=== PATIENT | female | born 1960 | race Caucasian/White ===

== ENCOUNTER 2019-03-12 10:11 | Emergency (ER) | payer OTHER ==
--- OUTSIDE RECORDS SUMMARY | 2019-03-12 10:13 | XMS REPORT ---
:1960 [facility] Address [address] [place] [address] [address]. [address] [place] [address] Care Team Providers Name Role Phone Unavailable Unavailable Unavailable Problems This patient has no known problems. Allergies, Adverse Reactions, Alerts This patient has no known allergies or adverse reactions. Medications This patient has no known medications.
[2019-03-12] MEDS ORDERED: IPRATROPIUM BROM 0.5MG/2.5ML ONE (10:40)
[2019-03-12] MEDS ORDERED: ALBUTEROL 2.5 MG/3 ML NEB SOL ONE (10:40)
--- NOTE | 2019-03-12 10:49 | RAD REPORT ---
EXAM DESCRIPTION: RAD - Chest Pa And Lat (2 Views) - 03/12/2019 10:42 am CLINICAL HISTORY: Cough;Congestion Chest pain. COMPARISON: CHEST SINGLE VIEW dated 09/19/2013; CHEST PA AND LAT 2 VIEW dated 06/07/2011; CHEST SINGLE VIEW dated 04/04/2011; CHEST SINGLE VIEW dated 04/03/2011 FINDINGS: Emphysematous changes are present throughout the lungs. Small amount of right pleural flui d noted with postoperative changes seen in the right chest. The heart is normal in size.
--- NOTE | 2019-03-12 11:24 | EDPHYS ---
Physician Documentation [facility] Name: Silva Boogie Age: 58 yrs Sex: Female : 1960 Arrival Date: 03/12/2019 Time: 10:14 Bed 15 Private MD: Immanuel Fuentes E ED Physician Audi Holden HPI: 03/12 10:41 This 58 yrs old Female presents to ER via Ambulatory with complaints of Sinus kb Congestion. 10:41 The patient or guardian reports cough, that is intermittent, described as moderate, kb with no sputum. Onset: The symptoms/episode began/occurred 2 week(s) ago. Severity of symptoms: At their worst the symptoms were moderate, in the emergency department the symptoms are unchanged. Modifying factors: The symptoms are alleviated by nothing, the symptoms are aggravated by nothing. Associated signs and symptoms: The patient has no apparent associated signs or symptoms. The patient has experienced similar episodes in the past. The patient has not recently seen a physician. Pt reports cough and congestion for 2 weeks. Denies fever. Historical: - Allergies: 10:20 No Known Allergies; tw2 - PMHx: 10:20 Anxiety; COPD; Depression; GERD; Hypertension; tw2 - PSHx: 10:20 2/3 right lung removed; Hysterectomy; tw2 - Immunization history:: Adult Immunizations. - Social history:: Smoking status: Patient uses tobacco products, smokes one pack cigarettes per day. - Ebola Screening: : Patient denies travel to an Ebola-affected area in the 21 days before illness onset. ROS: 10:39 Constitutional: Negative for fever, chills, and weight loss, Cardiovascular: Negative kb for chest pain, palpitations, and edema, Abdomen/GI: Negative for abdominal pain, nausea, vomiting, diarrhea, and constipation, Back: Negative for injury and pain, MS/Extremity: Negative for injury and deformity, Skin: Negative for injury, rash, and discoloration, Neuro: Negative for headache, weakness, numbness, tingling, and seizure. 10:39 ENT: Positive for sinus congestion. 10:39 Respiratory: Positive for cough. Exam: 10:39 Constitutional: This is a well developed, well nourished patient who is awake, alert, kb and in no acute distress. Head/Face: Normocephalic, atraumatic. ENT: Nares patent. No nasal discharge, no septal abnormalities noted. Tympanic membranes are normal and external auditory canals are clear. Oropharynx with no redness, swelling, or masses, exudates, or evidence of obstruction, uvula midline. Mucous membranes moist. Neck: Trachea midline, no thyromegaly or masses palpated, and no cervical lymphadenopathy. Supple, full range of motion without nuchal rigidity, or vertebral point tenderness. No Meningismus. Chest/axilla: Normal chest wall appearance and motion. Nontender with no deformity. No lesions are appreciated. Cardiovascular: Regular rate and rhythm with a normal S1 and S2. No gallops, murmurs, or rubs. Normal PMI, no JVD. No pulse deficits. Abdomen/GI: Soft, non-tender, with normal bowel sounds. No distension or tympany. No guarding or rebound. No evidence of tenderness throughout. Skin: Warm, dry with normal turgor. Normal color with no rashes, no lesions, and no evidence of cellulitis. MS/ Extremity: Pulses equal, no cyanosis. Neurovascular intact. Full, normal range of motion. Neuro: Awake and alert, GCS 15, oriented to person, place, time, and situation. Cranial nerves II-XII grossly intact. Motor strength 5/5 in all extremities. Sensory grossly intact. Cerebellar exam normal. Normal gait. 10:39 Respiratory: Respirations: normal, Breath sounds: decreased breath sounds, that are moderate, are heard in the right upper lobe, right middle lobe, right lower lobe, right posterior upper lobe, right posterior middle lobe and right posterior lower lobe, wheezing: expiratory that is mild, is heard in the left upper lobe, left lower lobe, left posterior upper lobe and left posterior lower lobe. Vital Signs: 10:19 BP 139 / 98; Pulse 104; Resp 18; Temp 97.9(TE); Pulse Ox 99% on R/A; Weight 58.97 kg tw2 (R); Pain 5/10; 11:20 BP 147 / 93; Pulse 102; Resp 17; Pulse Ox 96% on R/A; tw2 MDM: 10:19 Patient medically screened. kb 10:39 Data reviewed: vital signs, nurses notes. Data interpreted: Pulse oximetry: on room air kb is 99 %. Interpretation: normal. 11:21 Counseling: I had a detailed discussion with the patient and/or guardian regarding: the kb historical points, exam findings, and any diagnostic results supporting the discharge/admit diagnosis, lab results, radiology results, the need for outpatient follow up, a family practitioner, to return to the emergency department if symptoms worsen or persist or if there are any questions or concerns that arise at home. ED course: Antibiotics given based on history of lung ca, COPD and pt still smokes cigarettes. 03/12 10:20 Order name: Flu; Complete Time: 10:54 kb 03/12 10:20 Order name: Chest Pa And Lat (2 Views) XRAY; Complete Time: 10:54 kb Administered Medications: 10:41 Drug: DuoNeb (3:1) (2.5 mg - 0.5 mg) 3 ml Route: Nebulizer; tw2 11:48 Follow up: Response: No adverse reaction tw2 11:30 Drug: predniSONE 40 mg Route: PO; tw2 11:48 Follow up: Response: No adverse reaction tw2 11:30 Drug: Zithromax 500 mg Route: PO; tw2 11:47 Follow up: Response: No adverse reaction tw2 Disposition: 16:46 Co-signature as Attending Physician, Audi Holden MD I agree with the assessment and kdr plan of care. Disposition: 03/12/19 11:23 Discharged to Home. Impression: Chronic obstructive pulmonary disease with (acute) exacerbation, Bronchitis, not specified as acute or chronic. - Condition is Stable. - Discharge Instructions: Chronic Obstructive Pulmonary Disease Exacerbation, Acute Bronchitis, [id number]. - Prescriptions for Prednisone 20 mg Oral Tablet - take 1 tablet by ORAL route once daily for 5 days; 5 tablet. Zithromax Z- Anthony 250 mg Oral Tablet - take 1 tablet by ORAL route as directed for 5 days Day 1 - take two (2) tablets one time. Day 2, 3, 4 , 5 take one (1) tablet once daily.; 6 tablet. - Medication Reconciliation Form, Thank You Letter, Antibiotic Education, Prescription Opioid Use form. - Follow up: Emergency Department; When: As needed; Reason: Worsening of condition. Follow up: Private Physician; When: 2 - 3 days; Reason: Recheck today's complaints, Continuance of care, Re-evaluation by your physician. Signatures: Dispatcher [employer] Nara Argueta FNP-C FNP-Ckb Audi Holden MD MD kdr Tori Granda RN RN tw2 Corrections: (The following items were deleted from the chart) 11:48 11:23 03/12/2019 11:23 Discharged to Home. Impression: Chronic obstructive pulmonary tw2 disease with (acute) exacerbation; Bronchitis, not specified as acute or chronic. Condition is Stable. Forms are Medication Reconciliation Form, Thank You Letter, Antibiotic Education, Prescription Opioid Use. Follow up: Emergency Department; When: As needed; Reason: Worsening of condition. Follow up: Private Physician; When: 2 - 3 days; Reason: Recheck today's complaints, Continuance of care, Re-evaluation by your physician. kb
--- NOTE | 2019-03-12 11:24 | ER ---
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 i am coughing up green yellow stuff too. Transition of care: patient was not received from another setting of care. Onset of symptoms was March 12, 2019. Risk Assessment: Do you want to hurt yourself or someone else? Patient reports no desire to harm self or others. Initial Sepsis Screen: Does the patient meet any 2 criteria? HR > 90 bpm. No. Patient's initial sepsis screen is negative. Does the patient have a suspected source of infection? Yes: Productive cough/pneumonia. Care prior to arrival: None. 10:18 Method Of Arrival: Ambulatory tw2 10:18 Acuity: MAVIS 3 tw2 Triage Assessment: 11:47 General: Appears. Pain: Denies pain. tw2 Historical: - Allergies: 10:20 No Known Allergies; tw2 - PMHx: 10:20 Anxiety; COPD; Depression; GERD; Hypertension; tw2 - PSHx: 10:20 2/3 right lung removed; Hysterectomy; tw2 - Immunization history:: Adult Immunizations. - Social history:: Smoking status: Patient uses tobacco products, smokes one pack cigarettes per day. - Ebola Screening: : Patient denies travel to an Ebola-affected area in the 21 days before illness onset. Screenin:38 Abuse screen: Denies threats or abuse. Nutritional screening: No deficits noted. tw2 Tuberculosis screening: No symptoms or risk factors identified. Fall Risk None identified. Assessment: 10:15 General: Appears in no apparent distress. Behavior is calm, cooperative, appropriate tw2 for age. Neuro: Level of Consciousness is awake, alert, obeys commands, Oriented to person, place, time, situation. Cardiovascular: Heart tones S1 S2 Patient's skin is warm and dry. Respiratory: Reports cough that is productive, Airway is patent Respiratory effort is even, unlabored, Respiratory pattern is regular, symmetrical, Breath sounds are clear bilaterally. GI: No signs and/or symptoms were reported involving the gastrointestinal system. Abdomen is flat, Bowel sounds present X 4 quads. : No signs and/or symptoms were reported regarding the genitourinary system. EENT: Reports nasal congestion nasal discharge. Derm: No signs and/or symptoms reported regarding the dermatologic system. Musculoskeletal: Range of motion: intact in all extremities. 11:20 Reassessment: Patient appears in no apparent distress at this time. No changes from tw2 previously documented assessment. Patient and/or family updated on plan of care and expected duration. Pain level reassessed. Patient is alert, oriented x 3, equal unlabored respirations, skin warm/dry/pink. 11:45 Reassessment: Patient appears in no apparent distress at this time. No changes from tw2 previously documented assessment. Patient and/or family updated on plan of care and expected duration. Pain level reassessed. Patient is alert, oriented x 3, equal unlabored respirations, skin warm/dry/pink. Vital Signs: 10:19 BP 139 / 98; Pulse 104; Resp 18; Temp 97.9(TE); Pulse Ox 99% on R/A; Weight 58.97 kg tw2 (R); Pain 5/10; 11:20 BP 147 / 93; Pulse 102; Resp 17; Pulse Ox 96% on R/A; tw2 ED Course: 10:14 Patient arrived in ED. mr 10:14 Immanuel Fuentes MD is Private Physician. mr 10:15 Bed in low position. Call light in reach. tw2 10:18 Tori Granda, LULY is Primary Nurse. tw2 10:18 Nara Jackson FNP-C is PHCP. kb 10:18 Audi Holden MD is Attending Physician. kb 10:19 Triage completed. tw2 10:22 Arm band placed on. tw2 10:42 Chest Pa And Lat (2 Views) XRAY In Process Unspecified. EDMS 11:46 No provider procedures requiring assistance completed. Patient did not have IV access tw2 during this emergency room visit. Administered Medications: 10:41 Drug: DuoNeb (3:1) (2.5 mg - 0.5 mg) 3 ml Route: Nebulizer; tw2 11:48 Follow up: Response: No adverse reaction tw2 11:30 Drug: predniSONE 40 mg Route: PO; tw2 11:48 Follow up: Response: No adverse reaction tw2 11:30 Drug: Zithromax 500 mg Route: PO; tw2 11:47 Follow up: Response: No adverse reaction tw2 Outcome: 11:23 Discharge ordered by MD. brock 11:46 Discharged to home ambulatory. tw2 11:46 Condition: stable 11:46 Discharge instructions given to patient, Instructed on discharge instructions, follow up and referral plans. medication usage, Demonstrated understanding of instructions, follow-up care, medications, Prescriptions given X 2. 11:48 Patient left the ED. tw2 Signatures: Dispatcher [employer] EDNara Gibbons, AMELIA-Jorge WEBBERP-Shahana Mike Tara, RN RN tw2
[2019-03-12] MEDS ORDERED: predniSONE 20 MG TAB ONE (11:29)
[2019-03-12] MEDS ORDERED: AZITHROMYCIN 250 MG TAB ONE (11:29)
[2019-03-12 13:20] VITALS: TEMP 97.9
[2019-03-12 13:21] VITALS: BP 147/93; O2SAT 96
== END 2019-03-12 11:48 | disposition home or self-care (01) ==
LOC: ER 10:11
DX: J44.1 Chronic obstructive pulmonary disease with (acute) exacerbation (principal); J40 Bronchitis, not specified as acute or chronic; I10 Essential (primary) hypertension; F17.210 Nicotine dependence, cigarettes, uncomplicated
CPT/HCPCS: 71046; 87804; 94640; 99284; J7512

== ENCOUNTER 2022-05-26 21:39 | Emergency (ER) | payer OTHER ==
--- OUTSIDE RECORDS SUMMARY | 2022-05-26 22:01 | XMS REPORT | Continuity of Care Document ---
:1960 Author Organization [facility] t Address [address] [place] [address] Care Team Providers Name Role Phone Karis Perera Primary Care Physician HENRY FORD Attending Clinician Unavailable NELLY CHAPPELL Attending Clinician Unavailable KWAKU CROCKER Attending Clinician Unavailable KWAKU CROCKER Attending Clinician Unavailable INOCENTE ERIC Attending Clinician Unavailable DEREK MURGUIA Attending Clinician Unavailable DEREK MURGUIA Attending Clinician Unavailable Herminio ANGLIN, Nikita Attending Clinician Radha Gallardo MD Attending Clinician [phone] Inocente Eric MD Attending Clinician Jatin ANGLIN, Henry Attending Clinician Karis Perera Attending Clinician Chente SANCHEZ, Jen Attending Clinician JEN ANDERSON Attending Clinician Unavailable Doctor Unassigned, Merigold Attending Clinician Unavailable KARIS ALONZO Attending Clinician Unavailable Lab, Ang - Db Attending Clinician Unavailable CHARANJIT BOWDEN Attending Clinician Unavailable Ann ANGLIN, Charanjit Waller Attending Clinician MONA NANCE Attending Clinician Unavailable MONA NANCE Attending Clinician Unavailable Kwaku Crocker DO Attending Clinician Jama ANGLIN, Camille Attending Clinician Len ANGLIN, Alberto Attending Clinician Krissy MAURICIO, Emili Suero Attending Clinician Unavailable Alisa Bettencourt LVN Attending Clinician Unavailable Mary Ellen MAURICIO, Emmanuel Cox Attending Clinician Unavailable Zulay Cevallos Attending Clinician ZULAY FROST Attending Clinician Unavailable Cristo ANGILN, Immanuel Suero Attending Clinician Reginaldo Franco Attending Clinician Becca Dias MD Attending Clinician BECCA DIAS Attending Clinician Unavailable Marcelino Rios Attending Clinician MARCELINO BUSCH Attending Clinician Unavailable Pob, [facility] Main Attending Clinician Unavailable Jose Alejandro Sarmiento Attending Clinician Unavailable Qasim Castillo DO Attending Clinician Andrés Saldaña MD Attending Clinician ANDRÉS SALDAÑA Attending Clinician Unavailable ANDRÉS SALDAÑA Attending Clinician Unavailable PAMELA JACKSON Attending Clinician Unavailable KWAKU CROCKER Admitting Clinician Unavailable Kwaku Crocker DO Admitting Clinician HENRY FORD Admitting Clinician Unavailable Payers Payer Name Policy Type Policy Number Effective Date Expiration Date Steph kelley WELL[employer]/C DUAL [id number] 2021 COMP HMO D SNP 00:00:00 MED[place]ID [place] [id number] 2022 00:00:00 Problems Condition Condition Condition Status Onset Resolution Last Treating Co mments Source Name Details Category Date Date Treatment Clinician Date Primary Primary Disease Active 2021-04 [facility] lung lung 1-29 ity of adenocarci adenocarci [place] [facility] Lung Lung Disease Active 2021-04 Overview: Univer s nodule nodule 0-18 [place] ity of 00:00: g of this [place] note Medical might be Branch different from the original. Added automatic ally from request for surgery [id number] Acute pain Acute pain Disease Active U nivers of left of left 4-19 ity of shoulder shoulder 00:00: [place] [facility] Acute Acute Disease Active Univers left-sided left-sided 4-19 it y of low back low back 00:00: [place] pain pain 00 Medical without without Branch sciatica sciatica Status Status Disease Active Univers post fall post fall 4-19 ity of 00:00: [place] [facility] Overweight Overweight Disease Active U nivers (BMI (BMI 8-29 ity of 25.0-29.9) 25.0-29.9) [place] [facility] [place] Tachycardi Tachycardi Disease Active U nivers a a 8-29 ity of 00:00: [place] [facility] Essential Essential Disease Active Uni vers hypertensi hypertensi 8-29 it y of on on 00:00: [place] [address] Medical Branch History of History of Disease Active 2017-04 U nivers cancer cancer 0-15 ity of 00:00: [place] [address] Medical Branch Allergies, Adverse Reactions, Alerts Allergy Allergy Status Severity Reaction(s) Onset Inactive Treating Comm ents Source Name Type Date Date Clinician NO KNOWN Drug Active Univers ALLERGIE Class ity of S [place] [facility] Social History Social Habit Start Date Stop Date Quantity Comments Source History SDOH University o f Alcohol Frequency [place] [facility] History SDMO University o f Alcohol Std Drinks [place] [facility] History SDMO University o f Alcohol Binge [place] [facility] Exposure to 2022-04-14 2022-04-24 Not sure [facility] SARS-CoV-2 (event) 00:00:00 07:18:00 [facility] Alcohol intake 2022-03-27 2022-03-27 Current drinker Unive rsity of 00:00:00 00:00:00 of alcohol [facility] (finding) Branch Cigarettes smoked 2021-10-24 2021-10-24 Univers ity of current (pack per 00:00:00 00:00:00 ) - Reported Branch Tobacco use and 2021-10-24 2021-10-24 User of Universit y of exposure 00:00:00 00:00:00 smokeless [facility] tobacco [place] Tobacco Comment 2021-10-24 2021-10-24 Using Universit y of 00:00:00 00:00:00 e-cigarettes [facility] History of tobacco 2019-09-20 Cigarette Smoker University of use 00:00:00 [facility] Alcohol Comment 2018-01-19 2018-01-19 Rare Universit y of 00:00:00 00:00:00 [facility] Sex [birth year] At [birth year] Yarsani 00:00:00 00:00:00 Hospital Smoking Status Start Date Stop Date Source Tobacco smoking consumption [facility] unknown Smokes tobacco daily 2021-10-24 00:00:00 Univers ity of [facility] Medications Ordered Filled Start Stop Current Ordering Indication Dosage Frequency Signature Comments Components Source Medication Medication Date Date Medication? Clinician (SIG) Name Name atorvastajose e Yes [id number] 20mg Take 1 Univers n 20 mg 1-03 tablet by ity of tablet 00:00: mouth in [place] 00 the Medical morning. Branch atorvastati Yes [id number] 20mg Take 1 Univers n 20 mg 1-03 tablet by ity of tablet 00:00: mouth in [place] 00 the Medical morning. Branch metoprolol Yes [id number] 25mg Take 1 Un bert succinate 1-03 tablet by ity o f XL 25 mg 24 00:00: [place] 00 the Medical morning. Branch atorvastati Yes [id number] 20mg Take 1 Univers n 20 mg 1-03 tablet by ity of tablet 00:00: mouth in [place] 00 the Medical morning. Branch metoprolol 3-0 Yes [id number] 25mg Take 1 Un bert succinate 1-03 tablet by ity o f XL 25 mg 24 00:00: [place] 00 the Medical morning. Branch atorvastati 2022-0 Yes [id number] 20mg Take 1 Univers n 20 mg 1-03 tablet by ity of tablet 00:00: mouth in [place] 00 the Medical morning. Branch metoprolol 3-0 Yes [id number] 25mg Take 1 Un bert succinate 1-03 tablet by ity o f XL 25 mg 24 00:00: [place] 00 the Medical morning. Branch atorvastati 2022-0 Yes [id number] 20mg Take 1 Univers n 20 mg 1-03 tablet by ity of tablet 00:00: mouth in [place] 00 the Medical morning. Branch metoprolol 2022-0 Yes [id number] 25mg Take 1 Un bert succinate 1-03 tablet by ity o f XL 25 mg 24 00:00: [place] hr [place] 00 the Medical morning. Branch atorvastati 2022-0 Yes [id number] 20mg Take 1 Univers n 20 mg 1-03 tablet by ity of tablet 00:00: mouth in [place] 00 the Medical morning. Branch metoprolol 2022-0 Yes [id number] 25mg Take 1 Un bert succinate 1-03 tablet by ity o f XL 25 mg 24 00:00: [place] hr [place] 00 the Medical morning. Branch atorvastati 2022-0 Yes [id number] 20mg Take 1 Univers n 20 mg 1-03 tablet by ity of tablet 00:00: mouth in [place] 00 the Medical morning. Branch metoprolol 2022-0 Yes [id number] 25mg Take 1 Un bert succinate 1-03 tablet by ity o f XL 25 mg 24 00:00: [place] hr [place] 00 the Medical morning. Branch atorvastati 3-0 Yes [id number] 20mg Take 1 Univers n 20 mg 1-03 tablet by ity of tablet 00:00: mouth in [place] 00 the Medical morning. Branch metoprolol 3-0 Yes [id number] 25mg Take 1 Un bert succinate 1-03 tablet by ity o f XL 25 mg 24 00:00: [place] hr [place] 00 the Medical morning. Branch atorvastati Yes [id number] 20mg Take 1 Univers n 20 mg 1-03 tablet by ity of tablet 00:00: mouth in [place] 00 the Medical morning. Branch metoprolol Yes [id number] 25mg Take 1 Un bert succinate 1-03 tablet by ity o f XL 25 mg 24 00:00: [place] hr [place] 00 the Medical morning. Branch fludeoxyglu 2021-04- No [id number] 10.07 10.07 Univers cose F-18 -29 04-04 i millicurie ity of (FDG) 16:15: 16:12 , [place] injection 00 :00 Intravenou Medi nate 10.07 s, ONCE, 1 Branch millicurie dose, On Renate 04/04/22 at 1015, Routine losartan 50 2021-04 Yes [id number] TAKE 1 Univers mg tablet 2-21 TABLET BY ity o f 00:00: MOUTH [place] 00 EVERY Medical MORNING Branch AND 1/2 TABLET EVERY NIGHT. azelastine- 2021-04 Yes [id number] 1{spray Use 1 Univers fluticasone 2-21 } [place] in ity of 137-50 00:00: each [place] mcg/spray 00 nostril in Medi nate nasal spray the Branch morning and 1 [place] in the evening. esomeprazol 2021-04 Yes [id number] 40mg Take 1 Univers e 40 mg 2-21 capsule by ity of capsule 00:00: mouth [place] 00 daily with Medical breakfast. Branch Additional refills per GI losartan 50 2021-04 Yes [id number] TAKE 1 Univers mg tablet 2-21 TABLET BY ity o f 00:00: MOUTH [place] 00 EVERY Medical MORNING Branch AND 1/2 TABLET EVERY NIGHT. azelastine- 2021-04 Yes [id number] 1{spray Use 1 Univers fluticasone 2-21 } [place] in ity of 137-50 00:00: each [place] mcg/spray 00 nostril in Medi nate nasal spray the Branch morning and 1 [place] in the evening. esomeprazol 2021-04 Yes [id number] 40mg Take 1 Univers e 40 mg 2-21 capsule by ity of capsule 00:00: mouth [place] 00 daily with Medical breakfast. Branch Additional refills per GI losartan 50 2021-04 Yes [id number] TAKE 1 Univers mg tablet 2-21 TABLET BY ity o f 00:00: MOUTH [place] 00 EVERY Medical MORNING Branch AND 1/2 TABLET EVERY NIGHT. azelastine- 2021-04 Yes [id number] 1{spray Use 1 Univers fluticasone 2-21 } [place] in ity of 137-50 00:00: each [place] mcg/spray 00 nostril in Medi nate nasal spray the Branch morning and 1 [place] in the evening. esomeprazol 2021-04 Yes [id number] 40mg Take 1 Univers e 40 mg 2-21 capsule by ity of capsule 00:00: mouth [place] 00 daily with Medical breakfast. Branch Additional refills per GI losartan 50 2021-04 Yes [id number] TAKE 1 Univers mg tablet 2-21 TABLET BY ity o f 00:00: MOUTH [place] 00 EVERY Medical MORNING Branch AND 1/2 TABLET EVERY NIGHT. azelastine- 2021-04 Yes [id number] 1{spray Use 1 Univers fluticasone 2-21 } [place] in ity of 137-50 00:00: each [place] mcg/spray 00 nostril in Medi nate nasal spray the Branch morning and 1 [place] in the evening. esomeprazol 2021-04 Yes [id number] 40mg Take 1 Univers e 40 mg 2-21 capsule by ity of capsule 00:00: mouth [place] 00 daily with Medical breakfast. Branch Additional refills per GI losartan 50 2021-04 Yes [id number] TAKE 1 Univers mg tablet 2-21 TABLET BY ity o f 00:00: MOUTH [place] 00 EVERY Medical MORNING Branch AND 1/2 TABLET EVERY NIGHT. azelastine- 2021-04 Yes [id number] 1{spray Use 1 Univers fluticasone 2-21 } [place] in ity of 137-50 00:00: each [place] mcg/spray 00 nostril in Medi nate nasal spray the Branch morning and 1 [place] in the evening. esomeprazol 2021-04 Yes [id number] 40mg Take 1 Univers e 40 mg 2-21 capsule by ity of capsule 00:00: mouth [place] 00 daily with Medical breakfast. Branch Additional refills per GI losartan 50 2021-04 Yes [id number] TAKE 1 Univers mg tablet 2-21 TABLET BY ity o f 00:00: MOUTH [place] 00 EVERY Medical MORNING Branch AND 1/2 TABLET EVERY NIGHT. azelastine- 2021-04 Yes [id number] 1{spray Use 1 Univers fluticasone 2-21 } [place] in ity of 137-50 00:00: each [place] mcg/spray 00 nostril in Medi nate nasal spray the Branch morning and 1 [place] in the evening. esomeprazol 2021-04 Yes [id number] 40mg Take 1 Univers e 40 mg 2-21 capsule by ity of capsule 00:00: mouth [place] 00 daily with Medical breakfast. Branch Additional refills per GI losartan 50 2021-04 Yes [id number] TAKE 1 Univers mg tablet 2-21 TABLET BY ity o f 00:00: MOUTH [place] 00 EVERY Medical MORNING Branch AND 1/2 TABLET EVERY NIGHT. azelastine- 2021-04 Yes [id number] 1{spray Use 1 Univers fluticasone 2-21 } [place] in ity of 137-50 00:00: each [place] mcg/spray 00 nostril in Medi nate nasal spray the Branch morning and 1 [place] in the evening. esomeprazol 2021-04 Yes [id number] 40mg Take 1 Univers e 40 mg 2-21 capsule by ity of capsule 00:00: mouth [place] 00 daily with Medical breakfast. Branch Additional refills per GI losartan 50 2021-04 Yes [id number] TAKE 1 Univers mg tablet 2-21 TABLET BY ity o f 00:00: MOUTH [place] 00 EVERY Medical MORNING Branch AND 1/2 TABLET EVERY NIGHT. azelastine- 2021-04 Yes [id number] 1{spray Use 1 Univers fluticasone 2-21 } [place] in ity of 137-50 00:00: each [place] mcg/spray 00 nostril in Medi nate nasal spray the Branch morning and 1 [place] in the evening. esomeprazol 2021-04 Yes [id number] 40mg Take 1 Univers e 40 mg 2-21 capsule by ity of capsule 00:00: mouth [place] 00 daily with Medical breakfast. Branch Additional refills per GI losartan 50 2021-04 Yes [id number] TAKE 1 Univers mg tablet 2-21 TABLET BY ity o f 00:00: MOUTH [place] 00 EVERY Medical MORNING Branch AND 1/2 TABLET EVERY NIGHT. azelastine- 2021-04 Yes [id number] 1{spray Use 1 Univers fluticasone 2-21 } [place] in ity of 137-50 00:00: each [place] mcg/spray 00 nostril in Medi nate nasal spray the Branch morning and 1 [place] in the evening. esomeprazol 2021-04 Yes [id number] 40mg Take 1 Univers e 40 mg 2-21 capsule by ity of capsule 00:00: mouth [place] 00 daily with Medical breakfast. Branch Additional refills per GI losartan 50 2021-04 Yes [id number] TAKE 1 Univers mg tablet 2-21 TABLET BY ity o f 00:00: MOUTH [place] 00 EVERY Medical MORNING Branch AND 1/2 TABLET EVERY NIGHT. azelastine- 2021-04 Yes [id number] 1{spray Use 1 Univers fluticasone 2-21 } [place] in ity of 137-50 00:00: each [place] mcg/spray 00 nostril in Medi nate nasal spray the Branch morning and 1 [place] in the evening. esomeprazol 2021-04 Yes [id number] 40mg Take 1 Univers e 40 mg 2-21 capsule by ity of capsule 00:00: mouth [place] 00 daily with Medical breakfast. Branch Additional refills per GI losartan 50 2021-04 Yes [id number] TAKE 1 Univers mg tablet 2-21 TABLET BY ity o f 00:00: MOUTH [place] 00 EVERY Medical MORNING Branch AND 1/2 TABLET EVERY NIGHT. azelastine- 2021-04 Yes [id number] 1{spray Use 1 Univers fluticasone 2-21 } [place] in ity of 137-50 00:00: each [place] mcg/spray 00 nostril in Medi nate nasal spray the Branch morning and 1 [place] in the evening. esomeprazol 2021-04 Yes [id number] 40mg Take 1 Univers e 40 mg 2-21 capsule by ity of capsule 00:00: mouth [place] 00 daily with Medical breakfast. Branch Additional refills per GI losartan 50 2021-04 Yes [id number] TAKE 1 Univers mg tablet 2-21 TABLET BY ity o f 00:00: MOUTH [place] 00 EVERY Medical MORNING Branch AND 1/2 TABLET EVERY NIGHT. azelastine- 2021-04 Yes [id number] 1{spray Use 1 Univers fluticasone 2-21 } [place] in ity of 137-50 00:00: each [place] mcg/spray 00 nostril in Medi nate nasal spray the Branch morning and 1 [place] in the evening. esomeprazol 2021-04 Yes [id number] 40mg Take 1 Univers e 40 mg 2-21 capsule by ity of capsule 00:00: mouth [place] 00 daily with Medical breakfast. Branch Additional refills per GI losartan 50 2021-04 Yes [id number] TAKE 1 Univers mg tablet 2-21 TABLET BY ity o f 00:00: MOUTH [place] 00 EVERY Medical MORNING Branch AND 1/2 TABLET EVERY NIGHT. azelastine- 2021-04 Yes [id number] 1{spray Use 1 Univers fluticasone 2-21 } [place] in ity of 137-50 00:00: each [place] mcg/spray 00 nostril in Medi nate nasal spray the Branch morning and 1 [place] in the evening. esomeprazol 2021-04 Yes [id number] 40mg Take 1 Univers e 40 mg 2-21 capsule by ity of capsule 00:00: mouth [place] 00 daily with Medical breakfast. Branch Additional refills per GI losartan 50 2021-04 Yes [id number] TAKE 1 Univers mg tablet 2-21 TABLET BY ity o f 00:00: MOUTH [place] 00 EVERY Medical MORNING Branch AND 1/2 TABLET EVERY NIGHT. azelastine- 2021-04 Yes [id number] 1{spray Use 1 Univers fluticasone 2-21 } [place] in ity of 137-50 00:00: each [place] mcg/spray 00 nostril in Medi nate nasal spray the Branch morning and 1 [place] in the evening. esomeprazol 2021-04 Yes [id number] 40mg Take 1 Univers e 40 mg 2-21 capsule by ity of capsule 00:00: mouth [place] 00 daily with Medical breakfast. Branch Additional refills per GI losartan 50 2021-04 Yes [id number] TAKE 1 Univers mg tablet 2-21 TABLET BY ity o f 00:00: MOUTH [place] 00 EVERY Medical MORNING Branch AND 1/2 TABLET EVERY NIGHT. azelastine- 2021-04 Yes [id number] 1{spray Use 1 Univers fluticasone 2-21 } [place] in ity of 137-50 00:00: each [place] mcg/spray 00 nostril in Medi nate nasal spray the Branch morning and 1 [place] in the evening. esomeprazol 2021-04 Yes [id number] 40mg Take 1 Univers e 40 mg 2-21 capsule by ity of capsule 00:00: mouth [place] 00 daily with Medical breakfast. Branch Additional refills per GI losartan 50 2021-04 Yes [id number] TAKE 1 Univers mg tablet 2-21 TABLET BY ity o f 00:00: MOUTH [place] 00 EVERY Medical MORNING Branch AND 1/2 TABLET EVERY NIGHT. azelastine- 2021-04 Yes [id number] 1{spray Use 1 Univers fluticasone 2-21 } [place] in ity of 137-50 00:00: each [place] mcg/spray 00 nostril in Medi nate nasal spray the Branch morning and 1 [place] in the evening. esomeprazol 2021-04 Yes [id number] 40mg Take 1 Univers e 40 mg 2-21 capsule by ity of capsule 00:00: mouth [place] 00 daily with Medical breakfast. Branch Additional refills per GI losartan 50 2021-04 Yes [id number] TAKE 1 Univers mg tablet 2-21 TABLET BY ity o f 00:00: MOUTH [place] 00 EVERY Medical MORNING Branch AND 1/2 TABLET EVERY NIGHT. azelastine- 2021-04 Yes [id number] 1{spray Use 1 Univers fluticasone 2-21 } [place] in ity of 137-50 00:00: each [place] mcg/spray 00 nostril in Medi nate nasal spray the Branch morning and 1 [place] in the evening. esomeprazol 2021-04 Yes [id number] 40mg Take 1 Univers e 40 mg 2-21 capsule by ity of capsule 00:00: mouth [place] 00 daily with Medical breakfast. Branch Additional refills per GI losartan 50 2021-04 Yes [id number] TAKE 1 Univers mg tablet 2-21 TABLET BY ity o f 00:00: MOUTH [place] 00 EVERY Medical MORNING Branch AND 1/2 TABLET EVERY NIGHT. azelastine- 2021-04 Yes [id number] 1{spray Use 1 Univers fluticasone 2-21 } [place] in ity of 137-50 00:00: each [place] mcg/spray 00 nostril in Medi nate nasal spray the Branch morning and 1 [place] in the evening. esomeprazol 2021-04 Yes [id number] 40mg Take 1 Univers e 40 mg 2-21 capsule by ity of capsule 00:00: mouth [place] 00 daily with Medical breakfast. Branch Additional refills per GI ARIPiprazol 2021-04 Yes Univer s e 2 mg 2-14 ity of tablet 00:00: [place] [facility] Branch ARIPiprazol 2021-04 Yes Univer s e 2 mg 2-14 ity of tablet 00:00: [address] Branch ARIPiprazol 2021-04 Yes Univer s e 2 mg 2-14 ity of tablet 00:00: [place] [facility] Branch ARIPiprazol 2021-04 Yes Univer s e 2 mg 2-14 ity of tablet 00:00: [address] Branch ARIPiprazol 2021-04 Yes Univer s e 2 mg 2-14 ity of tablet 00:00: [address] Branch ARIPiprazol 2021-04 Yes Univer s e 2 mg 2-14 ity of tablet 00:00: [address] Branch ARIPiprazol 2021-04 Yes Univer s e 2 mg 2-14 ity of tablet 00:00: [address] Branch ARIPiprazol 2021-04 Yes Univer s e 2 mg 2-14 ity of tablet 00:00: [address] Branch ARIPiprazol 2021-04 Yes Univer s e 2 mg 2-14 ity of tablet 00:00: [address] Branch ARIPiprazol 2021-04 Yes Univer s e 2 mg 2-14 ity of tablet 00:00: [place] [address] Medical Branch ARIPiprazol 2021-04 Yes Univer s e 2 mg 2-14 ity of tablet 00:00: [address] Branch ARIPiprazol 2021-04 Yes Univer s e 2 mg 2-14 ity of tablet 00:00: [address] Branch ARIPiprazol 2021-04 Yes Univer s e 2 mg 2-14 ity of tablet 00:00: [address] Branch ARIPiprazol 2021-04 Yes Univer s e 2 mg 2-14 ity of tablet 00:00: [address] Branch ARIPiprazol 2021-04 Yes Univer s e 2 mg 2-14 ity of tablet 00:00: [address] Branch ARIPiprazol 2021-04 Yes Univer s e 2 mg 2-14 ity of tablet 00:00: Medical Branch ARIPiprazol 2021-04 Yes Univer s e 2 mg 2-14 ity of tablet 00:00: [place] [facility] ARIPiprazol 2021-04 Yes Univer s e 2 mg 2-14 ity of tablet 00:00: [place] [facility] traZODone 2021-04 Yes TAKE 1 Univer s 50 mg 2-12 TABLET BY ity of tablet 00:00: [facility] EVERY DAY Medical AT BEDTIME Branch NEEDED traZODone 2021-04 Yes TAKE 1 Univer s 50 mg 2-12 TABLET BY ity of tablet 00:00: [facility] EVERY DAY Medical AT BEDTIME Branch NEEDED traZODone 2021-04 Yes TAKE 1 Univer s 50 mg 2-12 TABLET BY ity of tablet 00:00: [facility] EVERY DAY Medical AT BEDTIME Branch NEEDED traZODone 2021-04 Yes TAKE 1 Univer s 50 mg 2-12 TABLET BY ity of tablet 00:00: [facility] EVERY DAY Medical AT BEDTIME Branch NEEDED traZODone 2021-04 Yes TAKE 1 Univer s 50 mg 2-12 TABLET BY ity of tablet 00:00: [facility] EVERY DAY Medical AT BEDTIME Branch NEEDED traZODone 2021-04 Yes TAKE 1 Univer s 50 mg 2-12 TABLET BY ity of tablet 00:00: EVERY DAY Medical AT BEDTIME Branch NEEDED traZODone 2021-04 Yes TAKE 1 Univer s 50 mg 2-12 TABLET BY ity of tablet 00:00: [facility] EVERY DAY Medical AT BEDTIME Branch NEEDED traZODone 2021-04 Yes TAKE 1 Univer s 50 mg 2-12 TABLET BY ity of tablet 00:00: [facility] EVERY DAY Medical AT BEDTIME Branch NEEDED traZODone 2021-04 Yes TAKE 1 Univer s 50 mg 2-12 TABLET BY ity of tablet 00:00: [facility] EVERY DAY Medical AT BEDTIME Branch NEEDED traZODone 2021-04 Yes TAKE 1 Univer s 50 mg 2-12 TABLET BY ity of tablet 00:00: [facility] EVERY DAY Medical AT BEDTIME Branch NEEDED traZODone 2021-04 Yes TAKE 1 Univer s 50 mg 2-12 TABLET BY ity of tablet 00:00: MOUTH [place] 00 EVERY DAY Medical AT BEDTIME Branch NEEDED traZODone 2021-04 Yes TAKE 1 Univer s 50 mg 2-12 TABLET BY ity of tablet 00:00: MOUTH [place] 00 EVERY DAY Medical AT BEDTIME Branch NEEDED traZODone 2021-04 Yes TAKE 1 Univer s 50 mg 2-12 TABLET BY ity of tablet 00:00: MOUTH [place] EVERY DAY Medical AT BEDTIME Branch NEEDED traZODone 2021-04 Yes TAKE 1 Univer s 50 mg 2-12 TABLET BY ity of tablet 00:00: MOUTH [place] 00 EVERY DAY Medical AT BEDTIME Branch NEEDED traZODone 2021-04 Yes TAKE 1 Univer s 50 mg 2-12 TABLET BY ity of tablet 00:00: [facility] EVERY DAY Medical AT BEDTIME Branch NEEDED traZODone 2021-04 Yes TAKE 1 Univer s 50 mg 2-12 TABLET BY ity of tablet 00:00: [facility] EVERY DAY Medical AT BEDTIME Branch NEEDED traZODone 2021-04 Yes TAKE 1 Univer s 50 mg 2-12 TABLET BY ity of tablet 00:00: MOUTH [place] 00 EVERY DAY Medical AT BEDTIME Branch NEEDED traZODone 2021-04 Yes TAKE 1 Univer s 50 mg 2-12 TABLET BY ity of tablet 00:00: [facility] 00 EVERY DAY Medical AT BEDTIME Branch NEEDED [email or web address] 2021-04 Yes [id number] 1{puff} Inhale 1 Univers m (INCRUSE 2-05 Puff ity of ELLIPTA) 00:00: daily. [place] 62.5 00 Medical mcg/actuati Branch on DsDv albuterol 2021-04 Yes [id number] 2.5mg Inhale 3 Univers 2.5 mg /3 2-05 mL every 6 ity of mL (0.083 00:00: (six) [place] %) 00 hours as Medical nebulizer needed for Bran ch solution Wheezing or Shortness of Breath. [email or web address] 2021-04 Yes [id number] 1{puff} Inhale 1 Univers m (INCRUSE 2-05 Puff ity of ELLIPTA) 00:00: daily. [place] 62.5 00 Medical mcg/actuati Branch on DsDv albuterol 2021-04 Yes [id number] 2.5mg Inhale 3 Univers 2.5 mg /3 2-05 mL every 6 ity of mL (0.083 00:00: (six) [place] %) 00 hours as Medical nebulizer needed for Bran ch solution Wheezing or Shortness of Breath. dariusz 2021-04 Yes [id number] 1{puff} Inhale 1 Univers m (INCRUSE 2-05 Puff ity of ELLIPTA) 00:00: daily. [place] 62.5 00 Medical mcg/actuati Branch on DsDv albuterol 2021-04 Yes [id number] 2.5mg Inhale 3 Univers 2.5 mg /3 2-05 mL every 6 ity of mL (0.083 00:00: (six) [place] %) 00 hours as Medical nebulizer needed for Bran ch solution Wheezing or Shortness of Breath. dariusz 2021-04 Yes [id number] 1{puff} Inhale 1 Univers m (INCRUSE 2-05 Puff ity of ELLIPTA) 00:00: daily. [place] 62.5 00 Medical mcg/actuati Branch on DsDv albuterol 2021-04 Yes [id number] 2.5mg Inhale 3 Univers 2.5 mg /3 2-05 mL every 6 ity of mL (0.083 00:00: (six) [place] %) 00 hours as Medical nebulizer needed for Bran ch solution Wheezing or Shortness of Breath. dariusz 2021-04 Yes [id number] 1{puff} Inhale 1 Univers m (INCRUSE 2-05 Puff ity of ELLIPTA) 00:00: daily. [place] 62.5 00 Medical mcg/actuati Branch on DsDv albuterol 2021-04 Yes [id number] 2.5mg Inhale 3 Univers 2.5 mg /3 2-05 mL every 6 ity of mL (0.083 00:00: (six) [place] %) 00 hours as Medical nebulizer needed for Bran ch solution Wheezing or Shortness of Breath. dariusz 2021-04 Yes [id number] 1{puff} Inhale 1 Univers m (INCRUSE 2-05 Puff ity of ELLIPTA) 00:00: daily. [place] 62.5 00 Medical mcg/actuati Branch on DsDv albuterol 2021-04 Yes [id number] 2.5mg Inhale 3 Univers 2.5 mg /3 2-05 mL every 6 ity of mL (0.083 00:00: (six) [place] %) 00 hours as Medical nebulizer needed for Bran ch solution Wheezing or Shortness of Breath. dariusz 2021-04 Yes [id number] 1{puff} Inhale 1 Univers m (INCRUSE 2-05 Puff ity of ELLIPTA) 00:00: daily. [place] [address]. 00 Medical mcg/actuati Branch on DsDv albuterol 2021-04 Yes [id number] 2.5mg Inhale 3 Univers 2.5 mg /3 2-05 mL every 6 ity of mL (0.083 00:00: (six) [place] %) 00 hours as Medical nebulizer needed for Bran ch solution Wheezing or Shortness of Breath. dariusz 2021-04 Yes [id number] 1{puff} Inhale 1 Univers m (INCRUSE 2-05 Puff ity of ELLIPTA) 00:00: daily. [place] [address]. Medical mcg/actuati Branch on DsDv albuterol 2021-04 Yes [id number] 2.5mg Inhale 3 Univers 2.5 mg /3 2-05 mL every 6 ity of mL (0.083 00:00: (six) [place] %) 00 hours as Medical nebulizer needed for Bran ch solution Wheezing or Shortness of Breath. dariusz 2021-04 Yes [id number] 1{puff} Inhale 1 Univers m (INCRUSE 2-05 Puff ity of ELLIPTA) 00:00: daily. [place] [address]. Medical mcg/actuati Branch on DsDv albuterol 2021-04 Yes [id number] 2.5mg Inhale 3 Univers 2.5 mg /3 2-05 mL every 6 ity of mL (0.083 00:00: (six) [place] %) 00 hours as Medical nebulizer needed for Bran ch solution Wheezing or Shortness of Breath. dariusz 2021-04 Yes [id number] 1{puff} Inhale 1 Univers m (INCRUSE 2-05 Puff ity of ELLIPTA) 00:00: daily. [place] 62.5 00 Medical mcg/actuati Branch on DsDv albuterol 2021-04 Yes [id number] 2.5mg Inhale 3 Univers 2.5 mg /3 2-05 mL every 6 ity of mL (0.083 00:00: (six) [place] %) 00 hours as Medical nebulizer needed for Bran ch solution Wheezing or Shortness of Breath. dariusz 2021-04 Yes [id number] 1{puff} Inhale 1 Univers m (INCRUSE 2-05 Puff ity of ELLIPTA) 00:00: daily. [place] [address].5 00 Medical mcg/actuati Branch on DsDv albuterol 2021-04 Yes [id number] 2.5mg Inhale 3 Univers 2.5 mg /3 2-05 mL every 6 ity of mL (0.083 00:00: (six) [place] %) 00 hours as Medical nebulizer needed for Bran ch solution Wheezing or Shortness of Breath. dariusz 2021-04 Yes [id number] 1{puff} Inhale 1 [facility] m (INCRUSE 2-05 Puff ity of ELLIPTA) 00:00: daily. [place] [address].5 00 Medical mcg/actuati Branch on DsDv albuterol 2021-04 Yes [id number] 2.5mg Inhale 3 [facility] 2.5 mg /3 2-05 mL every 6 ity of mL (0.083 00:00: (six) [place] %) 00 hours as Medical nebulizer needed for Bran ch solution Wheezing or Shortness of Breath. dariusz 2021-04 Yes [id number] 1{puff} Inhale 1 [facility] m (INCRUSE 2-05 Puff ity of ELLIPTA) 00:00: daily. [place] [address].5 00 Medical mcg/actuati Branch on DsDv albuterol 2021-04 Yes [id number] 2.5mg Inhale 3 Univers 2.5 mg /3 2-05 mL every 6 ity of mL (0.083 00:00: (six) [place] %) 00 hours as Medical nebulizer needed for Bran ch solution Wheezing or Shortness of Breath. dariusz 2021-04 Yes [id number] 1{puff} Inhale 1 [facility] m (INCRUSE 2-05 Puff ity of ELLIPTA) 00:00: daily. [place] [address].5 00 Medical mcg/actuati Branch on DsDv albuterol 2021-04 Yes [id number] 2.5mg Inhale 3 Univers 2.5 mg /3 2-05 mL every 6 ity of mL (0.083 00:00: (six) [place] %) 00 hours as Medical nebulizer needed for Bran ch solution Wheezing or Shortness of Breath. twanu 2021-04 Yes [id number] 1{puff} Inhale 1 [facility] m (INCRUSE 2-05 Puff ity of ELLIPTA) 00:00: daily. [place] [address]. 00 Medical mcg/actuati Branch on DsDv albuterol 2021-04 Yes [id number] 2.5mg Inhale 3 Univers 2.5 mg /3 2-05 mL every 6 ity of mL (0.083 00:00: (six) [place] %) 00 hours as Medical nebulizer needed for Bran ch solution Wheezing or Shortness of Breath. dariusz 2021-04 Yes [id number] 1{puff} Inhale 1 [facility] m (INCRUSE 2-05 Puff ity of ELLIPTA) 00:00: daily. [place] [address]. 00 Medical mcg/actuati Branch on DsDv albuterol 2021-04 Yes [id number] 2.5mg Inhale 3 Univers 2.5 mg /3 2-05 mL every 6 ity of mL (0.083 00:00: (six) [place] %) 00 hours as Medical nebulizer needed for Bran ch solution Wheezing or Shortness of Breath. dariusz 2021-04 Yes [id number] 1{puff} Inhale 1 [facility] m (INCRUSE 2-05 Puff ity of ELLIPTA) 00:00: daily. [place] [address].5 00 Medical mcg/actuati Branch on DsDv albuterol 2021-04 Yes [id number] 2.5mg Inhale 3 [facility] 2.5 mg /3 2-05 mL every 6 ity of mL (0.083 00:00: (six) [place] %) 00 hours as Medical nebulizer needed for Bran ch solution Wheezing or Shortness of Breath. masterarikiu 2021-04 Yes [id number] 1{puff} Inhale 1 [facility] m (INCRUSE 2-05 Puff ity of ELLIPTA) 00:00: daily. [place] [address].5 00 Medical mcg/actuati Branch on DsDv albuterol 2021-04 Yes [id number] 2.5mg Inhale 3 Univers 2.5 mg /3 2-05 mL every 6 ity of mL (0.083 00:00: (six) [place] %) 00 hours as Medical nebulizer needed for Bran ch solution Wheezing or Shortness of Breath. ecarikiu 2021-04 Yes [id number] 1{puff} Inhale 1 [facility] m (INCRUSE 2-05 Puff ity of ELLIPTA) 00:00: daily. [place] [address].5 00 Medical mcg/actuati Branch on DsDv albuterol 2021-04 Yes [id number] 2.5mg Inhale 3 Univers 2.5 mg /3 2-05 mL every 6 ity of mL (0.083 00:00: (six) [place] %) 00 hours as Medical nebulizer needed for Bran ch solution Wheezing or Shortness of Breath. deaniu 2021-04 Yes [id number] 1{puff} Inhale 1 [facility] m (INCRUSE 2-05 Puff ity of ELLIPTA) 00:00: daily. [place] [address].5 00 Medical mcg/actuati Branch on DsDv albuterol 2021-04 Yes [id number] 2.5mg Inhale 3 [facility] 2.5 mg /3 2-05 mL every 6 ity of mL (0.083 00:00: (six) [place] %) 00 hours as Medical nebulizer needed for Bran ch solution Wheezing or Shortness of Breath. lyndsaylianiliu 2021-04 Yes [id number] 1{puff} Inhale 1 [facility] m (INCRUSE 2-05 Puff ity of ELLIPTA) 00:00: daily. [place] [address].5 00 Medical mcg/actuati Branch on DsDv albuterol 2021-04 Yes [id number] 2.5mg Inhale 3 Univers 2.5 mg /3 2-05 mL every 6 ity of mL (0.083 00:00: (six) [place] %) 00 hours as Medical nebulizer needed for Bran ch solution Wheezing or Shortness of Breath. umecarikiu 2021-04 Yes [id number] 1{puff} Inhale 1 [facility] m (INCRUSE 2-05 Puff ity of ELLIPTA) 00:00: daily. [place] 62.5 00 Medical mcg/actuati Branch on DsDv albuterol 2021-04 Yes [id number] 2.5mg Inhale 3 [facility] 2.5 mg /3 2-05 mL every 6 ity of mL (0.083 00:00: (six) [place] %) 00 hours as Medical nebulizer needed for Bran ch solution Wheezing or Shortness of Breath. umecarikiu 2021-04 Yes [id number] 1{puff} Inhale 1 [facility] m (INCRUSE 2-05 Puff ity of ELLIPTA) 00:00: daily. [place] [address].5 00 Medical mcg/actuati Branch on DsDv albuterol 2021-04 Yes [id number] 2.5mg Inhale 3 Univers 2.5 mg /3 2-05 mL every 6 ity of mL (0.083 00:00: (six) [place] %) 00 hours as Medical nebulizer needed for Bran ch solution Wheezing or Shortness of Breath. davidiu 2021-04 Yes [id number] 1{puff} Inhale 1 [facility] m (INCRUSE 2-05 Puff ity of ELLIPTA) 00:00: daily. [place] [address].5 00 Medical mcg/actuati Branch on DsDv albuterol 2021-04 Yes [id number] 2.5mg Inhale 3 Univers 2.5 mg /3 2-05 mL every 6 ity of mL (0.083 00:00: (six) [place] %) 00 hours as Medical nebulizer needed for Bran ch solution Wheezing or Shortness of Breath. shawneclianiliu 2021-04 Yes [id number] 1{puff} Inhale 1 [facility] m (INCRUSE 2-05 Puff ity of ELLIPTA) 00:00: daily. [place] 62.5 00 Medical mcg/actuati Branch on DsDv albuterol 2021-04 Yes [id number] 2.5mg Inhale 3 Univers 2.5 mg /3 2-05 mL every 6 ity of mL (0.083 00:00: (six) [place] %) 00 hours as Medical nebulizer needed for Bran ch solution Wheezing or Shortness of Breath. dariusz 2021-04 Yes [id number] 1{puff} Inhale 1 [facility] m (INCRUSE 2-05 Puff ity of ELLIPTA) 00:00: daily. [place] 62.5 00 Medical mcg/actuati Branch on DsDv albuterol 2021-04 Yes [id number] 2.5mg Inhale 3 Univers 2.5 mg /3 2-05 mL every 6 ity of mL (0.083 00:00: (six) [place] %) 00 hours as Medical nebulizer needed for Bran ch solution Wheezing or Shortness of Breath. dariusz 2021-04 Yes [id number] 1{puff} Inhale 1 [facility] m (INCRUSE 2-05 Puff ity of ELLIPTA) 00:00: daily. [place] 62.5 00 Medical mcg/actuati Branch on DsDv albuterol 2021-04 Yes [id number] 2.5mg Inhale 3 Univers 2.5 mg /3 2-05 mL every 6 ity of mL (0.083 00:00: (six) [place] %) 00 hours as Medical nebulizer needed for Bran ch solution Wheezing or Shortness of Breath. shawnecliircci 2021-04 Yes [id number] 1{puff} Inhale 1 [facility] m (INCRUSE 2-05 Puff ity of ELLIPTA) 00:00: daily. [place] 62.5 00 Medical mcg/actuati Branch on DsDv albuterol 2021-04 Yes [id number] 2.5mg Inhale 3 Univers 2.5 mg /3 2-05 mL every 6 ity of mL (0.083 00:00: (six) [place] %) 00 hours as Medical nebulizer needed for Bran ch solution Wheezing or Shortness of Breath. losartan 50 2021-04 Yes [id number] TAKE 1 [facility] mg tablet 1-22 TABLET BY ity o f 00:00: MOUTH [place] 00 EVERY Medical MORNING Branch AND 1/2 TABLET EVERY NIGHT. Follow-up for refills and fasting labs. losartan 50 2021-04 Yes [id number] TAKE 1 [facility] mg tablet 1-22 TABLET BY ity o f 00:00: MOUTH [place] 00 EVERY Medical MORNING Branch AND 1/2 TABLET EVERY NIGHT. Follow-up for refills and fasting labs. losartan 50 2021-04 Yes [id number] TAKE 1 Univers mg tablet 1-22 TABLET BY ity o f 00:00: MOUTH [place] 00 EVERY Medical MORNING Branch AND 1/2 TABLET EVERY NIGHT. Follow-up for refills and fasting labs. losartan 50 2021-04 Yes [id number] TAKE 1 [facility] mg tablet 1-22 TABLET BY ity o f 00:00: MOUTH [place] 00 EVERY Medical MORNING Branch AND 1/2 TABLET EVERY NIGHT. Follow-up for refills and fasting labs. losartan 50 2021-04 Yes [id number] TAKE 1 [facility] mg tablet 1-22 TABLET BY ity o f 00:00: MOUTH [place] 00 EVERY Medical MORNING Branch AND 1/2 TABLET EVERY NIGHT. Follow-up for refills and fasting labs. losartan 50 2021-04 Yes [id number] TAKE 1 [facility] mg tablet 1-22 TABLET BY ity o f 00:00: MOUTH [place] 00 EVERY Medical MORNING Branch AND 1/2 TABLET EVERY NIGHT. Follow-up for refills and fasting labs. losartan 50 2021-04 Yes [id number] TAKE 1 [facility] mg tablet 1-22 TABLET BY ity o f 00:00: MOUTH [place] 00 EVERY Medical MORNING Branch AND 1/2 TABLET EVERY NIGHT. Follow-up for refills and fasting labs. losartan 50 2021-04 Yes [id number] TAKE 1 [facility] mg tablet 1-22 TABLET BY ity o f 00:00: MOUTH [place] 00 EVERY Medical MORNING Branch AND 1/2 TABLET EVERY NIGHT. Follow-up for refills and fasting labs. losartan 50 2021-04 Yes [id number] TAKE 1 [facility] mg tablet 1-22 TABLET BY ity o f 00:00: MOUTH [place] 00 EVERY Medical MORNING Branch AND 1/2 TABLET EVERY NIGHT. Follow-up for refills and fasting labs. losartan 50 2021-04- No [id number] TAKE 1 [facility] mg tablet 1-22 12-21 TABLET BY ity of 00:00: 00:00 MOUTH [place] 00 :00 EVERY Medical MORNING Branch AND 1/2 TABLET EVERY NIGHT. Follow-up for refills and fasting labs. losartan 50 2021-04- No [id number] TAKE 1 [facility] mg tablet 1-22 12-21 TABLET BY ity of 00:00: 00:00 MOUTH [place] 00 :00 EVERY Medical MORNING Branch AND 1/2 TABLET EVERY NIGHT. Follow-up for refills and fasting labs. losartan 50 2021-04- No [id number] TAKE 1 [facility] mg tablet 04-28- TABLET BY ity of 00:00: 00:00 MOUTH [place] 00 :00 EVERY Medical MORNING Branch AND 1/2 TABLET EVERY NIGHT. Follow-up for refills and fasting labs. losartan 50 2021-04- No [id number] TAKE 1 [facility] mg tablet 04-28- TABLET BY ity of 00:00: 00:00 MOUTH [place] 00 :00 EVERY Medical MORNING Branch AND 1/2 TABLET EVERY NIGHT. Follow-up for refills and fasting labs. losartan 50 2021-04- No [id number] TAKE 1 [facility] mg tablet 04-28- TABLET BY ity of 00:00: 00:00 MOUTH [place] 00 :00 EVERY Medical MORNING Branch AND 1/2 TABLET EVERY NIGHT. Follow-up for refills and fasting labs. losartan 50 2021-04- No [id number] TAKE 1 [facility] mg tablet 04-28 TABLET BY ity of 00:00: 00:00 MOUTH [place] 00 :00 EVERY Medical MORNING Branch AND 1/2 TABLET EVERY NIGHT. Follow-up for refills and fasting labs. gadoteridol 2021-04- No [id number] .2mL/kg 0.2 mL/kg, Univers (PROHANCE-1 04-26 Intravenou i ty of 5 mL) 18:00: 17:57 s, ONCE, 1 [place] injection 00 :00 dose, On Medica l 0.2 mL/kg Sun Branch 02/24/22 at 1200, Routine glucosamine 2021-04 Yes Univer s /msm/chondr 1-15 ity of oit sulf 00:00: [place] (GLUCOSAMIN 00 Medical E Branch 2KCL-MSM-CH ONDROIT ORAL) glucosamine 2021-04 Yes Univer s /msm/chondr 1-15 ity of oit sulf 00:00: [place] (GLUCOSAMIN 00 Medical E Branch 2KCL-MSM-CH ONDROIT ORAL) glucosamine 2021-04 Yes Univer s /msm/chondr 1-15 ity of oit sulf 00:00: [place] (GLUCOSAMIN 00 Medical E Branch 2KCL-MSM-CH ONDROIT ORAL) glucosamine 2021-04 Yes Univer s /msm/chondr 1-15 ity of oit sulf 00:00: [place] (GLUCOSAMIN 00 Medical E Branch 2K-MSM- ONDROIT ORAL) glucosamine 2021-04 Yes Univer s /msm/chondr 1-15 ity of oit sulf 00:00: [place] (GLUCOSAMIN 00 Medical E Branch 2K-MSM-CH ONDROIT ORAL) glucosamine 2021-04 Yes Univer s /msm/chondr 1-15 ity of oit sulf 00:00: [place] (GLUCOSAMIN 00 Medical E Branch 2K-MSM- ONDROIT ORAL) glucosamine 2021-04 Yes Univer s /msm/chondr 1-15 ity of oit sulf 00:00: [place] (GLUCOSAMIN 00 Medical E Branch 2K-MSM- ONDROIT ORAL) glucosamine 2021-04 Yes Univer s /msm/chondr 1-15 ity of oit sulf 00:00: [place] (GLUCOSAMIN 00 Medical E Branch 2K-MSM- ONDROIT ORAL) glucosamine 2021-04 Yes Univer s /msm/chondr 1-15 ity of oit sulf 00:00: [place] (GLUCOSAMIN 00 Medical E Branch 2K-MSM- ONDROIT ORAL) glucosamine 2021-04 Yes Univer s /msm/chondr 1-15 ity of oit sulf 00:00: [place] (GLUCOSAMIN 00 Medical E Branch 2K-MSM- ONDROIT ORAL) glucosamine 2021-04 Yes Univer s /msm/chondr 1-15 ity of oit sulf 00:00: [place] (GLUCOSAMIN 00 Medical E Branch 2K-MSM- ONDROIT ORAL) glucosamine 2021-04 Yes Univer s /msm/chondr 1-15 ity of oit sulf 00:00: [place] (GLUCOSAMIN 00 Medical E Branch 2K-MSM-CH ONDROIT ORAL) glucosamine 2021-04 Yes Univer s /msm/chondr 1-15 ity of oit sulf 00:00: [place] (GLUCOSAMIN 00 Medical E Branch 2K-MSM-CH ONDROIT ORAL) glucosamine 2021-04 Yes Univer s /msm/chondr 1-15 ity of oit sulf 00:00: [place] (GLUCOSAMIN 00 Medical E Branch 2KCL-MSM-CH ONDROIT ORAL) glucosamine 2021-04 Yes Univer s /msm/chondr 1-15 ity of oit sulf 00:00: [place] (GLUCOSAMIN 00 Medical E Branch 2KCL-MSM-CH ONDROIT ORAL) glucosamine 2021-04 Yes Univer s /msm/chondr 1-15 ity of oit sulf 00:00: [place] (GLUCOSAMIN 00 Medical E Branch 2KCL-MSM-CH ONDROIT ORAL) glucosamine 2021-04 Yes Univer s /msm/chondr 1-15 ity of oit sulf 00:00: [place] (GLUCOSAMIN 00 Medical E Branch 2KCL-MSM-CH ONDROIT ORAL) glucosamine 2021-04 Yes Univer s /msm/chondr 1-15 ity of oit sulf 00:00: [place] (GLUCOSAMIN 00 Medical E Branch 2KCL-MSM-CH ONDROIT ORAL) ipratropium 2021-04 Yes 3mL 3 mL, Unive rs -albuteroL 0-26 Inhalation ity of (DUONEB) 17:15: , PRN, 5 [place] 0.5 mg-3 48 doses, Medical mg(2.5 mg Starting Branch base)/3 mL on Fri nebulizer 01/30/22 solution 3 at 1215, mL Until Discontinu ed, Routine, Wheezing, Shortness of Breath, PACU ipratropium 2021-04 3mL 3 mL, Univ ers -albuteroL 0-26 10-26 Inhalation it y of (DUONEB) 17:15: 20:48 , PRN, 5 [place] 0.5 mg-3 48 :24 doses, Medical mg(2.5 mg Starting Branch base)/3 mL on Fri nebulizer 01/30/22 solution 3 at 1215, mL Until Fri01/30/22 at 1548, Routine, Wheezing, Shortness of Breath, PACU lactated 2021-04 Yes 500mL at 42 Univers ringers IV 0-26 mL/hr, 500 ity of infusion 16:15: mL, IV [place] 500 mL 00 Infusion, Medical CONTINUOUS Branch , Starting on 10/26/22 at 1115, Until Discontinu ed, Routine, PACU lactated 2021-04- No 500mL at 42 Univer s ringers IV 0-26 10-26 mL/hr, 500 it y of infusion 16:15: 20:48 mL, IV [place] 500 mL 00 :24 Infusion, Medical CONTINUOUS Branch , Starting on Fri01/30/22 at 1115, Until Fri01/30/22 at 1548, Routine, PACU HYDROmorphO 2021-04 Yes .2mg 0.2 mg, Uni vers ne 0-26 Slow IV ity of (DILAUDID) 16:05: Push, [place] injection 01 Q5MIN PRN, Medi nate 0.2 mg 10 doses, Branch Starting on Fri01/30/22 at 1105, Until Discontinu ed, Routine, Pain (scale 7-10), PACU
Us e approved by (Faculty): PACU USE -ANESTHESI A SERVICE-HY DROMORPHON E INJECTIONS FENTanyl PF 2021-04 Yes 25ug 25 mcg, Uni vers (SUBLIMAZE 0-26 Slow IV ity of (PF)) 16:05: Push, [place] injection 01 Q5MIN PRN, Medi nate 25 mcg 4 doses, Branch Starting on Fri01/30/22 at 1105, Until Discontinu ed, Routine, Pain (scale 4-6), PACU HYDROmorphO 2021-04- No .2mg 0.2 mg, Un bert ne 0-26 10-26 Slow IV ity of (DILAUDID) 16:05: 20:48 Push, [place] injection 01 :24 Q5MIN PRN, Medi nate 0.2 mg 10 doses, Branch Starting on Fri01/30/22 at 1105, Until Fri01/30/22 at 1548, Routine, Pain (scale 7-10), PACU
Us e approved by (Faculty): PACU USE -ANESTHESI A SERVICE-HY DROMORPHON E INJECTIONS FENTanyl PF 2021-04- No 25ug 25 mcg, Un bert (SUBLIMAZE 0-26 10-26 Slow IV ity o f (PF)) 16:05: 20:48 Push, [place] injection 01 :24 Q5MIN PRN, Medi naet 25 mcg 4 doses, Branch Starting on Fri01/30/22 at 1105, Until Fri01/30/22 at 1548, Routine, Pain (scale 4-6), PACU lidocaine 2021-04- No PRN, Univers in 0-01-30 Starting ity of NaCl,iso-os 15:52: 17:04 on Fri [place] as mo(PF) 100 00 :23 01/30/22 Medic al mg/10 mL (1 at 1052, Bran ch %) Until Fri injection 01/30/22 syringe at 1204, Routine, Intra-op ALPRAZolam 2021-04 Yes .5mg Take 0.5 Uni vers 1 mg tablet 0-26 mg by ity of 13:43: mouth as [place] 20 needed. Medical Branch [facility] 2021-04 Yes Take by Uni vers /dextrometh 0-26 mouth. ity of orphan 13:43: [place] (MUCINEX DM 20 Medical ORAL) [place] ALPRAZolam 2021-04 Yes .5mg Take 0.5 Uni vers 1 mg tablet 0-26 mg by ity of 13:43: mouth as [place] 20 needed. Medical Branch [facility] 2021-04 Yes Take by Uni vers /dextrometh 0-26 mouth. ity of orphan 13:43: [place] (MUCINEX DM 20 Medical ORAL) Branch ALPRAZolam 2021-04 Yes .5mg Take 0.5 Uni vers 1 mg tablet 0-26 mg by ity of 13:43: mouth as [place] 20 needed. [facility] Yes Take by Uni vers /dextrometh 0-26 mouth. ity of orphan 13:43: [place] (MUCINEX DM 20 Medical ORAL) Branch ALPRAZolam 2021-04 Yes .5mg Take 0.5 Uni vers 1 mg tablet 0-26 mg by ity of 13:43: mouth as [place] [facility] Take [facility] Uni vers /dextrometh 0-26 mouth. ity of orphan 13:43: [place] (MUCINEX DM 20 Medical ORAL) Branch ALPRAZolam 2021-04 Yes .5mg Take 0.5 Uni vers 1 mg tablet 0-26 mg by ity of 13:43: mouth as [place] 20 needed. Medical [facility] 2021-04 Yes Take by Uni vers /dextrometh 0-26 mouth. ity of orphan 13:43: [place] (MUCINEX DM 20 Medical ORAL) [place] ALPRAZolam 2021-04 Yes .5mg Take 0.5 Uni vers 1 mg tablet 0-26 mg by ity of 13:43: mouth as [place] 20 needed. Medical Branch [facility] 2021-04 Yes Take by Uni vers /dextrometh 0-26 mouth. ity of orphan 13:43: [place] (MUCINEX DM 20 Medical ORAL) [place] ALPRAZolam 2021-04 Yes .5mg Take 0.5 Uni vers 1 mg tablet 0-26 mg by ity of 13:43: mouth as [place] 20 needed. Medical Branch [facility] 2021-04 Yes Take by Uni vers /dextrometh 0-26 mouth. ity of orphan 13:43: [place] (MUCINEX DM 20 Medical ORAL) [place] ALPRAZolam 2021-04 Yes .5mg Take 0.5 Uni vers 1 mg tablet 0-26 mg by ity of 13:43: mouth as [place] 20 needed. Medical [facility] 2021-04 Yes Take by Uni vers /dextrometh 0-26 mouth. ity of orphan 13:43: [place] (MUCINEX DM 20 Medical ORAL) [place] ALPRAZolam 2021-04 Yes .5mg Take 0.5 Uni vers 1 mg tablet 0-26 mg by ity of 13:43: mouth as [place] 20 needed. Medical Branch [facility] 2021-04 Yes Take by Uni vers /dextrometh 0-26 mouth. ity of orphan 13:43: [place] (MUCINEX DM 20 Medical ORAL) [place] ALPRAZolam 2021-04 Yes .5mg Take 0.5 Uni vers 1 mg tablet 0-26 mg by ity of 13:43: mouth as [place] 20 needed. Medical Branch [facility] 2021-04 Yes Take by Uni vers /dextrometh 0-26 mouth. ity of orphan 13:43: [place] (MUCINEX DM 20 Medical ORAL) [place] ALPRAZolam 2021-04 Yes .5mg Take 0.5 Uni vers 1 mg tablet 0-26 mg by ity of 13:43: mouth as [place] 20 needed. Medical Branch [facility] 2021-04 Yes Take by Uni vers /dextrometh 0-26 mouth. ity of orphan 13:43: [place] (MUCINEX DM 20 Medical ORAL) [place] ALPRAZolam 2021-04 Yes .5mg Take 0.5 Uni vers 1 mg tablet 0-26 mg by ity of 13:43: mouth as [place] 20 needed. [facility] 2021-04 Yes Take by Uni vers /dextrometh 0-26 mouth. ity of orphan 13:43: [place] (MUCINEX DM 20 Medical ORAL) [place] ALPRAZolam 2021-04 Yes .5mg Take 0.5 Uni vers 1 mg tablet 0-26 mg by ity of 13:43: mouth as [place] 20 needed. [facility] 2021-04 Yes Take by Uni vers /dextrometh 0-26 mouth. ity of orphan 13:43: [place] (MUCINEX DM 20 Medical ORAL) [facility]/NHRMCRAZolam 2021-04 Yes .5mg Take 0.5 Uni vers 1 mg tablet 0-26 mg by ity of 13:43: mouth as [place] 20 needed. [facility] 2021-04 Yes Take by Uni vers /dextrometh 0-26 mouth. ity of orphan 13:43: [place] (MUCINEX DM 20 Medical ORAL) [facility]/NHRMCRAZolam 2021-04 Yes .5mg Take 0.5 Uni vers 1 mg tablet 0-26 mg by ity of 13:43: mouth as [place] 20 needed. [facility] 2021-04 Yes Take by Uni vers /dextrometh 0-26 mouth. ity of orphan 13:43: [place] (MUCINEX DM 20 Medical ORAL) [place] ALPRAZolos [facility] 2021-04 Yes .5mg Take 0.5 Uni vers 1 mg tablet 0-26 mg by ity of 13:43: mouth as [place] 20 needed. [facility] 2021-04 Yes Take by Uni vers /dextrometh 0-26 mouth. ity of orphan 13:43: [place] (MUCINEX DM 20 Medical ORAL) [place] ALPRAZolam 2021-04 Yes .5mg Take 0.5 Uni vers 1 mg tablet 0-26 mg by ity of 13:43: mouth as [place] 20 needed. [facility] 2021-04 Yes Take by Uni vers /dextrometh 0-26 mouth. ity of orphan 13:43: [place] (MUCINEX DM 20 Medical ORAL) [place] ALPRAZolam 2021-04 Yes .5mg Take 0.5 Uni vers 1 mg tablet 0-26 mg by ity of 13:43: mouth as [place] 20 needed. Medical Branch [facility] 2021-04 Yes Take by Uni vers /dextrometh 0-26 mouth. ity of orphan 13:43: [place] (MUCINEX DM 20 Medical ORAL) [place] ALPRAZolam 2021-04 Yes .5mg Take 0.5 Uni vers 1 mg tablet 0-26 mg by ity of 13:43: mouth as [place] 20 needed. Medical [facility] 2021-04 Yes Take by Uni vers /dextrometh 0-26 mouth. ity of orphan 13:43: [place] (MUCINEX DM 20 Medical ORAL) [place] ALPRAZolos [facility] 2021-04 Yes .5mg Take 0.5 Uni vers 1 mg tablet 0-26 mg by ity of 13:43: mouth as [place] 20 needed. Medical [facility] 2021-04 Yes Take by Uni vers /dextrometh 0-26 mouth. ity of orphan 13:43: [place] (MUCINEX DM 20 Medical ORAL) [place] [facility] 2021-04 Yes .5mg Take 0.5 Uni vers 1 mg tablet 0-26 mg by ity of 13:43: mouth as [place] 20 needed. Medical [facility] 2021-04 Yes Take by Uni vers /dextrometh 0-26 mouth. ity of orphan 13:43: [place] (MUCINEX DM 20 Medical ORAL) [place] ALPRAZolam 2021-04 Yes .5mg Take 0.5 Uni vers 1 mg tablet 0-26 mg by ity of 13:43: mouth as [place] 20 needed. [facility] 2021-04 Yes Take by Uni vers /dextrometh 0-26 mouth. ity of orphan 13:43: [place] (MUCINEX DM 20 Medical ORAL) [place] ALPRAZolam 2021-04 Yes .5mg Take 0.5 Uni vers 1 mg tablet 0-26 mg by ity of 13:43: mouth as [place] 20 needed. Medical [facility] 2021-04 Yes Take by Uni vers /dextrometh 0-26 mouth. [facility] of orphan 13:43: [place] (MUCINEX DM 20 Medical ORAL) [place] ALPRAZolam 2021-04 Yes .5mg Take 0.5 Uni vers 1 mg tablet 0-26 mg by ity of 13:43: mouth as [place] 20 needed. [facility] 2021-04 Yes Take by Uni vers /dextrometh 0-26 mouth. ity of orphan 13:43: [place] (MUCINEX DM 20 Medical ORAL) [place] ALPRAZolam 2021-04 Yes .5mg Take 0.5 Uni vers 1 mg tablet 0-26 mg by ity of 13:43: mouth as [place] 20 needed. [facility] Yes Take by Uni vers /dextrometh 0-26 mouth. ity of orphan 13:43: [place] (MUCINEX DM 20 Medical ORAL) [place] ALPRAZolam 2021-04 Yes .5mg Take 0.5 Uni vers 1 mg tablet 0-26 mg by ity of 13:43: mouth as [place] 20 needed. Medical [facility] 2021-04 Yes Take by Uni vers /dextrometh 0-26 mouth. ity of orphan 13:43: [place] (MUCINEX DM 20 Medical ORAL) [place] ALPRAZolam 2021-04 Yes .5mg Take 0.5 Uni vers 1 mg tablet 0-26 mg by ity of 13:43: mouth as [place] 20 needed. [facility] Yes Take by Uni vers /dextrometh 0-26 mouth. ity of orphan 13:43: [place] (MUCINEX DM 20 Medical ORAL) [place] ALPRAZolam 2021-04 Yes .5mg Take 0.5 Uni vers 1 mg tablet 0-26 mg by ity of 13:43: mouth as [place] 20 needed. Medical [facility] 2021-04 Yes Take by Uni vers /dextrometh 0-26 mouth. ity of orphan 13:43: [place] (MUCINEX DM 20 Medical ORAL) [place] ALPRAZolam 2021-04 Yes .5mg Take 0.5 Uni vers 1 mg tablet 0-26 mg by ity of 13:43: mouth as [place] 20 needed. Medical [facility] 2021-04 Yes Take by Uni vers /dextrometh 0-26 mouth. ity of orphan 13:43: [place] (MUCINEX DM 20 Medical ORAL) [place] ALPRAZolam 2021-04 Yes .5mg Take 0.5 Uni vers 1 mg tablet 0-26 mg by ity of 13:43: mouth as [place] 20 needed. Medical [facility] 2021-04 Yes Take by Uni vers /dextrometh 0-26 mouth. ity of orphan 13:43: [place] (MUCINEX DM 20 Medical ORAL) [facility]-04 Yes .5mg Take 0.5 Uni vers 1 mg tablet 0-26 mg by ity of 13:43: mouth as [place] 20 needed. [facility] 2021-04 Yes Take by Uni vers /dextrometh 0-26 mouth. ity of orphan 13:43: [place] (MUCINEX DM 20 Medical ORAL) [facility] 2021-04 Yes .5mg Take 0.5 Uni vers 1 mg tablet 0-26 mg by ity of 13:43: mouth as [place] 20 needed. [facility] 2021-04 Yes Take by Uni vers /dextrometh 0-26 mouth. ity of orphan 13:43: [place] (MUCINEX DM 20 Medical ORAL) [facility] 2021-04 Yes .5mg Take 0.5 Uni vers 1 mg tablet 0-26 mg by ity of 13:43: mouth as [place] 20 needed. [facility] 2021-04 Yes Take by Uni vers /dextrometh 0-26 mouth. ity of orphan 13:43: [place] (MUCINEX DM 20 Medical ORAL) [facility] 2021-04 Yes .5mg Take 0.5 Uni vers 1 mg tablet 0-26 mg by ity of 13:43: mouth as [place] 20 needed. [facility] 2021-04 Yes Take by Uni vers /dextrometh 0-26 mouth. ity of orphan 13:43: [place] (MUCINEX DM 20 Medical ORAL) [facility] 2021-04 Yes .5mg Take 0.5 Uni vers 1 mg tablet 0-26 mg by ity of 13:43: mouth as [place] 20 needed. [facility] 2021-04 Yes Take by Uni vers /dextrometh 0-26 mouth. ity of orphan 13:43: [place] (MUCINEX DM 20 Medical ORAL) [facility] 2021-04 Yes .5mg Take 0.5 Uni vers 1 mg tablet 0-26 mg by ity of 13:43: mouth as [place] 20 needed. [facility] 2021-04 Yes Take by Uni vers /dextrometh 0-26 mouth. ity of orphan 13:43: [place] (MUCINEX DM 20 Medical ORAL) [place] ALPRAZolam 2021-04 Yes .5mg Take 0.5 Uni vers 1 mg tablet 0-26 mg by ity of 13:43: mouth as [place] 20 needed. Medical [facility] 2021-04 Yes Take by Uni vers /dextrometh 0-26 mouth. ity of orphan 13:43: [place] (MUCINEX DM 20 Medical ORAL) [place] ALPRAZolam 2021-04 Yes .5mg Take 0.5 Uni vers 1 mg tablet 0-26 mg by ity of 13:43: mouth as [place] 20 needed. Medical [facility] 2021-04 Yes Take by Uni vers /dextrometh 0-26 mouth. ity of orphan 13:43: [place] (MUCINEX DM 20 Medical ORAL) [facility]04 Yes .5mg Take 0.5 Uni vers 1 mg tablet 0-26 mg by ity of 13:43: mouth as [place] 20 needed. Medical [facility] 2021-04 Yes Take by Uni vers /dextrometh 0-26 mouth. ity of orphan 13:43: [place] (MUCINEX DM 20 Medical ORAL) [place] [facility]PRAZol[facility] 2021-04 Yes .5mg Take 0.5 Uni vers 1 mg tablet 0-26 mg by ity of 13:43: mouth as [place] 20 needed. [facility] 2021-04 Yes Take by Uni vers /dextrometh 0-26 mouth. ity of orphan 13:43: [place] (MUCINEX DM 20 Medical ORAL) [place] ALPRAZolam 2021-04 Yes .5mg Take 0.5 Uni vers 1 mg tablet 0-26 mg by ity of 13:43: mouth as [place] 20 needed. Medical [facility] 2021-04 Yes Take by Uni vers /dextrometh 0-26 mouth. ity of orphan 13:43: [place] (MUCINEX DM 20 Medical ORAL) [place] ALPRAZolam 2021-04 Yes .5mg Take 0.5 Uni vers 1 mg tablet 0-26 mg by ity of 13:43: mouth as [place] 20 needed. Medical [facility] 2021-04 Yes Take by Uni vers /dextrometh 0-26 mouth. ity of orphan 13:43: [place] (MUCINEX DM 20 Medical ORAL) Branch ALPRAZolam 2021-04 Yes .5mg Take 0.5 Uni vers 1 mg tablet 0-26 mg by ity of 13:43: mouth as [place] 20 needed. Medical Branch [facility] 2021-04 Yes Take by Uni vers /dextrometh 0-26 mouth. ity of orphan 13:43: [place] (MUCINEX DM 20 Medical ORAL) [place] ALPRAZolam 2021-04 Yes .5mg Take 0.5 Uni vers 1 mg tablet 0-26 mg by ity of 13:43: mouth as [place] 20 needed. Medical Branch [facility] 2021-04 Yes Take by Uni vers /dextrometh 0-26 mouth. ity of orphan 13:43: [place] (MUCINEX DM 20 Medical ORAL) [place] ALPRAZolam 2021-04 Yes .5mg Take 0.5 Uni vers 1 mg tablet 0-26 mg by ity of 13:43: mouth as [place] 20 needed. Medical [facility] 2021-04 Yes Take by Uni vers /dextrometh 0-26 mouth. ity of orphan 13:43: [place] (MUCINEX DM 20 Medical ORAL) [place] ALPRAZolam 2021-04 Yes .5mg Take 0.5 Uni vers 1 mg tablet 0-26 mg by ity of 13:43: mouth as [place] 20 needed. Medical Branch [facility] 2021-04 Yes Take by Uni vers /dextrometh 0-26 mouth. ity of orphan 13:43: [place] (MUCINEX DM 20 Medical ORAL) [place] ALPRAZolam 2021-04 Yes .5mg Take 0.5 Uni vers 1 mg tablet 0-26 mg by ity of 13:43: mouth as [place] 20 needed. Medical [facility] 2021-04 Yes Take by Uni vers /dextrometh 0-26 mouth. ity of orphan 13:43: [place] (MUCINEX DM 20 Medical ORAL) [place] ALPRAZolam 2021-04 Yes .5mg Take 0.5 Uni vers 1 mg tablet 0-26 mg by ity of 13:43: mouth as [place] 20 needed. Medical [facility] 2021-04 Yes Take by Uni vers /dextrometh 0-26 mouth. ity of orphan 13:43: [place] (MUCINEX DM 20 Medical ORAL) [place] ALPRAZolam 2021-04 Yes .5mg Take 0.5 Uni vers 1 mg tablet 0-26 mg by ity of 13:43: mouth as [place] 20 needed. Medical Branch guaifenesin 2021-04 Yes Take by Uni vers /dextrometh 0-26 mouth. ity of orphan 13:43: [place] (MUCINEX DM 20 Medical ORAL) Branch regadenoson 2021-04- No [id number] .4mg 0.4 mg, IV Univers (LEXISCAN) 0-01-11 Push, ity of injection 15:30: 15:20 [place]CE, [place] 0.4 mg 00 :00 dose, On Medical Fri Branch 01/11/22 at 1030, Routine
administrative appeals tribunal member approving Restricted medication : JATINNICOLEAUGUSTUS tc 2021-04- No [id number] 40.2mCi 40.2 Unive rs 99m-tetrofo 0-10 14- millicurie i ty of smin 15:30: 15:20 , [place] ([facility]) 00 :00 Intravenou Medi nate injection s, ONCE, 1 Bran ch 40.2 dose, On Fri01/11/22 at 1030, Routine tc 2021-04- No [id number] 15.1mCi 15.1 Univer s 99m-tetrofo 0-01-11 millicurie i ty of smin 14:00: 13:47 , [place] ([facility]) 00 :00 Intravenou Medi nate injection s, ONCE, 1 Bran ch 15.1 dose, [facility]22 at 0900, Routine losartan 50 Yes [id number] Take 1 tab Univers mg tablet 9-30 PO every ity of 00:00: morning [place] 00 and 1/2 Medical tab PO Branch every night. losartan 50 0 Yes [id number] Take 1 tab Univers mg tablet 9-30 PO every ity of 00:00: morning [place] 00 and 1/2 Medical tab PO Branch every night. losartan 50 Yes [id number] Take 1 tab Univers mg tablet 9-30 PO every ity of 00:00: morning [place] 00 and 1/2 Medical tab PO Branch every night. losartan 50 Yes [id number] Take 1 tab [facility] mg tablet 9-30 PO every ity of 00:00: morning [place] 00 and 1/2 Medical tab PO Branch every night. losartan 50 0 Yes [id number] Take 1 tab Univers mg tablet 9-30 PO every ity of 00:00: morning [place] 00 and 1/2 Medical tab PO Branch every night. losartan 50 0 Yes [id number] Take 1 tab [facility] mg tablet 9-30 PO every ity of 00:00: morning [place] 00 and 1/2 Medical tab PO Branch every night. losartan 50 0 Yes [id number] Take 1 tab [facility] mg tablet 9-30 PO every ity of 00:00: morning [place] 00 and 1/2 Medical tab PO Branch every night. losartan 50 0 Yes [id number] Take 1 tab [facility] mg tablet 9-30 PO every ity of 00:00: morning [place] 00 and 1/2 Medical tab PO Branch every night. losartan 50 0 Yes [id number] Take 1 tab [facility] mg tablet 9-30 PO every ity of 00:00: morning [place] 00 and 1/2 Medical tab PO Branch every night. losartan 50 0 Yes [id number] Take 1 tab [facility] mg tablet 9-30 PO every ity of 00:00: morning [place] 00 and 1/2 Medical tab PO Branch every night. losartan 50 0 Yes [id number] Take 1 tab [facility] mg tablet 9-30 PO every ity of 00:00: morning [place] 00 and 1/2 Medical tab PO Branch every night. losartan 50 0 Yes [id number] Take 1 tab [facility] mg tablet 9-30 PO every ity of 00:00: morning [place] 00 and 1/2 Medical tab PO Branch every night. losartan 50 0 Yes [id number] Take 1 tab [facility] mg tablet 9-30 PO every ity of 00:00: morning [place] 00 and 1/2 Medical tab PO Branch every night. losartan 50 0 Yes [id number] Take 1 tab [facility] mg tablet 9-30 PO every ity of 00:00: morning [place] 00 and 1/2 Medical tab PO Branch every night. losartan 50 0 Yes [id number] Take 1 tab [facility] mg tablet 9-30 PO every ity of 00:00: morning [place] 00 and 1/2 Medical tab PO Branch every night. losartan 50 0 Yes [id number] Take 1 tab [facility] mg tablet 9-30 PO every ity of 00:00: morning [place] 00 and 1/2 Medical tab PO Branch every night. losartan 50 2021-0 Yes [id number] Take 1 tab Univers mg tablet 9-30 PO every ity of 00:00: morning [place] 00 and 1/2 Medical tab PO Branch every night. losartan 50 2021-0 Yes [id number] Take 1 tab Univers mg tablet 9-30 PO every ity of 00:00: morning [place] 00 and 1/2 Medical tab PO Branch every night. losartan 50 2021-0 Yes [id number] Take 1 tab Univers mg tablet 9-30 PO every ity of 00:00: morning [place] 00 and 1/2 Medical tab PO Branch every night. losartan 50 2021-0 Yes [id number] Take 1 tab Univers mg tablet 9-30 PO every ity of 00:00: morning [place] 00 and 1/2 Medical tab PO Branch every night. losartan 50 2021-0 Yes [id number] Take 1 tab [facility] mg tablet 9-30 PO every ity of 00:00: morning [place] 00 and 1/2 Medical tab PO Branch every night. losartan 50 0 Yes [id number] Take 1 tab [facility] mg tablet 9-30 PO every ity of 00:00: morning [place] 00 and 1/2 Medical tab PO Branch every night. losartan 50 2021-0 Yes [id number] Take 1 tab [facility] mg tablet 9-30 PO every ity of 00:00: morning [place] 00 and 1/2 Medical tab PO Branch every night. losartan 50 0 Yes [id number] Take 1 tab Univers mg tablet 9-30 PO every ity of 00:00: morning [place] 00 and 1/2 Medical tab PO Branch every night. losartan 50 0 Yes [id number] Take 1 tab [facility] mg tablet 9-30 PO every ity of 00:00: morning [place] 00 and 1/2 Medical tab PO Branch every night. losartan 50 2021-0 2021- No [id number] Take 1 tab Univers mg tablet 9-30 11-22 PO every ity o f 00:00: 00:00 morning [place] 00 :00 and 1/2 Medical tab PO Branch every night. venlafaxine 0 2021- No 300mg Take 300 Univers HCl 9-28 09-28 mg by ity of (VENLAFAXIN 14:21: 00:00 [place] E ORAL[place] 53 :00 daily. Medical Branch venlafaxine 2021- No 300mg Take 300 Univers HCl 9-28 09-28 mg by ity of (VENLAFAXIN 14:21: 00:[place] E ORAL[place] 53 :00 daily. Medical Branch venlafaxine 2021- No 300mg Take 300 Univers HCl 9-28 09-28 mg by ity of (VENLAFAXIN 14:21: 00:[place] E ORAL[place] 53 :00 daily. Medical Branch venlafaxine 2021- No 300mg Take 300 Univers HCl 9-28 09-28 mg by ity of (VENLAFAXIN 14:21: 00:[place] E ORAL) 53 :00 daily. Medical Branch losartan 25 0 Yes [id number] 25mg Take 1 Univers mg tablet 9-28 tablet by ity o f 00:00: mouth in [place] 00 the Medical morning Branch and 1 tablet in the evening. chlorthalid 2021-0 Yes [id number] 25mg Take 1 Univers one 25 mg 9-28 tablet by ity o f tablet 00:00: mouth in [place] 00 the Medical morning. Branch losartan 25 2021-0 Yes [id number] 25mg Take 1 Univers mg tablet 9-28 tablet by ity o f 00:00: mouth in [place] 00 the Medical morning Branch and 1 tablet in the evening. chlorthalid 2021-0 Yes [id number] 25mg Take 1 Univers one 25 mg 9-28 tablet by ity o f tablet 00:00: mouth in [place] 00 the Medical morning. Branch losartan 25 2021-0 Yes [id number] 25mg Take 1 Univers mg tablet 9-28 tablet by ity o f 00:00: mouth in [place] 00 the Medical morning Branch and 1 tablet in the evening. chlorthalid 2021-0 Yes [id number] 25mg Take 1 Univers one 25 mg 9-28 tablet by ity o f tablet 00:00: mouth in [place] 00 the Medical morning. Branch losartan 25 2021-0 Yes [id number] 25mg Take 1 Univers mg tablet 9-28 tablet by ity o f 00:00: mouth in [place] 00 the Medical morning Branch and 1 tablet in the evening. chlorthalid 2021-0 Yes [id number] 25mg Take 1 Univers one 25 mg 9-28 tablet by ity o f tablet 00:00: mouth in [place] 00 the Medical morning. Branch losartan 25 Yes [id number] 25mg Take 1 Univers mg tablet 9-28 tablet by ity o f 00:00: mouth in [place] 00 the Medical morning Branch and 1 tablet in the evening. chlorthalid Yes [id number] 25mg Take 1 Univers one 25 mg 9-28 tablet by ity o f tablet 00:00: mouth in [place] 00 the Medical morning. Branch losartan 25 202- No [id number] 25mg Take 1 Univers mg tablet 9-28 -30 tablet by ity of 00:00: 00:00 mouth in [place] 00 :00 the Medical morning Branch and 1 tablet in the evening. chlorthalid 2021- No [id number] 25mg Take 1 Univers one 25 mg 9-28 -30 tablet by ity of tablet 00:00: 00:00 mouth in [place] 00 :00 the Medical morning. Branch [facility] Yes Take by Uni vers /dextrometh 9-19 mouth. ity of orphan 14:33: [place] (MUCINEX DM 34 Medical ORAL) [facility] Yes Take by Uni vers /dextrometh 9-19 mouth. ity of orphan 14:33: [place] (MUCINEX DM 34 Medical ORAL) [facility] Yes Take by Uni vers /dextrometh 9-19 mouth. ity of orphan 14:33: [place] (MUCINEX DM 34 Medical ORAL) [facility] Yes Take by Uni vers /dextrometh 9-19 mouth. ity of orphan 14:33: [place] (MUCINEX DM 34 Medical ORAL) [facility] Yes Take by Uni vers /dextrometh 9-19 mouth. ity of orphan 14:33: [place] (MUCINEX DM 34 Medical ORAL) [facility] Yes Take by Uni vers /dextrometh 9-19 mouth. ity of orphan 14:33: [place] (MUCINEX DM 34 Medical ORAL) [facility] Yes Take by Uni vers /dextrometh 9-19 mouth. ity of orphan 14:33: [place] (MUCINEX DM 34 Medical ORAL) [facility] Yes Take by Uni vers /dextrometh 9-19 mouth. ity of orphan 14:33: [place] (MUCINEX DM 34 Medical ORAL) [facility] Yes Take by Uni vers /dextrometh 9-19 mouth. ity of orphan 14:33: [place] (MUCINEX DM 34 Medical ORAL) [facility] Yes Take by Uni vers /dextrometh 9-19 mouth. ity of orphan 14:33: [place] (MUCINEX DM 34 Medical ORAL) [facility] Yes Take by Uni vers /dextrometh 9-19 mouth. ity of orphan 14:33: [place] (MUCINEX DM 34 Medical ORAL) [facility] Yes Take by Uni vers /dextrometh 9-19 mouth. ity of orphan 14:33: [place] (MUCINEX DM 34 Medical ORAL) [facility] Yes Take by Uni vers /dextrometh 9-19 mouth. ity of orphan 14:33: [place] (MUCINEX DM 34 Medical ORAL) [facility] Yes Take by Uni vers /dextrometh 9-19 mouth. ity of orphan 14:33: [place] (MUCINEX DM 34 Medical ORAL) [facility] Yes Take by Uni vers /dextrometh 9-19 mouth. ity of orphan 14:33: [place] (MUCINEX DM 34 Medical ORAL) [facility] Yes Take by Uni vers /dextrometh 9-19 mouth. ity of orphan 14:33: [place] (MUCINEX DM 34 Medical ORAL) [facility] Yes Take by Uni vers /dextrometh 9-19 mouth. ity of orphan 14:33: [place] (MUCINEX DM 34 Medical ORAL) [facility] Yes Take by Uni vers /dextrometh 9-19 mouth. ity of orphan 14:33: [place] (MUCINEX DM 34 Medical ORAL) [facility] Yes Take by Uni vers /dextrometh 9-19 mouth. ity of orphan 14:33: [place] (MUCINEX DM 34 Medical ORAL) [facility] Yes Take by Uni vers /dextrometh 9-19 mouth. ity of orphan 14:33: [place] (MUCINEX DM 34 Medical ORAL) Branch aifenesin Yes Take by Uni vers /dextrometh 9-19 mouth. ity of orphan 14:33: [place] (MUCINEX DM 34 Medical ORAL) Branch aifenesin Yes Take by Uni vers /dextrometh 9-19 mouth. ity of orphan 14:33: [place] (MUCINEX DM 34 Medical ORAL) [facility] Take by Uni vers /dextrometh 9-19 mouth. ity of orphan 14:33: [place] (MUCINEX DM 34 Medical ORAL) [facility] Take by Uni vers /dextrometh 9-19 mouth. ity of orphan 14:33: [place] (MUCINEX DM 34 Medical ORAL) Branch metoprolol 0 Yes [id number] 25mg Take 1 Un bert succinate 9-19 tablet by ity o f XL 25 mg 24 00:00: mouth in [place] hr tablet 00 the Medical morning. Branch atorvastati 2021-0 Yes [id number] 20mg Take 1 Univers n 20 mg 9-19 tablet by ity of tablet 00:00: mouth in [place] 00 the Medical morning. Branch metoprolol 2021-0 Yes [id number] 25mg Take 1 Un bert succinate 9-19 tablet by ity o f XL 25 mg 24 00:00: mouth in [place] hr tablet 00 the Medical morning. Branch atorvastati 2021-0 Yes [id number] 20mg Take 1 Univers n 20 mg 9-19 tablet by ity of tablet 00:00: mouth in [place] 00 the Medical morning. Branch metoprolol 2021-0 Yes [id number] 25mg Take 1 Un bert succinate 9-19 tablet by ity o f XL 25 mg 24 00:00: mouth in [place] hr tablet 00 the Medical morning. Branch atorvastati 2021-0 Yes [id number] 20mg Take 1 Univers n 20 mg 9-19 tablet by ity of tablet 00:00: mouth in [place] 00 the Medical morning. Branch metoprolol 2021-0 Yes [id number] 25mg Take 1 Un bert succinate 9-19 tablet by ity o f XL 25 mg 24 00:00: mouth in [place] hr tablet 00 the Medical morning. Branch atorvastati 2021-0 Yes [id number] 20mg Take 1 Univers n 20 mg 9-19 tablet by ity of tablet 00:00: mouth in [place] 00 the Medical morning. Branch metoprolol 2021-0 Yes [id number] 25mg Take 1 Un bert succinate 9-19 tablet by ity o f XL 25 mg 24 00:00: mouth in [place] hr tablet 00 the Medical morning. Branch atorvastati 2021-0 Yes [id number] 20mg Take 1 Univers n 20 mg 9-19 tablet by ity of tablet 00:00: mouth in [place] 00 the Medical morning. Branch metoprolol 2021-0 Yes [id number] 25mg Take 1 Un bert succinate 9-19 tablet by ity o f XL 25 mg 24 00:00: mouth in [place] hr tablet 00 the Medical morning. Branch atorvastati 2021-0 Yes [id number] 20mg Take 1 Univers n 20 mg 9-19 tablet by ity of tablet 00:00: mouth in [place] 00 the Medical morning. Branch metoprolol 2021-0 Yes [id number] 25mg Take 1 Un bert succinate 9-19 tablet by ity o f XL 25 mg 24 00:00: mouth in [place] hr tablet 00 the Medical morning. Branch atorvastati 2021-0 Yes [id number] 20mg Take 1 Univers n 20 mg 9-19 tablet by ity of tablet 00:00: mouth in [place] 00 the Medical morning. Branch metoprolol 2021-0 Yes [id number] 25mg Take 1 Un bert succinate 9-19 tablet by ity o f XL 25 mg 24 00:00: mouth in [place] hr tablet 00 the Medical morning. Branch atorvastati 2021-0 Yes [id number] 20mg Take 1 Univers n 20 mg 9-19 tablet by ity of tablet 00:00: mouth in [place] 00 the Medical morning. Branch metoprolol 2021-0 Yes [id number] 25mg Take 1 Un bert succinate 9-19 tablet by ity o f XL 25 mg 24 00:00: mouth in [place] hr tablet 00 the Medical morning. Branch atorvastati 2021-0 Yes [id number] 20mg Take 1 Univers n 20 mg 9-19 tablet by ity of tablet 00:00: mouth in [place] 00 the Medical morning. Branch metoprolol 2021-0 Yes [id number] 25mg Take 1 Un bert succinate 9-19 tablet by ity o f XL 25 mg 24 00:00: mouth in [place] hr tablet 00 the Medical morning. Branch atorvastati 2021-0 Yes [id number] 20mg Take 1 Univers n 20 mg 9-19 tablet by ity of tablet 00:00: mouth in [place] 00 the Medical morning. Branch metoprolol 2021-0 Yes [id number] 25mg Take 1 Un bert succinate 9-19 tablet by ity o f XL 25 mg 24 00:00: mouth in [place] hr tablet 00 the Medical morning. Branch atorvastati 2021-0 Yes [id number] 20mg Take 1 Univers n 20 mg 9-19 tablet by ity of tablet 00:00: mouth in [place] 00 the Medical morning. Branch metoprolol 2021-0 Yes [id number] 25mg Take 1 Un bert succinate 9-19 tablet by ity o f XL 25 mg 24 00:00: mouth in [place] hr tablet 00 the Medical morning. Branch atorvastati 2021-0 Yes [id number] 20mg Take 1 Univers n 20 mg 9-19 tablet by ity of tablet 00:00: mouth in [place] the Medical morning. Branch metoprolol 2021-0 Yes [id number] 25mg Take 1 Un bert succinate 9-19 tablet by ity o f XL 25 mg 24 00:00: mouth in [place] hr tablet 00 the Medical morning. Branch atorvastati 2021-0 Yes [id number] 20mg Take 1 Univers n 20 mg 9-19 tablet by ity of tablet 00:00: mouth in [place] 00 the Medical morning. Branch metoprolol 2021-0 Yes [id number] 25mg Take 1 Un bert succinate 9-19 tablet by ity o f XL 25 mg 24 00:00: mouth in [place] hr tablet 00 the Medical morning. Branch atorvastati 2021-0 Yes [id number] 20mg Take 1 Univers n 20 mg 9-19 tablet by ity of tablet 00:00: mouth in [place] 00 the Medical morning. Branch metoprolol 2021-0 Yes [id number] 25mg Take 1 Un bert succinate 9-19 tablet by ity o f XL 25 mg 24 00:00: mouth in [place] hr tablet 00 the Medical morning. Branch atorvastati 2021-0 Yes [id number] 20mg Take 1 Univers n 20 mg 9-19 tablet by ity of tablet 00:00: mouth in [place] 00 the Medical morning. Branch metoprolol 2021-0 Yes [id number] 25mg Take 1 Un bert succinate 9-19 tablet by ity o f XL 25 mg 24 00:00: mouth in [place] hr tablet 00 the Medical morning. Branch atorvastati 2021-0 Yes [id number] 20mg Take 1 Univers n 20 mg 9-19 tablet by ity of tablet 00:00: mouth in [place] 00 the Medical morning. Branch metoprolol 2021-0 Yes [id number] 25mg Take 1 Un bert succinate 9-19 tablet by ity o f XL 25 mg 24 00:00: mouth in [place] hr tablet 00 the Medical morning. Branch atorvastati 2021-0 Yes [id number] 20mg Take 1 Univers n 20 mg 9-19 tablet by ity of tablet 00:00: mouth in [place] 00 the Medical morning. Branch metoprolol 2021-0 Yes [id number] 25mg Take 1 Un bert succinate 9-19 tablet by ity o f XL 25 mg 24 00:00: mouth in [place] hr tablet 00 the Medical morning. Branch atorvastati 2021-0 Yes [id number] 20mg Take 1 Univers n 20 mg 9-19 tablet by ity of tablet 00:00: mouth in [place] 00 the Medical morning. Branch metoprolol 2021-0 Yes [id number] 25mg Take 1 Un bert succinate 9-19 tablet by ity o f XL 25 mg 24 00:00: mouth in [place] hr tablet 00 the Medical morning. Branch atorvastati 2021-0 Yes [id number] 20mg Take 1 Univers n 20 mg 9-19 tablet by ity of tablet 00:00: mouth in [place] 00 the Medical morning. Branch metoprolol 2021-0 Yes [id number] 25mg Take 1 Un bert succinate 9-19 tablet by ity o f XL 25 mg 24 00:00: mouth in [place] hr tablet 00 the Medical morning. Branch atorvastati 2021-0 Yes [id number] 20mg Take 1 [facility] n 20 mg 9-19 tablet by ity of tablet 00:00: mouth in [place] 00 the Medical morning. Branch metoprolol 2021-0 Yes [id number] 25mg Take 1 Un bert succinate 9-19 tablet by ity o f XL 25 mg 24 00:00: mouth in [place] hr tablet 00 the Medical morning. Branch atorvastati 2021-0 Yes [id number] 20mg Take 1 Univers n 20 mg 9-19 tablet by ity of tablet 00:00: mouth in [place] 00 the Medical morning. Branch metoprolol 2021-0 Yes [id number] 25mg Take 1 Un bert succinate 9-19 tablet by ity o f XL 25 mg 24 00:00: mouth in [place] hr tablet 00 the Medical morning. [facility] atorvastati 2021-0 Yes [id number] 20mg Take 1 [facility] 20 mg 9-19 tablet by [facility] tablet 00:00: mouth in [place] 00 the Medical morning. Branch metoprolol 2021-0 Yes [id number] 25mg Take 1 Un bert succinate 9-19 tablet by it[facility] o f XL 25 mg 24 00:00: mouth in [place] hr tablet 00 the Medical morning. Branch atorvastati 2021-0 Yes [id number] 20mg Take 1 [facility] 20 mg 9-19 tablet by [facility] tablet 00:00: mouth in [place] 00 the Medical morning. Branch metoprolol 2021-0 Yes [id number] 25mg Take 1 [facility] bert succinate 9-19 tablet by [facility] o f XL 25 mg 24 00:00: mouth in [place] hr tablet 00 the Medical morning. [facility] atorvastati 2021-0 Yes [id number] 20mg Take 1 [facility] 20 mg 9-19 tablet by [facility] tablet 00:00: mouth in [place] 00 the Medical morning. Branch metoprolol 2021-0 Yes [id number] 25mg Take 1 [facility] bert succinate 9-19 tablet by [facility] o f XL 25 mg 24 00:00: mouth in [place] hr tablet 00 the Medical morning. Branch atorvastati 2021-0 Yes [id number] 20mg Take 1 [facility] 20 mg 9-19 tablet by [facility] tablet 00:00: mouth in [place] 00 the Medical morning. Branch metoprolol 2-0 Yes [id number] 25mg Take 1 [facility] bert succinate 9-19 tablet by [facility] o f XL 25 mg 24 00:00: mouth in [place] hr tablet 00 the Medical morning. [facility] atorvastati 2021-0 Yes [id number] 20mg Take 1 [facility] 20 mg 9-19 tablet by [facility] tablet 00:00: mouth in [place] 00 the Medical morning. Branch metoprolol 2021-0 Yes [id number] 25mg Take 1 [facility] b[facility] succinate 9-19 tablet by [facility] o f XL 25 mg 24 00:00: mouth in [place] hr tablet 00 the Medical morning. [facility] atorvastati 2021-0 Yes [id number] 20mg Take 1 [facility] 20 mg 9-19 tablet by [facility] tablet 00:00: mouth in [place] 00 the Medical morning. [facility] metoprolol 2021-0 Yes [id number] 25mg Take 1 [facility] succinate 9-19 tablet by [facility] o f XL 25 mg 24 00:00: mouth in [place] hr tablet 00 the Medical morning. [facility] atorvastati 2021-0 Yes [id number] 20mg Take 1 [facility] 20 mg 9-19 tablet by [facility] tablet 00:00: mouth in [place] 00 the Medical morning. Branch metoprolol 2021-0 Yes [id number] 25mg Take 1 [facility] b[facility] succinate 9-19 tablet by [facility] o f XL 25 mg 24 00:00: mouth in [place] hr tablet 00 the Medical morning. [facility] atorvastati 2021-0 Yes [id number] 20mg Take 1 [facility] 20 mg 9-19 tablet by [facility] tablet 00:00: mouth in [place] 00 the Medical morning. [facility] metoprolol 2021-0 Yes [id number] 25mg Take 1 [facility] b[facility] succinate 9-19 tablet by [facility] o f XL 25 mg 24 00:00: mouth in [place] hr tablet 00 the Medical morning. [facility] atorvastati 2021-0 Yes [id number] 20mg Take 1 [facility] 20 mg 9-19 tablet by [facility] tablet 00:00: mouth in [place] 00 the Medical morning. Branch metoprolol 2021-0 Yes [id number] 25mg Take 1 [facility] succinate 9-19 tablet by [facility] o f XL 25 mg 24 00:00: mouth in [place] hr tablet 00 the Medical morning. Branch atorvastati 2022-0 Yes [id number] 20mg Take 1 [facility] 20 mg 9-19 tablet by [facility] tablet 00:00: mouth in [place] 00 the Medical morning. Branch metoprolol 2021-0 Yes [id number] 25mg Take 1 [facility] bert succinate 9-19 tablet by [facility] o f XL 25 mg 24 00:00: mouth in [place] hr tablet 00 the Medical morning. [facility] atorvastati 2021-0 Yes [id number] 20mg Take 1 [facility] 20 mg 9-19 tablet by [facility] tablet 00:00: mouth in [place] 00 the Medical morning. Branch metoprolol 2021-0 Yes [id number] 25mg Take 1 [facility] b[facility] succinate 9-19 tablet by [facility] o f XL 25 mg 24 00:00: mouth in [place] hr tablet 00 the Medical morning. [facility] atorvastati 2021-0 Yes [id number] 20mg Take 1 [facility] 20 mg 9-19 tablet by [facility] tablet 00:00: mouth in [place] 00 the Medical morning. Branch metoprolol 2021-0 Yes [id number] 25mg Take 1 [facility] b[facility] succinate 9-19 tablet by [facility] o f XL 25 mg 24 00:00: mouth in [place] hr tablet 00 the Medical morning. [facility] atorvastati 2021-0 Yes [id number] 20mg Take 1 [facility] 20 mg 9-19 tablet by [facility] tablet 00:00: mouth in [place] 00 the Medical morning. Branch metoprolol 2021-0 Yes [id number] 25mg Take 1 [facility] succinate 9-19 tablet by [facility] o f XL 25 mg 24 00:00: mouth in [place] hr tablet 00 the Medical morning. [facility] atorvastati 2021-0 Yes [id number] 20mg Take 1 [facility] 20 mg 9-19 tablet by [facility] tablet 00:00: mouth in [place] 00 the Medical morning. Branch metoprolol 2021-0 Yes [id number] 25mg Take 1 [facility] bert succinate 9-19 tablet by [facility] o f XL 25 mg 24 00:00: mouth in [place] hr tablet 00 the Medical morning. [facility] atorvastati 2021-0 Yes [id number] 20mg Take 1 [facility] 20 mg 9-19 tablet by [facility] tablet 00:00: mouth in [place] 00 the Medical morning. Branch metoprolol 2021-0 Yes [id number] 25mg Take 1 [facility] bert succinate 9-19 tablet by [facility] o f XL 25 mg 24 00:00: mouth in [place] hr tablet 00 the Medical morning. [facility] atorvastati 2021-0 Yes [id number] 20mg Take 1 [facility] 20 mg 9-19 tablet by [facility] tablet 00:00: mouth in [place] 00 the Medical morning. Branch metoprolol 2021-0 Yes [id number] 25mg Take 1 [facility] bert succinate 9-19 tablet by [facility] o f XL 25 mg 24 00:00: mouth in [place] hr tablet 00 the Medical morning. [facility] atorvastati 2021-0 Yes [id number] 20mg Take 1 [facility] 20 mg 9-19 tablet by [facility] tablet 00:00: mouth in [place] 00 the Medical morning. Branch metoprolol 2021-0 Yes [id number] 25mg Take 1 [facility] bert succinate 9-19 tablet by [facility] o f XL 25 mg 24 00:00: mouth in [place] hr tablet 00 the Medical morning. [facility] atorvastati 2021-0 Yes [id number] 20mg Take 1 [facility] 20 mg 9-19 tablet by [facility] tablet 00:00: mouth in [place] 00 the Medical morning. Branch metoprolol 2021-0 Yes [id number] 25mg Take 1 [facility] succinate 9-19 tablet by [facility] o f XL 25 mg 24 00:00: mouth in [place] hr tablet 00 the Medical morning. Branch atorvastati 2021-0 Yes [id number] 20mg Take 1 [facility] 20 mg 9-19 tablet by [facility] tablet 00:00: mouth in [place] 00 the Medical morning. Branch metoprolol 2021-0 Yes [id number] 25mg Take 1 [facility] bert succinate 9-19 tablet by [facility] o f XL 25 mg 24 00:00: mouth in [place] hr tablet 00 the Medical morning. Branch atorvastati 2021-0 Yes [id number] 20mg Take 1 [facility] 20 mg 9-19 tablet by [facility] tablet 00:00: mouth in [place] 00 the Medical morning. Branch metoprolol 2021-0 Yes [id number] 25mg Take 1 [facility] bert succinate 9-19 tablet by [facility] o f XL 25 mg 24 00:00: mouth in [place] hr tablet 00 the Medical morning. Branch atorvastati 2021-0 Yes [id number] 20mg Take 1 [facility] 20 mg 9-19 tablet by [facility] tablet 00:00: mouth in [place] 00 the Medical morning. Branch metoprolol 2021-0 Yes [id number] 25mg Take 1 [facility] bert succinate 9-19 tablet by [facility] o f XL 25 mg 24 00:00: mouth in [place] hr tablet 00 the Medical morning. Branch atorvastati 2021-0 Yes [id number] 20mg Take 1 [facility] 20 mg 9-19 tablet by [facility] tablet 00:00: mouth in [place] 00 the Medical morning. Branch metoprolol 2021-0 Yes [id number] 25mg Take 1 [facility] bert succinate 9-19 tablet by [facility] o f XL 25 mg 24 00:00: mouth in [place] hr tablet 00 the Medical morning. [facility] atorvastati 2021-0 Yes [id number] 20mg Take 1 [facility] 20 mg 9-19 tablet by [facility] tablet 00:00: mouth in [place] 00 the Medical morning. Branch metoprolol 2021-0 Yes [id number] 25mg Take 1 [facility] b[facility] succinate 9-19 tablet by [facility] o f XL 25 mg 24 00:00: mouth in [place] hr tablet 00 the Medical morning. Branch atorvastati 2021-0 Yes [id number] 20mg Take 1 [facility] 20 mg 9-19 tablet by [facility] tablet 00:00: mouth in [place] 00 the Medical morning. Branch metoprolol 2021-0 Yes [id number] 25mg Take 1 [facility] succinate 9-19 tablet by [facility] o f XL 25 mg 24 00:00: mouth in [place] hr tablet 00 the Medical morning. [facility] atorvastati 2021-0 Yes [id number] 20mg Take 1 [facility] 20 mg 9-19 tablet by [facility] tablet 00:00: mouth in [place] 00 the Medical morning. Branch metoprolol 2021-0 Yes [id number] 25mg Take 1 [facility] bert succinate 9-19 tablet by [facility] o f XL 25 mg 24 00:00: mouth in [place] hr tablet 00 the Medical morning. [facility] atorvastati 2021-0 Yes [id number] 20mg Take 1 [facility] 20 mg 9-19 tablet by [facility] tablet 00:00: mouth in [place] 00 the Medical morning. Branch metoprolol 2021-0 Yes [id number] 25mg Take 1 [facility] succinate 9-19 tablet by [facility] o f XL 25 mg 24 00:00: mouth in [place] hr tablet 00 the Medical morning. Branch atorvastati 2021-0 Yes [id number] 20mg Take 1 [facility] 20 mg 9-19 tablet by [facility] tablet 00:00: mouth in [place] 00 the Medical morning. Branch metoprolol 2021-0 Yes [id number] 25mg Take 1 [facility] bert succinate 9-19 tablet by [facility] o f XL 25 mg 24 00:00: mouth in [place] hr tablet 00 the Medical morning. Branch atorvastati 2021-0 Yes [id number] 20mg Take 1 [facility] 20 mg 9-19 tablet by [facility] tablet 00:00: mouth in [place] 00 the Medical morning. Branch metoprolol 2021-0 Yes [id number] 25mg Take 1 [facility] bert succinate 9-19 tablet by [facility] o f XL 25 mg 24 00:00: mouth in [place] hr tablet 00 the Medical morning. [facility] atorvastati 2021-0 Yes [id number] 20mg Take 1 [facility] 20 mg 9-19 tablet by [facility] tablet 00:00: mouth in [place] 00 the Medical morning. Branch metoprolol 2021-0 Yes [id number] 25mg Take 1 [facility] bert succinate 9-19 tablet by [facility] o f XL 25 mg 24 00:00: mouth in [place] hr tablet 00 the Medical morning. Branch atorvastati 2021-0 Yes [id number] 20mg Take 1 [facility] 20 mg 9-19 tablet by [facility] tablet 00:00: mouth in [place] 00 the Medical morning. Branch metoprolol 2021-0 Yes [id number] 25mg Take 1 [facility] bert succinate 9-19 tablet by [facility] o f XL 25 mg 24 00:00: mouth in [place] hr tablet 00 the Medical morning. Branch atorvastati 2021-0 Yes [id number] 20mg Take 1 [facility] 20 mg 9-19 tablet by [facility] tablet 00:00: mouth in [place] 00 the Medical morning. Branch metoprolol 2021-0 Yes [id number] 25mg Take 1 [facility] bert succinate 9-19 tablet by [facility] o f XL 25 mg 24 00:00: mouth in [place] hr tablet 00 the Medical morning. Branch metoprolol 2021-0 Yes [id number] 25mg Take 1 [facility] bert succinate 9-19 tablet by [facility] o f XL 25 mg 24 00:00: mouth in [place] hr tablet 00 the Medical morning. Branch atorvastati 2021-0 Yes [id number] 20mg Take 1 [facility] 20 mg 9-19 tablet by [facility] of tablet 00:00: mouth in [place] 00 the Medical morning. Branch metoprolol 2021-0 Yes [id number] 25mg Take 1 [facility] bert succinate 9-19 tablet by [facility] o f XL 25 mg 24 00:00: mouth in [place] hr tablet 00 the Medical morning. Branch atorvastati 2021-0 Yes [id number] 20mg Take 1 [facility] 20 mg 9-19 tablet by [facility] of tablet 00:00: mouth in [place] 00 the Medical morning. Branch metoprolol 2021-0 Yes [id number] 25mg Take 1 [facility] bert succinate 9-19 tablet by [facility] o f XL 25 mg 24 00:00: mouth in [place] hr tablet 00 the Medical morning. Branch atorvastati 2021-0 Yes [id number] 20mg Take 1 [facility] 20 mg 9-19 tablet by [facility] of tablet 00:00: mouth in [place] 00 the Medical morning. Branch metoprolol 2021-0 Yes [id number] 25mg Take 1 [facility] bert succinate 9-19 tablet by [facility] o f XL 25 mg 24 00:00: mouth in [place] hr tablet 00 the Medical morning. Branch atorvastati 2021-0 Yes [id number] 20mg Take 1 [facility] 20 mg 9-19 tablet by [facility] of tablet 00:00: mouth in [place] 00 the Medical morning. Branch metoprolol 2021-0 Yes [id number] 25mg Take 1 [facility] bert succinate 9-19 tablet by [facility] o f XL 25 mg 24 00:00: mouth in [place] hr tablet 00 the Medical morning. Branch atorvastati 2021-0 Yes [id number] 20mg Take 1 [facility] 20 mg 9-19 tablet by [facility] tablet 00:00: mouth in [place] 00 the Medical morning. Branch atorvastati 2-0 3- No [id number] 20mg Take 1 [facility] 20 mg 9-19 - tablet by [facility] of tablet 00:00: 00:00 mouth in [place] 00 :00 the Medical morning. Branch metoprolol 2021-2022- No [id number] 25mg Take 1 [facility] n[facility] succinate 12-24 tablet by [facility] of XL 25 mg 24 00:00: 00:00 mouth in [place] hr tablet 00 :00 the Medical morning. Branch metoprolol 2021-2022- No [id number] 25mg Take 1 [facility] nivers succinate 12-24 tablet by [facility] of XL 25 mg 24 00:00: 00:00 mouth in [place] hr tablet 00 :00 the Medical morning. Branch atorvastati 2021-2022- No [id number] 20mg Take 1 [facility] 20 mg 12-24 tablet by [facility] of tablet 00:00: 00:00 mouth in [place] 00 :00 the Medical morning. Branch metoprolol 2022- No [id number] 25mg Take 1 [facility]ivers succinate 12-24 tablet by [facility] of XL 25 mg 24 00:00: 00:00 mouth in [place] hr tablet 00 :00 the Medical morning. Branch atorvastati 2022- No [id number] 20mg Take 1 [facility] 20 mg 12-24 tablet by [facility] of tablet 00:00: 00:00 mouth in [place] 00 :00 the Medical morning. Branch metoprolol 2022- No [id number] 25mg Take 1 [facility] nivers succinate 12-24 tablet by [facility] of XL 25 mg 24 00:00: 00:00 mouth in [place] hr tablet 00 :00 the Medical morning. Branch atorvastati 2022- No [id number] 20mg Take 1 [facility] 20 mg 12-24 tablet by [facility] of tablet 00:00: 00:00 mouth in [place] 00 :00 the Medical morning. Branch metoprolol 2021-2022- No [id number] 25mg Take 1 [facility] nivers succinate 12-24 tablet by [facility] of XL 25 mg 24 00:00: 00:00 mouth in [place] hr tablet 00 :00 the Medical morning. Branch atorvastati 2021-2022- No [id number] 20mg Take 1 [facility] 20 mg 9-04-09 tablet by [facility] of tablet 00:00: 00:00 mouth in [place] 00 :00 the Medical morning. Branch dextroamphe 2022-0 Yes 15mg Take 15 mg [facility] tamine-amph 9-15 by mouth ity of etamine 15 00:00: in the [place] mg tablet 00 morning Medical and 15 mg Branch in the evening. dextroamphe 2022-0 Yes 15mg Take 15 mg [facility] tamine-amph 9-15 by mouth ity of etamine 15 00:00: in the [place] mg tablet 00 morning Medical and 15 mg Branch in the evening. dextroamphe 2022-0 Yes 15mg Take 15 mg [facility] tamine-amph 9-15 by mouth ity of etamine 15 00:00: in the [place] mg tablet 00 morning Medical and 15 mg Branch in the evening. dextroamphe 2022-0 Yes 15mg Take 15 mg [facility] tamine-amph 9-15 by mouth ity of etamine 15 00:00: in the [place] mg tablet 00 morning Medical and 15 mg Branch in the evening. dextroamphe 2022-0 Yes 15mg Take 15 mg [facility] tamine-amph 9-15 by mouth ity of etamine 15 00:00: in the [place] mg tablet 00 morning Medical and 15 mg Branch in the evening. dextroamphe 2022-0 Yes 15mg Take 15 mg [facility] tamine-amph 9-15 by mouth ity of etamine 15 00:00: in the [place] mg tablet 00 morning Medical and 15 mg Branch in the evening. dextroamphe 2022-0 Yes 15mg Take 15 mg [facility] tamine-amph 9-15 by mouth ity of etamine 15 00:00: in the [place] mg tablet 00 morning Medical and 15 mg Branch in the evening. dextroamphe 2022-0 Yes 15mg Take 15 mg [facility] tamine-amph 9-15 by mouth ity of etamine 15 00:00: in the [place] mg tablet 00 morning Medical and 15 mg Branch in the evening. dextroamphe 2022-0 Yes 15mg Take 15 mg [facility] tamine-amph 9-15 by mouth ity of etamine 15 00:00: in the [place] mg tablet 00 morning Medical and 15 mg Branch in the evening. dextroamphe 2022-0 Yes 15mg Take 15 mg [facility] tamine-amph 9-15 by mouth ity of etamine 15 00:00: in the [place] mg tablet 00 morning Medical and 15 mg Branch in the evening. dextroamphe 2022-0 Yes 15mg Take 15 mg [facility] tamine-amph 9-15 by mouth ity of etamine 15 00:00: in the [place] mg tablet 00 morning Medical and 15 mg Branch in the evening. dextroamphe 2022-0 Yes 15mg Take 15 mg [facility] tamine-amph 9-15 by mouth ity of etamine 15 00:00: in the [place] mg tablet 00 morning Medical and 15 mg Branch in the evening. dextroamphe 2022-0 Yes 15mg Take 15 mg [facility] tamine-amph 9-15 by mouth ity of etamine 15 00:00: in the [place] mg tablet 00 morning Medical and 15 mg Branch in the evening. dextroamphe 2022-0 Yes 15mg Take 15 mg [facility] tamine-amph 9-15 by mouth ity of etamine 15 00:00: in the [place] mg tablet 00 morning Medical and 15 mg Branch in the evening. dextroamphe 2022-0 Yes 15mg Take 15 mg [facility] tamine-amph 9-15 by mouth ity of etamine 15 00:00: in the [place] mg tablet 00 morning Medical and 15 mg Branch in the evening. dextroamphe 2022-0 Yes 15mg Take 15 mg [facility] tamine-amph 9-15 by mouth ity of etamine 15 00:00: in the [place] mg tablet 00 morning Medical and 15 mg Branch in the evening. dextroamphe 2022-0 Yes 15mg Take 15 mg [facility] tamine-amph 9-15 by mouth ity of etamine 15 00:00: in the [place] mg tablet 00 morning Medical and 15 mg Branch in the evening. dextroamphe 2022-0 Yes 15mg Take 15 mg [facility] tamine-amph 9-15 by mouth ity of etamine 15 00:00: in the [place] mg tablet 00 morning Medical and 15 mg Branch in the evening. dextroamphe 2022-0 Yes 15mg Take 15 mg [facility] tamine-amph 9-15 by mouth ity of etamine 15 00:00: in the [place] mg tablet 00 morning Medical and 15 mg Branch in the evening. dextroamphe 2022-0 Yes 15mg Take 15 mg [facility] tamine-amph 9-15 by mouth ity of etamine 15 00:00: in the [place] mg tablet 00 morning Medical and 15 mg Branch in the evening. dextroamphe 2022-0 Yes 15mg Take 15 mg [facility] tamine-amph 9-15 by mouth ity of etamine 15 00:00: in the [place] mg tablet 00 morning Medical and 15 mg Branch in the evening. dextroamphe 2022-0 Yes 15mg Take 15 mg [facility] tamine-amph 9-15 by mouth ity of etamine 15 00:00: in the [place] mg tablet 00 morning Medical and 15 mg Branch in the evening. dextroamphe 2022-0 Yes 15mg Take 15 mg [facility] tamine-amph 9-15 by mouth ity of etamine 15 00:00: in the [place] mg tablet 00 morning Medical and 15 mg Branch in the evening. dextroamphe 2022-0 Yes 15mg Take 15 mg [facility] tamine-amph 9-15 by mouth ity of etamine 15 00:00: in the [place] mg tablet 00 morning Medical and 15 mg Branch in the evening. dextroamphe 2022-0 Yes 15mg Take 15 mg [facility] tamine-amph 9-15 by mouth ity of etamine 15 00:00: in the [place] mg tablet 00 morning Medical and 15 mg Branch in the evening. dextroamphe 2022-0 Yes 15mg Take 15 mg [facility] tamine-amph 9-15 by mouth ity of etamine 15 00:00: in the [place] mg tablet 00 morning Medical and 15 mg Branch in the evening. dextroamphe 2022-0 Yes 15mg Take 15 mg [facility] tamine-amph 9-15 by mouth ity of etamine 15 00:00: in the [place] mg tablet 00 morning Medical and 15 mg Branch in the evening. dextroamphe 2022-0 Yes 15mg Take 15 mg [facility] tamine-amph 9-15 by mouth ity of etamine 15 00:00: in the [place] mg tablet 00 morning Medical and 15 mg Branch in the evening. dextroamphe 2022-0 Yes 15mg Take 15 mg [facility] tamine-amph 9-15 by mouth ity of etamine 15 00:00: in the [place] mg tablet 00 morning Medical and 15 mg Branch in the evening. dextroamphe 2022-0 Yes 15mg Take 15 mg [facility] tamine-amph 9-15 by mouth ity of etamine 15 00:00: in the [place] mg tablet 00 morning Medical and 15 mg Branch in the evening. dextroamphe 2022-0 Yes 15mg Take 15 mg [facility] tamine-amph 9-15 by mouth ity of etamine 15 00:00: in the [place] mg tablet 00 morning Medical and 15 mg Branch in the evening. dextroamphe 2022-0 Yes 15mg Take 15 mg [facility] tamine-amph 9-15 by mouth ity of etamine 15 00:00: in the [place] mg tablet 00 morning Medical and 15 mg Branch in the evening. dextroamphe 2022-0 Yes 15mg Take 15 mg [facility] tamine-amph 9-15 by mouth ity of etamine 15 00:00: in the [place] mg tablet 00 morning Medical and 15 mg Branch in the evening. dextroamphe 2022-0 Yes 15mg Take 15 mg [facility] tamine-amph 9-15 by mouth ity of etamine 15 00:00: in the [place] mg tablet 00 morning Medical and 15 mg Branch in the evening. dextroamphe 2022-0 Yes 15mg Take 15 mg [facility] tamine-amph 9-15 by mouth ity of etamine 15 00:00: in the [place] mg tablet 00 morning Medical and 15 mg Branch in the evening. dextroamphe 2022-0 Yes 15mg Take 15 mg [facility] tamine-amph 9-15 by mouth ity of etamine 15 00:00: in the [place] mg tablet 00 morning Medical and 15 mg Branch in the evening. dextroamphe 2022-0 Yes 15mg Take 15 mg [facility] tamine-amph 9-15 by mouth ity of etamine 15 00:00: in the [place] mg tablet 00 morning Medical and 15 mg Branch in the evening. dextroamphe 2022-0 Yes 15mg Take 15 mg [facility] tamine-amph 9-15 by mouth ity of etamine 15 00:00: in the [place] mg tablet 00 morning Medical and 15 mg Branch in the evening. dextroamphe 2022-0 Yes 15mg Take 15 mg [facility] tamine-amph 9-15 by mouth ity of etamine 15 00:00: in the [place] mg tablet 00 morning Medical and 15 mg Branch in the evening. dextroamphe 2022-0 Yes 15mg Take 15 mg [facility] tamine-amph 9-15 by mouth ity of etamine 15 00:00: in the [place] mg tablet 00 morning Medical and 15 mg Branch in the evening. dextroamphe 2022-0 Yes 15mg Take 15 mg [facility] tamine-amph 9-15 by mouth ity of etamine 15 00:00: in the [place] mg tablet 00 morning Medical and 15 mg Branch in the evening. dextroamphe 2022-0 Yes 15mg Take 15 mg [facility] tamine-amph 9-15 by mouth ity of etamine 15 00:00: in the [place] mg tablet 00 morning Medical and 15 mg Branch in the evening. dextroamphe 2022-0 Yes 15mg Take 15 mg [facility] tamine-amph 9-15 by mouth ity of etamine 15 00:00: in the [place] mg tablet 00 morning Medical and 15 mg Branch in the evening. dextroamphe 2022-0 Yes 15mg Take 15 mg [facility] tamine-amph 9-15 by mouth ity of etamine 15 00:00: in the [place] mg tablet 00 morning Medical and 15 mg Branch in the evening. dextroamphe 2022-0 Yes 15mg Take 15 mg [facility] tamine-amph 9-15 by mouth ity of etamine 15 00:00: in the [place] mg tablet 00 morning Medical and 15 mg Branch in the evening. dextroamphe 2022-0 Yes 15mg Take 15 mg [facility] tamine-amph 9-15 by mouth ity of etamine 15 00:00: in the [place] mg tablet 00 morning Medical and 15 mg Branch in the evening. dextroamphe 2022-0 Yes 15mg Take 15 mg [facility] tamine-amph 9-15 by mouth ity of etamine 15 00:00: in the [place] mg tablet 00 morning Medical and 15 mg Branch in the evening. dextroamphe 2022-0 Yes 15mg Take 15 mg [facility] tamine-amph 9-15 by mouth ity of etamine 15 00:00: in the [place] mg tablet 00 morning Medical and 15 mg Branch in the evening. dextroamphe 2022-0 Yes 15mg Take 15 mg [facility] tamine-amph 9-15 by mouth ity of etamine 15 00:00: in the [place] mg tablet 00 morning Medical and 15 mg Branch in the evening. dextroamphe 2022-0 Yes 15mg Take 15 mg [facility] tamine-amph 9-15 by mouth ity of etamine 15 00:00: in the [place] mg tablet 00 morning Medical and 15 mg Branch in the evening. dextroamphe 2022-0 Yes 15mg Take 15 mg [facility] tamine-amph 9-15 by mouth ity of etamine 15 00:00: in the [place] mg tablet 00 morning Medical and 15 mg Branch in the evening. dextroamphe 2022-0 Yes 15mg Take 15 mg [facility] tamine-amph 9-15 by mouth ity of etamine 15 00:00: in the [place] mg tablet 00 morning Medical and 15 mg Branch in the evening. dextroamphe 2022-0 Yes 15mg Take 15 mg [facility] tamine-amph 9-15 by mouth ity of etamine 15 00:00: in the [place] mg tablet 00 morning Medical and 15 mg Branch in the evening. dextroamphe 2022-0 Yes 15mg Take 15 mg [facility] tamine-amph 9-15 by mouth ity of etamine 15 00:00: in the [place] mg tablet 00 morning Medical and 15 mg Branch in the evening. dextroamphe 2022-0 Yes 15mg Take 15 mg [facility] tamine-amph 9-15 by mouth ity of etamine 15 00:00: in the [place] mg tablet 00 morning Medical and 15 mg Branch in the evening. dextroamphe 2022-0 Yes 15mg Take 15 mg [facility] tamine-amph 9-15 by mouth ity of etamine 15 00:00: in the [place] mg tablet 00 morning Medical and 15 mg Branch in the evening. dextroamphe 2022-0 Yes 15mg Take 15 mg [facility] tamine-amph 9-15 by mouth ity of etamine 15 00:00: in the [place] mg tablet 00 morning Medical and 15 mg Branch in the evening. dextroamphe 2022-0 Yes 15mg Take 15 mg [facility] tamine-amph 9-15 by mouth ity of etamine 15 00:00: in the [place] mg tablet 00 morning Medical and 15 mg Branch in the evening. dextroamphe 2022-0 Yes 15mg Take 15 mg [facility] tamine-amph 9-15 by mouth ity of etamine 15 00:00: in the [place] mg tablet 00 morning Medical and 15 mg Branch in the evening. dextroamphe 2022-0 Yes 15mg Take 15 mg [facility] tamine-amph 9-15 by mouth ity of etamine 15 00:00: in the [place] mg tablet 00 morning Medical and 15 mg Branch in the evening. dextroamphe 2022-0 Yes 15mg Take 15 mg [facility] tamine-amph 9-15 by mouth ity of etamine 15 00:00: in the [place] mg tablet 00 morning Medical and 15 mg Branch in the evening. dextroamphe 2022-0 Yes 15mg Take 15 mg [facility] tamine-amph 9-15 by mouth ity of etamine 15 00:00: in the [place] mg tablet 00 morning Medical and 15 mg Branch in the evening. dextroamphe 2022-0 Yes 15mg Take 15 mg [facility] tamine-amph 9-15 by mouth ity of etamine 15 00:00: in the [place] mg tablet 00 morning Medical and 15 mg Branch in the evening. dextroamphe 2022-0 Yes 15mg Take 15 mg [facility] tamine-amph 9-15 by mouth ity of etamine 15 00:00: in the [place] mg tablet 00 morning Medical and 15 mg Branch in the evening. dextroamphe 2022-0 Yes 15mg Take 15 mg [facility] tamine-amph 9-15 by mouth ity of etamine 15 00:00: in the [place] mg tablet 00 morning Medical and 15 mg Branch in the evening. dextroamphe 2022-0 Yes 15mg Take 15 mg [facility] tamine-amph 9-15 by mouth ity of etamine 15 00:00: in the [place] mg tablet 00 morning Medical and 15 mg Branch in the evening. dextroamphe 2022-0 Yes 15mg Take 15 mg [facility] tamine-amph 9-15 by mouth ity of etamine 15 00:00: in the [place] mg tablet 00 morning Medical and 15 mg Branch in the evening. fludeoxyglu 2021-0 2022- No [id number] 15mCi 15 [facility] cose F-18 12-19 millicurie ity of (FDG) 17:30: 16:21 , [place] injection 00 :00 Intravenou Medi nate 15 s, ONCE, 1 Branch millicurie dose, On Fri12/19/21 at 1230, Routine losartan 25 2021-0 2022- No 25mg Take 25 mg [facility] mg tablet 12-18 by mouth 2 ity of 13:41: 00:00 (two) [place] 55 :00 times Medical daily. Branch losartan Yes [id number] 25mg Take 1 [facility] mg tablet 9-13 tablet by ity o f 00:00: mouth in [place] 00 the [facility] and 1 tablet in the evening. Follow-up for refills and fasting labs. losartan Yes [id number] 25mg Take 1 [facility] mg tablet 9-13 tablet by ity o f 00:00: mouth in [place] 00 the [facility] and 1 tablet in the evening. Follow-up for refills and fasting labs. losartan Yes [id number] 25mg Take 1 [facility] mg tablet 9-13 tablet by ity o f 00:00: mouth in [place] 00 the [facility] and 1 tablet in the evening. Follow-up for refills and fasting labs. losartan Yes [id number] 25mg Take 1 [facility] mg tablet 9-13 tablet by ity o f 00:00: mouth in [place] [address] the [facility] and 1 tablet in the evening. Follow-up for refills and fasting labs. losartan Yes [id number] 25mg Take 1 [facility] mg tablet 9-13 tablet by ity o f 00:00: mouth in [place] 00 the [facility] and 1 tablet in the evening. Follow-up for refills and fasting labs. losartan Yes [id number] 25mg Take 1 [facility] mg tablet 9-13 tablet by ity o f 00:00: mouth in [place] [address] the [facility] and 1 tablet in the evening. Follow-up for refills and fasting labs. losartan Yes [id number] 25mg Take 1 [facility] mg tablet 9-13 tablet by ity o f 00:00: mouth in [place] 00 the [facility] and 1 tablet in the evening. Follow-up for refills and fasting labs. losartan 2021- No [id number] 25mg Take 1 [facility] mg tablet 9-13 - tablet by ity of 00:00: 00:00 mouth in [place] 00 :00 the [facility] and 1 tablet in the evening. Follow-up for refills and fasting labs. losartan 2021- No [id number] 25mg Take 1 [facility] mg tablet 9-13 -28 tablet by ity of 00:00: 00:00 mouth in [place] 00 :00 the Medical morning Branch and 1 tablet in the evening. Follow-up for refills and fasting labs. losartan 25 2021- No [id number] 25mg Take 1 [facility] mg tablet 12-18 tablet by ity of 00:00: 00:00 mouth in [place] 00 :00 the Medical morning Branch and 1 tablet in the evening. Follow-up for refills and fasting labs. losartan 25 2021- No [id number] 25mg Take 1 [facility] mg tablet 12-18 tablet by ity of 00:00: 00:00 mouth in [place] 00 :00 the Medical morning Branch and 1 tablet in the evening. Follow-up for refills and fasting labs. guaifenesin Yes Take by Uni vers /dextrometh 9-02 mouth. ity of orphan 11:34: [place] (MUCINEX DM 05 Medical [facility]AL[facility] /[facility]eth [facility]-02 mouth. ity of orphan 11:34: [place] (MUCINEX DM 05 Medical ORAL) Branch guaifenesin Yes Take by Uni vers /dextrometh 9-02 mouth. ity of orphan 11:34: [place] (MUCINEX DM 05 Medical ORAL) Branch aifenesin Yes Take by Uni vers /dextrometh 9-02 mouth. ity of orphan 11:34: [place] (MUCINEX DM 05 Medical ORAL) Branch venlafaxine Yes 300mg Take 300 U nivers HCl 9-02 mg by ity of (VENLAFAXIN 11:33: mouth [place] E ORAL) 21 daily. Medical Branch ALPRAZolam Yes .5mg Take 0.5 Uni vers 1 mg tablet 9-02 mg by ity of 11:33: mouth as [place] 21 needed. Medical Branch venlafaxine Yes 300mg Take 300 U nivers HCl 9-02 mg by ity of (VENLAFAXIN 11:33: mouth [place] E ORAL) 21 daily. Medical Branch ALPRAZolam Yes .5mg Take 0.5 Uni vers 1 mg tablet 9-02 mg by ity of 11:33: mouth as [place] 21 needed. Medical Branch venlafaxine Yes 300mg Take 300 U nivers HCl 9-02 mg by ity of (VENLAFAXIN 11:33: mouth [place] E ORAL) 21 daily. Medical Branch ALPRAZolam Yes .5mg Take 0.5 Uni vers 1 mg tablet 9-02 mg by ity of 11:33: mouth as [place] 21 needed. Medical Branch venlafaxine Yes 300mg Take 300 U nivers HCl 9-02 mg by ity of (VENLAFAXIN 11:33: mouth [place] E ORAL) 21 daily. Medical Branch ALPRAZolam Yes .5mg Take 0.5 Uni vers 1 mg tablet 9-02 mg by ity of 11:33: mouth as [place] 21 needed. Medical Branch venlafaxine Yes 300mg Take 300 U nivers HCl 9-02 mg by ity of (VENLAFAXIN 11:33: mouth [place] E ORAL) 21 daily. Medical Branch ALPRAZolam Yes .5mg Take 0.5 Uni vers 1 mg tablet 9-02 mg by ity of 11:33: mouth as [place] 21 needed. Medical Branch venlafaxine Yes 300mg Take 300 U nivers HCl 9-02 mg by ity of (VENLAFAXIN 11:33: mouth [place] E ORAL) 21 daily. Medical Branch ALPRAZolam Yes .5mg Take 0.5 Uni vers 1 mg tablet 9-02 mg by ity of 11:33: mouth as [place] 21 needed. Medical Branch venlafaxine Yes 300mg Take 300 U nivers HCl 9-02 mg by ity of (VENLAFAXIN 11:33: mouth [place] E ORAL) 21 daily. Medical Branch ALPRAZolam 0 Yes .5mg Take 0.5 Uni vers 1 mg tablet 9-02 mg by ity of 11:33: mouth as [place] 21 needed. Medical Branch ALPRAZolam 0 Yes .5mg Take 0.5 Uni vers 1 mg tablet 9-02 mg by ity of 11:33: mouth as [place] 21 needed. Medical Branch ALPRAZolam 0 Yes .5mg Take 0.5 Uni vers 1 mg tablet 9-02 mg by ity of 11:33: mouth as [place] 21 needed. Medical Branch ALPRAZolam 2021-0 Yes .5mg Take 0.5 Uni vers 1 mg tablet 9-02 mg by ity of 11:33: mouth as [place] 21 needed. Medical Branch ALPRAZolam 2021-0 Yes .5mg Take 0.5 Uni vers 1 mg tablet 9-02 mg by ity of 11:33: mouth as [place] 21 needed. Medical Branch ALPRAZolam 2021-0 Yes .5mg Take 0.5 [facility] vers 1 mg tablet 9-02 mg by ity of 11:33: mouth as [place] 21 needed. Medical Branch ALPRAZolam 2021-0 Yes .5mg Take 0.5 Uni vers 1 mg tablet 9-02 mg by ity of 11:33: mouth as [place] 21 needed. Medical Branch ALPRAZolam 2021-0 Yes .5mg Take 0.5 Uni vers 1 mg tablet 9-02 mg by ity of 11:33: mouth as [place] 21 needed. Medical Branch ALPRAZolam 0 Yes .5mg Take 0.5 [facility] vers 1 mg tablet 9-02 mg by ity of 11:33: mouth as [place] 21 needed. Medical Branch ALPRAZolam 0 Yes .5mg Take 0.5 Uni vers 1 mg tablet 9-02 mg by ity of 11:33: mouth as [place] 21 needed. Medical Branch ALPRAZolam 0 Yes .5mg Take 0.5 [facility] vers 1 mg tablet 9-02 mg by ity of 11:33: mouth as [place] 21 needed. Medical Branch ALPRAZolam 0 Yes .5mg Take 0.5 Uni vers 1 mg tablet 9-02 mg by ity of 11:33: mouth as [place] 21 needed. Medical Branch ALPRAZolam 2021-0 Yes .5mg Take 0.5 Uni vers 1 mg tablet 9-02 mg by ity of 11:33: mouth as [place] 21 needed. Medical Branch ALPRAZolam 2021-0 Yes .5mg Take 0.5 Uni vers 1 mg tablet 9-02 mg by ity of 11:33: mouth as [place] 21 needed. Medical Branch ALPRAZolam 2021-0 Yes .5mg Take 0.5 Uni vers 1 mg tablet 9-02 mg by ity of 11:33: mouth as [place] 21 needed. Medical Branch ALPRAZolam Yes .5mg Take 0.5 Uni vers 1 mg tablet 9-02 mg by ity of 11:33: mouth as [place] 21 needed. Medical Branch ALPRAZolam Yes .5mg Take 0.5 Uni vers 1 mg tablet 9-02 mg by ity of 11:33: mouth as [place] 21 needed. Medical Branch ALPRAZolam Yes .5mg Take 0.5 Uni vers 1 mg tablet 9-02 mg by ity of 11:33: mouth as [place] 21 needed. Medical Branch ALPRAZolam Yes .5mg Take 0.5 Uni vers 1 mg tablet 9-02 mg by ity of 11:33: mouth as [place] 21 needed. Medical Branch ALPRAZolam Yes .5mg Take 0.5 Uni vers 1 mg tablet 9-02 mg by ity of 11:33: mouth as [place] 21 needed. Medical Branch ALPRAZolam Yes .5mg Take 0.5 [facility] vers 1 mg tablet 9-02 mg by ity of 11:33: mouth as [place] 21 needed. Medical Branch ALPRAZolam Yes .5mg Take 0.5 Uni vers 1 mg tablet 9-02 mg by ity of 11:33: mouth as [place] 21 needed. Medical Branch venlafaxine Yes TAKE 1 Univ ers XR 150 mg 8-24 CAPSULE BY ity of 24 hr 00:00: MOUTH [place] capsule 00 TWICE Medical DAILY WITH Branch FOOD venlafaxine Yes TAKE 1 Univ ers XR 150 mg 8-24 CAPSULE BY ity of 24 hr 00:00: MOUTH [place] capsule 00 TWICE Medical DAILY WITH Branch FOOD venlafaxine Yes TAKE 1 Univ ers XR 150 mg 8-24 CAPSULE BY ity of 24 hr 00:00: MOUTH [place] capsule 00 TWICE Medical DAILY WITH Branch FOOD venlafaxine Yes TAKE 1 Univ ers XR 150 mg 8-24 CAPSULE BY ity of 24 hr 00:00: MOUTH [place] capsule 00 TWICE Medical DAILY WITH Branch FOOD venlafaxine Yes TAKE 1 Univ ers XR 150 mg 8-24 CAPSULE BY ity of 24 hr 00:00: MOUTH [place] capsule 00 TWICE Medical DAILY WITH Branch FOOD venlafaxine Yes TAKE 1 Univ ers XR 150 mg 8-24 CAPSULE BY ity of 24 hr 00:00: MOUTH [place] capsule 00 TWICE Medical DAILY WITH Branch FOOD venlafaxine 2-0 Yes TAKE 1 Univ ers XR 150 mg 8-24 CAPSULE BY ity of 24 hr 00:00: MOUTH [place] capsule 00 TWICE Medical DAILY WITH Branch FOOD venlafaxine 2-0 Yes TAKE 1 Univ ers XR 150 mg 8-24 CAPSULE BY ity of 24 hr 00:00: MOUTH [place] capsule 00 TWICE Medical DAILY WITH Branch FOOD venlafaxine 2-0 Yes TAKE 1 Univ ers XR 150 mg 8-24 CAPSULE BY ity of 24 hr 00:00: MOUTH [place] capsule 00 TWICE Medical DAILY WITH Branch FOOD venlafaxine 2-0 Yes TAKE 1 Univ ers XR 150 mg 8-24 CAPSULE BY ity of 24 hr 00:00: MOUTH [place] capsule 00 TWICE Medical DAILY WITH Branch FOOD venlafaxine 2-0 Yes TAKE 1 Univ ers XR 150 mg 8-24 CAPSULE BY ity of 24 hr 00:00: MOUTH [place] capsule 00 TWICE Medical DAILY WITH Branch FOOD venlafaxine 2-0 Yes TAKE 1 Univ ers XR 150 mg 8-24 CAPSULE BY ity of 24 hr 00:00: MOUTH [place] capsule 00 TWICE Medical DAILY WITH Branch FOOD venlafaxine 2-0 Yes TAKE 1 Univ ers XR 150 mg 8-24 CAPSULE BY ity of 24 hr 00:00: MOUTH [place] capsule 00 TWICE Medical DAILY WITH Branch FOOD venlafaxine 2-0 Yes TAKE 1 Univ ers XR 150 mg 8-24 CAPSULE BY ity of 24 hr 00:00: MOUTH [place] capsule 00 TWICE Medical DAILY WITH Branch FOOD venlafaxine 2-0 Yes TAKE 1 Univ ers XR 150 mg 8-24 CAPSULE BY ity of 24 hr 00:00: MOUTH [place] capsule 00 TWICE Medical DAILY WITH Branch FOOD venlafaxine 2-0 Yes TAKE 1 Univ ers XR 150 mg 8-24 CAPSULE BY ity of 24 hr 00:00: MOUTH [place] capsule 00 TWICE Medical DAILY WITH Branch FOOD venlafaxine 2-0 Yes TAKE 1 Univ ers XR 150 mg 8-24 CAPSULE BY ity of 24 hr 00:00: MOUTH [place] capsule 00 TWICE Medical DAILY WITH Branch FOOD venlafaxine 2-0 Yes TAKE 1 Univ ers XR 150 mg 8-24 CAPSULE BY ity of 24 hr 00:00: MOUTH [place] capsule 00 TWICE Medical DAILY WITH Branch FOOD venlafaxine 2-0 Yes TAKE 1 Univ ers XR 150 mg 8-24 CAPSULE BY ity of 24 hr 00:00: MOUTH [place] capsule 00 TWICE Medical DAILY WITH Branch FOOD venlafaxine 2-0 Yes TAKE 1 Univ ers XR 150 mg 8-24 CAPSULE BY ity of 24 hr 00:00: MOUTH [place] capsule 00 TWICE Medical DAILY WITH Branch FOOD venlafaxine 2-0 Yes TAKE 1 Univ ers XR 150 mg 8-24 CAPSULE BY ity of 24 hr 00:00: MOUTH [place] capsule 00 TWICE Medical DAILY WITH Branch FOOD venlafaxine 2-0 Yes TAKE 1 Univ ers XR 150 mg 8-24 CAPSULE BY ity of 24 hr 00:00: MOUTH [place] capsule 00 TWICE Medical DAILY WITH Branch FOOD venlafaxine 2-0 Yes TAKE 1 Univ ers XR 150 mg 8-24 CAPSULE BY ity of 24 hr 00:00: MOUTH [place] capsule 00 TWICE Medical DAILY WITH Branch FOOD venlafaxine 2-0 Yes TAKE 1 Univ ers XR 150 mg 8-24 CAPSULE BY ity of 24 hr 00:00: MOUTH [place] capsule 00 TWICE Medical DAILY WITH Branch FOOD venlafaxine 2-0 Yes TAKE 1 Univ ers XR 150 mg 8-24 CAPSULE BY ity of 24 hr 00:00: MOUTH [place] capsule 00 TWICE Medical DAILY WITH Branch FOOD venlafaxine 2-0 Yes TAKE 1 Univ ers XR 150 mg 8-24 CAPSULE BY ity of 24 hr 00:00: MOUTH [place] capsule 00 TWICE Medical DAILY WITH Branch FOOD venlafaxine 2-0 Yes TAKE 1 Univ ers XR 150 mg 8-24 CAPSULE BY ity of 24 hr 00:00: MOUTH [place] capsule 00 TWICE Medical DAILY WITH Branch FOOD venlafaxine 2-0 Yes TAKE 1 Univ ers XR 150 mg 8-24 CAPSULE BY ity of 24 hr 00:00: MOUTH [place] capsule 00 TWICE Medical DAILY WITH Branch FOOD venlafaxine 2-0 Yes TAKE 1 Univ ers XR 150 mg 8-24 CAPSULE BY ity of 24 hr 00:00: MOUTH [place] capsule 00 TWICE Medical DAILY WITH Branch FOOD venlafaxine 2-0 Yes TAKE 1 Univ ers XR 150 mg 8-24 CAPSULE BY ity of 24 hr 00:00: MOUTH [place] capsule 00 TWICE Medical DAILY WITH Branch FOOD venlafaxine 2-0 Yes TAKE 1 Univ ers XR 150 mg 8-24 CAPSULE BY ity of 24 hr 00:00: MOUTH [place] capsule 00 TWICE Medical DAILY WITH Branch FOOD venlafaxine 2-0 Yes TAKE 1 Univ ers XR 150 mg 8-24 CAPSULE BY ity of 24 hr 00:00: MOUTH [place] capsule 00 TWICE Medical DAILY WITH Branch FOOD venlafaxine 2-0 Yes TAKE 1 Univ ers XR 150 mg 8-24 CAPSULE BY ity of 24 hr 00:00: MOUTH [place] capsule 00 TWICE Medical DAILY WITH Branch FOOD venlafaxine 2-0 Yes TAKE 1 Univ ers XR 150 mg 8-24 CAPSULE BY ity of 24 hr 00:00: MOUTH [place] capsule 00 TWICE Medical DAILY WITH Branch FOOD venlafaxine 2-0 Yes TAKE 1 Univ ers XR 150 mg 8-24 CAPSULE BY ity of 24 hr 00:00: MOUTH [place] capsule 00 TWICE Medical DAILY WITH Branch FOOD venlafaxine 2-0 Yes TAKE 1 Univ ers XR 150 mg 8-24 CAPSULE BY ity of 24 hr 00:00: MOUTH [place] capsule 00 TWICE Medical DAILY WITH Branch FOOD venlafaxine 2-0 Yes TAKE 1 Univ ers XR 150 mg 8-24 CAPSULE BY ity of 24 hr 00:00: MOUTH [place] capsule 00 TWICE Medical DAILY WITH Branch FOOD venlafaxine 2-0 Yes TAKE 1 Univ ers XR 150 mg 8-24 CAPSULE BY ity of 24 hr 00:00: MOUTH [place] capsule 00 TWICE Medical DAILY WITH Branch FOOD venlafaxine 2-0 Yes TAKE 1 Univ ers XR 150 mg 8-24 CAPSULE BY ity of 24 hr 00:00: MOUTH [place] capsule 00 TWICE Medical DAILY WITH Branch FOOD venlafaxine 2-0 Yes TAKE 1 Univ ers XR 150 mg 8-24 CAPSULE BY ity of 24 hr 00:00: MOUTH [place] capsule 00 TWICE Medical DAILY WITH Branch FOOD venlafaxine 2-0 Yes TAKE 1 Univ ers XR 150 mg 8-24 CAPSULE BY ity of 24 hr 00:00: MOUTH [place] capsule 00 TWICE Medical DAILY WITH Branch FOOD venlafaxine 2-0 Yes TAKE 1 Univ ers XR 150 mg 8-24 CAPSULE BY ity of 24 hr 00:00: MOUTH [place] capsule 00 TWICE Medical DAILY WITH Branch FOOD venlafaxine 2-0 Yes TAKE 1 Univ ers XR 150 mg 8-24 CAPSULE BY ity of 24 hr 00:00: MOUTH [place] capsule 00 TWICE Medical DAILY WITH Branch FOOD venlafaxine 2-0 Yes TAKE 1 Univ ers XR 150 mg 8-24 CAPSULE BY ity of 24 hr 00:00: MOUTH [place] capsule 00 TWICE Medical DAILY WITH Branch FOOD venlafaxine 2-0 Yes TAKE 1 Univ ers XR 150 mg 8-24 CAPSULE BY ity of 24 hr 00:00: MOUTH [place] capsule 00 TWICE Medical DAILY WITH Branch FOOD venlafaxine 2-0 Yes TAKE 1 Univ ers XR 150 mg 8-24 CAPSULE BY ity of 24 hr 00:00: MOUTH [place] capsule 00 TWICE Medical DAILY WITH Branch FOOD venlafaxine 2-0 Yes TAKE 1 Univ ers XR 150 mg 8-24 CAPSULE BY ity of 24 hr 00:00: MOUTH [place] capsule 00 TWICE Medical DAILY WITH Branch FOOD venlafaxine 2-0 Yes TAKE 1 Univ ers XR 150 mg 8-24 CAPSULE BY ity of 24 hr 00:00: MOUTH [place] capsule 00 TWICE Medical DAILY WITH Branch FOOD venlafaxine 2-0 Yes TAKE 1 Univ ers XR 150 mg 8-24 CAPSULE BY ity of 24 hr 00:00: MOUTH [place] capsule 00 TWICE Medical DAILY WITH Branch FOOD venlafaxine 2-0 Yes TAKE 1 Univ ers XR 150 mg 8-24 CAPSULE BY ity of 24 hr 00:00: MOUTH [place] capsule 00 TWICE Medical DAILY WITH Branch FOOD venlafaxine 2-0 Yes TAKE 1 Univ ers XR 150 mg 8-24 CAPSULE BY ity of 24 hr 00:00: MOUTH [place] capsule 00 TWICE Medical DAILY WITH Branch FOOD venlafaxine 2-0 Yes TAKE 1 Univ ers XR 150 mg 8-24 CAPSULE BY ity of 24 hr 00:00: MOUTH [place] capsule 00 TWICE Medical DAILY WITH Branch FOOD venlafaxine 2-0 Yes TAKE 1 Univ ers XR 150 mg 8-24 CAPSULE BY ity of 24 hr 00:00: MOUTH [place] capsule 00 TWICE Medical DAILY WITH Branch FOOD venlafaxine 2-0 Yes TAKE 1 Univ ers XR 150 mg 8-24 CAPSULE BY ity of 24 hr 00:00: MOUTH [place] capsule 00 TWICE Medical DAILY WITH Branch FOOD venlafaxine 2-0 Yes TAKE 1 Univ ers XR 150 mg 8-24 CAPSULE BY ity of 24 hr 00:00: MOUTH [place] capsule 00 TWICE Medical DAILY WITH Branch FOOD venlafaxine 2-0 Yes TAKE 1 Univ ers XR 150 mg 8-24 CAPSULE BY ity of 24 hr 00:00: MOUTH [place] capsule 00 TWICE Medical DAILY WITH Branch FOOD venlafaxine 2-0 Yes TAKE 1 Univ ers XR 150 mg 8-24 CAPSULE BY ity of 24 hr 00:00: MOUTH [place] capsule 00 TWICE Medical DAILY WITH Branch FOOD venlafaxine 2-0 Yes TAKE 1 Univ ers XR 150 mg 8-24 CAPSULE BY ity of 24 hr 00:00: MOUTH [place] capsule 00 TWICE Medical DAILY WITH Branch FOOD venlafaxine 2-0 Yes TAKE 1 Univ ers XR 150 mg 8-24 CAPSULE BY ity of 24 hr 00:00: MOUTH [place] capsule 00 TWICE Medical DAILY WITH Branch FOOD venlafaxine 2021-0 Yes TAKE 1 Univ ers XR 150 mg 8-24 CAPSULE BY ity of 24 hr 00:00: MOUTH [place] capsule 00 TWICE Medical DAILY WITH Branch FOOD venlafaxine 2021-0 Yes TAKE 1 Univ ers XR 150 mg 8-24 CAPSULE BY ity of 24 hr 00:00: MOUTH [place] capsule 00 TWICE Medical DAILY WITH Branch FOOD venlafaxine 2021-0 Yes TAKE 1 Univ ers XR 150 mg 8-24 CAPSULE BY ity of 24 hr 00:00: MOUTH [place] capsule 00 TWICE Medical DAILY WITH Branch FOOD venlafaxine 2021-0 Yes TAKE 1 Univ ers XR 150 mg 8-24 CAPSULE BY ity of 24 hr 00:00: MOUTH [place] capsule 00 TWICE Medical DAILY WITH Branch FOOD venlafaxine 2-0 Yes TAKE 1 Univ ers XR 150 mg 8-24 CAPSULE BY ity of 24 hr 00:00: MOUTH [place] capsule 00 TWICE Medical DAILY WITH Branch FOOD venlafaxine 2-0 Yes TAKE 1 Univ ers XR 150 mg 8-24 CAPSULE BY ity of 24 hr 00:00: MOUTH [place] capsule 00 TWICE Medical DAILY WITH Branch FOOD venlafaxine 2021-0 Yes TAKE 1 Univ ers XR 150 mg 8-24 CAPSULE BY ity of 24 hr 00:00: MOUTH [place] capsule 00 TWICE Medical DAILY WITH Branch FOOD venlafaxine 2-0 Yes TAKE 1 Univ ers XR 150 mg 8-24 CAPSULE BY ity of 24 hr 00:00: MOUTH [place] capsule 00 TWICE Medical DAILY WITH Branch FOOD albuterol 2021-0 Yes [id number] 2{puff} Inhale 2 Univers 90 8-02 Puffs ity of mcg/actuati 00:00: every 6 [place] as on inhaler 00 (six) Medical hours as Branch needed for Wheezing or Shortness of Breath. albuterol Yes [id number] 2{puff} Inhale 2 [facility] 90 8-02 Puffs ity of mcg/actuati 00:00: every 6 [place] as on inhaler 00 (six) Medical hours as Branch needed for Wheezing or Shortness of Breath. albuterol Yes [id number] 2{puff} Inhale 2 [facility] 90 8-02 Puffs ity of mcg/actuati 00:00: every 6 [place] as on inhaler 00 (six) Medical hours as Branch needed for Wheezing or Shortness of Breath. albuterol Yes [id number] 2{puff} Inhale 2 [facility] 90 8-02 Puffs ity of mcg/actuati 00:00: every 6 [place] as on inhaler 00 (six) Medical hours as Branch needed for Wheezing or Shortness of Breath. albuterol Yes [id number] 2{puff} Inhale 2 [facility] 90 8-02 Puffs ity of mcg/actuati 00:00: every 6 [place] as on inhaler 00 (six) Medical hours as Branch needed for Wheezing or Shortness of Breath. albuterol Yes [id number] 2{puff} Inhale 2 [facility] 90 8-02 Puffs ity of mcg/actuati 00:00: every 6 [place] as on inhaler 00 (six) Medical hours as Branch needed for Wheezing or Shortness of Breath. albuterol Yes [id number] 2{puff} Inhale 2 [facility] 90 8-02 Puffs ity of mcg/actuati 00:00: every 6 [place] as on inhaler 00 (six) Medical hours as Branch needed for Wheezing or Shortness of Breath. albuterol Yes [id number] 2{puff} Inhale 2 [facility] 90 8-02 Puffs ity of mcg/actuati 00:00: every 6 [place] as on inhaler 00 (six) Medical hours as Branch needed for Wheezing or Shortness of Breath. albuterol Yes [id number] 2{puff} Inhale 2 [facility] 90 8-02 Puffs ity of mcg/actuati 00:00: every 6 [place] as on inhaler 00 (six) Medical hours as Branch needed for Wheezing or Shortness of Breath. albuterol Yes [id number] 2{puff} Inhale 2 [facility] 90 8-02 Puffs ity of mcg/actuati 00:00: every 6 [place] as on inhaler 00 (six) Medical hours as Branch needed for Wheezing or Shortness of Breath. albuterol Yes [id number] 2{puff} Inhale 2 [facility] 90 8-02 Puffs ity of mcg/actuati 00:00: every 6 [place] as on inhaler 00 (six) Medical hours as Branch needed for Wheezing or Shortness of Breath. albuterol Yes [id number] 2{puff} Inhale 2 [facility] 90 8-02 Puffs ity of mcg/actuati 00:00: every 6 [place] as on inhaler 00 (six) Medical hours as Branch needed for Wheezing or Shortness of Breath. albuterol Yes [id number] 2{puff} Inhale 2 [facility] 90 8-02 Puffs ity of mcg/actuati 00:00: every 6 [place] as on inhaler 00 (six) Medical hours as Branch needed for Wheezing or Shortness of Breath. albuterol Yes [id number] 2{puff} Inhale 2 [facility] 90 8-02 Puffs ity of mcg/actuati 00:00: every 6 [place] as on inhaler 00 (six) Medical hours as Branch needed for Wheezing or Shortness of Breath. albuterol Yes [id number] 2{puff} Inhale 2 [facility] 90 8-02 Puffs ity of mcg/actuati 00:00: every 6 [place] as on inhaler 00 (six) Medical hours as Branch needed for Wheezing or Shortness of Breath. albuterol Yes [id number] 2{puff} Inhale 2 [facility] 90 8-02 Puffs ity of mcg/actuati 00:00: every 6 [place] as on inhaler 00 (six) Medical hours as Branch needed for Wheezing or Shortness of Breath. albuterol Yes [id number] 2{puff} Inhale 2 [facility] 90 8-02 Puffs ity of mcg/actuati 00:00: every 6 [place] as on inhaler 00 (six) Medical hours as Branch needed for Wheezing or Shortness of Breath. albuterol Yes [id number] 2{puff} Inhale 2 [facility] 90 8-02 Puffs ity of mcg/actuati 00:00: every 6 [place] as on inhaler 00 (six) Medical hours as Branch needed for Wheezing or Shortness of Breath. albuterol Yes [id number] 2{puff} Inhale 2 [facility] 90 8-02 Puffs ity of mcg/actuati 00:00: every 6 [place] as on inhaler 00 (six) Medical hours as Branch needed for Wheezing or Shortness of Breath. albuterol Yes [id number] 2{puff} Inhale 2 [facility] 90 8-02 Puffs ity of mcg/actuati 00:00: every 6 [place] as on inhaler 00 (six) Medical hours as Branch needed for Wheezing or Shortness of Breath. albuterol Yes [id number] 2{puff} Inhale 2 [facility] 90 8-02 Puffs ity of mcg/actuati 00:00: every 6 [place] as on inhaler 00 (six) Medical hours as Branch needed for Wheezing or Shortness of Breath. albuterol Yes [id number] 2{puff} Inhale 2 [facility] 90 8-02 Puffs ity of mcg/actuati 00:00: every 6 [place] as on inhaler 00 (six) Medical hours as Branch needed for Wheezing or Shortness of Breath. albuterol Yes [id number] 2{puff} Inhale 2 [facility] 90 8-02 Puffs ity of mcg/actuati 00:00: every 6 [place] as on inhaler 00 (six) Medical hours as Branch needed for Wheezing or Shortness of Breath. albuterol Yes [id number] 2{puff} Inhale 2 [facility] 90 8-02 Puffs ity of mcg/actuati 00:00: every 6 [place] as on inhaler 00 (six) Medical hours as Branch needed for Wheezing or Shortness of Breath. albuterol Yes [id number] 2{puff} Inhale 2 [facility] 90 8-02 Puffs ity of mcg/actuati 00:00: every 6 [place] as on inhaler 00 (six) Medical hours as Branch needed for Wheezing or Shortness of Breath. albuterol Yes [id number] 2{puff} Inhale 2 [facility] 90 8-02 Puffs ity of mcg/actuati 00:00: every 6 [place] as on inhaler 00 (six) Medical hours as Branch needed for Wheezing or Shortness of Breath. albuterol Yes [id number] 2{puff} Inhale 2 [facility] 90 8-02 Puffs ity of mcg/actuati 00:00: every 6 [place] as on inhaler 00 (six) Medical hours as Branch needed for Wheezing or Shortness of Breath. albuterol Yes [id number] 2{puff} Inhale 2 [facility] 90 8-02 Puffs ity of mcg/actuati 00:00: every 6 [place] as on inhaler 00 (six) Medical hours as Branch needed for Wheezing or Shortness of Breath. albuterol Yes [id number] 2{puff} Inhale 2 [facility] 90 8-02 Puffs ity of mcg/actuati 00:00: every 6 [place] as on inhaler 00 (six) Medical hours as Branch needed for Wheezing or Shortness of Breath. albuterol Yes [id number] 2{puff} Inhale 2 [facility] 90 8-02 Puffs ity of mcg/actuati 00:00: every 6 [place] as on inhaler 00 (six) Medical hours as Branch needed for Wheezing or Shortness of Breath. albuterol Yes [id number] 2{puff} Inhale 2 [facility] 90 8-02 Puffs ity of mcg/actuati 00:00: every 6 [place] as on inhaler 00 (six) Medical hours as Branch needed for Wheezing or Shortness of Breath. albuterol Yes [id number] 2{puff} Inhale 2 [facility] 90 8-02 Puffs ity of mcg/actuati 00:00: every 6 [place] as on inhaler 00 (six) Medical hours as Branch needed for Wheezing or Shortness of Breath. albuterol Yes [id number] 2{puff} Inhale 2 [facility] 90 8-02 Puffs ity of mcg/actuati 00:00: every 6 [place] as on inhaler 00 (six) Medical hours as Branch needed for Wheezing or Shortness of Breath. albuterol Yes [id number] 2{puff} Inhale 2 [facility] 90 8-02 Puffs ity of mcg/actuati 00:00: every 6 [place] as on inhaler 00 (six) Medical hours as Branch needed for Wheezing or Shortness of Breath. albuterol Yes [id number] 2{puff} Inhale 2 [facility] 90 8-02 Puffs ity of mcg/actuati 00:00: every 6 [place] as on inhaler 00 (six) Medical hours as Branch needed for Wheezing or Shortness of Breath. albuterol Yes [id number] 2{puff} Inhale 2 [facility] 90 8-02 Puffs ity of mcg/actuati 00:00: every 6 [place] as on inhaler 00 (six) Medical hours as Branch needed for Wheezing or Shortness of Breath. albuterol Yes [id number] 2{puff} Inhale 2 [facility] 90 8-02 Puffs ity of mcg/actuati 00:00: every 6 [place] as on inhaler 00 (six) Medical hours as Branch needed for Wheezing or Shortness of Breath. albuterol Yes [id number] 2{puff} Inhale 2 [facility] 90 8-02 Puffs ity of mcg/actuati 00:00: every 6 [place] as on inhaler 00 (six) Medical hours as Branch needed for Wheezing or Shortness of Breath. albuterol Yes [id number] 2{puff} Inhale 2 [facility] 90 8-02 Puffs ity of mcg/actuati 00:00: every 6 [place] as on inhaler 00 (six) Medical hours as Branch needed for Wheezing or Shortness of Breath. albuterol Yes [id number] 2{puff} Inhale 2 [facility] 90 8-02 Puffs ity of mcg/actuati 00:00: every 6 [place] as on inhaler 00 (six) Medical hours as Branch needed for Wheezing or Shortness of Breath. albuterol Yes [id number] 2{puff} Inhale 2 [facility] 90 8-02 Puffs ity of mcg/actuati 00:00: every 6 [place] as on inhaler 00 (six) Medical hours as Branch needed for Wheezing or Shortness of Breath. albuterol Yes [id number] 2{puff} Inhale 2 [facility] 90 8-02 Puffs ity of mcg/actuati 00:00: every 6 [place] as on inhaler 00 (six) Medical hours as Branch needed for Wheezing or Shortness of Breath. albuterol Yes [id number] 2{puff} Inhale 2 [facility] 90 8-02 Puffs ity of mcg/actuati 00:00: every 6 [place] as on inhaler 00 (six) Medical hours as Branch needed for Wheezing or Shortness of Breath. albuterol Yes [id number] 2{puff} Inhale 2 [facility] 90 8-02 Puffs ity of mcg/actuati 00:00: every 6 [place] as on inhaler 00 (six) Medical hours as Branch needed for Wheezing or Shortness of Breath. albuterol Yes [id number] 2{puff} Inhale 2 [facility] 90 8-02 Puffs ity of mcg/actuati 00:00: every 6 [place] as on inhaler 00 (six) Medical hours as Branch needed for Wheezing or Shortness of Breath. albuterol Yes [id number] 2{puff} Inhale 2 [facility] 90 8-02 Puffs ity of mcg/actuati 00:00: every 6 [place] as on inhaler 00 (six) Medical hours as Branch needed for Wheezing or Shortness of Breath. albuterol Yes [id number] 2{puff} Inhale 2 [facility] 90 8-02 Puffs ity of mcg/actuati 00:00: every 6 [place] as on inhaler 00 (six) Medical hours as Branch needed for Wheezing or Shortness of Breath. albuterol Yes [id number] 2{puff} Inhale 2 [facility] 90 8-02 Puffs ity of mcg/actuati 00:00: every 6 [place] as on inhaler 00 (six) Medical hours as Branch needed for Wheezing or Shortness of Breath. albuterol Yes [id number] 2{puff} Inhale 2 [facility] 90 8-02 Puffs ity of mcg/actuati 00:00: every 6 [place] as on inhaler 00 (six) Medical hours as Branch needed for Wheezing or Shortness of Breath. albuterol Yes [id number] 2{puff} Inhale 2 [facility] 90 8-02 Puffs ity of mcg/actuati 00:00: every 6 [place] as on inhaler 00 (six) Medical hours as Branch needed for Wheezing or Shortness of Breath. albuterol Yes [id number] 2{puff} Inhale 2 [facility] 90 8-02 Puffs ity of mcg/actuati 00:00: every 6 [place] as on inhaler 00 (six) Medical hours as Branch needed for Wheezing or Shortness of Breath. albuterol Yes [id number] 2{puff} Inhale 2 [facility] 90 8-02 Puffs ity of mcg/actuati 00:00: every 6 [place] as on inhaler 00 (six) Medical hours as Branch needed for Wheezing or Shortness of Breath. albuterol Yes [id number] 2{puff} Inhale 2 [facility] 90 8-02 Puffs ity of mcg/actuati 00:00: every 6 [place] as on inhaler 00 (six) Medical hours as Branch needed for Wheezing or Shortness of Breath. albuterol Yes [id number] 2{puff} Inhale 2 [facility] 90 8-02 Puffs ity of mcg/actuati 00:00: every 6 [place] as on inhaler 00 (six) Medical hours as Branch needed for Wheezing or Shortness of Breath. albuterol Yes [id number] 2{puff} Inhale 2 [facility] 90 8-02 Puffs ity of mcg/actuati 00:00: every 6 [place] as on inhaler 00 (six) Medical hours as Branch needed for Wheezing or Shortness of Breath. albuterol Yes [id number] 2{puff} Inhale 2 [facility] 90 8-02 Puffs ity of mcg/actuati 00:00: every 6 [place] as on inhaler 00 (six) Medical hours as Branch needed for Wheezing or Shortness of Breath. albuterol Yes [id number] 2{puff} Inhale 2 [facility] 90 8-02 Puffs ity of mcg/actuati 00:00: every 6 [place] as on inhaler 00 (six) Medical hours as Branch needed for Wheezing or Shortness of Breath. albuterol Yes [id number] 2{puff} Inhale 2 [facility] 90 8-02 Puffs ity of mcg/actuati 00:00: every 6 [place] as on inhaler 00 (six) Medical hours as Branch needed for Wheezing or Shortness of Breath. albuterol Yes [id number] 2{puff} Inhale 2 [facility] 90 8-02 Puffs ity of mcg/actuati 00:00: every 6 [place] as on inhaler 00 (six) Medical hours as Branch needed for Wheezing or Shortness of Breath. albuterol Yes [id number] 2{puff} Inhale 2 [facility] 90 8-02 Puffs ity of mcg/actuati 00:00: every 6 [place] as on inhaler 00 (six) Medical hours as Branch needed for Wheezing or Shortness of Breath. albuterol Yes [id number] 2{puff} Inhale 2 [facility] 90 8-02 Puffs ity of mcg/actuati 00:00: every 6 [place] as on inhaler 00 (six) Medical hours as Branch needed for Wheezing or Shortness of Breath. albuterol Yes [id number] 2{puff} Inhale 2 [facility] 90 8-02 Puffs ity of mcg/actuati 00:00: every 6 [place] as on inhaler 00 (six) Medical hours as Branch needed for Wheezing or Shortness of Breath. albuterol Yes [id number] 2{puff} Inhale 2 [facility] 90 8-02 Puffs ity of mcg/actuati 00:00: every 6 [place] as on inhaler 00 (six) Medical hours as Branch needed for Wheezing or Shortness of Breath. albuterol Yes [id number] 2{puff} Inhale 2 [facility] 90 8-02 Puffs ity of mcg/actuati 00:00: every 6 [place] as on inhaler 00 (six) Medical hours as Branch needed for Wheezing or Shortness of Breath. albuterol Yes [id number] 2{puff} Inhale 2 [facility] 90 8-02 Puffs ity of mcg/actuati 00:00: every 6 [place] as on inhaler 00 (six) Medical hours as Branch needed for Wheezing or Shortness of Breath. albuterol Yes [id number] 2{puff} Inhale 2 [facility] 90 8-02 Puffs ity of mcg/actuati 00:00: every 6 [place] as on inhaler 00 (six) Medical hours as Branch needed for Wheezing or Shortness of Breath. albuterol Yes [id number] 2{puff} Inhale 2 [facility] 90 8-02 Puffs ity of mcg/actuati 00:00: every 6 [place] as on inhaler 00 (six) Medical hours as Branch needed for Wheezing or Shortness of Breath. albuterol Yes [id number] 2{puff} Inhale 2 [facility] 90 8-02 Puffs ity of mcg/actuati 00:00: every 6 [place] as on inhaler 00 (six) Medical hours as Branch needed for Wheezing or Shortness of Breath. albuterol Yes [id number] 2{puff} Inhale 2 [facility] 90 8-02 Puffs ity of mcg/actuati 00:00: every 6 [place] as on inhaler 00 (six) Medical hours as Branch needed for Wheezing or Shortness of Breath. albuterol Yes [id number] 2{puff} Inhale 2 [facility] 90 8-02 Puffs ity of mcg/actuati 00:00: every 6 [place] as on inhaler 00 (six) Medical hours as Branch needed for Wheezing or Shortness of Breath. albuterol Yes [id number] 2{puff} Inhale 2 [facility] 90 8-02 Puffs ity of mcg/actuati 00:00: every 6 [place] as on inhaler 00 (six) Medical hours as Branch needed for Wheezing or Shortness of Breath. albuterol Yes [id number] 2{puff} Inhale 2 [facility] 90 8-02 Puffs ity of mcg/actuati 00:00: every 6 [place] as on inhaler 00 (six) Medical hours as Branch needed for Wheezing or Shortness of Breath. albuterol Yes [id number] 2{puff} Inhale 2 [facility] 90 8-02 Puffs ity of mcg/actuati 00:00: every 6 [place] as on inhaler 00 (six) Medical hours as Branch needed for Wheezing or Shortness of Breath. albuterol Yes [id number] 2{puff} Inhale 2 [facility] 90 8-02 Puffs ity of mcg/actuati 00:00: every 6 [place] as on inhaler 00 (six) Medical hours as Branch needed for Wheezing or Shortness of Breath. albuterol Yes [id number] 2{puff} Inhale 2 [facility] 90 8-02 Puffs ity of mcg/actuati 00:00: every 6 [place] as on inhaler 00 (six) Medical hours as Branch needed for Wheezing or Shortness of Breath. albuterol 0 Yes [id number] 2{puff} Inhale 2 [facility] 90 8-02 Puffs ity of mcg/actuati 00:00: every 6 [place] as on inhaler 00 (six) Medical hours as Branch needed for Wheezing or Shortness of Breath. albuterol Yes [id number] 2{puff} Inhale 2 [facility] 90 8-02 Puffs ity of mcg/actuati 00:00: every 6 [place] as on inhaler 00 (six) Medical hours as Branch needed for Wheezing or Shortness of Breath. cyclobenzap 0 Yes [id number] 5mg Take 1 [facility] rine 5 mg 4-29 tablet by ity o f tablet 00:00: mouth 3 [place] 00 (three) Medical times Branch daily. cyclobenzap 2021-0 Yes [id number] 5mg Take 1 [facility] rine 5 mg 4-29 tablet by ity o f tablet 00:00: mouth 3 [place] 00 (three) Medical times Branch daily. cyclobenzap 2021-0 Yes [id number] 5mg Take 1 [facility] rine 5 mg 4-29 tablet by ity o f tablet 00:00: mouth 3 [place] 00 (three) Medical times Branch daily. cyclobenzap 2021-0 Yes [id number] 5mg Take 1 [facility] rine 5 mg 4-29 tablet by ity o f tablet 00:00: mouth 3 [place] 00 (three) Medical times Branch daily. cyclobenzap 2021-0 Yes [id number] 5mg Take 1 [facility] rine 5 mg 4-29 tablet by ity o f tablet 00:00: mouth 3 [place] 00 (three) Medical times Branch daily. cyclobenzap 2021-0 Yes [id number] 5mg Take 1 [facility] rine 5 mg 4-29 tablet by ity o f tablet 00:00: mouth 3 (three) Medical times Branch daily. cyclobenzap 2022-0 Yes [id number] 5mg Take 1 [facility] rine 5 mg 4-29 tablet by ity o f tablet 00:00: mouth 3 (three) Medical times Branch daily. cyclobenzap 2022-0 Yes [id number] 5mg Take 1 [facility] rine 5 mg 4-29 tablet by ity o f tablet 00:00: mouth 3 (three) Medical times Branch daily. cyclobenzap 2022-0 Yes [id number] 5mg Take 1 [facility] rine 5 mg 4-29 tablet by ity o f tablet 00:00: mouth 3 (three) Medical times Branch daily. cyclobenzap 2-0 Yes [id number] 5mg Take 1 [facility] rine 5 mg 4-29 tablet by ity o f tablet 00:00: mouth 3 (three) Medical times Branch daily. cyclobenzap 2-0 Yes [id number] 5mg Take 1 [facility] rine 5 mg 4-29 tablet by ity o f tablet 00:00: mouth (three) Medical times Branch daily. cyclobenzap 2-0 Yes [id number] 5mg Take 1 [facility] rine 5 mg 4-29 tablet by ity o f tablet 00:00: mouth (three) Medical times Branch daily. cyclobenzap 2-0 Yes [id number] 5mg Take 1 [facility] rine 5 mg 4-29 tablet by ity o f tablet 00:00: mouth 3 (three) Medical times Branch daily. cyclobenzap 2-0 Yes [id number] 5mg Take 1 [facility] rine 5 mg 4-29 tablet by ity o f tablet 00:00: mouth 3 (three) Medical times Branch daily. cyclobenzap 2022-0 Yes [id number] 5mg Take 1 [facility] rine 5 mg 4-29 tablet by ity o f tablet 00:00: mouth 3 (three) Medical times Branch daily. cyclobenzap 2022-0 Yes [id number] 5mg Take 1 [facility] rine 5 mg 4-29 tablet by ity o f tablet 00:00: mouth 3 (three) Medical times Branch daily. cyclobenzap 2022-0 Yes [id number] 5mg Take 1 [facility] rine 5 mg 4-29 tablet by ity o f tablet 00:00: mouth 3 00 (three) Medical times Branch daily. cyclobenzap 2-0 Yes [id number] 5mg Take 1 [facility] rine 5 mg 4-29 tablet by ity o f tablet 00:00: mouth 3 00 (three) Medical times Branch daily. cyclobenzap 2-0 Yes [id number] 5mg Take 1 [facility] rine 5 mg 4-29 tablet by ity o f tablet 00:00: mouth 3 00 (three) Medical times Branch daily. cyclobenzap 2-0 Yes [id number] 5mg Take 1 [facility] rine 5 mg 4-29 tablet by ity o f tablet 00:00: mouth 3 (three) Medical times Branch daily. cyclobenzap 2-0 Yes [id number] 5mg Take 1 [facility] rine 5 mg 4-29 tablet by ity o f tablet 00:00: mouth 3 (three) Medical times Branch daily. cyclobenzap 2-0 Yes [id number] 5mg Take 1 [facility] rine 5 mg 4-29 tablet by ity o f tablet 00:00: mouth 3 (three) Medical times Branch daily. cyclobenzap 2-0 Yes [id number] 5mg Take 1 [facility] rine 5 mg 4-29 tablet by ity o f tablet 00:00: mouth 3 (three) Medical times Branch daily. cyclobenzap 2-0 Yes [id number] 5mg Take 1 [facility] rine 5 mg 4-29 tablet by ity o f tablet 00:00: mouth 3 (three) Medical times Branch daily. cyclobenzap 2-0 Yes [id number] 5mg Take 1 [facility] rine 5 mg 4-29 tablet by ity o f tablet 00:00: mouth 3 00 (three) Medical times Branch daily. cyclobenzap 2022-0 Yes [id number] 5mg Take 1 [facility] rine 5 mg 4-29 tablet by ity o f tablet 00:00: mouth 3 00 (three) Medical times Branch daily. cyclobenzap 2022-0 Yes [id number] 5mg Take 1 [facility] rine 5 mg 4-29 tablet by ity o f tablet 00:00: mouth 3 [place] 00 (three) Medical times Branch daily. cyclobenzap 2022-0 Yes [id number] 5mg Take 1 [facility] rine 5 mg 4-29 tablet by ity o f tablet 00:00: mouth 3 (three) Medical times Branch daily. cyclobenzap 2022-0 Yes [id number] 5mg Take 1 [facility] rine 5 mg 4-29 tablet by ity o f tablet 00:00: mouth 3 (three) Medical times Branch daily. cyclobenzap 2022-0 Yes [id number] 5mg Take 1 [facility] rine 5 mg 4-29 tablet by ity o f tablet 00:00: mouth 3 (three) Medical times Branch daily. cyclobenzap 2022-0 Yes [id number] 5mg Take 1 [facility] rine 5 mg 4-29 tablet by ity o f tablet 00:00: mouth 3 (three) Medical times Branch daily. cyclobenzap 2022-0 Yes [id number] 5mg Take 1 [facility] rine 5 mg 4-29 tablet by ity o f tablet 00:00: mouth (three) Medical times Branch daily. cyclobenzap 2-0 Yes [id number] 5mg Take 1 [facility] rine 5 mg 4-29 tablet by ity o f tablet 00:00: mouth (three) Medical times Branch daily. cyclobenzap 2-0 Yes [id number] 5mg Take 1 [facility] rine 5 mg 4-29 tablet by ity o f tablet 00:00: mouth 3 (three) Medical times Branch daily. cyclobenzap 2022-0 Yes [id number] 5mg Take 1 [facility] rine 5 mg 4-29 tablet by ity o f tablet 00:00: mouth 3 (three) Medical times Branch daily. cyclobenzap 2022-0 Yes [id number] 5mg Take 1 [facility] rine 5 mg 4-29 tablet by ity o f tablet 00:00: mouth 3 (three) Medical times Branch daily. cyclobenzap 2022-0 Yes [id number] 5mg Take 1 [facility] rine 5 mg 4-29 tablet by ity o f tablet 00:00: mouth 3 (three) Medical times Branch daily. cyclobenzap 2022-0 Yes [id number] 5mg Take 1 [facility] rine 5 mg 4-29 tablet by ity o f tablet 00:00: mouth 3 (three) Medical times Branch daily. cyclobenzap 2022-0 Yes [id number] 5mg Take 1 [facility] rine 5 mg 4-29 tablet by ity o f tablet 00:00: mouth 3 (three) Medical times Branch daily. cyclobenzap 2022-0 Yes [id number] 5mg Take 1 [facility] rine 5 mg 4-29 tablet by ity o f tablet 00:00: mouth 3 (three) Medical times Branch daily. cyclobenzap 2-0 Yes [id number] 5mg Take 1 [facility] rine 5 mg 4-29 tablet by ity o f tablet 00:00: mouth 3 (three) Medical times Branch daily. cyclobenzap 2-0 Yes [id number] 5mg Take 1 [facility] rine 5 mg 4-29 tablet by ity o f tablet 00:00: mouth 3 (three) Medical times Branch daily. cyclobenzap 2-0 Yes [id number] 5mg Take 1 [facility] rine 5 mg 4-29 tablet by ity o f tablet 00:00: mouth (three) Medical times Branch daily. cyclobenzap 2-0 Yes [id number] 5mg Take 1 [facility] rine 5 mg 4-29 tablet by ity o f tablet 00:00: mouth (three) Medical times Branch daily. cyclobenzap 2-0 Yes [id number] 5mg Take 1 [facility] rine 5 mg 4-29 tablet by ity o f tablet 00:00: mouth 3 (three) Medical times Branch daily. cyclobenzap 2022-0 Yes [id number] 5mg Take 1 [facility] rine 5 mg 4-29 tablet by ity o f tablet 00:00: mouth 3 (three) Medical times Branch daily. cyclobenzap 2022-0 Yes [id number] 5mg Take 1 [facility] rine 5 mg 4-29 tablet by ity o f tablet 00:00: mouth 3 (three) Medical times Branch daily. cyclobenzap 2022-0 Yes [id number] 5mg Take 1 [facility] rine 5 mg 4-29 tablet by ity o f tablet 00:00: mouth 3 (three) Medical times Branch daily. cyclobenzap 2022-0 Yes [id number] 5mg Take 1 [facility] rine 5 mg 4-29 tablet by ity o f tablet 00:00: mouth 3 (three) Medical times Branch daily. cyclobenzap 2-0 Yes [id number] 5mg Take 1 [facility] rine 5 mg 4-29 tablet by ity o f tablet 00:00: mouth 3 (three) Medical times Branch daily. cyclobenzap 2-0 Yes [id number] 5mg Take 1 [facility] rine 5 mg 4-29 tablet by ity o f tablet 00:00: mouth 3 00 (three) Medical times Branch daily. cyclobenzap 2-0 Yes [id number] 5mg Take 1 [facility] rine 5 mg 4-29 tablet by ity o f tablet 00:00: mouth 3 (three) Medical times Branch daily. cyclobenzap 2021-0 Yes [id number] 5mg Take 1 [facility] rine 5 mg 4-29 tablet by ity o f tablet 00:00: mouth 3 (three) Medical times Branch daily. cyclobenzap 2021-0 Yes [id number] 5mg Take 1 [facility] rine 5 mg 4-29 tablet by ity o f tablet 00:00: mouth 3 (three) Medical times Branch daily. cyclobenzap 2-0 Yes [id number] 5mg Take 1 [facility] rine 5 mg 4-29 tablet by ity o f tablet 00:00: mouth 3 (three) Medical times Branch daily. cyclobenzap 2-0 Yes [id number] 5mg Take 1 [facility] rine 5 mg 4-29 tablet by ity o f tablet 00:00: mouth 3 (three) Medical times Branch daily. cyclobenzap 2-0 Yes [id number] 5mg Take 1 [facility] rine 5 mg 4-29 tablet by ity o f tablet 00:00: mouth 3 (three) Medical times Branch daily. cyclobenzap 2022-0 Yes [id number] 5mg Take 1 [facility] rine 5 mg 4-29 tablet by ity o f tablet 00:00: mouth 3 00 (three) Medical times Branch daily. cyclobenzap 2022-0 Yes [id number] 5mg Take 1 [facility] rine 5 mg 4-29 tablet by ity o f tablet 00:00: mouth 3 (three) Medical times Branch daily. cyclobenzap 2022-0 Yes [id number] 5mg Take 1 [facility] rine 5 mg 4-29 tablet by ity o f tablet 00:00: mouth 3 (three) Medical times Branch daily. cyclobenzap 2-0 Yes [id number] 5mg Take 1 [facility] rine 5 mg 4-29 tablet by ity o f tablet 00:00: mouth 3 (three) Medical times Branch daily. cyclobenzap 2-0 Yes [id number] 5mg Take 1 [facility] rine 5 mg 4-29 tablet by ity o f tablet 00:00: mouth 3 (three) Medical times Branch daily. cyclobenzap 2-0 Yes [id number] 5mg Take 1 [facility] rine 5 mg 4-29 tablet by ity o f tablet 00:00: mouth (three) Medical times Branch daily. cyclobenzap 2-0 Yes [id number] 5mg Take 1 [facility] rine 5 mg 4-29 tablet by ity o f tablet 00:00: mouth (three) Medical times Branch daily. cyclobenzap 2021-0 Yes [id number] 5mg Take 1 [facility] rine 5 mg 4-29 tablet by ity o f tablet 00:00: mouth (three) Medical times Branch daily. cyclobenzap 2-0 Yes [id number] 5mg Take 1 [facility] rine 5 mg 4-29 tablet by ity o f tablet 00:00: mouth (three) Medical times Branch daily. cyclobenzap 2-0 Yes [id number] 5mg Take 1 [facility] rine 5 mg 4-29 tablet by ity o f tablet 00:00: mouth (three) Medical times Branch daily. cyclobenzap 2-0 Yes [id number] 5mg Take 1 [facility] rine 5 mg 4-29 tablet by ity o f tablet 00:00: mouth 3 (three) Medical times Branch daily. cyclobenzap 2022-0 Yes [id number] 5mg Take 1 [facility] rine 5 mg 4-29 tablet by ity o f tablet 00:00: mouth 3 (three) Medical times Branch daily. cyclobenzap 2022-0 Yes [id number] 5mg Take 1 [facility] rine 5 mg 4-29 tablet by ity o f tablet 00:00: mouth 3 00 (three) Medical times Branch daily. cyclobenzap 2021-0 Yes [id number] 5mg Take 1 [facility] rine 5 mg 4-29 tablet by ity o f tablet 00:00: mouth 3 00 (three) Medical times Branch daily. cyclobenzap 2021-0 Yes [id number] 5mg Take 1 [facility] rine 5 mg 4-29 tablet by ity o f tablet 00:00: mouth 3 (three) Medical times Branch daily. cyclobenzap 2021-0 Yes [id number] 5mg Take 1 [facility] rine 5 mg 4-29 tablet by ity o f tablet 00:00: mouth 3 (three) Medical times Branch daily. cyclobenzap 2021-0 Yes [id number] 5mg Take 1 [facility] rine 5 mg 4-29 tablet by ity o f tablet 00:00: mouth 3 (three) Medical times Branch daily. cyclobenzap 2021-0 Yes [id number] 5mg Take 1 [facility] rine 5 mg 4-29 tablet by ity o f tablet 00:00: mouth 3 (three) Medical times Branch daily. cyclobenzap 2021-0 Yes [id number] 5mg Take 1 [facility] rine 5 mg 4-29 tablet by ity o f tablet 00:00: mouth 3 (three) Medical times Branch daily. cyclobenzap 2021-0 Yes [id number] 5mg Take 1 [facility] rine 5 mg 4-29 tablet by ity o f tablet 00:00: mouth 3 (three) Medical times Branch daily. chlorthalid 2021-0 Yes [id number] 25mg Take 1 [facility] one 25 mg 4-01 tablet by ity o f tablet 00:00: mouth 00 daily. Medical Branch azelastine- 2021-0 Yes [id number] 1{spray Use 1 [facility] fluticasone 4-01 } [place] in ity of 137-50 00:00: each [place] mcg/spray 00 nostril 2 Medic al nasal spray (two) Branch times daily. chlorthalid 2-0 Yes [id number] 25mg Take 1 [facility] one 25 mg 4-01 tablet by ity o f tablet 00:00: mouth 00 daily. Medical Branch azelastine- 2022-0 Yes [id number] 1{spray Use 1 [facility] fluticasone 4-01 } [place] in ity of 137-50 00:00: each [place] mcg/spray 00 nostril 2 Medic al nasal spray (two) Branch times daily. chlorthalid 2021-0 Yes [id number] 25mg Take 1 [facility] one 25 mg 4-01 tablet by ity o f tablet 00:00: mouth [place] [address] [facility] Branch azelastine- 2021-0 Yes [id number] 1{spray Use 1 [facility] fluticasone 4-01 } [place] in ity of 137-50 00:00: each [place] mcg/spray 00 nostril 2 Medic al nasal spray (two) Branch times daily. chlorthalid 2021-0 Yes [id number] 25mg Take 1 [facility] one 25 mg 4-01 tablet by ity o f tablet 00:00: mouth [place] 00 daily. Medical [place] azelastine- 2021-0 Yes [id number] 1{spray Use 1 [facility] fluticasone 4-01 } [place] in ity of 137-50 00:00: each [place] mcg/spray 00 nostril 2 Medic al nasal spray (two) Branch times daily. chlorthalid 2021-0 Yes [id number] 25mg Take 1 [facility] one 25 mg 4-01 tablet by ity o f tablet 00:00: mouth [place] 00 daily. [facility] azelastine- 2021-0 Yes [id number] 1{spray Use 1 [facility] fluticasone 4-01 } [place] in ity of 137-50 00:00: each [place] mcg/spray 00 nostril 2 Medic al nasal spray (two) Branch times daily. chlorthalid 2021-0 Yes [id number] 25mg Take 1 [facility] one 25 mg 4-01 tablet by ity o f tablet 00:00: mouth [place] [address] [facility] Branch azelastine- 2021-0 Yes [id number] 1{spray Use 1 [facility] fluticasone 4-01 } [place] in ity of 137-50 00:00: each [place] mcg/spray 00 nostril 2 Medic al nasal spray (two) Branch times daily. chlorthalid 2021-0 Yes [id number] 25mg Take 1 [facility] one 25 mg 4-01 tablet by ity o f tablet 00:00: mouth [place] 00 daily. Medical [place] azelastine- 2021-0 Yes [id number] 1{spray Use 1 [facility] fluticasone 4-01 } [place] in ity of 137-50 00:00: each [place] mcg/spray 00 nostril 2 Medic al nasal spray (two) Branch times daily. azelastine- 2021-0 Yes [id number] 1{spray Use 1 [facility] fluticasone 4-01 } [place] in ity of 137-50 00:00: each [place] mcg/spray 00 nostril 2 Medic al nasal spray (two) Branch times daily. azelastine- 2021-0 Yes [id number] 1{spray Use 1 [facility] fluticasone 4-01 } [place] in ity of 137-50 00:00: each [place] mcg/spray 00 nostril 2 Medic al nasal spray (two) Branch times daily. azelastine- 2021-0 Yes [id number] 1{spray Use 1 [facility] fluticasone 4-01 } [place] in ity of 137-50 00:00: each [place] mcg/spray 00 nostril 2 Medic al nasal spray (two) Branch times daily. azelastine- 2021-0 Yes [id number] 1{spray Use 1 [facility] fluticasone 4-01 } [place] in ity of 137-50 00:00: each [place] mcg/spray 00 nostril 2 Medic al nasal spray (two) Branch times daily. azelastine- 2021-0 Yes [id number] 1{spray Use 1 [facility] fluticasone 4-01 } [place] in ity of 137-50 00:00: each [place] mcg/spray 00 nostril 2 Medic al nasal spray (two) Branch times daily. azelastine- 2021-0 Yes [id number] 1{spray Use 1 [facility] fluticasone 4-01 } [place] in ity of 137-50 00:00: each [place] mcg/spray 00 nostril 2 Medic al nasal spray (two) Branch times daily. azelastine- 2021-0 Yes [id number] 1{spray Use 1 [facility] fluticasone 4-01 } [place] in ity of 137-50 00:00: each [place] mcg/spray 00 nostril 2 Medic al nasal spray (two) Branch times daily. azelastine- 2021-0 Yes [id number] 1{spray Use 1 [facility] fluticasone 4-01 } [place] in ity of 137-50 00:00: each [place] mcg/spray 00 nostril 2 Medic al nasal spray (two) Branch times daily. azelastine- 2021-0 Yes [id number] 1{spray Use 1 [facility] fluticasone 4-01 } [place] in ity of 137-50 00:00: each [place] mcg/spray 00 nostril 2 Medic al nasal spray (two) Branch times daily. azelastine- 2021-0 Yes [id number] 1{spray Use 1 [facility] fluticasone 4-01 } [place] in ity of 137-50 00:00: each [place] mcg/spray 00 nostril 2 Medic al nasal spray (two) Branch times daily. azelastine- 2021-0 Yes [id number] 1{spray Use 1 [facility] fluticasone 4-01 } [place] in ity of 137-50 00:00: each [place] mcg/spray 00 nostril 2 Medic al nasal spray (two) Branch times daily. azelastine- 2021-0 Yes [id number] 1{spray Use 1 [facility] fluticasone 4-01 } [place] in ity of 137-50 00:00: each [place] mcg/spray 00 nostril 2 Medic al nasal spray (two) Branch times daily. azelastine- 2021-0 Yes [id number] 1{spray Use 1 [facility] fluticasone 4-01 } [place] in ity of 137-50 00:00: each [place] mcg/spray 00 nostril 2 Medic al nasal spray (two) Branch times daily. azelastine- 2021-0 Yes [id number] 1{spray Use 1 [facility] fluticasone 4-01 } [place] in ity of 137-50 00:00: each [place] mcg/spray 00 nostril 2 Medic al nasal spray (two) Branch times daily. azelastine- 2021-0 Yes [id number] 1{spray Use 1 [facility] fluticasone 4-01 } [place] [facility] 137-50 00:00: each [place] mcg/spray 00 nostril 2 Medic al nasal spray (two) Branch times daily. azelastine- 2021-0 Yes [id number] 1{spray Use 1 [facility] fluticasone 4-01 } [place] in [facility] 137-50 00:00: each [place] mcg/spray 00 nostril 2 Medic al nasal spray (two) Branch times daily. azelastine- 0 Yes [id number] 1{spray Use 1 [facility] fluticasone 4-01 } [place] in [facility] 137-50 00:00: each [place] mcg/spray 00 nostril 2 Medic al nasal spray (two) Branch times daily. azelastine- 0 Yes [id number] 1{spray Use 1 [facility] fluticasone 4-01 } [place] in [facility] 137-50 00:00: each [place] mcg/spray 00 nostril 2 Medic al nasal spray (two) Branch times daily. azelastine- 0 Yes [id number] 1{spray Use 1 [facility] fluticasone 4-01 } [place] in [facility] 137-50 00:00: each [place] mcg/spray 00 nostril 2 Medic al nasal spray (two) Branch times daily. azelastine- 0 Yes [id number] 1{spray Use 1 [facility] fluticasone 4-01 } [place] in [facility] of 137-50 00:00: each [place] mcg/spray 00 nostril 2 Medic al nasal spray (two) Branch times daily. azelastine- 0 Yes [id number] 1{spray Use 1 [facility] fluticasone 4-01 } [place] in [facility] 137-50 00:00: each [place] mcg/spray 00 nostril 2 Medic al nasal spray (two) Branch times daily. azelastine- 0 Yes [id number] 1{spray Use 1 [facility] fluticasone 4-01 } [place] in [facility] of 137-50 00:00: each [place] mcg/spray 00 nostril 2 Medic al nasal spray (two) Branch times daily. azelastine- 2021-0 Yes [id number] 1{spray Use 1 [facility] fluticasone 4-01 } [place] in [facility] of 137-50 00:00: each [place] mcg/spray 00 nostril 2 Medic al nasal spray (two) Branch times daily. azelastine- 2021-0 Yes [id number] 1{spray Use 1 [facility] fluticasone 4-01 } [place] in [facility] 137-50 00:00: each [place] mcg/spray 00 nostril 2 Medic al nasal spray (two) Branch times daily. azelastine- 2021-0 Yes [id number] 1{spray Use 1 [facility] fluticasone 4-01 } [place] in [facility] 137-50 00:00: each [place] mcg/spray 00 nostril 2 Medic al nasal spray (two) Branch times daily. azelastine- 2021-0 Yes [id number] 1{spray Use 1 [facility] fluticasone 4-01 } [place] in [facility] 137-50 00:00: each [place] mcg/spray 00 nostril 2 Medic al nasal spray (two) Branch times daily. azelastine- 2021-0 Yes [id number] 1{spray Use 1 [facility] fluticasone 4-01 } [place] in [facility] 137-50 00:00: each [place] mcg/spray 00 nostril 2 Medic al nasal spray (two) Branch times daily. azelastine- 2021-0 Yes [id number] 1{spray Use 1 [facility] fluticasone 4-01 } [place] in [facility] 137-50 00:00: each [place] mcg/spray 00 nostril 2 Medic al nasal spray (two) Branch times daily. azelastine- 2021-0 Yes [id number] 1{spray Use 1 [facility] fluticasone 4-01 } [place] in [facility] 137-50 00:00: each [place] mcg/spray 00 nostril 2 Medic al nasal spray (two) Branch times daily. azelastine- 2021-0 Yes [id number] 1{spray Use 1 [facility] fluticasone 4-01 } [place] in [facility] of 137-50 00:00: each [place] mcg/spray 00 nostril 2 Medic al nasal spray (two) Branch times daily. azelastine- 2021-0 Yes [id number] 1{spray Use 1 [facility] fluticasone 4-01 } [place] in [facility] 137-50 00:00: each [place] mcg/spray 00 nostril 2 Medic al nasal spray (two) Branch times daily. azelastine- 2021-0 Yes [id number] 1{spray Use 1 [facility] fluticasone 4-01 } [place] in [facility] 137-50 00:00: each [place] mcg/spray 00 nostril 2 Medic al nasal spray (two) Branch times daily. azelastine- 2021-0 Yes [id number] 1{spray Use 1 [facility] fluticasone 4-01 } [place] in [facility] 137-50 00:00: each [place] mcg/spray 00 nostril 2 Medic al nasal spray (two) Branch times daily. azelastine- 2021-0 Yes [id number] 1{spray Use 1 [facility] fluticasone 4-01 } [place] in [facility] 137-50 00:00: each [place] mcg/spray 00 nostril 2 Medic al nasal spray (two) Branch times daily. azelastine- 2021-0 Yes [id number] 1{spray Use 1 [facility] fluticasone 4-01 } [place] in [facility] 137-50 00:00: each [place] mcg/spray 00 nostril 2 Medic al nasal spray (two) Branch times daily. azelastine- 2021-0 Yes [id number] 1{spray Use 1 [facility] fluticasone 4-01 } [place] in [facility] 137-50 00:00: each [place] mcg/spray 00 nostril 2 Medic al nasal spray (two) Branch times daily. azelastine- 2021-0 Yes [id number] 1{spray Use 1 [facility] fluticasone 4-01 } [place] in [facility] of 137-50 00:00: each [place] mcg/spray 00 nostril 2 Medic al nasal spray (two) Branch times daily. azelastine- 2021-0 Yes [id number] 1{spray Use 1 [facility] fluticasone 4-01 } [place] in [facility] 137-50 00:00: each [place] mcg/spray 00 nostril 2 Medic al nasal spray (two) Branch times daily. azelastine- 2021-0 Yes [id number] 1{spray Use 1 [facility] fluticasone 4-01 } [place] in [facility] 137-50 00:00: each [place] mcg/spray 00 nostril 2 Medic al nasal spray (two) Branch times daily. azelastine- 2021-0 Yes [id number] 1{spray Use 1 [facility] fluticasone 4-01 } [place] in [facility] of 137-50 00:00: each [place] mcg/spray 00 nostril 2 Medic al nasal spray (two) Branch times daily. azelastine- 0 Yes [id number] 1{spray Use 1 [facility] fluticasone 4-01 } [place] in [facility] of 137-50 00:00: each [place] mcg/spray 00 nostril 2 Medic al nasal spray (two) Branch times daily. azelastine- 0 Yes [id number] 1{spray Use 1 [facility] fluticasone 4-01 } [place] in [facility] of 137-50 00:00: each [place] mcg/spray 00 nostril 2 Medic al nasal spray (two) Branch times daily. azelastine- Yes [id number] 1{spray Use 1 [facility] fluticasone 4-01 } [place] in [facility] of 137-50 00:00: each [place] mcg/spray 00 nostril 2 Medic al nasal spray (two) Branch times daily. azelastine- Yes [id number] 1{spray Use 1 [facility] fluticasone 4-01 } [place] in [facility] 137-50 00:00: each [place] mcg/spray 00 nostril 2 Medic al nasal spray (two) Branch times daily. azelastine- Yes [id number] 1{spray Use 1 [facility] fluticasone 4-01 } [place] in [facility] 137-50 00:00: each [place] mcg/spray 00 nostril 2 Medic al nasal spray (two) Branch times daily. azelastine- Yes [id number] 1{spray Use 1 [facility] fluticasone 4-01 } [place] in [facility] 137-50 00:00: each [place] mcg/spray 00 nostril 2 Medic al nasal spray (two) Branch times daily. azelastine- 2021- No [id number] 1{spray Use 1 [facility] fluticasone 4-01 12-21 } [place] in [facility] 137-50 00:00: 00:00 each [place] mcg/spray 00 :00 nostril 2 Medic al nasal spray (two) Branch times daily. azelastine- 0 2021- No [id number] 1{spray Use 1 [facility] fluticasone 4-01 12-21 } [place] in [facility] 137-50 00:00: 00:00 each [place] mcg/spray 00 :00 nostril 2 Medic al nasal spray (two) Branch times daily. azelastine- 2021-0 2021- No [id number] 1{spray Use 1 [facility] fluticasone 4-03-27 } [place] in [facility] 137-50 00:00: 00:00 each [place] mcg/spray 00 :00 nostril 2 Medic al nasal spray (two) Branch times daily. azelastine- 2021-0 2021- No [id number] 1{spray Use 1 [facility] fluticasone 4-03-27 } [place] in [facility] 137-50 00:00: 00:00 each [place] mcg/spray 00 :00 nostril 2 Medic al nasal spray (two) Branch times daily. azelastine- 2021-0 2021- No [id number] 1{spray Use 1 [facility] fluticasone 4-03-27 } [place] in [facility] 137-50 00:00: 00:00 each [place] mcg/spray 00 :00 nostril 2 Medic al nasal spray (two) Branch times daily. azelastine- 0 2021- No [id number] 1{spray Use 1 [facility] fluticasone 4-03-27 } [place] in [facility] 137-50 00:00: 00:00 each [place] mcg/spray 00 :00 nostril 2 Medic al nasal spray (two) Branch times daily. chlorthalid 2021- No [id number] 25mg Take 1 [facility] one 25 mg 4- 09-28 tablet by [facility] of tablet 00:00: 00:00 mouth [place] 00 :00 daily. Medical [facility] chlorthalid 2021- No [id number] 25mg Take 1 [facility] one 25 mg 4-04 15-28 tablet by [facility] of tablet 00:00: 00:00 mouth [place] 00 :00 daily. Medical [facility] chlorthalid 0 2021- No [id number] 25mg Take 1 [facility] one 25 mg 4-04 15-28 tablet by [facility] of tablet 00:00: 00:00 mouth [place] 00 :00 daily. Medical [facility] chlorthalid 0 2021- No [id number] 25mg Take 1 [facility] one 25 mg 4-04 15-28 tablet by [facility]y of tablet 00:00: 00:00 mouth [place] 00 :00 daily. Medical Branch dextroamphe 2022-0 Yes 10mg Take 10 mg [facility] tamine-amph 3-15 by mouth 2 it y of etamine 10 00:00: (two) [place] mg tablet 00 times Medical daily. Branch dextroamphe 2022-0 Yes 10mg Take 10 mg [facility] tamine-amph 3-15 by mouth 2 it y of etamine 10 00:00: (two) [place] mg tablet 00 times Medical daily. Branch dextroamphe 2022-0 Yes 10mg Take 10 mg [facility] tamine-amph 3-15 by mouth 2 it y of etamine 10 00:00: (two) [place] mg tablet 00 times Medical daily. Branch dextroamphe 2022-0 Yes 10mg Take 10 mg [facility] tamine-amph 3-15 by mouth 2 it y of etamine 10 00:00: (two) [place] mg tablet 00 times Medical daily. Branch dextroamphe 2022-0 Yes 10mg Take 10 mg [facility] tamine-amph 3-15 by mouth 2 it y of etamine 10 00:00: (two) [place] mg tablet 00 times Medical daily. Branch dextroamphe 2022-0 Yes 10mg Take 10 mg [facility] tamine-amph 3-15 by mouth 2 it y of etamine 10 00:00: (two) [place] mg tablet 00 times Medical daily. Branch dextroamphe 2022-0 Yes 10mg Take 10 mg [facility] tamine-amph 3-15 by mouth 2 it y of etamine 10 00:00: (two) [place] mg tablet 00 times Medical daily. Branch dextroamphe 2022-0 2022- No 10mg Take 10 mg [facility] tamine-amph 3-15 01-02 by mouth 2 i ty of etamine 10 00:00: 00:00 (two) [place] mg tablet 00 :00 times Medical daily. Branch dextroamphe 2022-0 2022- No 10mg Take 10 mg [facility] tamine-amph 3-15 01-02 by mouth 2 i ty of etamine 10 00:00: 00:00 (two) [place] mg tablet 00 :00 times Medical daily. Branch dextroamphe 2022-0 2022- No 10mg Take 10 mg [facility] tamine-amph 3-15 01-02 by mouth 2 i ty of etamine 10 00:00: 00:00 (two) [place] mg tablet 00 :00 times Medical daily. Branch dextroamphe 2021-0 2021- No 10mg Take 10 mg [facility] tamine-amph 3-15 01-02 by mouth 2 i ty of etamine 10 00:00: 00:00 (two) [place] mg tablet 00 :00 times Medical daily. Branch WIXELA 2021-0 Yes [id number] INHALE 1 Un bert INHUB 3-03 PUFF BY ity of 250-50 00:00: MOUTH [place] mcg/dose 00 EVERY 12 Medical inhalation HOURS Branch disk WIXELA 2021-0 Yes [id number] INHALE 1 Un bert INHUB 3-03 PUFF BY ity of 250-50 00:00: MOUTH [place] mcg/dose 00 EVERY 12 Medical inhalation HOURS Branch disk WIXELA 2021-0 Yes [id number] INHALE 1 Un bert INHUB 3-03 PUFF BY ity of 250-50 00:00: MOUTH [place] mcg/dose 00 EVERY 12 Medical inhalation HOURS Branch disk WIXELA 2021-0 Yes [id number] INHALE 1 Un bert INHUB 3-03 PUFF BY ity of 250-50 00:00: MOUTH [place] mcg/dose 00 EVERY 12 Medical inhalation HOURS Branch disk WIXELA 2021-0 Yes [id number] INHALE 1 Un bert INHUB 3-03 PUFF BY ity of 250-50 00:00: MOUTH [place] mcg/dose 00 EVERY 12 Medical inhalation HOURS Branch disk WIXELA 2021-0 Yes [id number] INHALE 1 Un bert INHUB 3-03 PUFF BY ity of 250-50 00:00: MOUTH [place] mcg/dose 00 EVERY 12 Medical inhalation HOURS Branch disk WIXELA 2021-0 Yes [id number] INHALE 1 Un bert INHUB 3-03 PUFF BY ity of 250-50 00:00: MOUTH [place] mcg/dose 00 EVERY 12 Medical inhalation HOURS Branch disk WIXELA 2021-0 Yes [id number] INHALE 1 Un bert INHUB 3-03 PUFF BY ity of 250-50 00:00: MOUTH [place] mcg/dose 00 EVERY 12 Medical inhalation HOURS Branch disk WIXELA 2021-0 Yes [id number] INHALE 1 Un bert INHUB 3-03 PUFF BY ity of 250-50 00:00: MOUTH [place] mcg/dose 00 EVERY 12 Medical inhalation HOURS Branch disk WIXELA 2-0 Yes [id number] INHALE 1 Un bert INHUB 3-03 PUFF BY ity of 250-50 00:00: MOUTH [place] mcg/dose 00 EVERY 12 Medical inhalation HOURS Branch disk WIXELA 2021-0 Yes [id number] INHALE 1 Un bert INHUB 3-03 PUFF BY ity of 250-50 00:00: MOUTH [place] mcg/dose 00 EVERY 12 Medical inhalation HOURS Branch disk WIXELA 2021-0 Yes [id number] INHALE 1 Un bert INHUB 3-03 PUFF BY ity of 250-50 00:00: MOUTH [place] mcg/dose 00 EVERY 12 Medical inhalation HOURS Branch disk WIXELA 2021-0 Yes [id number] INHALE 1 Un bert INHUB 3-03 PUFF BY ity of 250-50 00:00: MOUTH [place] mcg/dose 00 EVERY 12 Medical inhalation HOURS Branch disk WIXELA 2021-0 Yes [id number] INHALE 1 Un bert INHUB 3-03 PUFF BY ity of 250-50 00:00: MOUTH [place] mcg/dose 00 EVERY 12 Medical inhalation HOURS Branch disk WIXELA 2-0 Yes [id number] INHALE 1 Un [facility]ert INHUB 3-03 PUFF BY ity of 250-50 00:00: MOUTH [place] mcg/dose 00 EVERY 12 Medical inhalation HOURS Branch disk WIXELA 2021-0 Yes [id number] INHALE 1 [facility] INHUB 3-03 PUFF BY ity of 250-50 00:00: MOUTH [place] mcg/dose 00 EVERY 12 Medical inhalation HOURS Branch disk WIXELA 2021-0 Yes [id number] INHALE 1 [facility] INHUB 3-03 PUFF BY ity of 250-50 00:00: MOUTH [place] mcg/dose 00 EVERY 12 Medical inhalation HOURS Branch disk WIXELA 2021-0 Yes [id number] INHALE 1 Un ebrt INHUB 3-03 PUFF BY ity of 250-50 00:00: MOUTH [place] mcg/dose 00 EVERY 12 Medical inhalation HOURS Branch disk WIXELA 2-0 Yes [id number] INHALE 1 Un bert INHUB 3-03 PUFF BY ity of 250-50 00:00: MOUTH [place] mcg/dose 00 EVERY 12 Medical inhalation HOURS Branch disk WIXELA 2022-0 Yes [id number] INHALE 1 Un bert INHUB 3-03 PUFF BY ity of 250-50 00:00: MOUTH [place] mcg/dose 00 EVERY 12 Medical inhalation HOURS Branch disk WIXELA 2021-0 Yes [id number] INHALE 1 Un bert INHUB 3-03 PUFF BY ity of 250-50 00:00: MOUTH [place] mcg/dose 00 EVERY 12 Medical inhalation HOURS Branch disk WIXELA 2021-0 Yes [id number] INHALE 1 Un bert INHUB 3-03 PUFF BY ity of 250-50 00:00: MOUTH [place] mcg/dose 00 EVERY 12 Medical inhalation HOURS Branch disk WIXELA 2021-0 Yes [id number] INHALE 1 Un bert INHUB 3-03 PUFF BY ity of 250-50 00:00: MOUTH [place] mcg/dose 00 EVERY 12 Medical inhalation HOURS Branch disk WIXELA 2021-0 Yes [id number] INHALE 1 Un bert INHUB 3-03 PUFF BY ity of 250-50 00:00: MOUTH [place] mcg/dose 00 EVERY 12 Medical inhalation HOURS Branch disk WIXELA 2021-0 Yes [id number] INHALE 1 Un bert INHUB 3-03 PUFF BY ity of 250-50 00:00: MOUTH [place] mcg/dose 00 EVERY 12 Medical inhalation HOURS Branch disk WIXELA 2021-0 Yes [id number] INHALE 1 Un bert INHUB 3-03 PUFF BY ity of 250-50 00:00: MOUTH [place] mcg/dose 00 EVERY 12 Medical inhalation HOURS Branch disk WIXELA 2021-0 Yes [id number] INHALE 1 Un bert INHUB 3-03 PUFF BY ity of 250-50 00:00: MOUTH [place] mcg/dose 00 EVERY 12 Medical inhalation HOURS Branch disk WIXELA 2021-0 Yes [id number] INHALE 1 Un [facility]ert INHUB 3-03 PUFF BY ity of 250-50 00:00: MOUTH [place] mcg/dose 00 EVERY 12 Medical inhalation HOURS Branch disk WIXELA 2-0 Yes [id number] INHALE 1 Un [facility]ert INHUB 3-03 PUFF BY ity of 250-50 00:00: MOUTH [place] mcg/dose 00 EVERY 12 Medical inhalation HOURS Branch disk WIXELA 2021-0 Yes [id number] INHALE 1 [facility] INHUB 3-03 PUFF BY ity of 250-50 00:00: MOUTH [place] mcg/dose 00 EVERY 12 Medical inhalation HOURS Branch disk WIXELA 2-0 Yes [id number] INHALE 1 [facility] INHUB 3-03 PUFF BY ity of 250-50 00:00: MOUTH [place] mcg/dose 00 EVERY 12 Medical inhalation HOURS Branch disk WIXELA 2022-0 Yes [id number] INHALE 1 [facility]ert INHUB 3-03 PUFF BY ity of 250-50 00:00: MOUTH [place] mcg/dose 00 EVERY 12 Medical inhalation HOURS Branch disk WIXELA 2-0 Yes [id number] INHALE 1 [facility] INHUB 3-03 PUFF BY ity of 250-50 00:00: MOUTH [place] mcg/dose 00 EVERY 12 Medical inhalation HOURS Branch disk WIXELA 2022-0 Yes [id number] INHALE 1 [facility] INHUB 3-03 PUFF BY ity of 250-50 00:00: MOUTH [place] mcg/dose 00 EVERY 12 Medical inhalation HOURS Branch disk WIXELA 2021-0 Yes [id number] INHALE 1 Un [facility]ert INHUB 3-03 PUFF BY ity of 250-50 00:00: MOUTH [place] mcg/dose 00 EVERY 12 Medical inhalation HOURS Branch disk WIXELA 2-0 Yes [id number] INHALE 1 [facility] INHUB 3-03 PUFF BY ity of 250-50 00:00: MOUTH [place] mcg/dose 00 EVERY 12 Medical inhalation HOURS Branch disk WIXELA 2022-0 Yes [id number] INHALE 1 [facility] INHUB 3-03 PUFF BY ity of 250-50 00:00: MOUTH [place] mcg/dose 00 EVERY 12 Medical inhalation HOURS Branch disk WIXELA 2022-0 Yes [id number] INHALE 1 [facility] INHUB 3-03 PUFF BY ity of 250-50 00:00: MOUTH [place] mcg/dose 00 EVERY 12 Medical inhalation HOURS Branch disk WIXELA 2022-0 Yes [id number] INHALE 1 [facility] INHUB 3-03 PUFF BY ity of 250-50 00:00: MOUTH [place] mcg/dose 00 EVERY 12 Medical inhalation HOURS Branch disk WIXELA 2022-0 Yes [id number] INHALE 1 [facility] INHUB 3-03 PUFF BY ity of 250-50 00:00: MOUTH [place] mcg/dose 00 EVERY 12 Medical inhalation HOURS Branch disk WIXELA 2022-0 Yes [id number] INHALE 1 Un bert INHUB 3-03 PUFF BY ity of 250-50 00:00: MOUTH [place] mcg/dose 00 EVERY 12 Medical inhalation HOURS Branch disk WIXELA 2022-0 Yes [id number] INHALE 1 Un bert INHUB 3-03 PUFF BY ity of 250-50 00:00: MOUTH [place] mcg/dose 00 EVERY 12 Medical inhalation HOURS Branch disk WIXELA 2022-0 Yes [id number] INHALE 1 Un bert INHUB 3-03 PUFF BY ity of 250-50 00:00: MOUTH [place] mcg/dose 00 EVERY 12 Medical inhalation HOURS Branch disk WIXELA 2-0 Yes [id number] INHALE 1 Un bert INHUB 3-03 PUFF BY ity of 250-50 00:00: MOUTH [place] mcg/dose 00 EVERY 12 Medical inhalation HOURS Branch disk WIXELA 2-0 Yes [id number] INHALE 1 Un bert INHUB 3-03 PUFF BY ity of 250-50 00:00: MOUTH [place] mcg/dose 00 EVERY 12 Medical inhalation HOURS Branch disk WIXELA 2-0 Yes [id number] INHALE 1 Un bert INHUB 3-03 PUFF BY ity of 250-50 00:00: MOUTH [place] mcg/dose 00 EVERY 12 Medical inhalation HOURS Branch disk WIXELA 2022-0 Yes [id number] INHALE 1 Un bert INHUB 3-03 PUFF BY ity of 250-50 00:00: MOUTH [place] mcg/dose 00 EVERY 12 Medical inhalation HOURS Branch disk WIXELA 2022-0 Yes [id number] INHALE 1 Un bert INHUB 3-03 PUFF BY ity of 250-50 00:00: MOUTH [place] mcg/dose 00 EVERY 12 Medical inhalation HOURS Branch disk WIXELA 2022-0 Yes [id number] INHALE 1 Un bert INHUB 3-03 PUFF BY ity of 250-50 00:00: MOUTH [place] mcg/dose 00 EVERY 12 Medical inhalation HOURS Branch disk WIXELA 2022-0 Yes [id number] INHALE 1 Un bert INHUB 3-03 PUFF BY ity of 250-50 00:00: MOUTH [place] mcg/dose 00 EVERY 12 Medical inhalation HOURS Branch disk WIXELA 2-0 Yes [id number] INHALE 1 Un bert INHUB 3-03 PUFF BY ity of 250-50 00:00: MOUTH [place] mcg/dose 00 EVERY 12 Medical inhalation HOURS Branch disk WIXELA 2022-0 Yes [id number] INHALE 1 Un bert INHUB 3-03 PUFF BY ity of 250-50 00:00: MOUTH [place] mcg/dose 00 EVERY 12 Medical inhalation HOURS Branch disk WIXELA 2-0 Yes [id number] INHALE 1 Un bert INHUB 3-03 PUFF BY ity of 250-50 00:00: MOUTH [place] mcg/dose 00 EVERY 12 Medical inhalation HOURS Branch disk WIXELA 2-0 Yes [id number] INHALE 1 Un bert INHUB 3-03 PUFF BY ity of 250-50 00:00: MOUTH [place] mcg/dose 00 EVERY 12 Medical inhalation HOURS Branch disk WIXELA 2-0 Yes [id number] INHALE 1 Un bert INHUB 3-03 PUFF BY ity of 250-50 00:00: MOUTH [place] mcg/dose 00 EVERY 12 Medical inhalation HOURS Branch disk WIXELA 2-0 Yes [id number] INHALE 1 Un bert INHUB 3-03 PUFF BY ity of 250-50 00:00: MOUTH [place] mcg/dose 00 EVERY 12 Medical inhalation HOURS Branch disk WIXELA 2022-0 Yes [id number] INHALE 1 Un bert INHUB 3-03 PUFF BY ity of 250-50 00:00: MOUTH [place] mcg/dose 00 EVERY 12 Medical inhalation HOURS Branch disk WIXELA 2-0 Yes [id number] INHALE 1 Un bert INHUB 3-03 PUFF BY ity of 250-50 00:00: MOUTH [place] mcg/dose 00 EVERY 12 Medical inhalation HOURS Branch disk WIXELA 2022-0 Yes [id number] INHALE 1 Un bert INHUB 3-03 PUFF BY ity of 250-50 00:00: MOUTH [place] mcg/dose 00 EVERY 12 Medical inhalation HOURS Branch disk WIXELA 2022-0 Yes [id number] INHALE 1 Un bert INHUB 3-03 PUFF BY ity of 250-50 00:00: MOUTH [place] mcg/dose 00 EVERY 12 Medical inhalation HOURS Branch disk WIXELA 2021-0 Yes [id number] INHALE 1 Un bert INHUB 3-03 PUFF BY ity of 250-50 00:00: MOUTH [place] mcg/dose 00 EVERY 12 Medical inhalation HOURS Branch disk WIXELA 2021-0 Yes [id number] INHALE 1 Un bert INHUB 3-03 PUFF BY ity of 250-50 00:00: MOUTH [place] mcg/dose 00 EVERY 12 Medical inhalation HOURS Branch disk WIXELA 2021-0 Yes [id number] INHALE 1 Un bert INHUB 3-03 PUFF BY ity of 250-50 00:00: MOUTH [place] mcg/dose 00 EVERY 12 Medical inhalation HOURS Branch disk WIXELA 2021-0 Yes [id number] INHALE 1 Un bert INHUB 3-03 PUFF BY ity of 250-50 00:00: MOUTH [place] mcg/dose 00 EVERY 12 Medical inhalation HOURS Branch disk WIXELA 2021-0 Yes [id number] INHALE 1 Un bert INHUB 3-03 PUFF BY ity of 250-50 00:00: MOUTH [place] mcg/dose 00 EVERY 12 Medical inhalation HOURS Branch disk WIXELA 2021-0 Yes [id number] INHALE 1 Un bert INHUB 3-03 PUFF BY ity of 250-50 00:00: MOUTH [place] mcg/dose 00 EVERY 12 Medical inhalation HOURS Branch disk WIXELA 2021-0 Yes [id number] INHALE 1 Un bert INHUB 3-03 PUFF BY ity of 250-50 00:00: MOUTH [place] mcg/dose 00 EVERY 12 Medical inhalation HOURS Branch disk WIXELA 2021-0 Yes [id number] INHALE 1 Un bert INHUB 3-03 PUFF BY ity of 250-50 00:00: MOUTH [place] mcg/dose 00 EVERY 12 Medical inhalation HOURS Branch disk WIXELA 2021-0 Yes [id number] INHALE 1 Un bert INHUB 3-03 PUFF BY ity of 250-50 00:00: MOUTH [place] mcg/dose 00 EVERY 12 Medical inhalation HOURS Branch disk WIXELA 2021-0 Yes [id number] INHALE 1 Un bert INHUB 3-03 PUFF BY ity of 250-50 00:00: MOUTH [place] mcg/dose 00 EVERY 12 Medical inhalation HOURS Branch disk WIXELA 2021-0 Yes [id number] INHALE 1 Un bert INHUB 3-03 PUFF BY ity of 250-50 00:00: MOUTH [place] mcg/dose 00 EVERY 12 Medical inhalation HOURS Branch disk WIXELA 2021-0 Yes [id number] INHALE 1 Un bert INHUB 3-03 PUFF BY ity of 250-50 00:00: MOUTH [place] mcg/dose 00 EVERY 12 Medical inhalation HOURS Branch disk WIXELA 2021-0 Yes [id number] INHALE 1 Un bert INHUB 3-03 PUFF BY ity of 250-50 00:00: MOUTH [place] mcg/dose 00 EVERY 12 Medical inhalation HOURS Branch disk WIXELA 2021-0 Yes [id number] INHALE 1 Un bert INHUB 3-03 PUFF BY ity of 250-50 00:00: MOUTH [place] mcg/dose 00 EVERY 12 Medical inhalation HOURS Branch disk WIXELA 2021-0 Yes [id number] INHALE 1 Un bert INHUB 3-03 PUFF BY ity of 250-50 00:00: MOUTH [place] mcg/dose 00 EVERY 12 Medical inhalation HOURS Branch disk WIXELA 2021-0 Yes [id number] INHALE 1 Un bert INHUB 3-03 PUFF BY ity of 250-50 00:00: MOUTH [place] mcg/dose 00 EVERY 12 Medical inhalation HOURS Branch disk WIXELA 2021-0 Yes [id number] INHALE 1 Un bert INHUB 3-03 PUFF BY ity of 250-50 00:00: MOUTH [place] mcg/dose 00 EVERY 12 Medical inhalation HOURS Branch disk umeclidiniu 2021-0 Yes [id number] 1{puff} Inhale 1 [facility] m (INCRUSE 1-27 Puff ity of ELLIPTA) 00:00: daily. [place] 62.5 00 Medical mcg/actuati Branch on DsDv albuterol 2021-0 Yes [id number] 2.5mg Inhale 3 [facility] 2.5 mg /3 1-27 mL every 6 ity of mL (0.083 00:00: (six) [place] %) 00 hours as Medical nebulizer needed for Bran ch solution Wheezing or Shortness of Breath. umeclidiniu 2021-0 Yes [id number] 1{puff} Inhale 1 [facility] m (INCRUSE 1-27 Puff ity of ELLIPTA) 00:00: daily. [place] 62.5 00 Medical mcg/actuati Branch on DsDv albuterol Yes [id number] 2.5mg Inhale 3 [facility] 2.5 mg /3 1-27 mL every 6 ity of mL (0.083 00:00: (six) [place] %) 00 hours as Medical nebulizer needed for Bran ch solution Wheezing or Shortness of Breath. umeclidiniu 0 Yes [id number] 1{puff} Inhale 1 [facility] m (INCRUSE 1-27 Puff ity of ELLIPTA) 00:00: daily. [place] [address].5 00 Medical mcg/actuati Branch on DsDv albuterol Yes [id number] 2.5mg Inhale 3 [facility] 2.5 mg /3 1-27 mL every 6 ity of mL (0.083 00:00: (six) [place] %) 00 hours as Medical nebulizer needed for Bran ch solution Wheezing or Shortness of Breath. umeclidiniu Yes [id number] 1{puff} Inhale 1 [facility] m (INCRUSE 1-27 Puff ity of ELLIPTA) 00:00: daily. [place] [address].5 00 Medical mcg/actuati Branch on DsDv albuterol Yes [id number] 2.5mg Inhale 3 [facility] 2.5 mg /3 1-27 mL every 6 ity of mL (0.083 00:00: (six) [place] %) 00 hours as Medical nebulizer needed for Bran ch solution Wheezing or Shortness of Breath. umeclidiniu 0 Yes [id number] 1{puff} Inhale 1 [facility] m (INCRUSE 1-27 Puff ity of ELLIPTA) 00:00: daily. [place] [address].5 00 Medical mcg/actuati Branch on DsDv albuterol 0 Yes [id number] 2.5mg Inhale 3 Univers 2.5 mg /3 1-27 mL every 6 ity of mL (0.083 00:00: (six) [place] %) 00 hours as Medical nebulizer needed for Bran ch solution Wheezing or Shortness of Breath. umeclidiniu 2021-0 Yes [id number] 1{puff} Inhale 1 [facility] m (INCRUSE 1-27 Puff ity of ELLIPTA) 00:00: daily. [place] 62.5 00 Medical mcg/actuati Branch on DsDv albuterol Yes [id number] 2.5mg Inhale 3 [facility] 2.5 mg /3 1-27 mL every 6 ity of mL (0.083 00:00: (six) [place] %) 00 hours as Medical nebulizer needed for Bran ch solution Wheezing or Shortness of Breath. umeclidiniu Yes [id number] 1{puff} Inhale 1 [facility] m (INCRUSE 1-27 Puff ity of ELLIPTA) 00:00: daily. [place] [address].5 00 Medical mcg/actuati Branch on DsDv albuterol Yes [id number] 2.5mg Inhale 3 [facility] 2.5 mg /3 1-27 mL every 6 ity of mL (0.083 00:00: (six) [place] %) 00 hours as Medical nebulizer needed for Bran ch solution Wheezing or Shortness of Breath. umeclidiniu Yes [id number] 1{puff} Inhale 1 [facility] (INCRUSE 1-27 Puff ity of [facility]) 00:00: daily. [place] [address].5 00 Medical mcg/actuati Branch on DsDv albuterol Yes [id number] 2.5mg Inhale 3 [facility] 2.5 mg /3 1-27 mL every 6 ity of mL (0.083 00:00: (six) [place] %) 00 hours as Medical nebulizer needed for Bran ch solution Wheezing or Shortness of Breath. umeclidiniu Yes [id number] 1{puff} Inhale 1 [facility] (INCRUSE 1-27 Puff ity of [facility]) 00:00: daily. [place] [address].5 00 Medical mcg/actuati Branch on DsDv albuterol Yes [id number] 2.5mg Inhale 3 [facility] 2.5 mg /3 1-27 mL every 6 ity of mL (0.083 00:00: (six) [place] %) 00 hours as Medical nebulizer needed for Bran ch solution Wheezing or Shortness of Breath. umeclidiniu Yes [id number] 1{puff} Inhale 1 [facility] (INCRUSE 1-27 Puff ity of [facility]) 00:00: daily. [place] [address].5 00 Medical mcg/actuati Branch on DsDv albuterol Yes [id number] 2.5mg Inhale 3 [facility] 2.5 mg /3 1-27 mL every 6 ity of mL (0.083 00:00: (six) [place] %) 00 hours as Medical nebulizer needed for Bran ch solution Wheezing or Shortness of Breath. umeclidiniu Yes [id number] 1{puff} Inhale 1 [facility] (INCRUSE 1-27 Puff ity of [facility]) 00:00: daily. [place] [address]. Medical mcg/actuati Branch on DsDv albuterol Yes [id number] 2.5mg Inhale 3 [facility] 2.5 mg /3 1-27 mL every 6 ity of mL (0.083 00:00: (six) [place] %) 00 hours as Medical nebulizer needed for Bran ch solution Wheezing or Shortness of Breath. umeclidiniu Yes [id number] 1{puff} Inhale 1 [facility] (INCRUSE 1-27 Puff ity of [place]) 00:00: daily. [place] [address]. Medical mcg/actuati Branch on DsDv albuterol Yes [id number] 2.5mg Inhale 3 [facility] 2.5 mg /3 1-27 mL every 6 ity of mL (0.083 00:00: (six) [place] %) 00 hours as Medical nebulizer needed for Bran ch solution Wheezing or Shortness of Breath. umeclidiniu Yes [id number] 1{puff} Inhale 1 [facility] (INCRUSE 1-27 Puff ity of [facility]) 00:00: daily. [place] [address].5 00 Medical mcg/actuati Branch on DsDv albuterol Yes [id number] 2.5mg Inhale 3 [facility] 2.5 mg /3 1-27 mL every 6 ity of mL (0.083 00:00: (six) [place] %) 00 hours as Medical nebulizer needed for Bran ch solution Wheezing or Shortness of Breath. umeclidiniu Yes [id number] 1{puff} Inhale 1 [facility] (INCRUSE 1-27 Puff ity of [facility]) 00:00: daily. [place] [address].5 Medical mcg/actuati Branch on DsDv albuterol 0 Yes [id number] 2.5mg Inhale 3 [facility] 2.5 mg /3 1-27 mL every 6 ity of mL (0.083 00:00: (six) [place] %) 00 hours as Medical nebulizer needed for Bran ch solution Wheezing or Shortness of Breath. umeclidiniu 0 Yes [id number] 1{puff} Inhale 1 [facility] (INCRUSE 1-27 Puff ity of [facility]) 00:00: daily. [place] [address]. Medical mcg/actuati Branch on DsDv albuterol Yes [id number] 2.5mg Inhale 3 [facility] 2.5 mg /3 1-27 mL every 6 ity of mL (0.083 00:00: (six) [place] %) 00 hours as Medical nebulizer needed for Bran ch solution Wheezing or Shortness of Breath. umeclidiniu Yes [id number] 1{puff} Inhale 1 [facility] (INCRUSE 1-27 Puff ity of [facility]) 00:00: daily. [place] [address]. Medical mcg/actuati Branch on DsDv albuterol 0 Yes [id number] 2.5mg Inhale 3 [facility] 2.5 mg /3 1-27 mL every 6 ity of mL (0.083 00:00: (six) [place] %) 00 hours as Medical nebulizer needed for Bran ch solution Wheezing or Shortness of Breath. umeclidiniu 2021-0 Yes [id number] 1{puff} Inhale 1 [facility] (INCRUSE 1-27 Puff ity of [facility]) 00:00: daily. [place] [address].5 Medical mcg/actuati Branch on DsDv albuterol 0 Yes [id number] 2.5mg Inhale 3 [facility] 2.5 mg /3 1-27 mL every 6 ity of mL (0.083 00:00: (six) [place] %) 00 hours as Medical nebulizer needed for Bran ch solution Wheezing or Shortness of Breath. umeclidiniu 0 Yes [id number] 1{puff} Inhale 1 [facility] (INCRUSE 1-27 Puff ity of [facility]) 00:00: daily. [place] [address].5 00 Medical mcg/actuati Branch on DsDv albuterol Yes [id number] 2.5mg Inhale 3 [facility] 2.5 mg /3 1-27 mL every 6 ity of mL (0.083 00:00: (six) [place] %) 00 hours as Medical nebulizer needed for Bran ch solution Wheezing or Shortness of Breath. umeclidiniu 0 Yes [id number] 1{puff} Inhale 1 [facility] (INCRUSE 1-27 Puff ity of [place]) 00:00: daily. [place] [address].5 00 Medical mcg/actuati Branch on DsDv albuterol Yes [id number] 2.5mg Inhale 3 [facility] 2.5 mg /3 1-27 mL every 6 ity of mL (0.083 00:00: (six) [place] %) 00 hours as Medical nebulizer needed for Bran ch solution Wheezing or Shortness of Breath. umeclidiniu 0 Yes [id number] 1{puff} Inhale 1 [facility] (INCRUSE 1-27 Puff ity of [place]) 00:00: daily. [place] 62.5 00 Medical mcg/actuati Branch on DsDv albuterol Yes [id number] 2.5mg Inhale 3 [facility] 2.5 mg /3 1-27 mL every 6 ity of mL (0.083 00:00: (six) [place] %) 00 hours as Medical nebulizer needed for Bran ch solution Wheezing or Shortness of Breath. umeclidiniu 0 Yes [id number] 1{puff} Inhale 1 [facility] (INCRUSE 1-27 Puff ity of [facility]) 00:00: daily. [place] 62.5 00 Medical mcg/actuati Branch on DsDv albuterol 0 Yes [id number] 2.5mg Inhale 3 [facility] 2.5 mg /3 1-27 mL every 6 ity of mL (0.083 00:00: (six) [place] %) 00 hours as Medical nebulizer needed for Bran ch solution Wheezing or Shortness of Breath. umeclidiniu Yes [id number] 1{puff} Inhale 1 [facility] (INCRUSE 1-27 Puff ity of [place]) 00:00: daily. [place] [address].5 00 Medical mcg/actuati Branch on DsDv albuterol Yes [id number] 2.5mg Inhale 3 [facility] 2.5 mg /3 1-27 mL every 6 ity of mL (0.083 00:00: (six) [place] %) 00 hours as Medical nebulizer needed for Bran ch solution Wheezing or Shortness of Breath. umeclidiniu Yes [id number] 1{puff} Inhale 1 [facility] m (INCRUSE 1-27 Puff ity of [place]) 00:00: daily. [place] [address]. 00 Medical mcg/actuati Branch on DsDv albuterol Yes [id number] 2.5mg Inhale 3 [facility] 2.5 mg /3 1-27 mL every 6 ity of mL (0.083 00:00: (six) [place] %) 00 hours as Medical nebulizer needed for Bran ch solution Wheezing or Shortness of Breath. umeclidiniu Yes [id number] 1{puff} Inhale 1 [facility] (INCRUSE 1-27 Puff ity of [place]) 00:00: daily. [place] [address].5 Medical mcg/actuati Branch on DsDv albuterol Yes [id number] 2.5mg Inhale 3 [facility] 2.5 mg /3 1-27 mL every 6 ity of mL (0.083 00:00: (six) [place] %) 00 hours as Medical nebulizer needed for Bran ch solution Wheezing or Shortness of Breath. umeclidiniu Yes [id number] 1{puff} Inhale 1 [facility] (INCRUSE 1-27 Puff ity of [facility]) 00:00: daily. [place] [address].5 00 Medical mcg/actuati Branch on DsDv albuterol Yes [id number] 2.5mg Inhale 3 [facility] 2.5 mg /3 1-27 mL every 6 ity of mL (0.083 00:00: (six) [place] %) 00 hours as Medical nebulizer needed for Bran ch solution Wheezing or Shortness of Breath. umeclidiniu 2021-0 Yes [id number] 1{puff} Inhale 1 [facility] m (INCRUSE 1-27 Puff ity of [facility]) 00:00: daily. [place] 62.5 00 Medical mcg/actuati Branch on DsDv albuterol Yes [id number] 2.5mg Inhale 3 [facility] 2.5 mg /3 1-27 mL every 6 ity of mL (0.083 00:00: (six) [place] %) 00 hours as Medical nebulizer needed for Bran ch solution Wheezing or Shortness of Breath. umeclidiniu 0 Yes [id number] 1{puff} Inhale 1 [facility] (INCRUSE 1-27 Puff ity of [facility]) 00:00: daily. [place] 62.5 00 Medical mcg/actuati Branch on DsDv albuterol 2021- Yes [id number] 2.5mg Inhale 3 [facility] 2.5 mg /3 1-27 mL every 6 ity of mL (0.083 00:00: (six) [place] %) 00 hours as Medical nebulizer needed for Bran ch solution Wheezing or Shortness of Breath. umeclidiniu 0 Yes [id number] 1{puff} Inhale 1 [facility] m (INCRUSE 1-27 Puff ity of [facility]) 00:00: daily. [place] 62.5 00 Medical mcg/actuati Branch on DsDv albuterol 0 Yes [id number] 2.5mg Inhale 3 [facility] 2.5 mg /3 1-27 mL every 6 ity of mL (0.083 00:00: (six) [place] %) 00 hours as Medical nebulizer needed for Bran ch solution Wheezing or Shortness of Breath. umeclidiniu 0 Yes [id number] 1{puff} Inhale 1 [facility] m (INCRUSE 1-27 Puff ity of [facility]) 00:00: daily. [place] 62.5 00 Medical mcg/actuati Branch on DsDv albuterol Yes [id number] 2.5mg Inhale 3 [facility] 2.5 mg /3 1-27 mL every 6 ity of mL (0.083 00:00: (six) [place] %) 00 hours as Medical nebulizer needed for Bran ch solution Wheezing or Shortness of Breath. umeclidiniu 0 Yes [id number] 1{puff} Inhale 1 [facility] m (INCRUSE 1-27 Puff ity of [place]) 00:00: daily. [place] [address]. Medical mcg/actuati Branch on DsDv albuterol Yes [id number] 2.5mg Inhale 3 [facility] 2.5 mg /3 1-27 mL every 6 ity of mL (0.083 00:00: (six) [place] %) 00 hours as Medical nebulizer needed for Bran ch solution Wheezing or Shortness of Breath. umeclidiniu Yes [id number] 1{puff} Inhale 1 [facility] m (INCRUSE 1-27 Puff ity of [facility]) 00:00: daily. [place] [address]. Medical mcg/actuati Branch on DsDv albuterol Yes [id number] 2.5mg Inhale 3 [facility] 2.5 mg /3 1-27 mL every 6 ity of mL (0.083 00:00: (six) [place] %) 00 hours as Medical nebulizer needed for Bran ch solution Wheezing or Shortness of Breath. umeclidiniu Yes [id number] 1{puff} Inhale 1 [facility] m (INCRUSE 1-27 Puff ity of [facility]) 00:00: daily. [place] [address]. Medical mcg/actuati Branch on DsDv albuterol 0 Yes [id number] 2.5mg Inhale 3 [facility] 2.5 mg /3 1-27 mL every 6 ity of mL (0.083 00:00: (six) [place] %) 00 hours as Medical nebulizer needed for Bran ch solution Wheezing or Shortness of Breath. umeclidiniu 0 Yes [id number] 1{puff} Inhale 1 [facility] m (INCRUSE 1-27 Puff ity of [facility]) 00:00: daily. [place] 62.5 00 Medical mcg/actuati Branch on DsDv albuterol Yes [id number] 2.5mg Inhale 3 [facility] 2.5 mg /3 1-27 mL every 6 ity of mL (0.083 00:00: (six) [place] %) 00 hours as Medical nebulizer needed for Bran ch solution Wheezing or Shortness of Breath. umeclidiniu 0 Yes [id number] 1{puff} Inhale 1 [facility] m (INCRUSE 1-27 Puff ity of [facility]) 00:00: daily. [place] [address].5 00 Medical mcg/actuati Branch on DsDv albuterol Yes [id number] 2.5mg Inhale 3 [facility] 2.5 mg /3 1-27 mL every 6 ity of mL (0.083 00:00: (six) [place] %) 00 hours as Medical nebulizer needed for Bran ch solution Wheezing or Shortness of Breath. umeclidiniu 0 Yes [id number] 1{puff} Inhale 1 [facility] m (INCRUSE 1-27 Puff ity of [facility]) 00:00: daily. [place] [address].5 00 Medical mcg/actuati Branch on DsDv albuterol Yes [id number] 2.5mg Inhale 3 [facility] 2.5 mg /3 1-27 mL every 6 ity of mL (0.083 00:00: (six) [place] %) 00 hours as Medical nebulizer needed for Bran ch solution Wheezing or Shortness of Breath. umeclidiniu 0 Yes [id number] 1{puff} Inhale 1 [facility] m (INCRUSE 1-27 Puff ity of [facility]) 00:00: daily. [place] [address].5 00 Medical mcg/actuati Branch on DsDv albuterol 0 Yes [id number] 2.5mg Inhale 3 [facility] 2.5 mg /3 1-27 mL every 6 ity of mL (0.083 00:00: (six) [place] %) 00 hours as Medical nebulizer needed for Bran ch solution Wheezing or Shortness of Breath. umeclidiniu 2021-0 Yes [id number] 1{puff} Inhale 1 [facility] m (INCRUSE 1-27 Puff ity of [facility]) 00:00: daily. [place] 62.5 00 Medical mcg/actuati Branch on DsDv albuterol Yes [id number] 2.5mg Inhale 3 [facility] 2.5 mg /3 1-27 mL every 6 ity of mL (0.083 00:00: (six) [place] %) 00 hours as Medical nebulizer needed for Bran ch solution Wheezing or Shortness of Breath. umeclidiniu Yes [id number] 1{puff} Inhale 1 [facility] m (INCRUSE 1-27 Puff ity of [place]) 00:00: daily. [place] [address].5 00 Medical mcg/actuati Branch on DsDv albuterol Yes [id number] 2.5mg Inhale 3 [facility] 2.5 mg /3 1-27 mL every 6 ity of mL (0.083 00:00: (six) [place] %) 00 hours as Medical nebulizer needed for Bran ch solution Wheezing or Shortness of Breath. umeclidiniu Yes [id number] 1{puff} Inhale 1 [facility] m (INCRUSE 1-27 Puff ity of [place]) 00:00: daily. [place] [address].5 00 Medical mcg/actuati Branch on DsDv albuterol Yes [id number] 2.5mg Inhale 3 [facility] 2.5 mg /3 1-27 mL every 6 ity of mL (0.083 00:00: (six) [place] %) 00 hours as Medical nebulizer needed for Bran ch solution Wheezing or Shortness of Breath. umeclidiniu Yes [id number] 1{puff} Inhale 1 [facility] m (INCRUSE 1-27 Puff ity of [place]) 00:00: daily. [place] [address].5 00 Medical mcg/actuati Branch on DsDv albuterol Yes [id number] 2.5mg Inhale 3 [facility] 2.5 mg /3 1-27 mL every 6 ity of mL (0.083 00:00: (six) [place] %) 00 hours as Medical nebulizer needed for Bran ch solution Wheezing or Shortness of Breath. umeclidiniu Yes [id number] 1{puff} Inhale 1 [facility] m (INCRUSE 1-27 Puff ity of [place]) 00:00: daily. [place] [address].5 00 Medical mcg/actuati Branch on DsDv albuterol 0 Yes [id number] 2.5mg Inhale 3 [facility] 2.5 mg /3 1-27 mL every 6 ity of mL (0.083 00:00: (six) [place] %) 00 hours as Medical nebulizer needed for Bran ch solution Wheezing or Shortness of Breath. umeclidiniu Yes [id number] 1{puff} Inhale 1 [facility] m (INCRUSE 1-27 Puff ity of [place]) 00:00: daily. [place] [address]. 00 Medical mcg/actuati Branch on DsDv albuterol Yes [id number] 2.5mg Inhale 3 [facility] 2.5 mg /3 1-27 mL every 6 ity of mL (0.083 00:00: (six) [place] %) 00 hours as Medical nebulizer needed for Bran ch solution Wheezing or Shortness of Breath. umeclidiniu Yes [id number] 1{puff} Inhale 1 [facility] m (INCRUSE 1-27 Puff ity of [facility]) 00:00: daily. [place] [address]. 00 Medical mcg/actuati Branch on DsDv albuterol 0 Yes [id number] 2.5mg Inhale 3 [facility] 2.5 mg /3 1-27 mL every 6 ity of mL (0.083 00:00: (six) [place] %) 00 hours as Medical nebulizer needed for Bran ch solution Wheezing or Shortness of Breath. umeclidiniu 2021- No [id number] 1{puff} Inhale 1 [facility] m (INCRUSE 1-27 12-05 Puff ity of [facility]) 00:00: 00:00 daily. [place] 62.[address] 00 :00 Medical mcg/actuati Branch on DsDv albuterol 2021- No [id number] 2.5mg Inhale 3 [facility] 2.5 mg /3 1-27 12-05 mL every 6 ity of mL (0.083 00:00: 00:00 (six) [place] %) 00 :00 hours as Medical nebulizer needed for Bran ch solution Wheezing or Shortness of Breath. umeclidiniu 2021- No [id number] 1{puff} Inhale 1 [facility] m (INCRUSE 05-03 12-05 Puff ity of [facility]) 00:00: 00:00 daily. [place] [address] 00 :00 Medical mcg/actuati Branch on DsDv albuterol 2021- No [id number] 2.5mg Inhale 3 [facility] 2.5 mg /3 05-03 12-05 mL every 6 ity of mL (0.083 00:00: 00:00 (six) [place] %) 00 :00 hours as Medical nebulizer needed for Bran ch solution Wheezing or Shortness of Breath. umeclidiniu 2021- No [id number] 1{puff} Inhale 1 [facility] m (INCRUSE 05-03 12-05 Puff ity of [facility]) 00:00: 00:00 daily. [place] [address] 00 :00 Medical mcg/actuati Branch on DsDv albuterol 2021- No [id number] 2.5mg Inhale 3 [facility] 2.5 mg /3 05-03 12-05 mL every 6 ity of mL (0.083 00:00: 00:00 (six) [place] %) 00 :00 hours as Medical nebulizer needed for Bran ch solution Wheezing or Shortness of Breath. umeclidiniu 2021- No [id number] 1{puff} Inhale 1 [facility] m (INCRUSE 05-03 12-05 Puff ity of [facility]) 00:00: 00:00 daily. [place] [address]. 00 :00 Medical mcg/actuati Branch on DsDv albuterol 2021- No [id number] 2.5mg Inhale 3 [facility] 2.5 mg /3 05-03 12-05 mL every 6 ity of mL (0.083 00:00: 00:00 (six) [place] %) 00 :00 hours as Medical nebulizer needed for Bran ch solution Wheezing or Shortness of Breath. esomeprazol 2020-0 Yes TK 1 C PO U nivers e 40 mg 1-06 QD ity of capsule 00:00: [place] [facility] esomeprazol 2020-0 Yes TK 1 C PO U nivers e 40 mg 1-06 QD ity of capsule 00:00: [place] [facility] esomeprazol 2020-0 Yes TK 1 C PO U nivers e 40 mg 1-06 QD ity of capsule 00:00: [place] [facility] esomeprazol 2020-0 Yes TK 1 C PO U nivers e 40 mg 1-06 QD ity of capsule 00:00: [place] [facility] esomeprazol 2020-0 Yes TK 1 C PO U nivers e 40 mg 1-06 QD ity of capsule 00:00: [place] [facility] esomeprazol 2020-0 Yes TK 1 C PO U nivers e 40 mg 1-06 QD ity of capsule 00:00: [place] [facility] esomeprazol 2020-0 Yes TK 1 C PO U nivers e 40 mg 1-06 QD ity of capsule 00:00: [place] [facility] esomeprazol 2020-0 Yes TK 1 C PO U nivers e 40 mg 1-06 QD ity of capsule 00:00: [place] [facility] esomeprazol 2020-0 Yes TK 1 C PO U nivers e 40 mg 1-06 QD ity of capsule 00:00: [place] [facility] esomeprazol 2020-0 Yes TK 1 C PO U nivers e 40 mg 1-06 QD ity of capsule 00:00: [place] [facility] esomeprazol 2020-0 Yes TK 1 C PO U nivers e 40 mg 1-06 QD ity of capsule 00:00: [place] [facility] esomeprazol 2020-0 Yes TK 1 C PO U nivers e 40 mg 1-06 QD ity of capsule 00:00: [place] [facility] esomeprazol 2020-0 Yes TK 1 C PO U nivers e 40 mg 1-06 QD ity of capsule 00:00: [place] [facility] esomeprazol 2020-0 Yes TK 1 C PO U nivers e 40 mg 1-06 QD ity of capsule 00:00: [place] [facility] esomeprazol 2020-0 Yes TK 1 C PO U nivers e 40 mg 1-06 QD ity of capsule 00:00: [place] [facility] esomeprazol 2020-0 Yes TK 1 C PO U nivers e 40 mg 1-06 QD ity of capsule 00:00: [place] [facility] esomeprazol 2020-0 Yes TK 1 C PO U nivers e 40 mg 1-06 QD ity of capsule 00:00: [place] [facility] esomeprazol 2020-0 Yes TK 1 C PO U nivers e 40 mg 1-06 QD ity of capsule 00:00: [place] [facility] esomeprazol 2020-0 Yes TK 1 C PO U nivers e 40 mg 1-06 QD ity of capsule 00:00: [place] [facility] esomeprazol 2020-0 Yes TK 1 C PO U nivers e 40 mg 1-06 QD ity of capsule 00:00: [place] [facility] esomeprazol 2020-0 Yes TK 1 C PO U nivers e 40 mg 1-06 QD ity of capsule 00:00: [place] [facility] esomeprazol 2020-0 Yes TK 1 C PO U nivers e 40 mg 1-06 QD ity of capsule 00:00: [place] [facility] esomeprazol 2020-0 Yes TK 1 C PO U nivers e 40 mg 1-06 QD ity of capsule 00:00: [place] [facility] esomeprazol 2020-0 Yes TK 1 C PO U nivers e 40 mg 1-06 QD ity of capsule 00:00: [place] [facility] esomeprazol 2020-0 Yes TK 1 C PO U nivers e 40 mg 1-06 QD ity of capsule 00:00: [place] [facility] esomeprazol 2020-0 Yes TK 1 C PO U nivers e 40 mg 1-06 QD ity of capsule 00:00: [place] [facility] esomeprazol 2020-0 Yes TK 1 C PO U nivers e 40 mg 1-06 QD ity of capsule 00:00: [place] [facility] esomeprazol 2020-0 Yes TK 1 C PO U nivers e 40 mg 1-06 QD ity of capsule 00:00: [place] [facility] esomeprazol 2020-0 Yes TK 1 C PO U nivers e 40 mg 1-06 QD ity of capsule 00:00: [place] [facility] esomeprazol 2020-0 Yes TK 1 C PO U nivers e 40 mg 1-06 QD ity of capsule 00:00: [place] [facility] esomeprazol 2020-0 Yes TK 1 C PO U nivers e 40 mg 1-06 QD ity of capsule 00:00: [place] [facility] esomeprazol 2020-0 Yes TK 1 C PO U nivers e 40 mg 1-06 QD ity of capsule 00:00: [place] [facility] esomeprazol 2020-0 Yes TK 1 C PO U nivers e 40 mg 1-06 QD ity of capsule 00:00: [place] [facility] esomeprazol 2020-0 Yes TK 1 C PO U nivers e 40 mg 1-06 QD ity of capsule 00:00: [place] [facility] esomeprazol 2020-0 Yes TK 1 C PO U nivers e 40 mg 1-06 QD ity of capsule 00:00: [place] [facility] esomeprazol 2020-0 Yes TK 1 C PO U nivers e 40 mg 1-06 QD ity of capsule 00:00: [place] [facility] esomeprazol 2020-0 Yes TK 1 C PO U nivers e 40 mg 1-06 QD ity of capsule 00:00: [place] [facility] esomeprazol 2020-0 Yes TK 1 C PO U nivers e 40 mg 1-06 QD ity of capsule 00:00: [place] [facility] esomeprazol 2020-0 Yes TK 1 C PO U nivers e 40 mg 1-06 QD ity of capsule 00:00: [place] [facility] esomeprazol 2020-0 Yes TK 1 C PO U nivers e 40 mg 1-06 QD ity of capsule 00:00: [place] [facility] esomeprazol 2020-0 Yes TK 1 C PO U nivers e 40 mg 1-06 QD ity of capsule 00:00: [place] [facility] esomeprazol 2020-0 Yes TK 1 C PO U nivers e 40 mg 1-06 QD ity of capsule 00:00: [place] [facility] esomeprazol 2020-0 Yes TK 1 C PO U nivers e 40 mg 1-06 QD ity of capsule 00:00: [place] [facility] esomeprazol 2020-0 Yes TK 1 C PO U nivers e 40 mg 1-06 QD ity of capsule 00:00: [place] [facility] esomeprazol 2020-0 Yes TK 1 C PO U nivers e 40 mg 1-06 QD ity of capsule 00:00: [place] [facility] esomeprazol 2020-0 Yes TK 1 C PO U nivers e 40 mg 1-06 QD ity of capsule 00:00: [place] [facility] esomeprazol 2020-0 Yes TK 1 C PO U nivers e 40 mg 1-06 QD ity of capsule 00:00: [place] [facility] esomeprazol 2020-0 Yes TK 1 C PO U nivers e 40 mg 1-06 QD ity of capsule 00:00: [place] [facility] esomeprazol 2020-0 Yes TK 1 C PO U nivers e 40 mg 1-06 QD ity of capsule 00:00: [place] [facility] esomeprazol 2020-0 Yes TK 1 C PO U nivers e 40 mg 1-06 QD ity of capsule 00:00: [place] [facility] esomeprazol 2020-0 Yes TK 1 C PO U nivers e 40 mg 1-06 QD ity of capsule 00:00: [place] [facility] esomeprazol 2020-0 Yes TK 1 C PO U nivers e 40 mg 1-06 QD ity of capsule 00:00: [place] [facility] esomeprazol 2020-0 Yes TK 1 C PO U nivers e 40 mg 1-06 QD ity of capsule 00:00: [place] [facility] esomeprazol 2020-0 2022- No TK 1 C PO Univers e 40 mg 04-12- QD ity of capsule 00:00: 00:00 [place] 00 :00 [facility] esomeprazol 2020-0 202- No TK 1 C PO Univers e 40 mg 04-12 QD ity of capsule 00:00: 00:00 [place] 00 :00 [facility] esomeprazol 2020-0 202- No TK 1 C PO Univers e 40 mg 04-12 QD ity of capsule 00:00: 00:00 [place] 00 :00 [facility] esomeprazol 2020-0 2- No TK 1 C PO Univers e 40 mg 04-12 QD ity of capsule 00:00: 00:00 [place] 00 :00 [facility] esomeprazol 2021- No TK 1 C PO Univers e 40 mg 04-12 QD ity of capsule 00:00: 00:00 [place] 00 :00 [facility] esomeprazol 2021- No TK 1 C PO Univers e 40 mg 04-12 QD ity of capsule 00:00: 00:00 [place] 00 :00 [facility] potassium 2019- Yes TK 1 T PO Uni vers chloride 10 2-30 BID WF ity of mEq CR 00:00: [place] tablet 00 Medical [facility] potassium 2019- Yes TK 1 T PO Uni vers chloride 10 2-30 BID WF ity of mEq CR 00:00: [place] tablet 00 [facility] potassium 2019- Yes TK 1 T PO Uni vers chloride 10 2-30 BID WF ity of mEq CR 00:00: [place] tablet 00 [facility] potassium 2019- Yes TK 1 T PO Uni vers chloride 10 2-30 BID WF ity of mEq CR 00:00: [place] tablet 00 [facility] potassium 2019- Yes TK 1 T PO Uni vers chloride 10 2-30 BID WF ity of mEq CR 00:00: [place] tablet 00 [facility] potassium 2019- Yes TK 1 T PO Uni vers chloride 10 2-30 BID WF ity of mEq CR 00:00: [place] tablet 00 [facility] potassium 2019- Yes TK 1 T PO Uni vers chloride 10 2-30 BID WF ity of mEq CR 00:00: [place] tablet 00 [facility] potassium 2019-1 Yes TK 1 T PO Uni vers chloride 10 2-30 BID WF ity of mEq CR 00:00: [place] tablet 00 [facility] potassium 2019-1 Yes TK 1 T PO Uni vers chloride 10 2-30 BID WF ity of mEq CR 00:00: [place] tablet 00 [facility] potassium 2019-1 Yes TK 1 T PO Uni vers chloride 10 2-30 BID WF ity of mEq CR 00:00: [place] tablet 00 [facility] potassium 2019-1 Yes TK 1 T PO Uni vers chloride 10 2-30 BID WF ity of mEq CR 00:00: [place] tablet 00 [facility] potassium 2019-1 Yes TK 1 T PO [facility] chloride 10 2-30 BID [facility] of mEq CR 00:00: [place] tablet 00 [facility] potassium 2019-1 Yes TK 1 T PO [facility] chloride 10 2-30 BID [facility] of mEq CR 00:00: [place] tablet 00 [facility] potassium 2019- Yes TK 1 T PO [facility] chloride 10 2-30 BID [facility] of mEq CR 00:00: [place] tablet 00 [facility] potassium 2019- Yes TK 1 T PO [facility] chloride 10 2-30 BID [facility] of mEq CR 00:00: [place] tablet 00 [facility] potassium 2019- Yes TK 1 T PO [facility] chloride 10 2-30 BID [facility] of mEq CR 00:00: [place] tablet 00 [facility] potassium 2018- Yes TK 1 T PO [facility] chloride 10 2-30 BID [facility] of mEq CR 00:00: [place] tablet 00 [facility] potassium 2018- Yes TK 1 T PO [facility] chloride 10 2-30 BID [facility] of mEq CR 00:00: [place] tablet 00 [facility] potassium 2018- Yes TK 1 T PO [facility] chloride 10 2-30 BID [facility] of mEq CR 00:00: [place] tablet 00 [facility] potassium 2018- Yes TK 1 T PO [facility] chloride 10 2-30 BID [facility] of mEq CR 00:00: [place] tablet 00 [facility] potassium 2018- Yes TK 1 T PO [facility] chloride 10 2-30 BID [facility] of mEq CR 00:00: [place] tablet 00 [facility] potassium 2018- Yes TK 1 T PO [facility] chloride 10 2-30 BID [facility] of mEq CR 00:00: [place] tablet 00 [facility] potassium 2018- Yes TK 1 T PO [facility] chloride 10 2-30 BID [facility] of mEq CR 00:00: [place] tablet 00 [facility] potassium 2019- Yes TK 1 T PO [facility] chloride 10 2-30 BID [facility] of mEq CR 00:00: [place] tablet 00 [facility] potassium 2018- Yes TK 1 T PO Uni vers chloride 10 2-30 BID WF ity of mEq CR 00:00: [place] tablet 00 [facility] potassium 2019- Yes TK 1 T PO Uni vers chloride 10 2-30 BID [facility] ity of mEq CR 00:00: [place] tablet 00 [facility] potassium 2018- Yes TK 1 T PO Uni vers chloride 10 2-30 BID [facility] ity of mEq CR 00:00: [place] tablet 00 [facility] potassium 2018- Yes TK 1 T PO Uni vers chloride 10 2-30 BID [facility] ity of mEq CR 00:00: [place] tablet 00 [facility] potassium 2018- Yes TK 1 T PO Uni vers chloride 10 2-30 BID [facility] ity of mEq CR 00:00: [place] tablet 00 [facility] potassium 2019- Yes TK 1 T PO Uni vers chloride 10 2-30 BID [facility] ity of mEq CR 00:00: [place] tablet 00 [facility] potassium 2019- Yes TK 1 T PO Uni vers chloride 10 2-30 BID [facility] ity of mEq CR 00:00: [place] tablet 00 [facility] potassium 2019- Yes TK 1 T PO Uni vers chloride 10 2-30 BID [facility] ity of mEq CR 00:00: [place] tablet 00 [facility] potassium 2018- Yes TK 1 T PO Uni vers chloride 10 2-30 BID [facility] ity of mEq CR 00:00: [place] tablet 00 [facility] potassium 2018- Yes TK 1 T PO Uni vers chloride 10 2-30 BID [facility] ity of mEq CR 00:00: [place] tablet 00 [facility] potassium 2018- Yes TK 1 T PO Uni vers chloride 10 2-30 BID [facility] ity of mEq CR 00:00: [place] tablet 00 [facility] potassium 2019- Yes TK 1 T PO Uni vers chloride 10 2-30 BID [facility] ity of mEq CR 00:00: [place] tablet 00 [facility] potassium 2018- Yes TK 1 T PO Uni vers chloride 10 2-30 BID [facility] ity of mEq CR 00:00: [place] tablet 00 [facility] potassium 2018- Yes TK 1 T PO Uni vers chloride 10 2-30 BID [facility] ity of mEq CR 00:00: [place] tablet 00 [facility] potassium 2019- Yes TK 1 T PO Uni vers chloride 10 2-30 BID [facility] ity of mEq CR 00:00: [place] tablet 00 [facility] potassium 2019- Yes TK 1 T PO Uni vers chloride 10 2-30 BID [facility] ity of mEq CR 00:00: [place] tablet 00 [facility] potassium 2019- Yes TK 1 T PO Uni vers chloride 10 2-30 BID [facility] ity of mEq CR 00:00: [place] tablet 00 [facility] potassium 2019- Yes TK 1 T PO Uni vers chloride 10 2-30 BID [facility] ity of mEq CR 00:00: [place] tablet 00 [facility] potassium 2019- Yes TK 1 T PO Uni vers chloride 10 2-30 BID [facility] ity of mEq CR 00:00: [place] tablet 00 [facility] potassium 2019- Yes TK 1 T PO Uni vers chloride 10 2-30 BID [facility] ity of mEq CR 00:00: [place] tablet 00 [facility] potassium 2019- Yes TK 1 T PO Uni vers chloride 10 2-30 BID [facility] ity of mEq CR 00:00: [place] tablet 00 [facility] potassium 2019- Yes TK 1 T PO Uni vers chloride 10 2-30 BID [facility] ity of mEq CR 00:00: [place] tablet 00 [facility] potassium 2019- Yes TK 1 T PO Uni vers chloride 10 2-30 BID [facility] ity of mEq CR 00:00: [place] tablet 00 [facility] potassium 2019- Yes TK 1 T PO Uni vers chloride 10 2-30 BID [facility] ity of mEq CR 00:00: [place] tablet 00 [facility] potassium 2019- Yes TK 1 T PO Uni vers chloride 10 2-30 BID [facility] ity of mEq CR 00:00: [place] tablet 00 [facility] potassium 2018- Yes TK 1 T PO Uni vers chloride 10 2-30 BID [facility] ity of mEq CR 00:00: [place] tablet 00 [facility] potassium 2018- Yes TK 1 T PO Uni vers chloride 10 2-30 BID [facility] ity of mEq CR 00:00: [place] tablet 00 [facility] potassium 2019- Yes TK 1 T PO Uni vers chloride 10 2-30 BID [facility] ity of mEq CR 00:00: [place] tablet 00 [facility] potassium 2019- Yes TK 1 T PO Uni vers chloride 10 2-30 BID [facility] ity of mEq CR 00:00: [place] tablet 00 [facility] potassium 2019- Yes TK 1 T PO Uni vers chloride 10 2-30 BID [facility] ity of mEq CR 00:00: [place] tablet 00 [facility] potassium 2019- Yes TK 1 T PO Uni vers chloride 10 2-30 BID [facility] ity of mEq CR 00:00: [place] tablet 00 [facility] potassium 2019- Yes TK 1 T PO Uni vers chloride 10 2-30 BID [facility] ity of mEq CR 00:00: [place] tablet 00 [facility] potassium 2019- Yes TK 1 T PO Uni vers chloride 10 2-30 BID W[facility] ity of mEq CR 00:00: [place] tablet 00 [facility] potassium 2019- Yes TK 1 T PO Uni vers chloride 10 2-30 BID WF ity of mEq CR 00:00: [place] tablet 00 [facility] potassium 2019- Yes TK 1 T PO Uni vers chloride 10 2-30 BID [facility] ity of mEq CR 00:00: [place] tablet 00 [facility] potassium 2019- Yes TK 1 T PO Uni vers chloride 10 2-30 BID [facility] ity of mEq CR 00:00: [place] tablet 00 [facility] potassium 2019- Yes TK 1 T PO Uni vers chloride 10 2-30 BID [facility] ity of mEq CR 00:00: [place] tablet 00 [facility] potassium 2019- Yes TK 1 T PO Uni vers chloride 10 2-30 BID [facility] ity of mEq CR 00:00: [place] tablet 00 [facility] potassium 2019- Yes TK 1 T PO Uni vers chloride 10 2-30 BID [facility] ity of mEq CR 00:00: [place] tablet 00 [facility] potassium 2018- Yes TK 1 T PO Uni vers chloride 10 2-30 BID [facility] ity of mEq CR 00:00: [place] tablet 00 [facility] potassium 2018- Yes TK 1 T PO Uni vers chloride 10 2-30 BID [facility] ity of mEq CR 00:00: [place] tablet 00 [facility] potassium 2018- Yes TK 1 T PO Uni vers chloride 10 2-30 BID [facility] ity of mEq CR 00:00: [place] tablet 00 [facility] potassium 2018- Yes TK 1 T PO Uni vers chloride 10 2-30 BID [facility] ity of mEq CR 00:00: [place] tablet 00 [facility] potassium 2018- Yes TK 1 T PO Uni vers chloride 10 2-30 BID [facility] ity of mEq CR 00:00: [place] tablet 00 [facility] potassium 2018- Yes TK 1 T PO Uni vers chloride 10 2-30 BID [facility] ity of mEq CR 00:00: [place] tablet 00 [facility] potassium 2018- Yes TK 1 T PO Uni vers chloride 10 2-30 BID [facility] ity of mEq CR 00:00: [place] tablet 00 [facility] potassium 2019- Yes TK 1 T PO Uni vers chloride 10 2-30 BID [facility] ity of mEq CR 00:00: [place] tablet 00 [facility] potassium 2018- Yes TK 1 T PO Uni vers chloride 10 2-30 BID [facility] ity of mEq CR 00:00: [place] tablet 00 [facility] potassium 2018- Yes TK 1 T PO Uni vers chloride 10 2-30 BID [facility] ity of mEq CR 00:00: [place] tablet 00 [facility] potassium 2018- Yes TK 1 T PO Uni vers chloride 10 2-30 BID [facility] ity of mEq CR 00:00: [place] tablet 00 [facility] potassium 2018- Yes TK 1 T PO Uni vers chloride 10 2-30 BID [facility] ity of mEq CR 00:00: [place] tablet 00 [facility] potassium 2019-1 Yes TK 1 T PO Uni vers chloride 10 2-30 BID [facility] ity of mEq CR 00:00: [place] tablet 00 [facility] potassium 2019-1 Yes TK 1 T PO Uni vers chloride 10 2-30 BID [facility] ity of mEq CR 00:00: [place] tablet 00 [facility] Immunizations Ordered Filled Immunization Date Status Comments Sour e Immunization Name Name SARS-COV-2 COVID-19 2021-04-16 Completed Unive rsity of MODERNA 0.25ML 00:00:00 [place] [facility] BOOSTER VACCINE Branch SARS-COV-2 COVID-19 2021-04-16 Completed Unive rsity of MODERNA 0.25ML 00:00:00 [place] [facility] nate BOOSTER VACCINE Branch SARS-COV-2 COVID-19 2021-04-16 Completed Unive rsity of MODERNA 0.25ML 00:00:00 [place] [facility] nate BOOSTER VACCINE Branch SARS-COV-2 COVID-19 2021-04-16 Completed Unive rsity of MODERNA 0.25ML 00:00:00 [place] [facility]ate BOOSTER VACCINE Branch SARS-COV-2 COVID-19 2021-04-16 Completed Unive rsity of MODERNA 0.25ML 00:00:00 [place] [facility]ate BOOSTER VACCINE Branch SARS-COV-2 COVID-19 2021-04-16 Completed Unive rsity of MODERNA 0.25ML 00:00:00 [place] [facility] BOOSTER VACCINE Branch SARS-COV-2 COVID-19 2021-04-16 Completed Unive rsity of MODERNA 0.25ML 00:00:00 [place] [facility] BOOSTER VACCINE Branch SARS-COV-2 COVID-19 2021-04-16 Completed [facility]ive rsity of MODERNA 0.25ML 00:00:00 [place] [facility] BOOSTER VACCINE Branch SARS-COV-2 COVID-19 2021-04-16 Completed [facility]ive rsity of MODERNA 0.25ML 00:00:00 [place] [facility] BOOSTER VACCINE Branch SARS-COV-2 COVID-19 2021-04-16 Completed Unive rsity of MODERNA 0.25ML 00:00:00 [place] [facility]ate BOOSTER VACCINE Branch SARS-COV-2 COVID-19 2021-04-16 Completed Unive rsity of MODERNA 0.25ML 00:00:00 [place] [facility]ate BOOSTER VACCINE Branch SARS-COV-2 COVID-19 2021-04-16 Completed Unive rsity of MODERNA 0.25ML 00:00:00 [place] [facility]ate BOOSTER VACCINE Branch SARS-COV-2 COVID-19 2021-04-16 Completed Unive rsity of MODERNA 0.25ML 00:00:00 [place] [facility]ate BOOSTER VACCINE Branch SARS-COV-2 COVID-19 2021-04-16 Completed Unive rsity of MODERNA 0.25ML 00:00:00 [place] [facility]ate BOOSTER VACCINE Branch SARS-COV-2 COVID-19 2021-04-16 Completed Unive rsity of MODERNA 0.25ML 00:00:00 [place] [facility]ate BOOSTER VACCINE Branch SARS-COV-2 COVID-19 2021-04-16 Completed [facility]ive rsity of MODERNA 0.25ML 00:00:00 [place] [facility] BOOSTER VACCINE Branch SARS-COV-2 COVID-19 2021-04-16 Completed [facility]ive rsity of MODERNA 0.25ML 00:00:00 [place] [facility] BOOSTER VACCINE Branch SARS-COV-2 COVID-19 2021-04-16 Completed [facility]ive rsity of MODERNA 0.25ML 00:00:00 [place] [facility]ate BOOSTER VACCINE Branch SARS-COV-2 COVID-19 2021-04-16 Completed Unive rsity of MODERNA 0.25ML 00:00:00 [place] [facility]ate BOOSTER VACCINE Branch SARS-COV-2 COVID-19 2021-04-16 Completed [facility]ive rsity of MODERNA 0.25ML 00:00:00 [place] [facility] BOOSTER VACCINE Branch SARS-COV-2 COVID-19 2021-04-16 Completed Unive rsity of MODERNA 0.25ML 00:00:00 [place] [facility] BOOSTER VACCINE Branch SARS-COV-2 COVID-19 2021-04-16 Completed [facility]ive rsity of MODERNA 0.25ML 00:00:00 [place] [facility]ate BOOSTER VACCINE Branch SARS-COV-2 COVID-19 2021-04-16 Completed [facility]ive rsity of MODERNA 0.25ML 00:00:00 [place] [facility]ate BOOSTER VACCINE Branch SARS-COV-2 COVID-19 2021-04-16 Completed [facility]ive rsity of MODERNA 0.25ML 00:00:00 [place] [facility] BOOSTER VACCINE Branch SARS-COV-2 COVID-19 2021-04-16 Completed [facility]ive rsity of MODERNA 0.25ML 00:00:00 [place] [facility] BOOSTER VACCINE Branch SARS-COV-2 COVID-19 2021-04-16 Completed Unive rsity of MODERNA 0.25ML 00:00:00 [place] [facility]ate BOOSTER VACCINE Branch SARS-COV-2 COVID-19 2021-04-16 Completed Unive rsity of MODERNA 0.25ML 00:00:00 [place] [facility]ate BOOSTER VACCINE Branch SARS-COV-2 COVID-19 2021-04-16 Completed Unive rsity of MODERNA 0.25ML 00:00:00 [place] [facility] BOOSTER VACCINE Branch SARS-COV-2 COVID-19 2021-04-16 Completed [facility]ive rsity of MODERNA 0.25ML 00:00:00 [place] [facility] BOOSTER VACCINE Branch SARS-COV-2 COVID-19 2021-04-16 Completed Unive rsity of MODERNA 0.25ML 00:00:00 [place] [facility]ate BOOSTER VACCINE Branch SARS-COV-2 COVID-19 2021-04-16 Completed Unive rsity of MODERNA 0.25ML 00:00:00 [place] [facility] BOOSTER VACCINE Branch SARS-COV-2 COVID-19 2021-04-16 Completed Unive rsity of MODERNA 0.25ML 00:00:00 [place] [facility] BOOSTER VACCINE Branch SARS-COV-2 COVID-19 2021-04-16 Completed Unive rsity of MODERNA 0.25ML 00:00:00 [place] [facility]ate BOOSTER VACCINE Branch SARS-COV-2 COVID-19 2021-04-16 Completed [facility]ive rsity of MODERNA 0.25ML 00:00:00 [place] [facility]ate BOOSTER VACCINE Branch SARS-COV-2 COVID-19 2021-04-16 Completed Unive rsity of MODERNA 0.25ML 00:00:00 [place] [facility] BOOSTER VACCINE Branch SARS-COV-2 COVID-19 2021-04-16 Completed Unive rsity of MODERNA 0.25ML 00:00:00 [place] [facility]ate BOOSTER VACCINE Branch SARS-COV-2 COVID-19 2021-04-16 Completed [facility]ive rsity of MODERNA 0.25ML 00:00:00 [place] [facility]ate BOOSTER VACCINE Branch SARS-COV-2 COVID-19 2021-04-16 Completed Unive rsity of MODERNA 0.25ML 00:00:00 [place] [facility]ate BOOSTER VACCINE Branch SARS-COV-2 COVID-19 2021-04-16 Completed Unive rsity of MODERNA 0.25ML 00:00:00 [place] [facility]ate BOOSTER VACCINE Branch SARS-COV-2 COVID-19 2021-04-16 Completed Unive rsity of MODERNA 0.25ML 00:00:00 [place] [facility]ate BOOSTER VACCINE Branch SARS-COV-2 COVID-19 2021-04-16 Completed Unive rsity of MODERNA 0.25ML 00:00:00 [place] [facility]ate BOOSTER VACCINE Branch SARS-COV-2 COVID-19 2021-04-16 Completed Unive rsity of MODERNA 0.25ML 00:00:00 [place] [facility]ate BOOSTER VACCINE Branch SARS-COV-2 COVID-19 2021-04-16 Completed Unive rsity of MODERNA 0.25ML 00:00:00 [place] [facility]ate BOOSTER VACCINE Branch SARS-COV-2 COVID-19 2021-04-16 Completed Unive rsity of MODERNA 0.25ML 00:00:00 [place] [facility]ate BOOSTER VACCINE Branch SARS-COV-2 COVID-19 2021-04-16 Completed [facility]ive rsity of MODERNA 0.25ML 00:00:00 [place] [facility]ate BOOSTER VACCINE Branch SARS-COV-2 COVID-19 2021-04-16 Completed [facility]ive rsity of MODERNA 0.25ML 00:00:00 [place] [facility]ate BOOSTER VACCINE Branch SARS-COV-2 COVID-19 2021-04-16 Completed Unive rsity of MODERNA 0.25ML 00:00:00 [place] [facility]ate BOOSTER VACCINE Branch SARS-COV-2 COVID-19 2021-04-16 Completed Unive rsity of MODERNA 0.25ML 00:00:00 [place] [facility]ate BOOSTER VACCINE Branch SARS-COV-2 COVID-19 2021-04-16 Completed Unive rsity of MODERNA 0.25ML 00:00:00 [place] [facility]ate BOOSTER VACCINE Branch SARS-COV-2 COVID-19 2021-04-16 Completed Unive rsity of MODERNA 0.25ML 00:00:00 [place] [facility]ate BOOSTER VACCINE Branch SARS-COV-2 COVID-19 2021-04-16 Completed Unive rsity of MODERNA 0.25ML 00:00:00 [place] [facility]ate BOOSTER VACCINE Branch SARS-COV-2 COVID-19 2021-04-16 Completed Unive rsity of MODERNA 0.25ML 00:00:00 [place] [facility]ate BOOSTER VACCINE Branch SARS-COV-2 COVID-19 2021-04-16 Completed Unive rsity of MODERNA 0.25ML 00:00:00 [place] [facility]ate BOOSTER VACCINE Branch SARS-COV-2 COVID-19 2021-04-16 Completed Unive rsity of MODERNA 0.25ML 00:00:00 [place] [facility]ate BOOSTER VACCINE Branch SARS-COV-2 COVID-19 2021-04-16 Completed Unive rsity of MODERNA 0.25ML 00:00:00 [place] [facility]i nate BOOSTER VACCINE Branch SARS-COV-2 COVID-19 2021-04-16 Completed Unive rsity of MODERNA 0.25ML 00:00:00 [place] [facility]i nate BOOSTER VACCINE Branch SARS-COV-2 COVID-19 2021-04-16 Completed Unive rsity of MODERNA 0.25ML 00:00:00 [place] [facility]ate BOOSTER VACCINE Branch SARS-COV-2 COVID-19 2021-04-16 Completed Unive rsity of MODERNA 0.25ML 00:00:00 [place] [facility]ate BOOSTER VACCINE Branch SARS-COV-2 COVID-19 2021-04-16 Completed Unive rsity of MODERNA 0.25ML 00:00:00 [place] [facility]ate BOOSTER VACCINE Branch SARS-COV-2 COVID-19 2021-04-16 Completed Unive rsity of MODERNA 0.25ML 00:00:00 [place] [facility]ate BOOSTER VACCINE Branch SARS-COV-2 COVID-19 2021-04-16 Completed Unive rsity of MODERNA 0.25ML 00:00:00 [place] [facility]i [facility]ate BOOSTER VACCINE Branch SARS-COV-2 COVID-19 2021-04-16 Completed Unive rsity of MODERNA 0.25ML 00:00:00 [place] [facility]i [facility]ate BOOSTER VACCINE Branch SARS-COV-2 COVID-19 2021-04-16 Completed Unive rsity of MODERNA 0.25ML 00:00:00 [place] [facility]i [facility]ate BOOSTER VACCINE Branch SARS-COV-2 COVID-19 2021-04-16 Completed Unive rsity of MODERNA 0.25ML 00:00:00 [place] [facility]ate BOOSTER VACCINE Branch SARS-COV-2 COVID-19 2021-04-16 Completed Unive rsity of MODERNA 0.25ML 00:00:00 [place] [facility]i nate BOOSTER VACCINE Branch SARS-COV-2 COVID-19 2021-04-16 Completed Unive rsity of MODERNA 0.25ML 00:00:00 [place] [facility]ate BOOSTER VACCINE Branch SARS-COV-2 COVID-19 2021-04-16 Completed Unive rsity of MODERNA 0.25ML 00:00:00 [place] Medi nate BOOSTER VACCINE Branch SARS-COV-2 COVID-19 2021-04-16 Completed Unive rsity of MODERNA 0.25ML 00:00:00 [place] [facility]i [facility]ate BOOSTER VACCINE Branch SARS-COV-2 COVID-19 2021-04-16 Completed Unive rsity of MODERNA 0.25ML 00:00:00 [place] [facility]i [facility]ate BOOSTER VACCINE Branch SARS-COV-2 COVID-19 2021-04-16 Completed Unive rsity of MODERNA 0.25ML 00:00:00 [place] [facility]i [facility]ate BOOSTER VACCINE Branch SARS-COV-2 COVID-19 2021-04-16 Completed Unive rsity of MODERNA 0.25ML 00:00:00 [place] [facility]i [facility]ate BOOSTER VACCINE Branch SARS-COV-2 COVID-19 2021-04-16 Completed Unive rsity of MODERNA 0.25ML 00:00:00 [place] Medi nate BOOSTER VACCINE Branch SARS-COV-2 COVID-19 2021-04-16 Completed Unive rsity of MODERNA 0.25ML 00:00:00 [place] Medi nate BOOSTER VACCINE Branch SARS-COV-2 COVID-19 2021-04-16 Completed Unive rsity of MODERNA 0.25ML 00:00:00 [place] [facility]i [facility]ate BOOSTER VACCINE Branch SARS-COV-2 COVID-19 2021-04-16 Completed Unive rsity of MODERNA 0.25ML 00:00:00 [place] [facility]i [facility]ate BOOSTER VACCINE Branch SARS-COV-2 COVID-19 2021-04-16 Completed Unive rsity of MODERNA 0.25ML 00:00:00 [place] [facility]i [facility]ate BOOSTER VACCINE Branch SARS-COV-2 COVID-19 2021-04-16 Completed Unive rsity of MODERNA 0.25ML 00:00:00 [facility] VACCINE Branch Influenza Virus 2021-03-08 Completed [facility]it y of Vaccine Quad IM, 00:00:00 [place] [facility] Preserv and ABX Branch Free 6 MO-64 YRS TDAP 2021-03-08 Completed University of 00:00:00 [facility] Influenza Virus 2021-03-08 Completed Universit y of Vaccine Quad IM, 00:00:00 [place] [facility] Preserv and ABX Branch Free 6 MO-64 YRS TDAP 2021-03-08 Completed University of 00:00:00 [facility] Influenza Virus 2021-03-08 Completed Universit y of Vaccine Quad IM, 00:00:00 [place] [facility] Preserv and ABX Branch Free 6 MO-64 YRS TDAP 2021-03-08 Completed University of 00:00:00 [facility] Influenza Virus 2021-03-08 Completed [facility]it y of Vaccine Quad IM, 00:00:00 [place] [facility] Preserv and ABX Branch Free 6 MO-64 YRS TDAP 2021-03-08 Completed University of 00:00:00 [facility] Influenza Virus 2021-03-08 Completed Universit y of Vaccine Quad IM, 00:00:00 [place] [facility] Preserv and ABX Branch Free 6 MO-64 YRS TDAP 2021-03-08 Completed University of 00:00:00 [facility] Influenza Virus 2021-03-08 Completed Universit y of Vaccine Quad IM, 00:00:00 [place] [facility] Preserv and ABX Branch Free 6 MO-64 YRS TDAP 2021-03-08 Completed University of 00:00:00 [facility] Influenza Virus 2021-03-08 Completed [facility]it y of Vaccine Quad IM, 00:00:00 [place] [facility] Preserv and ABX Branch Free 6 MO-64 YRS TDAP 2021-03-08 Completed University of 00:00:00 [facility] Influenza Virus 2021-03-08 Completed [facility]it y of Vaccine Quad IM, 00:00:00 [place] [facility] Preserv and ABX Branch Free 6 MO-64 YRS TDAP 2021-03-08 Completed University of 00:00:00 [facility] Influenza Virus 2021-03-08 Completed Universit y of Vaccine Quad IM, 00:00:00 [place] [facility] Preserv and ABX Branch Free 6 MO-64 YRS TDAP 2021-03-08 Completed [facility] of 00:00:00 [facility] Influenza Virus 2021-03-08 Completed [facility]it y of Vaccine Quad IM, 00:00:00 [place] [facility]ical Preserv and ABX Branch Free 6 MO-64 YRS TDAP 2021-03-08 Completed University of 00:00:00 [facility] Influenza Virus 2021-03-08 Completed [facility]it y of Vaccine Quad IM, 00:00:00 [place] [facility] Preserv and ABX Branch Free 6 MO-64 YRS TDAP 2021-03-08 Completed University of 00:00:00 [facility] Influenza Virus 2021-03-08 Completed [facility]it y of Vaccine Quad IM, 00:00:00 [place] [facility] Preserv and ABX Branch Free 6 MO-64 YRS TDAP 2021-03-08 Completed [facility] of 00:00:00 [facility] Influenza Virus 2021-03-08 Completed [facility]it y of Vaccine Quad IM, 00:00:00 [place] [facility] Preserv and ABX Branch Free 6 MO-64 YRS TDAP 2021-03-08 Completed University of 00:00:00 [facility] Influenza Virus 2021-03-08 Completed [facility]it y of Vaccine Quad IM, 00:00:[address] [facility] dical Preserv and ABX Branch Free 6 MO-64 YRS TDAP 2021-03-08 Completed University of 00:00:00 [facility] Influenza Virus 2021-03-08 Completed Universit y of Vaccine Quad IM, 00:00:00 [place] [facility] Preserv and ABX Branch Free 6 MO-64 YRS TDAP 2021-03-08 Completed University of 00:00:00 [facility] Influenza Virus 2021-03-08 Completed [facility]it y of Vaccine Quad IM, 00:00:00 [place] [facility] Preserv and ABX Branch Free 6 MO-64 YRS TDAP 2021-03-08 Completed University of 00:00:00 [facility] Influenza Virus 2021-03-08 Completed [facility]it y of Vaccine Quad IM, 00:00:00 [place] [facility] Preserv and ABX Branch Free 6 MO-64 YRS TDAP 2021-03-08 Completed University of 00:00:00 [facility] Influenza Virus 2021-03-08 Completed [facility]it y of Vaccine Quad IM, 00:00:00 [place] [facility] Preserv and ABX Branch Free 6 MO-64 YRS TDAP 2021-03-08 Completed University of 00:00:00 [facility] Influenza Virus 2021-03-08 Completed [facility]it y of Vaccine Quad IM, 00:00:00 [place] [facility]ical Preserv and ABX Branch Free 6 MO-64 YRS TDAP 2021-03-08 Completed University of 00:00:00 [facility] Influenza Virus 2021-03-08 Completed [facility]it y of Vaccine Quad IM, 00:00:[address] [facility] dical Preserv and ABX Branch Free 6 MO-64 YRS TDAP 2021-03-08 Completed University of 00:00:00 [facility] Influenza Virus 2021-03-08 Completed [facility]it y of Vaccine Quad IM, 00:00:[address] [facility] dical Preserv and ABX Branch Free 6 MO-64 YRS TDAP 2021-03-08 Completed [facility] of 00:00:00 [facility] Influenza Virus 2021-03-08 Completed Universit y of Vaccine Quad IM, 00:00:[address] [facility] dical Preserv and ABX Branch Free 6 MO-64 YRS TDAP 2021-03-08 Completed University of 00:00:00 [facility] Influenza Virus 2021-03-08 Completed [facility]it y of Vaccine Quad IM, 00:00:[address] [facility] dical Preserv and ABX Branch Free 6 MO-64 YRS TDAP 2021-03-08 Completed [facility] of 00:00:00 [facility] Influenza Virus 2021-03-08 Completed [facility]it y of Vaccine Quad IM, 00:00:[address] [facility] dical Preserv and ABX Branch Free 6 MO-64 YRS TDAP 2021-03-08 Completed [facility] of 00:00:00 [facility] Influenza Virus 2021-03-08 Completed [facility]it y of Vaccine Quad IM, 00:00:[address] [facility] dical Preserv and ABX Branch Free 6 MO-64 YRS TDAP 2021-03-08 Completed [facility] of 00:00:00 [facility] Influenza Virus 2021-03-08 Completed [facility] y of Vaccine Quad IM, 00:00:00 [place] [facility] Preserv and ABX Branch Free 6 MO-64 YRS TDAP 2021-03-08 Completed [facility] of 00:00:00 [facility] Influenza Virus 2021-03-08 Completed [facility] y of Vaccine Quad IM, 00:00:00 [place] [facility] Preserv and ABX Branch Free 6 MO-64 YRS TDAP 2021-03-08 Completed [facility] of 00:00:00 [facility] Influenza Virus 2021-03-08 Completed [facility] y of Vaccine Quad IM, 00:00:00 [place] [facility] Preserv and ABX Branch Free 6 MO-64 YRS TDAP 2021-03-08 Completed [facility] of 00:00:00 [facility] Influenza Virus 2021-03-08 Completed [facility] y of Vaccine Quad IM, 00:00:00 [place] [facility] Preserv and ABX Branch Free 6 MO-64 YRS TDAP 2021-03-08 Completed [facility] of 00:00:00 [facility] Influenza Virus 2021-03-08 Completed [facility] y of Vaccine Quad IM, 00:00:[address] [facility] dical Preserv and ABX Branch Free 6 MO-64 YRS TDAP 2021-03-08 Completed [facility] of 00:00:00 [facility] Influenza Virus 2021-03-08 Completed [facility]it y of Vaccine Quad IM, 00:00:[address] [facility] dical Preserv and ABX Branch Free 6 MO-64 YRS TDAP 2021-03-08 Completed [facility] of 00:00:00 [facility] Influenza Virus 2021-03-08 Completed [facility]it y of Vaccine Quad IM, 00:00:[address] [facility] dical Preserv and ABX Branch Free 6 MO-64 YRS TDAP 2021-03-08 Completed [facility] of 00:00:00 [facility] Influenza Virus 2021-03-08 Completed [facility]it y of Vaccine Quad IM, 00:00:[address] [facility] dical Preserv and ABX Branch Free 6 MO-64 YRS TDAP 2021-03-08 Completed [facility] of 00:00:00 [facility] Influenza Virus 2021-03-08 Completed [facility] y of Vaccine Quad IM, 00:00:00 [place] [facility] Preserv and ABX Branch Free 6 MO-64 YRS TDAP 2021-03-08 Completed [facility] of 00:00:00 [facility] Influenza Virus 2021-03-08 Completed [facility] y of Vaccine Quad IM, 00:00:00 [place] [facility] Preserv and ABX Branch Free 6 MO-64 YRS TDAP 2021-03-08 Completed [facility] of 00:00:00 [facility] Influenza Virus 2021-03-08 Completed [facility] y of Vaccine Quad IM, 00:00:00 [place] [facility]ical Preserv and ABX Branch Free 6 MO-64 YRS TDAP 2021-03-08 Completed [facility] of 00:00:00 [facility] Influenza Virus 2021-03-08 Completed [facility] y of Vaccine Quad IM, 00:00:00 [place] [facility] Preserv and ABX Branch Free 6 MO-64 YRS TDAP 2021-03-08 Completed [facility] of 00:00:00 [facility] Influenza Virus 2021-03-08 Completed [facility]it y of Vaccine Quad IM, 00:00:00 [place] [facility] Preserv and ABX Branch Free 6 MO-64 YRS TDAP 2021-03-08 Completed [facility] of 00:00:00 [facility] Influenza Virus 2021-03-08 Completed [facility]it y of Vaccine Quad IM, 00:00:00 [place] [facility] Preserv and ABX Branch Free 6 MO-64 YRS TDAP 2021-03-08 Completed [facility] 00:00:00 [facility] [facility] Influenza Virus 2021-03-08 Completed [facility], 00:00:00 [place] [facility] Preserv and ABX Branch Free 6 MO-64 YRS TDAP 2021-03-08 Completed [facility] 00:00:00 [facility] Influenza Virus 2021-03-08 Completed [facility], 00:00:00 [place] [facility] Preserv and ABX Branch Free 6 MO-64 YRS TDAP 2021-03-08 Completed [facility] 00:00:00 [facility] Influenza Virus 2021-03-08 Completed [facility], 00:00:00 [place] [facility] Preserv and ABX Branch Free 6 MO-64 YRS TDAP 2021-03-08 Completed [facility] 00:00:00 [facility] Influenza Virus 2021-03-08 Completed [facility], 00:00:00 [place] [facility] Preserv and ABX Branch Free 6 MO-64 YRS TDAP 2021-03-08 Completed [facility] 00:00:00 [facility] Influenza Virus 2021-03-08 Completed [facility], 00:00:00 [place] [facility] Preserv and ABX Branch Free 6 MO-64 YRS TDAP 2021-03-08 Completed [facility] 00:00:00 [facility] Influenza Virus 2021-03-08 Completed [facility], 00:00:00 [place] [facility] Preserv and ABX Branch Free 6 MO-64 YRS TDAP 2021-03-08 Completed [facility] 00:00:00 [facility] Influenza Virus 2021-03-08 Completed [facility], 00:00:00 [place] [facility] Preserv and ABX Branch Free 6 MO-64 YRS TDAP 2021-03-08 Completed [facility] 00:00:00 [facility] Influenza Virus 2021-03-08 Completed [facility], 00:00:00 [place] [facility] Preserv and ABX Branch Free 6 MO-64 YRS TDAP 2021-03-08 Completed [facility] 00:00:00 [facility] Influenza Virus 2021-03-08 Completed [facility], 00:00:00 [place] [facility] Preserv and ABX Branch Free 6 MO-64 YRS TDAP 2021-03-08 Completed [facility] 00:00:00 [facility] Influenza Virus 2021-03-08 Completed [facility], 00:00:00 [place] [facility] Preserv and ABX Branch Free 6 MO-64 YRS TDAP 2021-03-08 Completed [facility] 00:00:00 [facility] Influenza Virus 2021-03-08 Completed [facility], 00:00:00 [place] [facility] Preserv and ABX Branch Free 6 MO-64 YRS TDAP 2021-03-08 Completed [facility] 00:00:00 [facility] Influenza Virus 2021-03-08 Completed [facility], 00:00:00 [place] [facility] Preserv and ABX Branch Free 6 MO-64 YRS TDAP 2021-03-08 Completed [facility] 00:00:00 [facility] Influenza Virus 2021-03-08 Completed [facility], 00:00:00 [place] [facility] Preserv and ABX Branch Free 6 MO-64 YRS TDAP 2021-03-08 Completed [facility] 00:00:00 [facility] Influenza Virus 2021-03-08 Completed [facility], 00:00:00 [place] [facility] Preserv and ABX Branch Free 6 MO-64 YRS TDAP 2021-03-08 Completed [facility] 00:00:00 [facility] Influenza Virus 2021-03-08 Completed [facility], 00:00:00 [place] [facility] Preserv and ABX Branch Free 6 MO-64 YRS TDAP 2021-03-08 Completed [facility] 00:00:00 [facility] Influenza Virus 2021-03-08 Completed [facility], 00:00:[address] [facility] dical Preserv and ABX Branch Free 6 MO-64 YRS TDAP 2021-03-08 Completed [facility] 00:00:00 [facility] Influenza Virus 2021-03-08 Completed [facility], 00:00:[address] [facility] dical Preserv and ABX Branch Free 6 MO-64 YRS TDAP 2021-03-08 Completed [facility] 00:00:00 [facility] Influenza Virus 2021-03-08 Completed [facility], 00:00:[address] [facility] dical Preserv and ABX Branch Free 6 MO-64 YRS TDAP 2021-03-08 Completed [facility] 00:00:00 [facility] Influenza Virus 2021-03-08 Completed [facility], 00:00:[address] [facility] dical Preserv and ABX Branch Free 6 MO-64 YRS TDAP 2021-03-08 Completed [facility] 00:00:00 [facility] Influenza Virus 2021-03-08 Completed [facility], 00:00:[address] [facility] dical Preserv and ABX Branch Free 6 MO-64 YRS TDAP 2021-03-08 Completed [facility] 00:00:00 [facility] Influenza Virus 2021-03-08 Completed [facility], 00:00:[address] [facility] dical Preserv and ABX Branch Free 6 MO-64 YRS TDAP 2021-03-08 Completed [facility] 00:00:00 [facility] Influenza Virus 2021-03-08 Completed [facility], 00:00:00 [place] [facility] Preserv and ABX Branch Free 6 MO-64 YRS TDAP 2021-03-08 Completed [facility] 00:00:00 [facility] Influenza Virus 2021-03-08 Completed [facility], 00:00:00 [place] [facility] Preserv and ABX Branch Free 6 MO-64 YRS TDAP 2021-03-08 Completed [facility] 00:00:00 [facility] Influenza Virus 2021-03-08 Completed [facility], 00:00:00 [place] [facility] Preserv and ABX Branch Free 6 MO-64 YRS TDAP 2021-03-08 Completed [facility] 00:00:00 [facility] Influenza Virus 2021-03-08 Completed [facility], 00:00:00 [place] [facility] Preserv and ABX Branch Free 6 MO-64 YRS TDAP 2021-03-08 Completed [facility] 00:00:00 [facility] Influenza Virus 2021-03-08 Completed [facility], 00:00:[address] [facility] dical Preserv and ABX Branch Free 6 MO-64 YRS TDAP 2021-03-08 Completed [facility] 00:00:00 [facility] Influenza Virus 2021-03-08 Completed [facility], 00:00:[address] [facility] dical Preserv and ABX Branch Free 6 MO-64 YRS TDAP 2021-03-08 Completed [facility] 00:00:00 [facility] Influenza Virus 2021-03-08 Completed [facility], 00:00:[address] [facility] dical Preserv and ABX Branch Free 6 MO-64 YRS TDAP 2021-03-08 Completed [facility] 00:00:00 [facility] Influenza Virus 2021-03-08 Completed [facility], 00:00:[address] [facility] dical Preserv and ABX Branch Free 6 MO-64 YRS TDAP 2021-03-08 Completed [facility] 00:00:00 [facility] Influenza Virus 2021-03-08 Completed [facility], 00:00:00 [place] [facility] Preserv and ABX Branch Free 6 MO-64 YRS TDAP 2021-03-08 Completed [facility] 00:00:00 [facility] Influenza Virus 2021-03-08 Completed [facility], 00:00:00 [place] [facility] Preserv and ABX Branch Free 6 MO-64 YRS TDAP 2021-03-08 Completed [facility] 00:00:00 [facility] Influenza Virus 2021-03-08 Completed [facility], 00:00:00 [place] [facility] Preserv and ABX Branch Free 6 MO-64 YRS TDAP 2021-03-08 Completed [facility] 00:00:00 [facility] Influenza Virus 2021-03-08 Completed [facility], 00:00:00 [place] [facility] Preserv and ABX Branch Free 6 MO-64 YRS TDAP 2021-03-08 Completed [facility] 00:00:00 [facility] Influenza Virus 2021-03-08 Completed [facility], 00:00:00 [place] [facility] Preserv and ABX Branch Free 6 MO-64 YRS TDAP 2021-03-08 Completed [facility] 00:00:00 [facility] Influenza Virus 2021-03-08 Completed [facility], 00:00:00 [place] [facility] Preserv and ABX Branch Free 6 MO-64 YRS TDAP 2021-03-08 Completed [facility] 00:00:00 [facility] Influenza Virus 2021-03-08 Completed [facility], 00:00:00 [place] [facility] Preserv and ABX Branch Free 6 MO-64 YRS TDAP 2021-03-08 Completed [facility] 00:00:00 [facility] Influenza Virus 2021-03-08 Completed [facility], 00:00:00 [place] [facility] Preserv and ABX Branch Free 6 MO-64 YRS TDAP 2021-03-08 Completed [facility] 00:00:00 [facility] Influenza Virus 2021-03-08 Completed [facility], 00:00:[address] [facility] dical Preserv and ABX Branch Free 6 MO-64 YRS TDAP 2021-03-08 Completed [facility] 00:00:00 [facility] SARS-COV-2 COVID-19 2020-06-21 Completed [facility] of PFIZER VACCINE 00:00:00 [facility] SARS-COV-2 COVID-19 2020-06-21 Completed [facility] rs[facility] of PFIZER VACCINE 00:00:00 [facility] SARS-COV-2 COVID-19 2020-06-21 Completed [facility] of PFIZER VACCINE 00:00:00 [place] [facility] SARS-COV-2 COVID-19 2020-06-21 Completed [facility] of PFIZER VACCINE 00:00:00 [facility] SARS-COV-2 COVID-19 2020-06-21 Completed [facility] rs[facility] of PFIZER VACCINE 00:00:00 [facility] SARS-COV-2 COVID-19 2020-06-21 Completed [facility] of PFIZER VACCINE 00:00:00 [facility] SARS-COV-2 COVID-19 2020-06-21 Completed [facility] of PFIZER VACCINE 00:00:00 [facility] SARS-COV-2 COVID-19 2020-06-21 Completed [facility] of PFIZER VACCINE 00:00:00 [facility] SARS-COV-2 COVID-19 2020-06-21 Completed [facility] of PFIZER VACCINE 00:00:00 [facility] SARS-COV-2 COVID-19 2020-06-21 Completed [facility] of PFIZER VACCINE 00:00:00 [facility] SARS-COV-2 COVID-19 2020-06-21 Completed [facility] of PFIZER VACCINE 00:00:00 [facility] SARS-COV-2 COVID-19 2020-06-21 Completed [facility] of PFIZER VACCINE 00:00:00 [facility] SARS-COV-2 COVID-19 2020-06-21 Completed [facility] of PFIZER VACCINE 00:00:00 [facility] SARS-COV-2 COVID-19 2020-06-21 Completed [facility] rs[facility] of PFIZER VACCINE 00:00:00 [facility] SARS-COV-2 COVID-19 2020-06-21 Completed [facility] of PFIZER VACCINE 00:00:00 [facility] SARS-COV-2 COVID-19 2020-06-21 Completed [facility] of PFIZER VACCINE 00:00:00 [facility] SARS-COV-2 COVID-19 2020-06-21 Completed [facility] of PFIZER VACCINE 00:00:00 [facility] SARS-COV-2 COVID-19 2020-06-21 Completed [facility] of PFIZER VACCINE 00:00:00 [facility] SARS-COV-2 COVID-19 2020-06-21 Completed [facility] of PFIZER VACCINE 00:00:00 [facility] SARS-COV-2 COVID-19 2020-06-21 Completed [facility] of PFIZER VACCINE 00:00:00 [facility] SARS-COV-2 COVID-19 2020-06-21 Completed [facility] rsity of PFIZER VACCINE 00:00:00 [facility] SARS-COV-2 COVID-19 2020-06-21 Completed [facility] of PFIZER VACCINE 00:00:00 [facility] SARS-COV-2 COVID-19 2020-06-21 Completed [facility] of PFIZER VACCINE 00:00:00 [facility] SARS-COV-2 COVID-19 2020-06-21 Completed [facility] of PFIZER VACCINE 00:00:00 [facility] SARS-COV-2 COVID-19 2020-06-21 Completed [facility] of PFIZER VACCINE 00:00:00 [facility] SARS-COV-2 COVID-19 2020-06-21 Completed [facility] of PFIZER VACCINE 00:00:00 [facility] SARS-COV-2 COVID-19 2020-06-21 Completed [facility] of PFIZER VACCINE 00:00:00 [facility] SARS-COV-2 COVID-19 2020-06-21 Completed [facility] of PFIZER VACCINE 00:00:00 [facility] SARS-COV-2 COVID-19 2020-06-21 Completed [facility] of PFIZER VACCINE 00:00:00 [facility] SARS-COV-2 COVID-19 2020-06-21 Completed [facility] of PFIZER VACCINE 00:00:00 [facility] SARS-COV-2 COVID-19 2020-06-21 Completed [facility] of PFIZER VACCINE 00:00:00 [facility] SARS-COV-2 COVID-19 2020-06-21 Completed [facility] of PFIZER VACCINE 00:00:00 [facility] SARS-COV-2 COVID-19 2020-06-21 Completed [facility] of PFIZER VACCINE 00:00:00 [facility] SARS-COV-2 COVID-19 2020-06-21 Completed [facility] of PFIZER VACCINE 00:00:00 [facility] SARS-COV-2 COVID-19 2020-06-21 Completed [facility] of PFIZER VACCINE 00:00:00 [facility] SARS-COV-2 COVID-19 2020-06-21 Completed [facility] of PFIZER VACCINE 00:00:00 [place] [facility] SARS-COV-2 COVID-19 2020-06-21 Completed [facility] of PFIZER VACCINE 00:00:00 [facility] SARS-COV-2 COVID-19 2020-06-21 Completed [facility] of PFIZER VACCINE 00:00:00 [facility] SARS-COV-2 COVID-19 2020-06-21 Completed [facility] of PFIZER VACCINE 00:00:00 [facility] SARS-COV-2 COVID-19 2020-06-21 Completed [facility] of PFIZER VACCINE 00:00:00 [facility] SARS-COV-2 COVID-19 2020-06-21 Completed [facility] of PFIZER VACCINE 00:00:00 [facility] SARS-COV-2 COVID-19 2020-06-21 Completed [facility] of PFIZER VACCINE 00:00:00 [facility] SARS-COV-2 COVID-19 2020-06-21 Completed [facility] of PFIZER VACCINE 00:00:00 [facility] SARS-COV-2 COVID-19 2020-06-21 Completed [facility] of PFIZER VACCINE 00:00:00 [facility] SARS-COV-2 COVID-19 2020-06-21 Completed [facility] of PFIZER VACCINE 00:00:00 [facility] SARS-COV-2 COVID-19 2020-06-21 Completed [facility] of PFIZER VACCINE 00:00:00 [facility] SARS-COV-2 COVID-19 2020-06-21 Completed [facility]ity of PFIZER VACCINE 00:00:00 [facility] SARS-COV-2 COVID-19 2020-06-21 Completed [facility] of PFIZER VACCINE 00:00:00 [facility] SARS-COV-2 COVID-19 2020-06-21 Completed [facility] of PFIZER VACCINE 00:00:00 [facility] SARS-COV-2 COVID-19 2020-06-21 Completed [facility] of PFIZER VACCINE 00:00:00 [facility] SARS-COV-2 COVID-19 2020-06-21 Completed [facility] of PFIZER VACCINE 00:00:00 [facility] SARS-COV-2 COVID-19 2020-06-21 Completed [facility] of PFIZER VACCINE 00:00:00 [facility] SARS-COV-2 COVID-19 2020-06-21 Completed [facility] of PFIZER VACCINE 00:00:00 [facility] SARS-COV-2 COVID-19 2020-06-21 Completed [facility] of PFIZER VACCINE 00:00:00 [facility] SARS-COV-2 COVID-19 2020-06-21 Completed [facility] of PFIZER VACCINE 00:00:00 [facility] SARS-COV-2 COVID-19 2020-06-21 Completed [facility] of PFIZER VACCINE 00:00:00 [facility] SARS-COV-2 COVID-19 2020-06-21 Completed [facility] of PFIZER VACCINE 00:00:00 [facility] SARS-COV-2 COVID-19 2020-06-21 Completed [facility] of PFIZER VACCINE 00:00:00 [facility] SARS-COV-2 COVID-19 2020-06-21 Completed [facility] of PFIZER VACCINE 00:00:00 [facility] SARS-COV-2 COVID-19 2020-06-21 Completed [facility]ity of PFIZER VACCINE 00:00:00 [facility] SARS-COV-2 COVID-19 2020-06-21 Completed [facility] of PFIZER VACCINE 00:00:00 [facility] SARS-COV-2 COVID-19 2020-06-21 Completed [facility] of PFIZER VACCINE 00:00:00 [facility] SARS-COV-2 COVID-19 2020-06-21 Completed [facility] of PFIZER VACCINE 00:00:00 [facility] SARS-COV-2 COVID-19 2020-06-21 Completed [facility] of PFIZER VACCINE 00:00:00 [facility] SARS-COV-2 COVID-19 2020-06-21 Completed [facility] of PFIZER VACCINE 00:00:00 [facility] SARS-COV-2 COVID-19 2020-06-21 Completed [facility] of PFIZER VACCINE 00:00:00 [facility] SARS-COV-2 COVID-19 2020-06-21 Completed [facility] of PFIZER VACCINE 00:00:00 [facility] SARS-COV-2 COVID-19 2020-06-21 Completed [facility] rsity of PFIZER VACCINE 00:00:00 [facility] SARS-COV-2 COVID-19 2020-06-21 Completed [facility] of PFIZER VACCINE 00:00:00 [facility] SARS-COV-2 COVID-19 2020-06-21 Completed [facility] rs[facility] of PFIZER VACCINE 00:00:00 [facility] SARS-COV-2 COVID-19 2020-06-21 Completed [facility] of PFIZER VACCINE 00:00:00 [facility] SARS-COV-2 COVID-19 2020-06-21 Completed [facility] of PFIZER VACCINE 00:00:00 [facility] SARS-COV-2 COVID-19 2020-06-21 Completed [facility] of PFIZER VACCINE 00:00:00 [facility] SARS-COV-2 COVID-19 2020-06-21 Completed [facility] of PFIZER VACCINE 00:00:00 [facility] SARS-COV-2 COVID-19 2020-06-21 Completed [facility] of PFIZER VACCINE 00:00:00 [facility] SARS-COV-2 COVID-19 2020-06-21 Completed [facility] of PFIZER VACCINE 00:00:00 [facility] SARS-COV-2 COVID-19 2020-06-21 Completed [facility] of PFIZER VACCINE 00:00:00 [facility] SARS-COV-2 COVID-19 2020-05-24 Completed Unive rsity of MODERNA 12+ YRS 00:00:00 [place] [facility] SARS-COV-2 COVID-19 2020-05-24 Completed [facility] rsity of MODERNA 12+ YRS 00:00:00 [place] [facility] VACCINE [facility] SARS-COV-2 COVID-19 2020-05-24 Completed [facility] rsity of MODERNA 12+ YRS 00:00:00 [place] [facility] V[facility]INE [facility] SARS-COV-2 COVID-19 2020-05-24 Completed [facility] rs[facility] of MODERNA 12+ YRS 00:00:00 [place] [facility] VACCINE [facility] SARS-COV-2 COVID-19 2020-05-24 Completed [facility] rs[facility] of MODERNA 12+ YRS 00:00:00 [place] [facility] VACCINE [facility] SARS-COV-2 COVID-19 2020-05-24 Completed [facility] rsity of MODERNA 12+ YRS 00:00:00 [place] [facility] VACCINE [facility] SARS-COV-2 COVID-19 2020-05-24 Completed [facility] rsity of MODERNA 12+ YRS 00:00:00 [place] [facility] VACCINE [facility] SARS-COV-2 COVID-19 2020-05-24 Completed [facility]ive rsity of MODERNA 12+ YRS 00:00:00 [place] [facility] VACCINE [facility] SARS-COV-2 COVID-19 2020-05-24 Completed [facility]ive rsity of MODERNA 12+ YRS 00:00:00 [place] [facility] VACCINE [facility] SARS-COV-2 COVID-19 2020-05-24 Completed [facility]ive rsity of MODERNA 12+ YRS 00:00:00 [place] [facility] VACCINE [facility] SARS-COV-2 COVID-19 2020-05-24 Completed [facility]ive rsity of MODERNA 12+ YRS 00:00:00 [place] [facility] VACCINE [facility] SARS-COV-2 COVID-19 2020-05-24 Completed [facility]ive rsity of MODERNA 12+ YRS 00:00:00 [place] [facility] VACCINE [facility] SARS-COV-2 COVID-19 2020-05-24 Completed [facility] rsity of MODERNA 12+ YRS 00:00:00 [place] [facility] VACCINE [facility] SARS-COV-2 COVID-19 2020-05-24 Completed [facility]ive rsity of MODERNA 12+ YRS 00:00:00 [place] [facility] VACCINE [facility] SARS-COV-2 COVID-19 2020-05-24 Completed [facility]ive rsity of MODERNA 12+ YRS 00:00:00 [place] [facility] VACCINE [facility] SARS-COV-2 COVID-19 2020-05-24 Completed [facility]ive rsity of MODERNA 12+ YRS 00:00:00 [place] [facility] VACCINE [facility] SARS-COV-2 COVID-19 2020-05-24 Completed [facility]ive rsity of MODERNA 12+ YRS 00:00:00 [place] [facility] VACCINE [facility] SARS-COV-2 COVID-19 2020-05-24 Completed [facility]ive rsity of MODERNA 12+ YRS 00:00:00 [place] [facility] V[facility]INE [facility] SARS-COV-2 COVID-19 2020-05-24 Completed [facility]ive rsity of MODERNA 12+ YRS 00:00:00 [place] [facility] VACCINE [facility] SARS-COV-2 COVID-19 2020-05-24 Completed Unive rsity of MODERNA 12+ YRS 00:00:00 [place] [facility] V[facility]INE [facility] SARS-COV-2 COVID-19 2020-05-24 Completed Unive rsity of MODERNA 12+ YRS 00:00:00 [place] [facility] VACCINE [facility] SARS-COV-2 COVID-19 2020-05-24 Completed [facility] rsity of MODERNA 12+ YRS 00:00:00 [place] [facility] V[facility] SARS-COV-2 COVID-19 2020-05-24 Completed [facility]ive rsity of MODERNA 12+ YRS 00:00:00 [place] [facility] V[facility]INE [facility] SARS-COV-2 COVID-19 2020-05-24 Completed [facility] rsity of MODERNA 12+ YRS 00:00:00 [place] [facility] V[facility] SARS-COV-2 COVID-19 2020-05-24 Completed [facility]ive rsity of MODERNA 12+ YRS 00:00:00 [place] [facility] V[facility]INE [facility] SARS-COV-2 COVID-19 2020-05-24 Completed [facility] rsity of MODERNA 12+ YRS 00:00:00 [place] [facility] V[facility] SARS-COV-2 COVID-19 2020-05-24 Completed [facility]ive rsity of MODERNA 12+ YRS 00:00:00 [place] [facility] V[facility] SARS-COV-2 COVID-19 2020-05-24 Completed [facility]ive rsity of MODERNA 12+ YRS 00:00:00 [place] [facility] SARS-COV-2 COVID-19 2020-05-24 Completed Unive rsity of MODERNA 12+ YRS 00:00:00 [place] [facility] SARS-COV-2 COVID-19 2020-05-24 Completed [facility] rs[facility] of MODERNA 12+ YRS 00:00:00 [place] [facility] SARS-COV-2 COVID-19 2020-05-24 Completed [facility] rs[facility] of MODERNA 12+ YRS 00:00:00 [place] [facility] SARS-COV-2 COVID-19 2020-05-24 Completed [facility] of MODERNA 12+ YRS 00:00:00 [place] [facility] SARS-COV-2 COVID-19 2020-05-24 Completed [facility]ive rsity of MODERNA 12+ YRS 00:00:00 [place] [facility] SARS-COV-2 COVID-19 2020-05-24 Completed [facility] rs[facility] of MODERNA 12+ YRS 00:00:00 [place] [facility] SARS-COV-2 COVID-19 2020-05-24 Completed [facility] rsity of MODERNA 12+ YRS 00:00:00 [place] [facility] SARS-COV-2 COVID-19 2020-05-24 Completed [facility] rs[facility] of MODERNA 12+ YRS 00:00:00 [place] [facility] SARS-COV-2 COVID-19 2020-05-24 Completed [facility] rs[facility] of MODERNA 12+ YRS 00:00:00 [place] [facility] SARS-COV-2 COVID-19 2020-05-24 Completed [facility] rs[facility] of MODERNA 12+ YRS 00:00:00 [place] [facility] SARS-COV-2 COVID-19 2020-05-24 Completed [facility] rsity of MODERNA 12+ YRS 00:00:00 [place] [facility] SARS-COV-2 COVID-19 2020-05-24 Completed [facility] rs[facility] of MODERNA 12+ YRS 00:00:00 [place] [facility] SARS-COV-2 COVID-19 2020-05-24 Completed [facility] rsity of MODERNA 12+ YRS 00:00:00 [place] [facility] SARS-COV-2 COVID-19 2020-05-24 Completed [facility] rsity of MODERNA 12+ YRS 00:00:00 [place] [facility] SARS-COV-2 COVID-19 2020-05-24 Completed [facility] rs[facility] of MODERNA 12+ YRS 00:00:00 [place] [facility] SARS-COV-2 COVID-19 2020-05-24 Completed [facility] rs[facility] of MODERNA 12+ YRS 00:00:00 [place] [facility] SARS-COV-2 COVID-19 2020-05-24 Completed [facility] of MODERNA 12+ YRS 00:00:00 [place] [facility] SARS-COV-2 COVID-19 2020-05-24 Completed [facility] rsity of MODERNA 12+ YRS 00:00:00 [place] [facility] SARS-COV-2 COVID-19 2020-05-24 Completed [facility] of MODERNA 12+ YRS 00:00:00 [place] [facility] SARS-COV-2 COVID-19 2020-05-24 Completed [facility] 12+ YRS 00:00:00 [place] [facility] SARS-COV-2 COVID-19 2020-05-24 Completed [facility] 12+ YRS 00:00:00 [place] [facility] SARS-COV-2 COVID-19 2020-05-24 Completed [facility] 12+ YRS 00:00:00 [place] [facility] SARS-COV-2 COVID-19 2020-05-24 Completed [facility] 12+ YRS 00:00:00 [place] [facility] SARS-COV-2 COVID-19 2020-05-24 Completed [facility] 12+ YRS 00:00:00 [place] [facility] SARS-COV-2 COVID-19 2020-05-24 Completed [facility] 12+ YRS 00:00:00 [place] [facility] SARS-COV-2 COVID-19 2020-05-24 Completed [facility] 12+ YRS 00:00:00 [place] [facility] SARS-COV-2 COVID-19 2020-05-24 Completed [facility] 12+ YRS 00:00:00 [place] [facility] SARS-COV-2 COVID-19 2020-05-24 Completed [facility] 12+ YRS 00:00:00 [place] [facility] SARS-COV-2 COVID-19 2020-05-24 Completed [facility] 12+ YRS 00:00:00 [place] [facility] SARS-COV-2 COVID-19 2020-05-24 Completed [facility] 12+ YRS 00:00:00 [place] [facility] SARS-COV-2 COVID-19 2020-05-24 Completed [facility] 12+ YRS 00:00:00 [place] [facility] SARS-COV-2 COVID-19 2020-05-24 Completed [facility] 12+ YRS 00:00:00 [place] [facility] SARS-COV-2 COVID-19 2020-05-24 Completed [facility] 12+ YRS 00:00:00 [place] [facility] SARS-COV-2 COVID-19 2020-05-24 Completed [facility] 12+ YRS 00:00:00 [place] [facility] SARS-COV-2 COVID-19 2020-05-24 Completed [facility] 12+ YRS 00:00:00 [place] [facility] SARS-COV-2 COVID-19 2020-05-24 Completed [facility] 12+ YRS 00:00:00 [place] [facility] SARS-COV-2 COVID-19 2020-05-24 Completed [facility] 12+ YRS 00:00:00 [place] [facility] SARS-COV-2 COVID-19 2020-05-24 Completed [facility] 12+ YRS 00:00:00 [place] [facility] SARS-COV-2 COVID-19 2020-05-24 Completed [facility] 12+ YRS 00:00:00 [place] [facility] SARS-COV-2 COVID-19 2020-05-24 Completed [facility] 12+ YRS 00:00:00 [place] [facility] SARS-COV-2 COVID-19 2020-05-24 Completed [facility] 12+ YRS 00:00:00 [place] [facility] SARS-COV-2 COVID-19 2020-05-24 Completed [facility] 12+ YRS 00:00:00 [place] [facility] SARS-COV-2 COVID-19 2020-05-24 Completed [facility] 12+ YRS 00:00:00 [place] [facility] SARS-COV-2 COVID-19 2020-05-24 Completed [facility] 12+ YRS 00:00:00 [facility] ical VACCINE Branch SARS-COV-2 COVID-19 2020-05-24 Completed [facility] of [facility] 12+ YRS 00:00:00 [facility] ical VACCINE Branch SARS-COV-2 COVID-19 2020-05-24 Completed [facility] of [facility] 12+ YRS 00:00:00 [facility] ical VACCINE Branch SARS-COV-2 COVID-19 2020-05-24 Completed [facility] of [facility] 12+ YRS 00:00:00 [facility] ical VACCINE Branch SARS-COV-2 COVID-19 2020-05-24 Completed [facility] of [facility] 12+ YRS 00:00:00 [facility] ical VACCINE Branch SARS-COV-2 COVID-19 2020-05-24 Completed [facility] 12+ YRS 00:00:00 [facility] VACCINE Branch Zoster Vaccine 2020-01-04 Completed [facility] of Recombinant 00:00:00 [facility] Zoster Vaccine 2020-01-04 Completed [facility] of Recombinant 00:00:00 [facility] Zoster Vaccine 2020-01-04 Completed [facility] of Recombinant 00:00:00 [facility] Zoster Vaccine 2020-01-04 Completed [facility] of Recombinant 00:00:00 [facility] Zoster Vaccine 2020-01-04 Completed [facility] of Recombinant 00:00:00 [facility] Zoster Vaccine 2020-01-04 Completed [facility] of Recombinant 00:00:00 [facility] Zoster Vaccine 2020-01-04 Completed [facility] of Recombinant 00:00:00 [facility] Zoster Vaccine 2020-01-04 Completed [facility] of Recombinant 00:00:00 [facility] Zoster Vaccine 2020-01-04 Completed [facility] of Recombinant 00:00:00 [facility] Zoster Vaccine 2020-01-04 Completed [facility] of Recombinant 00:00:00 [facility] Zoster Vaccine 2020-01-04 Completed [facility] of Recombinant 00:00:00 [facility] Zoster Vaccine 2020-01-04 Completed [facility] of Recombinant 00:00:00 [facility] Zoster Vaccine 2020-01-04 Completed [facility] of Recombinant 00:00:00 [facility] Zoster Vaccine 2020-01-04 Completed [facility] of Recombinant 00:00:00 [facility] Zoster Vaccine 2020-01-04 Completed [facility] of Recombinant 00:00:00 [facility] Zoster Vaccine 2020-01-04 Completed [facility] of Recombinant 00:00:00 [facility] Zoster Vaccine 2020-01-04 Completed [facility] of Recombinant 00:00:00 [facility] Zoster Vaccine 2020-01-04 Completed [facility] of Recombinant 00:00:00 [facility] Zoster Vaccine 2020-01-04 Completed [facility] of Recombinant 00:00:00 [facility] Zoster Vaccine 2020-01-04 Completed [facility] of Recombinant 00:00:00 [facility] Zoster Vaccine 2020-01-04 Completed [facility] of Recombinant 00:00:00 [facility] Zoster Vaccine 2020-01-04 Completed [facility] of Recombinant 00:00:00 [facility] Zoster Vaccine 2020-01-04 Completed [facility] of Recombinant 00:00:00 [facility] Zoster Vaccine 2020-01-04 Completed [facility] of Recombinant 00:00:00 [facility] Zoster Vaccine 2020-01-04 Completed [facility] of Recombinant 00:00:00 [facility] Zoster Vaccine 2020-01-04 Completed [facility] of Recombinant 00:00:00 [facility] Zoster Vaccine 2020-01-04 Completed [facility] of Recombinant 00:00:00 [facility] Zoster Vaccine 2020-01-04 Completed [facility] of Recombinant 00:00:00 [facility] Zoster Vaccine 2020-01-04 Completed [facility] of Recombinant 00:00:00 [facility] Zoster Vaccine 2020-01-04 Completed [facility] of Recombinant 00:00:00 [facility] Zoster Vaccine 2020-01-04 Completed [facility] of Recombinant 00:00:00 [facility] Zoster Vaccine 2020-01-04 Completed [facility] of Recombinant 00:00:00 [facility] Zoster Vaccine 2020-01-04 Completed [facility] of Recombinant 00:00:00 [facility] Zoster Vaccine 2020-01-04 Completed [facility] of Recombinant 00:00:00 [facility] Zoster Vaccine 2020-01-04 Completed [facility] of Recombinant 00:00:00 [facility] Zoster Vaccine 2020-01-04 Completed [facility] of Recombinant 00:00:00 [facility] Zoster Vaccine 2020-01-04 Completed [facility] of Recombinant 00:00:00 [facility] Zoster Vaccine 2020-01-04 Completed [facility] of Recombinant 00:00:00 [facility] Zoster Vaccine 2020-01-04 Completed [facility] of Recombinant 00:00:00 [facility] Zoster Vaccine 2020-01-04 Completed [facility] of Recombinant 00:00:00 [facility] Zoster Vaccine 2020-01-04 Completed [facility] of Recombinant 00:00:00 [facility] Zoster Vaccine 2020-01-04 Completed [facility] of Recombinant 00:00:00 [facility] Zoster Vaccine 2020-01-04 Completed [facility] of Recombinant 00:00:00 [facility] Zoster Vaccine 2020-01-04 Completed [facility] of Recombinant 00:00:00 [facility] Zoster Vaccine 2020-01-04 Completed [facility] of Recombinant 00:00:00 [facility] Zoster Vaccine 2020-01-04 Completed [facility] of Recombinant 00:00:00 [facility] Zoster Vaccine 2020-01-04 Completed [facility] of Recombinant 00:00:00 [facility] Zoster Vaccine 2020-01-04 Completed [facility] of Recombinant 00:00:00 [facility] Zoster Vaccine 2020-01-04 Completed [facility] of Recombinant 00:00:00 [facility] Zoster Vaccine 2020-01-04 Completed [facility] of Recombinant 00:00:00 [facility] Zoster Vaccine 2020-01-04 Completed [facility] of Recombinant 00:00:00 [facility] Zoster Vaccine 2020-01-04 Completed [facility] of Recombinant 00:00:00 [facility] Zoster Vaccine 2020-01-04 Completed [facility] of Recombinant 00:00:00 [facility] Zoster Vaccine 2020-01-04 Completed [facility] of Recombinant 00:00:00 [facility] Zoster Vaccine 2020-01-04 Completed [facility] of Recombinant 00:00:00 [facility] Zoster Vaccine 2020-01-04 Completed [facility] of Recombinant 00:00:00 [facility] Zoster Vaccine 2020-01-04 Completed [facility] of Recombinant 00:00:00 [facility] Zoster Vaccine 2020-01-04 Completed [facility] of Recombinant 00:00:00 [facility] Zoster Vaccine 2020-01-04 Completed [facility] of Recombinant 00:00:00 [facility] Zoster Vaccine 2020-01-04 Completed [facility] of Recombinant 00:00:00 [facility] Zoster Vaccine 2020-01-04 Completed [facility] of Recombinant 00:00:00 [facility] Zoster Vaccine 2020-01-04 Completed [facility] of Recombinant 00:00:00 [facility] Zoster Vaccine 2020-01-04 Completed [facility] of Recombinant 00:00:00 [facility] Zoster Vaccine 2020-01-04 Completed [facility] of Recombinant 00:00:00 [facility] Zoster Vaccine 2020-01-04 Completed [facility] of Recombinant 00:00:00 [facility] Zoster Vaccine 2020-01-04 Completed [facility] of Recombinant 00:00:00 [facility] Zoster Vaccine 2020-01-04 Completed [facility] of Recombinant 00:00:00 [facility] Zoster Vaccine 2020-01-04 Completed [facility] of Recombinant 00:00:00 [facility] Zoster Vaccine 2020-01-04 Completed [facility] of Recombinant 00:00:00 [facility] Zoster Vaccine 2020-01-04 Completed [facility] of Recombinant 00:00:00 [facility] Zoster Vaccine 2020-01-04 Completed [facility] of Recombinant 00:00:00 [facility] Zoster Vaccine 2020-01-04 Completed [facility] of Recombinant 00:00:00 [facility] Zoster Vaccine 2020-01-04 Completed [facility] of Recombinant 00:00:00 [facility] Zoster Vaccine 2020-01-04 Completed [facility] of Recombinant 00:00:00 [facility] Zoster Vaccine 2020-01-04 Completed [facility] of Recombinant 00:00:00 [facility] Zoster Vaccine 2020-01-04 Completed [facility] of Recombinant 00:00:00 [facility] Zoster Vaccine 2020-01-04 Completed [facility] of Recombinant 00:00:00 [facility] Pneumococcal 2019-11-23 Completed [facility] o f Polysaccharide, 00:00:00 [place] [facility] PPSV23 (PNEUMOVAX) Branch Pneumococcal 2019-11-23 Completed [facility] f Polysaccharide, 00:00:00 [place] [facility] PPSV23 (PNEUMOVAX) Branch Pneumococcal 2019-11-23 Completed [facility] o f Polysaccharide, 00:00:00 [place] [facility] PPSV23 (PNEUMOVAX) Branch Pneumococcal 2019-11-23 Completed [facility] o f Polysaccharide, 00:00:00 [place] [facility] PPSV23 (PNEUMOVAX) Branch Pneumococcal 2019-11-23 Completed [facility] o f Polysaccharide, 00:00:00 [place] [facility] PPSV23 (PNEUMOVAX) Branch Pneumococcal 2019-11-23 Completed [facility] o f Polysaccharide, 00:00:00 [place] [facility] PPSV23 (PNEUMOVAX) Branch Pneumococcal 2019-11-23 Completed [facility] o f Polysaccharide, 00:00:00 [place] [facility] PPSV23 (PNEUMOVAX) Branch Pneumococcal 2019-11-23 Completed [facility] o f Polysaccharide, 00:00:00 [place] [facility] PPSV23 (PNEUMOVAX) Branch Pneumococcal 2019-11-23 Completed [facility] o f Polysaccharide, 00:00:00 [place] [facility] PPSV23 (PNEUMOVAX) Branch Pneumococcal 2019-11-23 Completed [facility] o f Polysaccharide, 00:00:00 [place] [facility] PPSV23 (PNEUMOVAX) Branch Pneumococcal 2019-11-23 Completed [facility] o f Polysaccharide, 00:00:00 [place] [facility] PPSV23 (PNEUMOVAX) Branch Pneumococcal 2019-11-23 Completed [facility] o f Polysaccharide, 00:00:00 [place] [facility] PPSV23 (PNEUMOVAX) Branch Pneumococcal 2019-11-23 Completed [facility] o f Polysaccharide, 00:00:00 [place] [facility] PPSV23 (PNEUMOVAX) Branch Pneumococcal 2019-11-23 Completed [facility] o f Polysaccharide, 00:00:00 [place] [facility] PPSV23 (PNEUMOVAX) Branch Pneumococcal 2019-11-23 Completed [facility] o f Polysaccharide, 00:00:00 [place] [facility] PPSV23 (PNEUMOVAX) Branch Pneumococcal 2019-11-23 Completed [facility] o f Polysaccharide, 00:00:00 [place] [facility] PPSV23 (PNEUMOVAX) Branch Pneumococcal 2019-11-23 Completed [facility] o f Polysaccharide, 00:00:00 [place] [facility] PPSV23 (PNEUMOVAX) Branch Pneumococcal 2019-11-23 Completed [facility] o f Polysaccharide, 00:00:00 [place] [facility] PPSV23 (PNEUMOVAX) Branch Pneumococcal 2019-11-23 Completed [facility] o f Polysaccharide, 00:00:00 [place] [facility] PPSV23 (PNEUMOVAX) Branch Pneumococcal 2019-11-23 Completed [facility] o f Polysaccharide, 00:00:00 [place] [facility] PPSV23 (PNEUMOVAX) Branch Pneumococcal 2019-11-23 Completed [facility] o f Polysaccharide, 00:00:00 [place] [facility] PPSV23 (PNEUMOVAX) Branch Pneumococcal 2019-11-23 Completed [facility] o f Polysaccharide, 00:00:00 [place] [facility] PPSV23 (PNEUMOVAX) Branch Pneumococcal 2019-11-23 Completed [facility] o f Polysaccharide, 00:00:00 [place] [facility] PPSV23 (PNEUMOVAX) Branch Pneumococcal 2019-11-23 Completed [facility] o f Polysaccharide, 00:00:00 [place] [facility] PPSV23 (PNEUMOVAX) Branch Pneumococcal 2019-11-23 Completed [facility] o f Polysaccharide, 00:00:00 [place] [facility] PPSV23 (PNEUMOVAX) Branch Pneumococcal 2019-11-23 Completed [facility] o f Polysaccharide, 00:00:00 [place] [facility] PPSV23 (PNEUMOVAX) Branch Pneumococcal 2019-11-23 Completed [facility] o f Polysaccharide, 00:00:00 [place] [facility] PPSV23 (PNEUMOVAX) Branch Pneumococcal 2019-11-23 Completed [facility] o f Polysaccharide, 00:00:00 [place] [facility] PPSV23 (PNEUMOVAX) Branch Pneumococcal 2019-11-23 Completed [facility] o f Polysaccharide, 00:00:00 [place] [facility] PPSV23 (PNEUMOVAX) Branch Pneumococcal 2019-11-23 Completed [facility] o f Polysaccharide, 00:00:00 [place] [facility] PPSV23 (PNEUMOVAX) Branch Pneumococcal 2019-11-23 Completed [facility] o f Polysaccharide, 00:00:00 [place] [facility] PPSV23 (PNEUMOVAX) Branch Pneumococcal 2019-11-23 Completed [facility] o f Polysaccharide, 00:00:00 [place] [facility] PPSV23 (PNEUMOVAX) Branch Pneumococcal 2019-11-23 Completed [facility] o f Polysaccharide, 00:00:00 [place] [facility] PPSV23 (PNEUMOVAX) Branch Pneumococcal 2019-11-23 Completed [facility] o f Polysaccharide, 00:00:00 [place] [facility] PPSV23 (PNEUMOVAX) Branch Pneumococcal 2019-11-23 Completed [facility] o f Polysaccharide, 00:00:00 [place] [facility] PPSV23 (PNEUMOVAX) Branch Pneumococcal 2019-11-23 Completed [facility] o f Polysaccharide, 00:00:00 [place] [facility] PPSV23 (PNEUMOVAX) Branch Pneumococcal 2019-11-23 Completed [facility] o f Polysaccharide, 00:00:00 [place] [facility] PPSV23 (PNEUMOVAX) Branch Pneumococcal 2019-11-23 Completed [facility] o f Polysaccharide, 00:00:00 [place] [facility] PPSV23 (PNEUMOVAX) Branch Pneumococcal 2019-11-23 Completed [facility] o f Polysaccharide, 00:00:00 [place] [facility] PPSV23 (PNEUMOVAX) Branch Pneumococcal 2019-11-23 Completed [facility] o f Polysaccharide, 00:00:00 [place] [facility] PPSV23 (PNEUMOVAX) Branch Pneumococcal 2019-11-23 Completed [facility] o f Polysaccharide, 00:00:00 [place] [facility] PPSV23 (PNEUMOVAX) Branch Pneumococcal 2019-11-23 Completed [facility] o f Polysaccharide, 00:00:00 [place] [facility] PPSV23 (PNEUMOVAX) Branch Pneumococcal 2019-11-23 Completed [facility] o f Polysaccharide, 00:00:00 [place] [facility] PPSV23 (PNEUMOVAX) Branch Pneumococcal 2019-11-23 Completed [facility] o f Polysaccharide, 00:00:00 [place] [facility] PPSV23 (PNEUMOVAX) Branch Pneumococcal 2019-11-23 Completed [facility] o f Polysaccharide, 00:00:00 [place] [facility] PPSV23 (PNEUMOVAX) Branch Pneumococcal 2019-11-23 Completed [facility] o f Polysaccharide, 00:00:00 [place] [facility] PPSV23 (PNEUMOVAX) Branch Pneumococcal 2019-11-23 Completed [facility] o f Polysaccharide, 00:00:00 [place] [facility] PPSV23 (PNEUMOVAX) Branch Pneumococcal 2019-11-23 Completed [facility] o f Polysaccharide, 00:00:00 [place] [facility] PPSV23 (PNEUMOVAX) Branch Pneumococcal 2019-11-23 Completed [facility] o f Polysaccharide, 00:00:00 [place] [facility] PPSV23 (PNEUMOVAX) Branch Pneumococcal 2019-11-23 Completed [facility] o f Polysaccharide, 00:00:00 [place] [facility] PPSV23 (PNEUMOVAX) Branch Pneumococcal 2019-11-23 Completed [facility] o f Polysaccharide, 00:00:00 [place] [facility] PPSV23 (PNEUMOVAX) Branch Pneumococcal 2019-11-23 Completed [facility] o f Polysaccharide, 00:00:00 [place] [facility] PPSV23 (PNEUMOVAX) Branch Pneumococcal 2019-11-23 Completed [facility] o f Polysaccharide, 00:00:00 [place] [facility] PPSV23 (PNEUMOVAX) Branch Pneumococcal 2019-11-23 Completed [facility] o f Polysaccharide, 00:00:00 [place] [facility] PPSV23 (PNEUMOVAX) Branch Pneumococcal 2019-11-23 Completed [facility] o f Polysaccharide, 00:00:00 [place] [facility] PPSV23 (PNEUMOVAX) Branch Pneumococcal 2019-11-23 Completed [facility] o f Polysaccharide, 00:00:00 [place] [facility] PPSV23 (PNEUMOVAX) Branch Pneumococcal 2019-11-23 Completed [facility] o f Polysaccharide, 00:00:00 [place] [facility] PPSV23 (PNEUMOVAX) Branch Pneumococcal 2019-11-23 Completed [facility] o f Polysaccharide, 00:00:00 [place] [facility] PPSV23 (PNEUMOVAX) Branch Pneumococcal 2019-11-23 Completed [facility] o f Polysaccharide, 00:00:00 [place] [facility] PPSV23 (PNEUMOVAX) Branch Pneumococcal 2019-11-23 Completed [facility] o f Polysaccharide, 00:00:00 [place] [facility] PPSV23 (PNEUMOVAX) Branch Pneumococcal 2019-11-23 Completed [facility] o f Polysaccharide, 00:00:00 [place] [facility] PPSV23 (PNEUMOVAX) Branch Pneumococcal 2019-11-23 Completed [facility] o f Polysaccharide, 00:00:00 [place] [facility] PPSV23 (PNEUMOVAX) Branch Pneumococcal 2019-11-23 Completed [facility] o f Polysaccharide, 00:00:00 [place] [facility] PPSV23 (PNEUMOVAX) Branch Pneumococcal 2019-11-23 Completed [facility] o f Polysaccharide, 00:00:00 [place] [facility] PPSV23 (PNEUMOVAX) Branch Pneumococcal 2019-11-23 Completed [facility] o f Polysaccharide, 00:00:00 [place] [facility] PPSV23 (PNEUMOVAX) Branch Pneumococcal 2019-11-23 Completed [facility] o f Polysaccharide, 00:00:00 [place] [facility] PPSV23 (PNEUMOVAX) Branch Pneumococcal 2019-11-23 Completed [facility] o f Polysaccharide, 00:00:00 [place] [facility] PPSV23 (PNEUMOVAX) Branch Pneumococcal 2019-11-23 Completed [facility] o f Polysaccharide, 00:00:00 [place] [facility] PPSV23 (PNEUMOVAX) Branch Pneumococcal 2019-11-23 Completed [facility] o f Polysaccharide, 00:00:00 [place] [facility] PPSV23 (PNEUMOVAX) Branch Pneumococcal 2019-11-23 Completed [facility] o f Polysaccharide, 00:00:00 [place] [facility] PPSV23 (PNEUMOVAX) Branch Pneumococcal 2019-11-23 Completed [facility] o f Polysaccharide, 00:00:00 [place] [facility] PPSV23 (PNEUMOVAX) Branch Pneumococcal 2019-11-23 Completed [facility] o f Polysaccharide, 00:00:00 [place] [facility] PPSV23 (PNEUMOVAX) Branch Pneumococcal 2019-11-23 Completed [facility] o f Polysaccharide, 00:00:00 [place] [facility] PPSV23 (PNEUMOVAX) Branch Pneumococcal 2019-11-23 Completed [facility] o f Polysaccharide, 00:00:00 [place] [facility] PPSV23 (PNEUMOVAX) Branch Pneumococcal 2019-11-23 Completed [facility] o f Polysaccharide, 00:00:00 [place] [facility] PPSV23 (PNEUMOVAX) Branch Pneumococcal 2019-11-23 Completed [facility] o f Polysaccharide, 00:00:00 [place] [facility] PPSV23 (PNEUMOVAX) Branch Pneumococcal 2019-11-23 Completed [facility] o f Polysaccharide, 00:00:00 [place] [facility] PPSV23 (PNEUMOVAX) Branch Zoster Vaccine 2019-11-16 Completed [facility] of Recombinant 00:00:00 [facility] Zoster Vaccine 2019-11-16 Completed [facility] of Recombinant 00:00:00 [facility] Zoster Vaccine 2019-11-16 Completed [facility] of Recombinant 00:00:00 [facility] Zoster Vaccine 2019-11-16 Completed [facility] of Recombinant 00:00:00 [facility] Zoster Vaccine 2019-11-16 Completed [facility] of Recombinant 00:00:00 [facility] Zoster Vaccine 2019-11-16 Completed [facility] of Recombinant 00:00:00 [facility] Zoster Vaccine 2019-11-16 Completed [facility] of Recombinant 00:00:00 [facility] Zoster Vaccine 2019-11-16 Completed [facility] of Recombinant 00:00:00 [facility] Zoster Vaccine 2019-11-16 Completed [facility] of Recombinant 00:00:00 [facility] Zoster Vaccine 2019-11-16 Completed [facility] of Recombinant 00:00:00 [facility] Zoster Vaccine 2019-11-16 Completed [facility] of Recombinant 00:00:00 [facility] Zoster Vaccine 2019-11-16 Completed [facility] of Recombinant 00:00:00 [facility] Zoster Vaccine 2019-11-16 Completed [facility] of Recombinant 00:00:00 [facility] Zoster Vaccine 2019-11-16 Completed [facility] of Recombinant 00:00:00 [facility] Zoster Vaccine 2019-11-16 Completed [facility] of Recombinant 00:00:00 [facility] Zoster Vaccine 2019-11-16 Completed [facility] of Recombinant 00:00:00 [facility] Zoster Vaccine 2019-11-16 Completed [facility] of Recombinant 00:00:00 [facility] Zoster Vaccine 2019-11-16 Completed [facility] of Recombinant 00:00:00 [facility] Zoster Vaccine 2019-11-16 Completed [facility] of Recombinant 00:00:00 [facility] Zoster Vaccine 2019-11-16 Completed [facility] of Recombinant 00:00:00 [facility] Zoster Vaccine 2019-11-16 Completed [facility] of Recombinant 00:00:00 [facility] Zoster Vaccine 2019-11-16 Completed [facility] of Recombinant 00:00:00 [facility] Zoster Vaccine 2019-11-16 Completed [facility] of Recombinant 00:00:00 [facility] Zoster Vaccine 2019-11-16 Completed [facility] of Recombinant 00:00:00 [facility] Zoster Vaccine 2019-11-16 Completed [facility] of Recombinant 00:00:00 [facility] Zoster Vaccine 2019-11-16 Completed [facility] of Recombinant 00:00:00 [facility] Zoster Vaccine 2019-11-16 Completed [facility] of Recombinant 00:00:00 [facility] Zoster Vaccine 2019-11-16 Completed [facility] of Recombinant 00:00:00 [facility] Zoster Vaccine 2019-11-16 Completed [facility] of Recombinant 00:00:00 [facility] Zoster Vaccine 2019-11-16 Completed [facility] of Recombinant 00:00:00 [facility] Zoster Vaccine 2019-11-16 Completed [facility] of Recombinant 00:00:00 [facility] Zoster Vaccine 2019-11-16 Completed [facility] of Recombinant 00:00:00 [facility] Zoster Vaccine 2019-11-16 Completed [facility] of Recombinant 00:00:00 [facility] Zoster Vaccine 2019-11-16 Completed [facility] of Recombinant 00:00:00 [facility] Zoster Vaccine 2019-11-16 Completed [facility] of Recombinant 00:00:00 [facility] Zoster Vaccine 2019-11-16 Completed [facility] of Recombinant 00:00:00 [facility] Zoster Vaccine 2019-11-16 Completed [facility] of Recombinant 00:00:00 [facility] Zoster Vaccine 2019-11-16 Completed [facility] of Recombinant 00:00:00 [facility] Zoster Vaccine 2019-11-16 Completed [facility] of Recombinant 00:00:00 [facility] Zoster Vaccine 2019-11-16 Completed [facility] of Recombinant 00:00:00 [facility] Zoster Vaccine 2019-11-16 Completed [facility] of Recombinant 00:00:00 [facility] Zoster Vaccine 2019-11-16 Completed [facility] of Recombinant 00:00:00 [facility] Zoster Vaccine 2019-11-16 Completed [facility] of Recombinant 00:00:00 [facility] Zoster Vaccine 2019-11-16 Completed [facility] of Recombinant 00:00:00 [facility] Zoster Vaccine 2019-11-16 Completed [facility] of Recombinant 00:00:00 [facility] Zoster Vaccine 2019-11-16 Completed University of Recombinant 00:00:00 [facility] Zoster Vaccine 2019-11-16 Completed University of Recombinant 00:00:00 [facility] Zoster Vaccine 2019-11-16 Completed University of Recombinant 00:00:00 [facility] Zoster Vaccine 2019-11-16 Completed University of Recombinant 00:00:00 [facility] Zoster Vaccine 2019-11-16 Completed University of Recombinant 00:00:00 [facility] Zoster Vaccine 2019-11-16 Completed University of Recombinant 00:00:00 [facility] Zoster Vaccine 2019-11-16 Completed University of Recombinant 00:00:00 [facility] Zoster Vaccine 2019-11-16 Completed University of Recombinant 00:00:00 [facility] Zoster Vaccine 2019-11-16 Completed University of Recombinant 00:00:00 [facility] Zoster Vaccine 2019-11-16 Completed University of Recombinant 00:00:00 [facility] Zoster Vaccine 2019-11-16 Completed University of Recombinant 00:00:00 [facility] Zoster Vaccine 2019-11-16 Completed University of Recombinant 00:00:00 [facility] Zoster Vaccine 2019-11-16 Completed University of Recombinant 00:00:00 [facility] Zoster Vaccine 2019-11-16 Completed University of Recombinant 00:00:00 [facility] Zoster Vaccine 2019-11-16 Completed [facility] of Recombinant 00:00:00 [facility] Zoster Vaccine 2019-11-16 Completed University of Recombinant 00:00:00 [facility] Zoster Vaccine 2019-11-16 Completed University of Recombinant 00:00:00 [facility] Zoster Vaccine 2019-11-16 Completed [facility] of Recombinant 00:00:00 [facility] Zoster Vaccine 2019-11-16 Completed [facility] of Recombinant 00:00:00 [facility] Zoster Vaccine 2019-11-16 Completed [facility] of Recombinant 00:00:00 [facility] Zoster Vaccine 2019-11-16 Completed [facility] of Recombinant 00:00:00 [facility] Zoster Vaccine 2019-11-16 Completed [facility] of Recombinant 00:00:00 [facility] Zoster Vaccine 2019-11-16 Completed [facility] of Recombinant 00:00:00 [facility] Zoster Vaccine 2019-11-16 Completed [facility] of Recombinant 00:00:00 [facility] Zoster Vaccine 2019-11-16 Completed [facility] of Recombinant 00:00:00 [facility] Zoster Vaccine 2019-11-16 Completed [facility] of Recombinant 00:00:00 [facility] Zoster Vaccine 2019-11-16 Completed [facility] of Recombinant 00:00:00 [facility] Zoster Vaccine 2019-11-16 Completed [facility] of Recombinant 00:00:00 [facility] Zoster Vaccine 2019-11-16 Completed [facility] of Recombinant 00:00:00 [facility] Zoster Vaccine 2019-11-16 Completed [facility] of Recombinant 00:00:00 [facility] Zoster Vaccine 2019-11-16 Completed [facility] of Recombinant 00:00:00 [facility] Zoster Vaccine 2019-11-16 Completed [facility] of Recombinant 00:00:00 [facility] Vital Signs Vital Name Observation Time Observation Value Comments Source Systolic blood 2022-04-26 146 mm[Hg] University of pressure 17:08: [facility] Diastolic blood 2022-04-26 95 mm[Hg] University o f pressure 17:08:00 [facility] Heart rate 2022-04-26 92 /min University of 17:00:00 [facility] Body temperature 2022-04-26 36.22 Marielena University of 17:00:00 [facility] Respiratory rate 2022-04-26 18 /min University of 17:00:00 [facility] Body weight 2022-04-26 74.254 kg University of 17:00:00 [facility] BMI 2022-04-26 31.97 kg/m2 University of 17:00:00 [facility] Oxygen saturation 2022-04-26 95 /min University [facility] in Arterial blood 17:00:00 [place] [facility] by Pulse oximetry Branch Systolic blood 2022-04-12 127 mm[Hg] University of pressure 16:54:00 [facility] Diastolic blood 2022-04-12 83 mm[Hg] University o f pressure 16:54:00 [facility] Heart rate 2022-04-12 71 /min University of 16:54:00 [facility] Body temperature 2022-04-12 35.78 Marielena University of 16:54:00 [facility] Respiratory rate 2022-04-12 19 /min University of 16:54:00 [facility] Body height 2022-04-12 152.4 cm University of 16:54:00 [facility] Body weight 2022-04-12 71.578 kg University of 16:54:00 [facility] BMI 2022-04-12 30.82 kg/m2 University of 16:54:00 [facility] Oxygen saturation 2022-04-12 97 /min University of in Arterial blood 16:54:00 [facility] nate by Pulse oximetry Branch Systolic blood 2022-03-27 128 mm[Hg] University of pressure 19:22:00 [facility] Branch Diastolic blood 2022-03-27 86 mm[Hg] University o f pressure 19:22:00 [facility] Heart rate 2022-03-27 109 /min University of 19:21:00 [facility] Body temperature 2022-03-27 36.78 Marielena University of 19:21:00 [facility] Body height 2022-03-27 152.4 cm University of 19:21:00 [facility] Body weight 2022-03-27 71.668 kg University of 19:21:00 [facility] BMI 2022-03-27 30.86 kg/m2 University of 19:21:00 [facility] Oxygen saturation 2022-03-27 96 /min University of in Arterial blood 19:21:00 [facility] by Pulse oximetry Branch Systolic blood 2022-03-26 131 mm[Hg] University of pressure 20:30:00 [facility] Diastolic blood 2022-03-26 85 mm[Hg] University o f pressure 20:30:00 [facility] Heart rate 2022-03-26 109 /min University of 20:30:00 [facility] Body temperature 2022-03-26 36 Marielena University of 20:30:00 [facility] Respiratory rate 2022-03-26 22 /min University of 20:30:00 [facility] Body weight 2022-03-26 73.074 kg University of 20:30:00 [facility] BMI 2022-03-26 31.46 kg/m2 University of 20:30:00 [facility] Oxygen saturation 2022-03-26 97 /min University of in Arterial blood 20:30:00 [facility] by Pulse oximetry Branch Systolic blood 2022-03-21 163 mm[Hg] University of pressure 21:10:00 [facility] Diastolic blood 2022-03-21 105 mm[Hg] University o f pressure 21:10:00 [facility] Heart rate 2022-03-21 108 /min University of :00:00 [facility] Body temperature 2022-03-21 35.61 Marielena University of 21:00:00 [facility] Respiratory rate 2022-03-21 18 /min University of :00:00 [facility] Body weight 2022-03-21 71.759 kg University of 21:00:00 [facility] BMI 2022-03-21 30.90 kg/m2 University of 21:00:00 [facility] Oxygen saturation 2022-03-21 95 /min University of in Arterial blood 21:00:00 [facility] by Pulse oximetry Branch Systolic blood 2022-03-13 153 mm[Hg] University [facility] pressure 19:24:00 [facility] Diastolic blood 2022-03-13 96 mm[Hg] University o f pressure 19:24:00 [facility] Heart rate 2022-03-13 101 /min [facility] 19:24:00 [facility] Oxygen saturation 2022-03-13 96 /min University of in Arterial blood 19:24:00 [facility] by Pulse oximetry Branch Body temperature 2022-03-13 36.33 Marielena University of 19:22:00 [facility] Respiratory rate 2022-03-13 17 /min University of 19:22:00 [facility] Body weight 2022-03-13 71.623 kg University of 19:22:00 [facility] BMI 2022-03-13 30.84 kg/m2 University of 19:22:00 [facility] Systolic blood 2022-03-11 136 mm[Hg] University of pressure 17:04:00 [facility] Diastolic blood 2022-03-11 93 mm[Hg] University o f pressure 17:04:00 [facility] Heart rate 2022-03-11 98 /min University of 17:04:00 [facility] Respiratory rate 2022-03-11 19 /min University of 17:03:00 [facility] Body height 2022-03-11 152.4 cm University of 17:03:00 [facility] Body weight 2022-03-11 70.988 kg University of 17:03:00 [facility] BMI 2022-03-11 30.56 kg/m2 University of 17:03:00 [facility] Oxygen saturation 2022-03-11 95 /min [facility] of in Arterial blood 17:03:00 [facility] by Pulse oximetry Branch Systolic blood 2022-03-05 130 mm[Hg] University of pressure 15:15:00 [facility] Diastolic blood 2022-03-05 89 mm[Hg] University o f pressure 15:15:00 [facility] Heart rate 2022-03-05 105 /min University of 15:15:00 [facility] Body temperature 2022-03-05 35.83 Marielena University of 15:13:00 [facility] Respiratory rate 2022-03-05 16 /min University of 15:13:00 [facility] Body height 2022-03-05 151.9 cm University of 15:13:00 [facility] Body weight 2022-03-05 70.444 kg Ht & Wt University of 15:13:00 verified by Steph Sarkar, RN & Carlos Hu MA BMI 2022-03-05 30.53 kg/m2 University of 15:13:00 [facility] Oxygen saturation 2022-03-05 94 /min University of in Arterial blood 15:13:00 [place] [facility] by Pulse oximetry Branch Systolic blood 2022-01-30 112 mm[Hg] University of pressure 18:40:00 [facility] Diastolic blood 2022-01-30 78 mm[Hg] University o f pressure 18:40:00 [facility] Respiratory rate 2022-01-30 32 /min University of 18:40:00 [facility] Oxygen saturation 2022-01-30 96 /min University of in Arterial blood 18:40:00 [place] [facility] by Pulse oximetry Branch Heart rate 2022-01-30 98 /min University of 16:36:00 [facility] Body temperature 2022-01-30 36 Marielena University of 16:36:00 [facility] Body height 2022-01-30 154.9 cm University of 12:14:00 [facility] Body weight 2022-01-30 70.1 kg University of 12:14:00 [facility] BMI 2022-01-30 29.20 kg/m2 University of 12:14:00 [facility] Systolic blood 2022-01-30 147 mm[Hg] University of pressure 12:14:00 [facility] Diastolic blood 2022-01-30 94 mm[Hg] University o f pressure 12:14:00 [facility] Heart rate 2022-01-30 98 /min University of 12:14:00 [facility] Body temperature 2022-01-30 36.06 Marielena University of 12:14:00 [facility] Respiratory rate 2022-01-30 18 /min University of 12:14:00 [facility] Body height 2022-01-30 154.9 cm University of 12:14:00 [facility] Body weight 2022-01-30 70.1 kg University of 12:14:00 [facility] BMI 2022-01-30 29.20 kg/m2 University of 12:14:00 [facility] Oxygen saturation 2022-01-30 98 /min University of in Arterial blood 12:14:00 [place] [facility] by Pulse oximetry Branch Systolic blood 2022-01-17 157 mm[Hg] University of pressure 14:58:00 [facility] Diastolic blood 2022-01-17 96 mm[Hg] University o f pressure 14:58:[address] [facility] Heart rate 2022-01-17 95 /min University of 14:58:00 [facility] Respiratory rate 2022-01-17 16 /min University of 14:58:00 [facility] Body height 2022-01-17 154.9 cm University of 14:58:00 [facility] Body weight 2022-01-17 69.4 kg University of 14:58:00 [facility] BMI 2022-01-17 28.91 kg/m2 University of 14:58:00 [facility] Oxygen saturation 2022-01-17 97 /min University of in Arterial blood 14:58:00 [place] [facility] by Pulse oximetry Branch Heart rate 2022-01-02 102 /min University of 19:48:00 [facility] Systolic blood 2022-01-02 139 mm[Hg] University of pressure 19:20:00 [facility] Diastolic blood 2022-01-02 85 mm[Hg] University o f pressure 19:20:00 [facility] Body temperature 2022-01-02 36.28 Marielena University of 19:20:00 [facility] Body height 2022-01-02 154.9 cm University of 19:20:00 [facility] Body weight 2022-01-02 69.446 kg University of 19:20:00 [facility] BMI 2022-01-02 28.93 kg/m2 University of 19:20:00 [facility] Oxygen saturation 2022-01-02 94 /min University of in Arterial blood 19:20:00 [place] [facility] by Pulse oximetry Branch Systolic blood 2021-12-24 128 mm[Hg] University [facility] pressure 19:33:00 [facility] Diastolic blood 2021-12-24 92 mm[Hg] University o f pressure 19:33:00 [facility] Heart rate 2021-12-24 117 /min University of 19:33:00 [facility] Respiratory rate 2021-12-24 18 /min University of 19:33:00 [facility] Body height 2021-12-24 154.9 cm University of 19:33:00 [facility] Body weight 2021-12-24 68.493 kg University of 19:33:00 [facility] BMI 2021-12-24 28.53 kg/m2 University of 19:33:00 [facility] Oxygen saturation 2021-12-24 94 /min [facility] in Arterial blood 19:33:00 [place] [facility] by Pulse oximetry [facility] Procedures Procedure Date / Time Performing Clinician Source Performed US BREAST COMPLETE 2022-05-09 20:40:33 [facility] BILATERAL MAMMO BREAST DIAGNOSTIC 2022-05-09 20:09:59 [facility] TOMOSYNTHESIS BILATERAL POCT GLUCOSE (AUTOMATED) 2022-04-04 16:09:00 Jen Anderson [facility] EXTERNAL PROVIDER RECORDS 2022-04-04 06:01:00 Doctor Power, [facility] Name Medical Branch AUTHORIZATION FOR RELEASE 2022-03-29 06:01:00 Doctor Power, [facility] [place] SCANNED LAB RESULTS 2022-03-08 06:01:00 Doctor Steve [facility] [place] SCANNED LAB RESULTS 2022-02-28 06:01:00 Doctor Steve [facility] Name Medical [place] MR BRAIN W WO CONTRAST 2022-02-24 17:53:48 Yun, [facility] AUTHORIZATION FOR RELEASE 2022-02-21 06:01:00 Doctor Power, [facility] PHYSICIAN ORDERS 2022-02-18 06:01:00 Doctor Power, [facility] PHYSICIAN ORDERS 2022-02-17 06:01:00 Doctor Power, [facility] XR CHEST 1 VW 2022-01-30 17:58:26 Yun, [facility] [place] ELECTROMAGNETIC NAVIGATION 2022-01-30 14:08:00 Kwaku Crocker [facility] ENDOBRONCHIAL 2022-01-30 14:08:00 [facility] ULTRASOUND-TRANSBRONCHIAL Medica Branch FNA CONSENT/REFUSAL FOR 2022-01-30 11:43:50 Doctor Steve [facility] DIAGNOSIS AND TREATMENT [facility] CONSENT/REFUSAL FOR 2022-01-30 11:43:50 Doctor Steve [facility] DIAGNOSIS AND TREATMENT [facility] [place] ASSIGNMENT OF BENEFITS 2022-01-30 11:41:19 Doctor Steve [facility] ASSIGNMENT OF BENEFITS 2022-01-30 11:41:19 Doctor Unassigned, [facility] IR BIOPSY LYMPH NODES 2022-01-17 16:09:19 Kwaku Crocker [facility] SUPERFICIAL PERCUTANEOUS Medical Branch WITH ULTRASOUND NM MYOCARDIUM PERFUSION 2022-01-11 15:50:00 Jatin, [facility] STRESS AND REST Medical Branch NUCLEAR STRESS TEST 2022-01-11 15:50:00 Jatin, [facility] CARDIOLOGY (DO NOT SCHED) Medica l Branch NM MYOCARDIUM PERFUSION 2022-01-11 15:50:00 Jatin, [facility] STRESS AND REST Medical Branch NUCLEAR STRESS TEST 2022-01-11 15:50:00 Jatin, [facility] CARDIOLOGY (DO NOT SCHED) Medica l Branch NM MYOCARDIUM PERFUSION 2022-01-11 15:50:00 Jatin, [facility] STRESS AND REST Medical Branch NUCLEAR STRESS TEST 2022-01-11 15:50:00 Jatin, [facility] CARDIOLOGY (DO NOT SCHED) Medica l Branch NUCLEAR STRESS TEST 2022-01-11 15:50:00 Jatin, [facility] CARDIOLOGY (DO NOT SCHED) Medica l Branch NM MYOCARDIUM PERFUSION 2022-01-11 15:50:00 Jatin, [facility] STRESS AND REST Medical Branch AUTHORIZATION FOR RELEASE 2021-12-31 05:01:00 Doctor Unassigned, [facility] POCT GLUCOSE (AUTOMATED) 2021-12-19 16:05:00 Kwaku Crocker [facility] [place] Plan of Care Planned Activity Planned Date Details Comments Source Future Scheduled 2022-05-22 Pneumococcal Vaccine: [facility] Test 10:09:24 Pediatrics (0 to 5 Years) and At-Risk Patients (6 to 64 Years) (1 - PCV) [code = Pneumococcal Vaccine: Pediatrics (0 to 5 Years) and At-Risk Patients (6 to 64 Years) (1 - PCV)] Future Scheduled 2022-05-22 Hepatitis C screening [facility] Test 10:09:24 (procedure) [code = 959960090] Future Scheduled 2022-05-22 Screening for [facility] Test 10:09:24 malignant neoplasm of cervix (procedure) [code = 772629726] Future Scheduled 2022-05-22 COLONOSCOPY SCREENING [facility] Test 10:09:24 [code = COLONOSCOPY SCREENING] Future Scheduled 2022-05-22 BREAST CANCER [facility] Test 10:09:24 SCREENING [code = BREAST CANCER SCREENING] Encounters Start End Encounter Admission Attending Care Care Encounter Source Date/Time Date/Time Type Type Clinicians Facility Department ID 2022-08-08 2022-08-08 Outpatient KWAKU GARRIDO [facility] [id number] [facility] 09:30:00 09:30:00 KWAKU CROCKER i [facility] 2022-05-09 2022-05-09 [facility], 1.2.840.1 [id number] Methodi 13:07:29 23:59:00 Encounter Nikita [id number] 3.430.2.7 Hospit a .3.642898 l .8 2022-05-09 2022-05-09 [facility] 1.2.840.1 [id number] Methodi 13:06:54 13:06:54 Encounter Nikita [id number] 3.430.2.7 Hospit a .3.600412 l .8 2022-05-09 2022-05-09 Outpatient KWAKU GARRIDO [facility] [id number] Univers 10:30:00 10:30:00 KWAKU CROCKER i [facility] 2022-05-09 2022-05-09 Outpatient KWAKU GARRIDO [facility] 10 [id number] Univers 10:30:00 10:30:00 KWAKU CROCKER i [facility] 2022-05-09 2022-05-09 Outpatient KWAKU GARRIDO [facility] 10 [id number] Univers 10:30:00 10:30:00 KWAKU CROCKER i [facility] 2022-05-09 2022-05-09 Outpatient HERMINIO [facility] [id number] 00:00:00 00:00:[address] 2022-05-09 2022-05-09 Outpatient HERMINIO, [facility] [id number] 00:00:00 00:00:[address] 2022-05-07 2022-05-07 Case JACINTO Gallardo 1.2.840.114 [id number] [facility] 00:00:00 00:00:00 Management Radha H 350.1.13.10 ity of [facility] 4.2.7.2.686 Fermin as [id number] [address] 2022-04-26 2022-04-26 Outpatient R SANTOSH, [facility] [id number] Univers 10:20:00 11:35:01 TEJO ity of [facility] 2022-04-26 2022-04-26 Office JACINTO Eric 1.2.840.114 [id number] Univers 10:20:00 11:35:01 Visit Tejo H 350.1.13.10 it y of [place] [address].2.7.2.686 Fermin as [id number] [address] 2022-04-17 2022-04-17 Multidisci JACINTO Gallardo 1.2.840.114 [id number] Univers 00:00:00 00:00:00 plinary Radha H 350.1.13.10 i ty of [place] [address].2.7.2.686 [place] [id number] [address] 2022-04-15 2022-04-15 Outpatient [facility] [id number] Elijah 08:05:58 08:05:58 [id number] Chris 2022-04-12 2022-04-12 Outpatient R SANTOSH [facility] [id number] Univers 10:20:00 12:16:16 TEJO ity of [facility] 2022-04-12 2022-04-12 Office JACINTO Eric 1.2.840.114 [id number] Univers 10:20:00 12:16:16 Visit Tejo H 350.1.13.10 it y of BUILDING 4.2.7.2.686 Fermin as [id number] [address] 2022-04-09 2022-04-09 [facility] 1.2.840.114 [id number] Univers 00:00:00 00:00:00 Henry [place] 350.1.13.10 ity [facility] 4.2.7.2.[place] [id number] Tn dicwy NAL 059 [facility] 2022-04-09 2022-04-09 Refill [facility] 1.2.840.114 [id number] Univers 00:00:00 00:00:00 Henry [place] 350.1.13.10 ity of [facility] 4.2.7.2.[place] [id number] Tn dicwy NAL 9 [facility] 2022-04-09 2022-04-09 [facility]ill [facility] 1.2.840.114 [id number] Univers 00:00:00 00:00:00 Karis A HEALTH 350.1.13.10 i ty of [place] 4.2.7.2.686 Fermin as ALEX?BLEA [id number] Tn cara JAMIL [address] [place] [address] OFFICE [facility] 2022-04-04 2022-04-04 [facility] 1.2.840.114 [id number] Univers 09:58:20 23:59:00 Encounter Jen SPECIALTY 350.1.13.10 it[place] of [place].2.[place] AT [id number] Tn micheljudith REAGAN [address] [place] [address] 2022-04-04 2022-04-04 [facility] 1.2.840.114 [id number] Univers 09:56:38 09:57:00 Encounter Jen SPECIALTY 350.1.13.10 ity of [place] 4[place]2.7.2.686 [place] AT [id number] Tn micheljudith RIANNAShilpi [address] [place] [address] 2022-04-02 2022-04-02 [facility] 1.2.840.114 [id number] Univers 09:57:12 23:59:00 Encounter Jen SPECIALTY 350.1.13.10 it[place] of [place]2.7.2.686 [place] [id number] Me craa REAGAN 805 [facility] 2022-04-02 2022-04-02 Outpatient R CHENTE [facility] [id number] Univers 00:00:00 23:59:00 JEN ity [facility] 2022-03-29 2022-03-29 Orders Doctor BHAVIN 1.2.840.114 [id number] Univers 00:00:00 00:00:00 Only Unassigned, PIOTR 350.1.13.10 ity of [place] [facility] 4.2.7.2.686 Fermin as [id number] [address] 2022-03-28 2022-03-28 Patient [facility] 1.2.840.114 [id number] Univers 00:00:00 00:00:00 Secure Msg Karis A HEALTH 350.1.13.10 ity of [place] 4.2.7.2.686 Fermin as ALEX?BLEA [id number] [facility] [address] [place] MEDICAL OFFICE [facility] 2022-03-28 2022-03-28 Patient Aj [facility] 1.2.840.114 [id number] Univers 00:00:00 00:00:00 Secure Msg Karis A HEALTH 350.1.13.10 ity of [place] 4.2.7.2.686 Fermin as ALEX?BLEA [id number] [facility] 044 [facility] OFFICE [facility] 2022-03-27 2022-03-27 Outpatient R AJ [facility] [id number] Univers 14:07:59 23:59:00 KARIS ity [facility] 2022-03-27 2022-03-27 Cardio Tech Lab, Ang - Db [facility] 1.2.840.1 [id number] Univers 14:00:00 14:15:00 Visit Karis Alonzo A HEALTH 350.1.13.10 ity of [place] 4.2.7.2.686 Fermin as ALEX?BLEA [id number] [facility] [address] [place] MEDICAL OFFICE [facility] 2022-03-27 2022-03-27 Office [facility] 1.2.840.114 [id number] Univers 13:00:00 13:59:06 Visit Karis Kline HEALTH 350.1.13.10 i ty of [place] 4.2.7.2.686 Fermin as ALEX?BLEA [id number] Tn michelal KNEY 044 [facility] OFFICE [facility] 2022-03-26 2022-03-26 Outpatient R ANN [facility] [id number] Univers 14:30:00 14:49:51 CHARANJIT ity [facility] 2022-03-26 2022-03-26 Office JACINTO Bowden 1.2.840.114 [id number] Univers 14:30:00 14:49:51 Visit Charanjit Sridhar Ruiz 350.1.13.10 ity of [facility] 4.2.7.2.686 Fermin as [id number] [facility] [address] [place] 2022-03-21 2022-03-21 Outpatient R SANTOSH [facility] [id number] Univers 15:00:00 16:31:01 TEANGIE ity [facility] 2022-03-21 2022-03-21 Office JACINTO Eric 1.2.840.114 [id number] Univers 15:00:00 16:31:01 Visit Inocente 350.1.13.10 it y of [facility] 4.2.7.2.686 Fermin as [id number] [facility] [address] [place] 2022-03-15 2022-03-15 EMI San 1.2.291.364 [id number] Univers 00:00:00 00:00:00 Management Kwaku Cabezas HEALTH 350.1.13.10 ity of [facility] [place].2.7.2.[place] [id number] [facility] [address] [place] 2022-03-13 2022-03-13 Office [facility] 1.2.840.114 [id number] Univers 13:20:00 13:40:00 Visit Henry YOKASTA 350.1.13.10 ity of [place].7.2.[place] [id number] Tn cara MARCOS 059 [facility] 2022-03-13 2022-03-13 Outpatient R JATIN [facility] [id number] Univers 13:20:00 13:20:00 AMYERICKSONAUGUSTUS ity o f [facility] 2022-03-11 2022-03-11 Outpatient R CATALINA CROCKERWVRenay [facility] 10 [id number] Univers 10:30:00 11:31:09 KWAKU CROCKER i ty of [facility] 2022-03-11 2022-03-11 Office Lizzette [facility] 1.2.840.114 [id number] Univers 10:30:00 11:31:09 Visit Kwaku [place] 350.1.13.10 i ty [facility] [place].2.7.2.[place] [id number] Tn dical NAL 085 [facility] 2022-03-11 2022-03-11 Outpatient R KWAKU CROCKER [facility] 10 [id number] Univers 10:30:00 10:30:00 KWAKU CROCKER i ty [facility] 2022-03-11 2022-03-11 Outpatient R KWAKU CROCKER [facility] 10 [id number] Univers 10:30:00 10:30:00 KWAKU CROCKER i ty [facility] 2022-03-08 2022-03-08 Orders Doctor BHAVIN 1.2.840.114 [id number] Univers 00:00:00 00:00:00 Only Unassigned, PIOTR 350.1.13.10 ity of [place] [facility] 4.2.7.2.686 Fermin as [id number] [address] 2022-03-06 2022-03-06 Outpatient R ANN [facility] [id number] Univers 13:30:00 13:30:00 CHARANJIT ity [facility] 2022-03-05 2022-03-05 Outpatient R SANTOSH [facility] [id number] Univers 09:00:00 10:31:35 TEJO ity [facility] 2022-03-05 2022-03-05 Office JACINTO Eric 1.2.840.114 [id number] Univers 09:00:00 10:31:[address] [facility] 350.1.13.10 it y of [facility] 4.2.7.2.686 Fermin as [phone] [facility] [address] [place] 2022-02-28 2022-02-28 Orders Doctor BHAVIN 1.2.840.114 [id number] Univers 00:00:00 00:00:00 Only Unassigned, PIOTR 350.1.13.10 ity of [place] [facility] 4.2.7.2.686 Fermin as [phone] [facility] [address] [place] 2022-02-25 2022-02-25 Refill [facility] 1.2.840.114 [id number] Univers 00:00:00 00:00:00 Karis A HEALTH 350.1.13.10 i ty of [place] 4.2.7.2.686 Fermin as ALEX?BLEA [phone] Tn cara ARBOLEDAEY [address]44 [place] MEDICAL OFFICE [facility] 2022-02-24 2022-02-24 Outpatient R KWAKU RCOCKER [facility] 10 [id number] Univers 10:01:09 23:59:00 KWKAU CROCKER i ty of [facility] 2022-02-24 2022-02-24 Hospital [facility] 1.2.840.114 [id number] Univers 10:01:09 23:59:00 Encounter Kwaku SPECIALTY 350.1.13.10 ity of C[place]2.[place].2.[place] C[place] AT [phone] Tn cara BLANCAShilpi 804 [facility] 2022-02-22 2022-02-22 Telephone [facility] 1.2.201.129 [id number] Univers 00:00:00 00:00:00 Kwaku [place] 350.1.13.10 i ty of [place] 4[place]2.7.2.[place] [id number] Tn dicjudith NAL 085 [facility] 2022-02-21 2022-02-21 Orders Doctor BHAVIN 1.2.840.114 [id number] Univers 00:00:00 00:00:00 Only Unassigned, PIOTR 350.1.13.10 ity of [place] [facility] 4.2.7.2.686 Fermin as [id number] [facility] [address] [place] 2022-02-20 2022-02-20 Patient Doctor BHAVIN 1.2.840.114 [id number] Univers 00:00:00 00:00:00 Secure Msg Unassigned, PIOTR 350.1.13.10 ity of [place] [facility] 4.2.7.2.686 [place] as [phone] [facility] [address] [place] 2022-02-18 2022-02-18 Orders Doctor BHAVIN 1.2.840.114 [id number] Univers 00:00:00 00:00:00 Only Unassigned, PIOTR 350.1.13.10 ity of [place] [facility] 4.2.7.2.686 Fermin as [id number] [facility] [address] [place] 2022-02-17 2022-02-17 Orders Doctor BHAVIN 1.2.840.114 [id number] Univers 00:00:00 00:00:00 Only Unassigned, PIOTR 350.1.13.10 ity of [place] [facility] 4.2.7.2.686 Fermin as [id number] [facility] [address] [place] 2022-02-14 2022-02-14 Telephone Lizzette [facility] 1.2.669.999 [id number] Univers 00:00:00 00:00:00 Kwaku [facility] 350.1.13.10 i ty of [place] 4.2.7.2.686 [facility] [id number] [address] 2022-02-13 2022-02-13 Outpatient R KWAKU CROCKER [facility] 10 [id number] Univers 00:00:00 00:00:00 KWAKU CROCKER i ty of [facility] 2022-02-13 2022-02-13 MultidJACINTO Kennedy 1.2.840.114 [id number] Univers 00:00:00 00:00:00 plinary Radha H 350.1.13.10 i ty of [facility] 4.2.7.2.686 [place] [phone] [facility] [address] [place] 2022-02-12 2022-02-12 Case ERROL Crocker 1.2.416.891 [id number] Univers 00:00:00 00:00:00 Management Catalinaprrenay [facility] 350.1.13.10 ity of CLINICS [place].2.[place] [id number] [facility] [address] [place] 2022-02-11 2022-02-11 Refill Aj, [facility] 1.2.840.114 [id number] Univers 00:00:00 00:00:00 Karis A HEALTH 350.1.13.10 i ty of [place] 4.2.7.2.686 Fermin as ALEX?BLEA [phone] Tn dical KNEY 044 [place] MEDICAL OFFICE BUILDING 2022-02-06 2022-02-06 Patient Jatin, [facility] 1.2.840.114 [id number] Univers 00:00:00 00:00:00 Secure Msg Henry [facility] 350.1.13.10 ity of [place] 4.2.7.2.[place] ODALIS 197.0500489 Tn dical NAL 059 [facility] 2022-02-06 2022-02-06 Case BHAVIN Yun 1.2.840.114 [id number] Univers 00:00:00 00:00:00 Management Camille SALDAÑA 350.1.13.10 ity of HOSPITAL 4.2.7.2.686 [place] as [phone] [facility] [address] [place] 2022-01-31 2022-01-31 Telephone EMI Crocker 1.2.840.114 [id number] Univers 00:00:00 00:00:00 Shiwarenay Y HEALTH 350.1.13.10 i ty of CL[place] [id number] [place] 817824 [place] 2022-01-30 2022-01-30 Outpatient R KWAKU CROCKER [facility] MPU 10 [id number] Univers 08:15:18 23:59:00 KWAKU CROCKER i ty of [facility] 2022-01-30 2022-01-30 [facility] GOOD Crocker 1.2.840.114 [id number] Univers 08:15:18 23:59:00 Encounter Kwaku SALDAÑA 350.1.13.10 ity of HOSPITAL 4.2.7.2.686 [place] as [id number] [facility] [address] [place] 2022-01-30 2022-01-30 [facility] GOOD Crocker 1.2.840.114 [id number] Univers 06:41:00 13:40:00 Encounter Kwaku SALDAÑA 350.1.13.10 ity of [facility] 4.2.7.2.686 [place] as [id number] [facility] [address] 2022-01-30 2022-01-30 Surgery GOOD Crocker 1.2.840.114 [id number] Univers 08:45:00 11:17:00 Shivianca SALDAÑA 350.1.13.10 it y of [facility] 4.2.7.2.686 [place] as [id number] [facility] [address] 2022-01-22 2022-01-22 Case [facility] 1.2.840.114 [id number] Univers 00:00:00 00:00:00 Management Kwaku [place] 350.1.13.10 ity of [place] 4.2.7.2.[place] ESSIO [id number] Tn dicjudith MARCOS [address] BUILDING 2022-01-17 2022-01-17 Outpatient R KWAKU CROCKER [facility] 10 [id number] Univers 10:00:00 23:59:00 KWAKU CROCKER i [facility] 2022-01-17 2022-01-17 [facility] Lizzette [facility] 1.2.840.114 [id number] Univers 09:29:40 23:59:00 Encounter LenAlberto [facility] 350.1.13.10 ity of [place] 4.2.7.2.686 [facility] [phone] [facility] [address] ([facility]) 2022-01-14 2022-01-14 Patient [facility] 1.2.840.114 [id number] Univers 00:00:00 00:00:00 Secure Msg Alisa HEALTH 350.1.13.10 ity of [place] 4.2.7.2.686 Fermin as ALEX?BLEA [id number] Tn dical KNEY [address] MEDICAL OFFICE BUILDING 2022-01-11 2022-01-11 [facility] 1.2.840.114 [id number] Univers 08:30:27 23:59:00 Encounter Qiaarely [place] 350.1.13.10 ity of [place] 4.2.7.2.686 [facility] [id number] [address] 2022-01-11 2022-01-11 [facility] 1.2.840.114 [id number] Univers 08:30:14 23:59:00 Encounter Qiangjun [place] 350.1.13.10 ity of [place] 4.2.7.2.686 [facility] [id number] [address] 2022-01-11 2022-01-11 [facility] 1.2.840.114 [id number] Univers 08:30:02 23:59:00 Encounter Qiangjun [place] 350.1.13.10 ity of [place] 4.2.7.2.686 [facility] [id number] [address] 2022-01-11 2022-01-11 [facility] 1.2.840.114 [id number] Univers 08:29:48 08:29:48 Encounter Qiangjun [place] 350.1.13.10 ity of [place] 4.2.7.2.686 [facility] [id number] [address] 2022-01-10 2022-01-10 [facility] 1.2.840.114 [id number] Univers 09:00:00 23:59:00 Encounter Qiangjun [place] 350.1.13.10 ity of [place] 4.2.7.2.686 [facility] [id number] [address] 2022-01-10 2022-01-10 Outpatient R [facility] [id number] Univers 00:00:00 23:59:00 HENRY ity o f [facility] 2022-01-07 2022-01-07 Patient [facility] 1.2.840.114 [id number] Univers 00:00:00 00:00:00 Secure Msg [facility] 350.1.13.10 ity of [place] 4.2.7.2.686 Fermin as ALEX?BLEA [phone] Tn cara JAMIL [address] [place] [address] OFFICE [facility] 2022-01-07 2022-01-07 Patient Aj [facility] 1.2.840.114 [id number] Univers 00:00:00 00:00:00 Secure Msg Karis A HEALTH 350.1.13.10 ity of [place] 4.2.7.2.686 Fermin as ALEX?BLEA [id number] [facility] [address]OL[address] OFFICE [facility] 2022-01-05 2022-01-05 Refill [facility] 1.2.840.114 [id number] Univers 00:00:00 00:00:00 Karis A HEALTH 350.1.13.10 i ty of [place] 4.2.7.2.686 Fermin as ALEX?BLEA [phone] [facility] [address] OFFICE [facility] 2022-01-04 2022-01-04 Patient Sg [facility] 1.2.840.114 [id number] Univers 00:00:00 00:00:00 Secure Msg Alisa Brooke HEALTH 350.1.13.10 ity of [place] 4.2.7.2.686 Fermin as ALEX?BLEA [id number] [address] 2022-01-04 2022-01-04 Patient Sg [facility] 1.2.840.114 [id number] Univers 00:00:00 00:00:00 Secure Msg Alisa Brooke HEALTH 350.1.13.10 ity of [place] 4.2.7.2.686 Fermin as ALEX?BLEA [id number] [address] 2022-01-04 2022-01-04 Telephone [facility] 1.2.264.537 [id number] Univers 00:00:00 00:00:00 Karis A HEALTH 350.1.13.10 i ty of [place] 4.2.7.2.686 Fermin as ALEX?BLEA [phone] [facility] [address] 2022-01-02 2022-01-02 [facility] Ang - Berhane [facility] 1.2.840.1 14 [id number] Univers 14:45:00 15:00:00 Visit AjKaris Raisa HEALTH 350.1.13.10 ity of [place] 4.2.7.2.686 [place] ALEX?BLEA [id number] Me dicjudith KNEY [address] [place] MEDICAL OFFICE BUILDING 2022-01-02 2022-01-02 Office [facility] 1.2.840.114 [id number] Univers 14:00:00 14:50:55 Visit Karis Kline HEALTH 350.1.13.10 i ty [facility] 4.2.7.2.686 [place] ALEX?BLEA [id number] Me dicjudith ARBOLEDAEY 044 [facility] OFFICE [facility] 2022-01-02 2022-01-02 [facility] [id number] Univers 14:45:00 14:45:00 KARIS ity of [facility] 2021-12-31 2021-12-31 Orders Doctor BHAVIN 1.2.840.114 [id number] Univers 00:00:00 00:00:00 Only Unassigned, PIOTR 350.1.13.10 ity of [place] [facility] 4.2.7.2.686 [place]in as [id number] [address] 2021-12-28 2021-12-28 Telephone [facility] 1.2.307.249 [id number] Univers 00:00:00 00:00:00 Shicarolynn YOKASTA 350.1.13.10 i ty [facility] 4.2.7.2.[place] [phone] Tn dical NAL 085 [facility] 2021-12-24 2021-12-24 Outpatient R JATIN [facility] [id number] Univers 14:00:00 14:58:45 HENRY ity o f [facility] 2021-12-24 2021-12-24 Office [facility] 1.2.840.114 [id number] Univers 14:00:00 14:58:45 Visit Amyericksonaugustus [place] 350.1.13.10 ity [facility] 4.2.7.2.[place] [id number] Tn dical NAL 059 [facility] 2021-12-24 2021-12-24 Outpatient R JATIN [facility] [id number] Univers 14:00:00 14:00:00 HENRY ivan o f [facility] 2021-12-19 2021-12-19 [facility] Lizzette [facility] 1.2.840.114 [id number] Univers 10:48:05 23:59:00 Encounter Shiprn Y HEALTH 350.1.13.10 ity of [place].2.[place] [id number] [address] 2021-12-19 2021-12-19 Outpatient R KWAKU CROCKER [facility] 10 [id number] Univers 10:47:53 10:47:53 KWAKU CROCKER i ty of [facility] 2021-12-19 2021-12-19 [facility] 1.2.840.114 [id number] [facility] 10:47:53 10:47:53 [facility] 350.1.13.10 ity [place].2.[place] [id number] [address] 2021-12-19 2021-12-19 Outpatient R KWAKU CROCKER [facility] 10 [id number] Univers 00:00:00 00:00:00 KWAKU CROCKER i ty of [facility] 2021-12-18 2021-12-18 Refill [facility] 1.2.840.114 [id number] Univers 00:00:00 00:00:00 Karis A HEALTH 350.1.13.10 i ty of [place] 4.2.7.2.686 Fermin as ALEX?BLEA [id number] [address] MEDICAL OFFICE [facility] 2021-12-17 2021-12-17 Refill [facility] 1.2.840.114 [id number] Univers 00:00:00 00:00:00 Karis A HEALTH 350.1.13.10 i ty of [place] 4.2.7.2.686 Fermin as ALEX?BLEA [id number] [address] MEDICAL OFFICE BUILDING 2021-12-07 2021-12-[address] [facility] 1.2.840.114 [id number] Univers 11:00:00 11:55:08 Visit Kwaku [place] 350.1.13.10 i ty of [facility] 4.2.7.2.686 [place] ASHLEYIO [id number] Tn micheljudith [facility] 085 [facility] 2021-12-07 2021-12-07 Outpatient R KWAKU CROCKER [facility] 10 [id number] Univers 11:00:00 11:55:08 KWAKU CROCKER i ty of [facility] 2021-12-07 2021-12-07 Outpatient R KWAKU CROCKER [facility] 10 [id number] Univers 11:00:00 11:55:08 KWAKU CROCKER i ty of [facility] 2021-12-07 2021-12-07 Outpatient R KWAKU CROCKER [facility] 10 [id number] Univers 11:00:00 11:00:00 KWAKU CROCKER i ty of [facility] 2021-12-06 2021-12-06 [place] [facility] 1.2.406.678 [id number] Univers 00:00:00 00:00:00 Karis A [facility] 350.1.13.10 i ty of [place] 4.2.7.2.686 Fermin as ALEX?BLEA [id number] Tn micheljudith [facility] [address] [place] MEDICAL OFFICE BUILDING 2021-12-05 2021-12-05 LOUIE Spangler 1.2.840.114 [id number] Univers 00:00:00 00:00:00 Management Emmanuel ZAVALA 350.1.13.10 ity of [place].7.2.[place] [id number] [address] 2021-12-04 2021-12-04 Outpatient R KWAKU CROCKER [facility] 10 [id number] Univers 10:55:44 23:59:00 KWAKU CROCKER i ty of [facility] 2021-12-04 2021-12-04 Outpatient R KWAKU CROCKER [facility] 10 [id number] Univers 10:55:44 23:59:00 KWAKU CROCKER i ty of [facility] 2021-12-04 2021-12-[address] [facility] 1.2.840.114 [id number] Univers 10:25:00 23:59:00 Encounter Kwaku [place] 350.1.13.10 ity of [place].2.7.2.[place] [id number] [facility] [address] 2021-11-06 2021-11-[address] [facility] 1.2.840.114 [id number] Univers 10:00:00 10:50:07 Visit Kwaku [place] 350.1.13.10 i ty of [place] 4.2.7.2.[place] [id number] Tn dical NAL [address] [facility] 2021-11-06 2021-11-06 Outpatient R [facility] 10 [id number] Univers 10:00:00 10:50:07 KWAKU CROCKER i ty [facility] 2021-11-06 2021-11-06 Outpatient R LIZZETTE [facility] 10 [id number] Univers 10:00:00 10:00:00 KWAKU CROCKER i ty of [facility] 2021-10-30 2021-10-30 Orders Doctor BHAVIN 1.2.840.114 [id number] Univers 00:00:00 00:00:00 Only Unassigned, PIOTR 350.1.13.10 ity of [place] [facility] 4.2.7.2.686 Fermin as [id number] [facility] [address] 2021-10-29 2021-10-29 Telephone [facility] 1.2.493.765 [id number] Univers 00:00:00 00:00:00 Henry [place] 350.1.13.10 ity of [place].7.2.[place] [phone] Me dical NAL [address] [facility] 2021-10-25 2021-10-25 Patient [facility] 1.2.840.114 [id number] Univers 00:00:00 00:00:00 Secure [facility] 350.1.13.10 ity of [place] 4.2.7.2.686 Fermin as ALEX?BLEA [id number] [facility] [address] [place] MEDICAL OFFICE [facility] 2021-10-24 2021-10-24 Outpatient R JACQUE [facility] [id number] Univers 10:20:00 11:13:32 ZULAY benitez [facility] 2021-10-24 2021-10-24 Urgent [facility] 1.2.840.114 [id number] Univers 10:20:00 10:40:00 Care Zulay HEALTH 350.1.13.10 i ty of [place] 4.2.7.2.686 Fermin as ALEX?BLEA [id number] [address] OFFICE [facility] 2021-09-18 2021-09-18 Outpatient R JATIN [facility] [id number] Univers 14:20:00 14:20:00 HENRY benitez [facility] 2021-09-11 2021-09-11 Patient [facility] 1.2.840.114 [id number] Univers 00:00:00 00:00:00 Secure Msg Karis A HEALTH 350.1.13.10 ity of [place] 4.2.7.2.686 Fermin as ALEX?BLEA [id number] [address] 2021-09-07 2021-09-07 Transcribe Cristo, 1.2.840.1 [id number] Methodi 00:00:00 00:00:00 Orders Immanuel Suero 57273.1.1 976 s t 3.430.2.7 Hospit a .3.903006 l .8 2021-09-03 2021-09-03 [facility] 1.2.693.995 [id number] Univers 00:00:00 00:00:00 Karis A HEALTH 350.1.13.10 i ty of [place] 4.2.7.2.686 Fermin as ALEX?BLEA [id number] [address] OFFICE [facility] 2021-08-31 2021-08-31 [facility] 1.2.840.114 [id number] Univers 00:00:00 00:00:00 Secure Msg Karis A HEALTH 350.1.13.10 ity of [place] 4.2.7.2.686 Fermin as ALEX?BLEA [phone] Me dical KNEY [address] [place] MEDICAL OFFICE [facility] 2021-08-27 2021-08-27 Case Lizzette [facility] 1.2.840.114 [id number] Univers 00:00:00 00:00:00 Management Kwaku YOKASTA 350.1.13.10 ity of [place].2.[place] ESSFAB[place] [phone] Me dical NAL 085 [facility] 2021-08-27 2021-08-27 Orders Doctor BHAVIN 1.2.840.114 [id number] Univers 00:00:00 00:00:00 Only Unassigned, PIOTR 350.1.13.10 ity of [place] [facility] 4.2.7.2.686 Fermin as [id number] [address] 2021-08-17 2021-08-17 Outpatient R AJ [facility] [id number] Univers 08:15:00 08:15:00 KARIS ity [facility] 2021-08-17 2021-08-17 Outpatient R AJ, [facility] [id number] Univers 08:15:00 08:15:00 KARIS ity [facility] 2021-08-17 2021-08-17 Outpatient R AJ [facility] [id number] Univers 08:15:00 08:15:00 KARIS ity [facility] 2021-08-17 2021-08-17 Outpatient R AJ, [facility] [id number] Univers 08:15:00 08:15:00 KARIS ity [facility] 2021-08-16 2021-08-16 Office Reginaldo Lovelace [facility] 1.2.840.114 [id number] Univers 11:15:00 13:11:36 Visit Becca Dias HEALTH 350.1.13.10 [facility] 4.2.7.2.686 Fermin as ALEX?BLEA [id number] Me dical KNEY [address] [place] MEDICAL OFFICE [facility] 2021-08-16 2021-08-16 Outpatient R LARISSA, [facility] [id number] Univers 11:15:00 13:11:36 BECCA love [facility] 2021-08-16 2021-08-16 Outpatient Cuong DIAS [facility] [id number] Univers 11:15:00 11:15:00 BECCA shilpi [facility] 2021-08-16 2021-08-16 Outpatient Cuong DIAS [facility] [id number] Univers 11:15:00 11:15:00 BECCA love [facility] 2021-08-14 2021-08-14 Office [facility] 1.2.840.114 [id number] Univers 09:30:00 10:00:00 Visit Marcelino Zase 350.1.13.10 it [facility] 4.2.7.2.686 Fermin as ALEX?BLEA [id number] [address] MEDICAL OFFICE BUILDING 2021-08-14 2021-08-14 Outpatient R LUPILLO [facility] [id number] Univers 09:30:00 09:30:00 MARCELINO love [facility] 2021-08-14 2021-08-14 Outpatient R LUPILLO [facility] [id number] Univers 09:30:00 09:30:00 MARCELINO love [facility] 2021-08-14 2021-08-14 Outpatient R LUPILLO [facility] [id number] Univers 09:30:00 09:30:00 MARCELINO shilpi [facility] 2021-08-07 2021-08-07 Transcribe Herminio [id number] Methodi 00:00:00 00:00:00 Orders Nikita [address]95.1.[address] 3.430.2.7 Hospit a .3.187663 l .8 2021-08-03 2021-08-03 Patient Lupillo [facility] [id number] Univers 00:00:00 00:00:00 Secure Msg Marcelino Zase 350.1.13.10 ity of [place] 4.2.7.2.686 Fermin as ALEX?BLEA [id number] Tn cara JAMIL 044 [facility] OFFICE [facility] 2021-07-31 2021-07-31 [facility]ill [facility] 1.2.840.114 [id number] Univers 00:00:00 00:00:00 Marcelino HEALTH 350.1.13.10 it [facility] 4.2.7.2.686 Fermin as ALEX?BLEA [id number] Tn cara JAMIL 044 [facility] 2021-07-30 2021-07-30 Telephone [facility] [id number] Univers 00:00:00 00:00:00 Marcelino HEALTH 350.1.13.10 it y of [place] 4.2.7.2.686 Fermin as ALEX?BLEA [phone] [facility] [address] [place] [address] 2021-07-27 2021-07-27 Telephone [facility] 1.2.330.604 [id number] Univers 00:00:00 00:00:00 [facility] 350.1.13.10 i ty [place] [id number] Tn cara MARCOS 085 [facility] 2021-07-25 2021-07-25 Telephone [facility] [id number] Univers 00:00:00 00:00:00 Marcelino HEALTH 350.1.13.10 it y [facility] 4.2.7.2.686 Fermin as ALEX?BLEA [id number] Tn cara JAMIL [address] [place] [address] 2021-07-24 2021-07-24 Outpatient R LUPILLO [facility] [id number] Univers 10:19:41 23:59:00 MARCELINO love [facility] 2021-07-24 2021-07-24 Outpatient R LUPILLO [facility] [id number] Univers 10:19:41 23:59:00 MARCELINO love [facility] 2021-07-24 2021-07-24 Outpatient R LUPILLO [facility] [id number] Univers 10:19:41 23:59:00 MARCELINO love [facility] 2021-07-24 2021-07-24 Outpatient R LUPILLO [facility] [id number] Univers 10:15:03 10:18:00 MARCELINO love [facility] 2021-07-24 2021-07-24 Office Brooklynraisa [facility] 1.2.840.114 [id number] Univers 09:30:00 10:12:30 Visit Marcelino HEALTH 350.1.13.10 it y [facility] 4.2.7.2.686 Fermin as ALEX?BLEA [phone] [address] OFFICE [facility] 2021-07-07 2021-07-07 Telephone [facility] 1.2.808.133 [id number] Univers 00:00:00 00:00:00 Karis A HEALTH 350.1.13.10 i ty of [place] 4.2.7.2.686 Fermin as ALEX?BLEA [phone] [address] OFFICE [facility] 2021-07-06 2021-07-06 Cardio Tech Lab, Ang - [facility] 1.2.840.1 14 [id number] Univers 11:30:00 11:45:00 Visit Karis Alonzo HEALTH 350.1.13.10 ity of [place] 4.2.7.2.686 Fermin as ALEX?BLEA [phone] [address] OFFICE [facility] 2021-07-06 2021-07-06 Office [facility] 1.2.840.114 [id number] Univers 10:30:00 11:30:22 Visit Karis Kline HEALTH 350.1.13.10 i ty of [place] 4.2.7.2.686 Fermin as ALEX?BLEA [phone] [address] OFFICE [facility] 2021-07-06 2021-07-06 Outpatient R AJ [facility] [id number] Univers 11:30:00 11:30:00 KARIS love [facility] 2021-07-06 2021-07-06 Outpatient R AJ [facility] [id number] Univers 11:30:00 11:30:00 KARIS love [facility] 2021-07-06 2021-07-06 Orders Doctor BHAVIN 1.2.840.114 [id number] Univers 00:00:00 00:00:00 Only Unassigned, PIOTR 350.1.13.10 ity [facility] 4.2.7.2.686 Fermin as [phone] [address] 2021-07-06 2021-07-06 Juliana [facility] 1.2.373.560 [id number] Univers 00:00:00 00:00:00 Karis Kline [facility] 350.1.13.10 i ty of [place] 4.2.7.2.686 Fermin as ALEX?BLEA [phone] Tn dical KNEY 044 [facility] OFFICE BUILDING 2021-07-04 2021-07-04 Outpatient R AJ [facility] [id number] Univers 15:30:00 15:30:00 KARIS love of [facility] 2021-06-07 2021-06-07 Refill Lizzette [facility] 1.2.840.114 [id number] Univers 00:00:00 00:00:00 Kwaku [place] 350.1.13.10 i ty of [place].7.2.[place] [phone] Tn michelal NAL 085 [facility] 2021-05-03 2021-05-03 Outpatient R KWAKU CROCKER [facility] 10 [id number] Univers 13:00:00 13:43:47 KWAKU CROCKER i ty of [facility] 2021-05-03 2021-05-03 Office Lizzette [facility] 1.2.840.114 [id number] Univers 13:00:00 13:43:47 [facility] [place] 350.1.13.10 i ty of [place].7.2.[place] [phone] Tn cara NAL 5 [facility] 2021-05-03 2021-05-03 Outpatient R KWAKU CROCKER [facility] 10 [id number] Univers 13:00:00 13:43:47 KWAKU CROCKER i ty of [facility] 2021-03-22 2021-03-22 [facility] [id number] Univers 14:00:00 23:59:00 HENRY ity o f [facility] 2021-03-22 2021-03-22 [facility] 1.2.840.114 [id number] Univers 14:00:00 23:59:00 Encounter Henry [place] 350.1.13.10 ity of [place].7.2.[place] [phone] Tn dical NAL [address] [facility] 2021-03-08 2021-03-08 [facility] [id number] Univers 14:30:00 15:52:59 KARIS love [facility] 2021-03-08 2021-03-08 Office [facility] 1.2.840.114 [id number] Univers 14:22:57 15:52:59 Visit Karis Kline [facility] 350.1.13.10 i ty of [place] 4.2.7.2.686 Fermin as ALEX?BLEA [phone] Tn dicwy KNEY 044 [facility] OFFICE [facility] 2021-03-08 2021-03-08 [facility]patient [facility] [id number] Univers 14:30:00 14:30:00 KARIS love [facility] 2021-02-22 2021-02-22 Cardio Tech [place], Adc Lab Main [facility] 1.2.8 40.114 [id number] Univers 14:00:22 14:15:22 Visit Karis Alonzo 350.1.13.10 ity [facility] 4.2.7.2.686 [place] [phone] Tn dical NAL 353 [facility] 2021-02-22 2021-02-22 [facility]patient [facility] [id number] Univers 12:00:00 12:00:00 KARIS love [facility] 2021-02-22 2021-02-22 [facility] [id number] Univers 12:00:00 12:00:00 KARIS love [facility] 2021-02-22 2021-02-22 [facility] [id number] Univers 12:00:00 12:00:00 KARIS love [facility] 2021-02-22 2021-02-22 Outpatient R AJ [facility] [id number] Univers 12:00:00 12:00:00 KARIS love [facility] 2021-02-21 2021-02-21 Telephone [facility] 1.2.387.539 [id number] Univers 00:00:00 00:00:00 Henry [place] 350.1.13.10 ity of [place].2.[place] [phone] Tn dicwy NAL 059 [facility] 2021-02-19 2021-02-19 Pre Visit BHAVIN Sarmiento 1.2.840.114 [id number] Univers 00:00:00 00:00:00 Outreach Jose Alejandro SALDAÑA 350.1.13.10 i ty of [facility] 4.2.7.2.686 Fermin as [phone] [facility] 082 [place] 2021-02-09 2021-02-09 Cardio Tech [place], Adc Lab Main [facility] 1.2.8 40.114 [id number] Univers 14:55:02 15:10:02 Visit AjKaris 350.1.13.10 ity [facility] [place].2.7.2.[place] [phone] Tn dicwy NAL 353 [facility] 2021-02-09 2021-02-09 Office [facility] 1.2.840.114 [id number] Univers 13:04:18 14:08:08 Visit Karis Kline [facility] 350.1.13.10 i ty of [place] 4.2.7.2.686 Fermin as ALEX?BLEA [phone] Tn dicjudith ARBOLEDAEY 044 [facility] OFFICE [facility] 2021-02-09 2021-02-09 [facility]patient [facility] [id number] Univers 13:00:00 14:08:08 KARIS love [facility] 2021-02-09 2021-02-09 Orders Doctor DELCID 1.2.840.114 [id number] Univers 00:00:00 00:00:00 Only Unassigned, PIOTR 350.1.13.10 ity of [place] [facility] 4.2.7.2.686 Fermin as [phone] [address] 2021-01-17 2021-01-17 Outpatient R [facility] [id number] Univers 00:00:00 00:00:00 HENRY ivan o f [facility] 2020-12-27 2020-12-27 Office [facility] 1.2.840.114 [id number] Univers 13:04:43 13:28:10 Visit Henry [place] 350.1.13.10 ity of [place].2.[place] [phone] Tn dicwy nal 059 [facility] 2020-12-27 2020-12-27 Outpatient R [facility] [id number] Univers 13:00:00 13:00:00 NICOLEAUGUSTUS ivan o f [facility] 2020-12-21 2020-12-21 [facility] 1.2.840.114 [id number] Univers 00:00:00 00:00:00 Shiwan [place] 350.1.13.10 i ty of [place].2.[place] Profess[place] [phone] [address] 2020-12-21 2020-12-21 [facility] 1.2.840.114 [id number] Univers 00:00:00 00:00:00 Shiwan [place] 350.1.13.10 i ty of [place] 4.2.7.2.[place] [phone] Tn dical nal 085 [facility] 2020-12-12 2020-12-12 Telephone [facility] 1.2.648.137 [id number] Univers 00:00:00 00:00:00 Shiwan [place] 350.1.13.10 i ty of [place]2.7.2.[place] Profess[place] [phone] Tn dicwy nal [address] [place] [address] 2020-12-12 2020-12-12 Telephone [facility] 1.2.667.827 [id number] Univers 00:00:00 00:00:00 Kwaku [place] 350.1.13.10 i ty of [place] 4.2.7.2.686 [place] ess[place] [phone] Tn [facility] 085 [facility] 2020-12-12 2020-12-12 Orders Doctor DELCID 1.2.840.114 [id number] Univers 00:00:00 00:00:00 Only Unassigned, PIOTR 350.1.13.10 ity of [place] [facility] 4.2.7.2.686 Fermin as [id number] [address] 2020-12-06 2020-12-06 Telephone [facility] 1.2.353.386 [id number] Univers 00:00:00 00:00:00 Karis [facility] 350.1.13.10 i ty of [place] 4.2.7.2.686 Fermin as Alex?Blea [phone] [facility] 044 [facility] Office [facility] [address] 2020-12-01 2020-12-01 Office [facility] 1.2.840.114 [id number] Univers 13:28:02 15:30:47 Visit Karis Kline Health 350.1.13.10 i ty of [place] 4.2.7.2.686 Fermin as Alex?Blea [phone] [address] Office [facility] [address] 2020-12-01 2020-12-01 Cardio Tech Lab, Ang - Db [facility] 1.2.840.1 14 [id number] Univers 14:41:17 14:56:17 Visit AjDennysKaris Raisa Health 350.1.13.10 ity of [place] 4.2.7.2.686 Fermin as Alex?Blea [phone] [facility] 353 [facility] Office [facility] [address] 2020-12-01 2020-12-01 Out[facility] [id number] Univers 13:30:00 13:30:00 KARIS ity of [facility] 2020-12-01 2020-12-01 Orders Doctor DELCID 1.2.840.114 [id number] Univers 00:00:00 00:00:00 Only Unassigned, PIOTR 350.1.13.10 ity of [place] [facility] 4.2.7.2.686 Fermin as [id number] [address] 2020-12-01 2020-12-01 Orders Doctor BHAVIN 1.2.840.114 [id number] Univers 00:00:00 00:00:00 Only Unassigned, PIOTR 350.1.13.10 ity of [place] [facility] 4.2.7.2.686 Fermin as [phone] [address] 2020-11-30 2020-11-30 Office Lizzette [facility] 1.2.840.114 [id number] Univers 13:48:54 14:26:36 Visit Kwaku [place] 350.1.13.10 i ty of [place]2.7.2.[place] [phone] Tn dical nal [address] [place] [address] 2020-11-30 2020-11-30 Office Lizzette [facility] 1.2.840.114 [id number] Univers 13:48:54 14:26:36 Visit Kwaku [place] 350.1.13.10 i ty of [place] 4.2.7.2.686 [place] Profess[place] [phone] Tn dic[address] 2020-11-30 2020-11-30 Outpatient R KWAKU CROCKER [facility] [id number] Univers 13:30:00 13:30:00 KWAKU CROCKER i ty of [facility] 2020-06-13 2020-06-13 Patient Jonathan [facility] 1.2.840.114 [id number] Univers 00:00:00 00:00:00 Outreach Qasim PRIMARY 350.1.13.10 i ty of [facility] 4.2.7.2.[place] [phone] Tn dical [address] [place] [address] 2020-06-02 2020-06-02 Outpatient R KWAKU CROCKER [facility] 10 [id number] Univers 14:20:00 14:20:00 KWAKU CROCKER i ty of [facility] 2020-06-02 2020-06-02 Office Lizzette [facility] 1.2.840.114 [id number] Univers 13:18:35 14:01:53 Visit Kwaku [place] 350.1.13.10 i ty of [place] 4.[place].7.2.[place] [phone] [facility] nal 085 [facility] 2020-06-02 2020-06-02 Orders Doctor BHAVIN 1.2.840.114 [id number] Univers 00:00:00 00:00:00 Only Unassigned, PIOTR 350.1.13.10 ity [facility] 4.2.7.2.686 Fermin as [phone] [address] 2020-03-24 2020-03-24 Outpatient R KWAKU CROCKER [facility] 10 [id number] Univers 10:40:00 10:40:00 KWAKU CROCKER i ty of [facility] 2019-12-20 2019-12-20 Telephone Lizzette [facility] 1.2.758.009 [id number] Univers 00:00:00 00:00:00 Kwaku [place] 350.1.13.10 i ty of [place] 4[place].7.2.[place] [phone] [facility] nal [address] [place] [address] 2019-11-02 2019-11-02 Office Piper [facility] 1.2.840.114 [id number] Univers 14:36:52 15:10:16 Visit Andrés [place] 350.1.13.10 ity of [place] 4.2.7.2.[place] [phone] [facility] 092 [facility] 2019-11-02 2019-11-02 Outpatient R ANDRÉS SALDAÑA [facility] [id number] Univers 14:40:00 14:40:00 ANDRÉS SALDAÑA itshilpi of [facility] 2019-10-25 2019-10-25 Outpatient HERMINIO [facility] [id number] [address] [place] [address] 00:00:00 00:00:00 NIKITA [address] [facility] 2019-10-25 2019-10-25 Outpatient HERMINIO [facility] [id number] [address] [place] [address] 00:00:00 00:00:00 NIKITA 631 [facility] i 2019-10-14 2019-10-14 Orders Doctor DELCID 1.2.840.114 [id number] Univers 00:00:00 00:00:00 Only Unassigned, PIOTR 350.1.13.10 ity of [place] [facility] 4.2.7.2.686 Fermin as [phone] [address] 2019-10-08 2019-10-08 Outpatient R MANUEL [facility] [id number] Univers 08:00:00 08:00:00 PAMELA ity of [facility] 2019-10-05 2019-10-05 Orders Doctor BHAVIN Giraldo.2.840.114 [id number] Univers 00:00:00 00:00:00 Only Unassigned, PIOTR 350.1.13.10 ity of [place] [facility] 4.2.7.2.686 Fermin as [phone] [address] 2019-09-30 2019-09-30 Office Lizzette [facility] 1.2.840.114 [id number] Univers 08:57:09 09:17:09 Visit Kwaku [place] 350.1.13.10 i ty [facility] 4.2.7.2.[place] [phone] Tn dical nal 085 [facility] 2019-09-30 2019-09-30 Outpatient R KWAKU CROCKER [facility] 10 [id number] Univers 09:00:00 09:00:00 KWAKU CROCKER i ty of [facility] 2019-09-24 2019-09-24 Orders Doctor BHAVIN Davis2.840.114 [id number] Univers 00:00:00 00:00:00 Only Unassigned, PIOTR 350.1.13.10 ity of [place] [facility] 4.2.7.2.686 Fermin as [phone] [address] 2019-09-14 2019-09-14 Orders Doctor BHAVIN Davis2.840.114 [id number] Univers 00:00:00 00:00:00 Only Unassigned, PIOTR 350.1.13.10 ity of [place] [facility] 4.2.7.2.686 Fermin as [phone] [address] 2019-09-07 2019-09-07 [facility] [id number] Univers 08:00:00 08:00:00 PAMELA shilpi [facility] 2019-09-03 2019-09-03 Orders Doctor BHAVIN 1.2.840.114 [id number] Univers 00:00:00 00:00:00 Only Unassigned, PIOTR 350.1.13.10 ity of [place] [facility] 4.2.7.2.686 Fermin as [phone] [address] 2019-08-25 2019-08-[address] [facility] 1.2.903.304 [id number] Univers 00:00:00 00:00:00 Shiwan [place] 350.1.13.10 i ty of [place] 4[place].7.2.[place] [phone] Tn dic[address] 2019-08-24 2019-08-24 Outpatient [facility] [id number] Univers 14:00:00 14:00:00 [facility] 2019-08-24 2019-08-24 Orders Doctor DELCID 1.2.840.114 [id number] Univers 00:00:00 00:00:00 Only Unassigned, PIOTR 350.1.13.10 ity of [place] [facility] 4.2.7.2.686 Fermin as [phone] [address] 2019-06-15 2019-06-15 Outpatient Cuong [facility] [id number] Univers 15:30:00 15:30:00 [facility] 2019-06-08 2019-06-08 Outpatient [facility] [id number] Univers 08:00:00 08:00:00 [facility] 2019-06-08 2019-06-08 Orders EMI Crocker 1.2.088.633 [id number] Univers 00:00:00 00:00:00 Only Shiwan Y HEALTH 350.1.13.10 i ty of [place].2.[place] [phone] [address] 2019-05-28 2019-05-[address] [facility] 1.2.840.114 [id number] Univers 09:47:18 10:07:18 Visit Kwaku [place] 350.1.13.10 i ty of [place] 4.[place].7.2.[place] [phone] Tn dical nal 085 [facility] 2019-05-19 2019-05-19 [facility] 1.2.697.126 [id number] Univers 08:00:00 23:59:00 Encounter Andrés [place] 350.1.13.10 ity of [place] 4.2.7.2.686 [place] Trion [phone] [address] 2019-05-11 2019-05-11 [facility] 1.2.235.276 [id number] Univers 08:31:00 23:59:00 Encounter Andrés [place] 350.1.13.10 ity of [place] 4.[place].7.2.[place] Tr[place] [phone] [address] 2019-05-04 2019-05-04 [facility] 1.2.840.114 [id number] [facility] 12:54:31 13:56:24 Visit Andrés [place] 350.1.13.10 ity of [place] 4.2.7.2.[place] [phone] Tn dical nal 092 [facility] 2019-04-30 2019-04-30 Outpatient R ANDRÉS SALDAÑA [facility] [id number] Univers 08:00:00 08:00:00 ANDRÉS SALDAÑA [facility] Results Test Description Test Time Test Comments Results Result Comments Source POCT GLUCOSE (AUTOMATED) 2022-04-04 16:11:27 Test Item Value Reference Range Interpretation Comme nts POCT GLU (test code = 7991060397) 120 mg/dL 70-110 H Lab Interpretation (test code = 86097-3) [facility] 16:14:53 Test Item Value Reference Range Interpretation Comments POCT GLU (test code = [id number]) 103 mg/dL 70-110 Lab Interpretation (test code = Normal 02157-7) [facility]
[2022-05-26] MEDS ORDERED: IPRATROPIUM BROM 0.5MG/2.5ML ONE (22:26)
[2022-05-26] MEDS ORDERED: ALBUTEROL 2.5 MG/3 ML NEB SOL ONE (22:26)
[2022-05-26] MEDS ORDERED: METHYLPREDNISOLONE 125 MG INJ ONE (22:26)
--- NOTE | 2022-05-26 22:27 | RAD REPORT ---
EXAM DESCRIPTION: Sudhakar Single View05/26/2022 10:13 pm CLINICAL HISTORY: Chest pain COMPARISON: 2018 FINDINGS: Postsurgical changes right chest. Chronic elevation right hemidiaphragm. Lungs appear clear of acute infiltrate. Heart is normal size IMPRESSION: No acute abnormalities displayed
[2022-05-26 22:40] LABS: Absolute Lymphocytes (CBC) 1.9 K/uL (0.7-4.9); Hematocrit 40.6 % (36.0-45.0); Lymphocytes % 17.8 % (15.3-44.8); MPV 7.7 fL (7.6-11.3); RBC Red Blood Cell Count 4.61 M/uL (3.86-4.86)
[2022-05-26 22:46] LABS: Albumin 3.6 g/dL (3.4-5.0); Bilirubin Total 0.2 mg/dL (0.2-1.0); Potassium 3.6 mmol/L (3.5-5.1); Protein, Total 7.1 g/dL (6.4-8.2); Troponin High Sensitivity 10.7 pg/mL (<58.9)
[2022-05-27 00:04] LABS: Blood Gas Oxyhemoglobin 81.4 % (94-97); Blood O2 Saturation 89.9 % (92-98.5)
--- NOTE | 2022-05-27 00:19 | ER ---
Nurse's Notes [facility] Name: Silva Boogie Age: 62 yrs Sex: Female : 1960 Arrival Date: 05/26/2022 Time: 21:42 Bed 13 Private MD: Diagnosis: COPD/ Chronic obstructive pulmonary disease with (acute) exacerbation Presentation: 05/26 21:47 Chief complaint: EMS states: Toned out for SOB, sat 94-96 on RA, patient is very ke1 sleepy. Coronavirus screen: Vaccine status: Patient reports receiving the 2nd dose of the covid vaccine. Ebola Screen: No symptoms or risks identified at this time. Initial Sepsis Screen: Does the patient meet any 2 criteria? No. Patient's initial sepsis screen is negative. Does the patient have a suspected source of infection? No. Patient's initial sepsis screen is negative. Risk Assessment: Do you want to hurt yourself or someone else? Patient reports no desire to harm self or others. Onset of symptoms was May 26, 2022 at 21:15. 21:47 Method Of Arrival: EMS ke1 21:47 Acuity: MAVIS 3 ke1 Triage Assessment: 21:49 General: Appears uncomfortable, Behavior is drowsy. ke1 23:13 Pain: Denies pain. ke1 Historical: - Allergies: 21:49 No Known Allergies; ke1 - PMHx: 21:49 Anxiety; COPD; Depression; GERD; Hypertension; ke1 - Immunization history:: Client reports receiving the 2nd dose of the Covid vaccine. - Social history:: Smoking status: Patient reports the use of cigarette tobacco products, smokes one pack cigarettes per day. - Family history:: not pertinent. Screenin:13 [facility] ED Fall Risk Assessment (Adult) History of falling in the last 3 months, ke1 including since admission No falls in past 3 months (0 pts) Confusion or Disorientation No (0 pts) Intoxicated or Sedated No (0 pts) Impaired Gait No (0 pts) Mobility Assist Device Used No (0 pt) Altered Elimination No (0 pt) Score/Fall Risk Level 0 - 2 = Low Risk. Abuse screen: Denies threats or abuse. Nutritional screening: No deficits noted. Tuberculosis screening: No symptoms or risk factors identified. Assessment: 23:47 Reassessment: Patient sleepy lying in bed, no sob no c/o pain. ke1 05/27 00:46 Reassessment: Patient denies pain at this time. Patient states feeling better. Patient ke1 states symptoms have improved. Vital Signs: 05/26 21:47 BP 145 / 93; Pulse 85; Resp 17; Temp 97.9; Pulse Ox 91% on R/A; Weight 68.04 kg; Height ke1 5 ft. 1 in. (154.94 cm); Pain 0/10; 22:30 BP 92 / 56; Pulse 73; Resp 16; Pulse Ox 94% on R/A; ke1 23:17 BP 142 / 73; Pulse 84; Resp 16; Pulse Ox 94% on R/A; ke1 21:47 Body Mass Index 28.34 (68.04 kg, 154.94 cm) ke1 ED Course: 21:42 Patient arrived in ED. ke1 21:47 Bridger Chacko, LULY is Primary Nurse. ke1 21:48 Deshawn Monroy MD is Attending Physician. rt 21:49 Triage completed. ke1 22:22 Inserted saline lock: 22 gauge in right forearm, using aseptic technique. Blood oe collected. 22:23 BNP Sent. oe 22:23 Troponin High Sensitivity Sent. oe 22:23 CMP Sent. oe 22:23 CBC with Diff Sent. oe 23:13 Patient has correct armband on for positive identification. ke1 02 00:40 No provider procedures requiring assistance completed. IV discontinued, intact, jb4 bleeding controlled, No redness/swelling at site. Pressure dressing applied. Administered Medications: 05/26 22:25 Drug: DuoNeb (albuterol 2.5 mg, ipratropium 0.5 mg) (3:1) (2.5 mg - 0.5 mg) 3 ml Route: ke1 Nebulizer; 23:48 Follow up: Response: Marked relief of symptoms ke1 22:25 Drug: SOLU-Medrol (methylPrednisoLONE) 125 mg Route: IVP; Site: right forearm; ke1 23:48 Follow up: Response: Marked relief of symptoms ke1 Medication: 05/27 00:46 VIS not applicable for this client. ke1 Outcome: 00:19 Discharge ordered by . rt 00:40 Discharged to home ambulatory. jb4 00:40 Condition: stable 00:40 Discharge instructions given to patient, Instructed on discharge instructions, follow up and referral plans. medication usage, Demonstrated understanding of instructions, follow-up care, medications, Prescriptions given X 1. 00:46 Patient left the ED. ke1 Signatures: Rayshawn Osborne, RN RN jb4 Rei Rivas Kouassi, RN RN ke1 Deshawn Monroy MD MD rt
--- NOTE | 2022-05-27 00:20 | EDPHYS ---
Physician Documentation [facility] Name: Silva Boogie Age: 62 yrs Sex: Female : 1960 Arrival Date: 05/26/2022 Time: 21:42 Bed 13 Private MD: ED Physician Deshawn Monroy HPI: 05/27 00:20 This 62 yrs old Female presents to ER via EMS with complaints of Shortness of breath. rt 00:20 Patient with history of COPD presents to the ED with worsening dyspnea starting today. rt She has been taking her nebulizer treatments at home to no relief. She denies any pain, other acute complaints. Symptoms are moderate in severity, no other aggravating alleviating factors.. Historical: - Allergies: 05/26 21:49 No Known Allergies; ke1 - PMHx: 21:49 Anxiety; COPD; Depression; GERD; Hypertension; ke1 - Immunization history:: Client reports receiving the 2nd dose of the Covid vaccine. - Social history:: Smoking status: Patient reports the use of cigarette tobacco products, smokes one pack cigarettes per day. - Family history:: not pertinent. ROS: 05/27 00:20 Constitutional: Negative for fever, chills, and weight loss, Cardiovascular: Negative rt for chest pain, palpitations, and edema, Abdomen/GI: Negative for abdominal pain, nausea, vomiting, diarrhea, and constipation, MS/Extremity: Negative for injury and deformity, Skin: Negative for injury, rash, and discoloration, Neuro: Negative for headache, weakness, numbness, tingling, and seizure, Psych: Negative for depression, anxiety, suicide ideation, homicidal ideation, and hallucinations. Respiratory: Positive for cough, shortness of breath, wheezing. Exam: 00:20 Head/Face: Normocephalic, atraumatic. Chest/axilla: Normal chest wall appearance and rt motion. Nontender with no deformity. No lesions are appreciated. Cardiovascular: Regular rate and rhythm with a normal S1 and S2. No gallops, murmurs, or rubs. Normal PMI, no JVD. No pulse deficits. Abdomen/GI: Soft, non-tender, with normal bowel sounds. No distension or tympany. No guarding or rebound. No evidence of tenderness throughout. Skin: Warm, dry with normal turgor. Normal color with no rashes, no lesions, and no evidence of cellulitis. MS/ Extremity: Pulses equal, no cyanosis. Neurovascular intact. Full, normal range of motion. Neuro: Awake and alert, GCS 15, oriented to person, place, time, and situation. Cranial nerves II-XII grossly intact. Motor strength 5/5 in all extremities. Sensory grossly intact. Cerebellar exam normal. Normal gait. Psych: Awake, alert, with orientation to person, place and time. Behavior, mood, and affect are within normal limits. 00:20 Constitutional: The patient appears Drowsy but easily arousable, conversant 00:20 Respiratory: Wheezes heard in all lung william, no respiratory distress. Vital Signs: 05/26 21:47 BP 145 / 93; Pulse 85; Resp 17; Temp 97.9; Pulse Ox 91% on R/A; Weight 68.04 kg; Height ke1 5 ft. 1 in. (154.94 cm); Pain 0/10; 22:30 BP 92 / 56; Pulse 73; Resp 16; Pulse Ox 94% on R/A; ke1 23:17 BP 142 / 73; Pulse 84; Resp 16; Pulse Ox 94% on R/A; ke1 21:47 Body Mass Index 28.34 (68.04 kg, 154.94 cm) ke1 MDM: 21:51 Patient medically screened. rt 05/27 00:20 Differential diagnosis: COPD, asthma, pulmonary edema, pneumothorax, pneumonia. rt Antibiotic administration: Not indicated, the patient does not have an appreciated infiltrate. Data reviewed: vital signs, nurses notes. Consideration of Admission/Observation Escalation of care including admission/observation considered. Test considered but Not performed: CT: Low suspicion for pulmonary embolism, CT scan not indicated. Care significantly affected by the following chronic conditions: Chronic Obstructive Pulmonary Disease. Counseling: I had a detailed discussion with the patient and/or guardian regarding: the historical points, exam findings, and any diagnostic results supporting the discharge/admit diagnosis, lab results, radiology results, the need for outpatient follow up, to return to the emergency department if symptoms worsen or persist or if there are any questions or concerns that arise at home. Response to treatment: the patient's symptoms have markedly improved after treatment. 05/26 21:53 Order name: CBC with Diff rt 05/26 20:53 Order name: CMP rt 05/26 21:53 Order name: Troponin High Sensitivity rt 05/26 21:53 Order name: BNP rt 05/26 21:53 Order name: ABG rt 05/26 22:41 Order name: CBC with Automated Diff; Complete Time: 23:52 EDMS 05/26 21:53 Order name: Chest Single View XRAY rt 05/26 22:28 Order name: RAD; Complete Time: 23:52 EDMS 05/26 22:46 Order name: Comprehensive Metabolic Panel; Complete Time: 23:52 EDMS 05/26 22:46 Order name: Troponin High Sensitivity; Complete Time: 23:52 EDMS 05/26 22:46 Order name: NT PRO-BNP; Complete Time: 23:52 EDMS 05/27 00:08 Order name: ABG Arterial Blood Gas; Complete Time: 00:14 EDMS Administered Medications: 05/26 22:25 Drug: DuoNeb (albuterol 2.5 mg, ipratropium 0.5 mg) (3:1) (2.5 mg - 0.5 mg) 3 ml Route: ke1 Nebulizer; 23:48 Follow up: Response: Marked relief of symptoms ke 22:25 Drug: SOLU-Medrol (methylPrednisoLONE) 125 mg Route: IVP; Site: right forearm; [facility] 23:48 Follow up: Response: Marked relief of symptoms ke Disposition Summary: 05/27/22 00:19 Discharge Ordered Location: Home rt Problem: an acute exacerbation rt Symptoms: have improved rt Condition: Stable rt Diagnosis - COPD/ Chronic obstructive pulmonary disease with (acute) exacerbation rt Followup: rt - With: Private Physician - When: 2 - 3 days - Reason: Discharge Instructions: - Discharge Summary Sheet rt - Chronic Obstructive Pulmonary Disease rt Forms: - Medication Reconciliation Form rt - Thank You Letter rt - Antibiotic Education rt - Prescription Opioid Use rt Prescriptions: - Prednisone 20 mg Oral Tablet - take 2 tablets by ORAL route once daily for 5 days; 10 tablet; Refills: 0, rt Product Selection Permitted Signatures: Dispatcher [employer] Bridger Thorpe RN RN ke1 Deshawn Monroy MD MD rt
[2022-05-27 00:50] VITALS: TEMP 97.9
[2022-05-27 00:52] VITALS: O2SAT 94
[2022-05-27 00:53] VITALS: BP 142/73
== END 2022-05-27 00:46 | disposition home or self-care (01) ==
LOC: ER 21:39
DX: J44.1 Chronic obstructive pulmonary disease with (acute) exacerbation (principal); F17.210 Nicotine dependence, cigarettes, uncomplicated; I10 Essential (primary) hypertension
CPT/HCPCS: 85025; 36415; 84484; 80053; 83880; 71045; 94640; 82805; 96374; 99284; J7613; J7644; J2930

== ENCOUNTER 2023-02-05 22:49 | Observation (INO) | payer OTHER ==
--- NOTE | 2023-02-05 23:15 | ER ---
Nurse's Notes [facility] Name: Silva Boogie Age: 62 yrs Sex: Female : 1960 Arrival Date: 02/05/2023 Time: 22:49 Bed 3 Private MD: Diagnosis: COPD/ Chronic obstructive pulmonary disease with (acute) exacerbation;Acute and chronic respiratory failure with hypoxia;Acute and chronic respiratory failure with hypercapnia;Tobacco abuse counseling;Tobacco use;Acidosis Presentation: 02/05 22:51 Chief complaint: EMS states: were called to patient's home for patient having shortness cm10 of breath. Pt states that she has been short of breath for the last 2 hours. Pt received 1 breathing Tx in route and solumedrol 125mg. Coronavirus screen: Vaccine status: Patient reports receiving the 2nd dose of the covid vaccine. Client denies travel out of the [place] in the last 14 days. Ebola Screen: Patient denies travel to an Ebola-affected area in the 21 days before illness onset. No symptoms or risks identified at this time. Initial Sepsis Screen: Does the patient meet any 2 criteria? No. Patient's initial sepsis screen is negative. Does the patient have a suspected source of infection? No. Patient's initial sepsis screen is negative. Risk Assessment: Do you want to hurt yourself or someone else? Patient reports no desire to harm self or others. Onset of symptoms was February 05, 2023. 22:51 Method Of Arrival: EMS: [facility] 10 22:51 Acuity: MAVIS 2 cm10 22:57 Care prior to arrival: Medication(s) given: Albuterol Neb x 1, Atrovent Neb x 1, cm10 Solumedrol 125mg. 22:58 Care prior to arrival: IV initiated. 20 GA, in the left antecubital area, Med neb given.cm10 Triage Assessment: 22:55 General: Appears distressed, uncomfortable, Behavior is cooperative. Pain: Denies pain. cm10 EENT: No deficits noted. No signs and/or symptoms were reported regarding the EENT system. Neuro: No deficits noted. Hernandes Agitation-Sedation Scale (RASS): +1 Restless Level of Consciousness is awake, alert, obeys commands, Oriented to person, place, time, situation. Cardiovascular: No deficits noted. Respiratory: Airway is patent Respiratory effort is labored, Respiratory pattern is tachypnea. GI: No deficits noted. No signs and/or symptoms were reported involving the gastrointestinal system. : No deficits noted. No signs and/or symptoms were reported regarding the genitourinary system. Derm: Skin is intact, Skin is clammy, diaphoretic. Musculoskeletal: No deficits noted. No signs and/or symptoms reported regarding the musculoskeletal system. Historical: - Allergies: 22:55 Sulfa (Sulfonamide Antibiotics); cm10 - PMHx: 22:55 Anxiety; COPD; Depression; GERD; Hypertension; cm10 - Immunization history:: Adult Immunizations unknown. - Social history:: Smoking status: Patient reports the use of cigarette tobacco products, smokes one pack cigarettes per day. Screenin:46 [facility] ED Fall Risk Assessment (Adult) History of falling in the last 3 months, cm10 including since admission No falls in past 3 months (0 pts) Confusion or Disorientation No (0 pts) Intoxicated or Sedated No (0 pts) Impaired Gait No (0 pts) Mobility Assist Device Used No (0 pt) Altered Elimination No (0 pt) Score/Fall Risk Level 0 - 2 = Low Risk Oriented to surroundings, Maintained a safe environment, Hourly rounding (assess needs \T\ fall precautionary measures) done. Abuse screen: Denies threats or abuse. Denies injuries from another. Nutritional screening: No deficits noted. Tuberculosis screening: No symptoms or risk factors identified. Assessment: 22:56 General: Respiratory at bedside placing pt on BiPap. cm10 23:45 Respiratory: Airway is patent Respiratory effort is even, unlabored, Respiratory cm10 pattern is regular, symmetrical, Patient placed on BiPAP:. 02 00:00 Reassessment: Patient appears in no apparent distress at this time. No changes from jw7 previously documented assessment. Patient and/or family updated on plan of care and expected duration. Pain level reassessed. Patient is alert, oriented x 3, equal unlabored respirations, skin warm/dry/pink. 01:30 Reassessment: Patient appears in no apparent distress at this time. No changes from jw7 previously documented assessment. Patient and/or family updated on plan of care and expected duration. Pain level reassessed. Patient is alert, oriented x 3, equal unlabored respirations, skin warm/dry/pink. 03:00 Reassessment: Patient appears in no apparent distress at this time. Patient and/or jw7 family updated on plan of care and expected duration. Pain level reassessed. Patient is alert, oriented x 3, equal unlabored respirations, skin warm/dry/pink. Patient states symptoms have improved. 03:27 General: Report given the [facility] Shearer. [facility] Vital Signs: 02/05 22:51 BP 168 / 102; Pulse 106; Resp 30; Temp 97.6(O); Pulse Ox 98% on R/A; Weight 68.04 kg; cm10 Height 5 ft. 0 in. ; Pain 0/10; 23:00 BP 133 / 81; Pulse 103; Resp 33; Pulse Ox 100% on BiPAP; cm10 23:45 BP 124 / 86; Pulse 99; Resp 21; Pulse Ox 100% on BiPAP; cm10 11 00:00 BP 123 / 83; Pulse 103; Resp 24; Pulse Ox 100% on BiPAP; FiO2 30 %; jw7 01:15 BP 114 / 97; Pulse 100; Resp 22; Pulse Ox 100% on BiPAP; jw7 02:00 BP 103 / 73; Pulse 95; Resp 21 S; Pulse Ox 100% on BiPAP; FiO2 30 %; jw7 03:00 BP 104 / 74; Pulse 98; Resp 22; Pulse Ox 98% on BiPAP; jw7 02/05 22:51 Body Mass Index 29.29 (68.04 kg, 152.4 cm) cm10 02/05 22:51 Pain Scale: Adult cm10 ED Course: 02/05 22:50 Patient arrived in ED. [facility] 22:50 Pedro Luis Garcia MD is Attending Physician. [facility] 22:55 Triage completed. [facility] 22:55 Provided Education on: ER process and procedures. . Client placed on continuous cardiac cm10 and pulse oximetry monitoring. NIBP monitoring applied. 22:57 Arm band placed on Patient placed in an exam room, on a stretcher, on oxygen, on cm10 monitor tech, on pulse oximetry. 23:05 Initial lab(s) drawn, by wi, sent to lab. First set of blood cultures drawn by me, cm10 COVID swab sent to lab. Flu and/or RSV swab sent to lab. Inserted saline lock: 18 gauge in right wrist, using aseptic technique. Blood collected. 23:13 [employer], Tigre is Hospitalizing Provider. shilpi 23:18 COVID-19 SARS RT PCR Sent. cm10 23:19 Flu Sent. cm10 23:19 Lactate w/ 2H reflex if indic. Sent. cm10 23:19 Basic Metabolic Panel Sent. cm10 23:19 CBC with Diff Sent. cm10 23:19 LFT's Sent. cm10 23:19 Magnesium Sent. cm10 23:19 NT PRO-BNP Sent. cm10 23:19 PT-INR Sent. cm10 23:19 Troponin HS Sent. cm10 23:27 XRAY Chest (1 view) In Process Unspecified. EDMS 23:34 Second set of blood cultures drawn by wi. cm10 23:46 Patient has correct armband on for positive identification. Bed in low position. Call cm10 light in reach. Side rails up X2. 02/06 00:27 Devon Horner, RN is Primary Nurse. bp 03:12 No provider procedures requiring assistance completed. Patient admitted, IV remains in jw place. Administered Medications: 02/05 23:19 Drug: Levalbuterol Inhalation 3.75 mg Inhalation once {Note: Administered by RT..} cm10 Route: Inhalation; 02/06 01:04 Follow up: Response: No adverse reaction [facility] 02/05 23:44 Drug: levofloxacin IVPB 500 mg 100 ml IVPB once over 60 mins Volume: 100 ml; Route: cm10 IVPB; Infused Over: 60 mins; Site: right wrist; 02/06 01:03 Follow up: Response: No adverse reaction; IV Status: Completed infusion; IV Intake: jw7 100ml 02/05 23:44 Drug: Decadron - Dexamethasone IVP 10 mg IVP once Route: IVP; Site: right wrist; cm10 02/06 01:04 Follow up: Response: No adverse reaction [facility] 02/05 23:44 Drug: Famotidine IVP 20 mg IVP once; dilute with 10 mL 0.9% NaCl; give over 2 minutes cm10 Route: IVP; Site: right wrist; 02/06 01:04 Follow up: Response: No adverse reaction [facility] 00:41 Drug: Levalbuterol Inhalation 1.25 mg Inhalation once Route: Inhalation; [facility] 03:19 Follow up: Response: No adverse reaction [facility] 01:03 Drug: Magnesium Sulfate IVPB 2 grams IVPB once over 1 hrs Route: IVPB; Infused Over: 1 jw7 hrs; Site: right wrist; 03:19 Follow up: Response: No adverse reaction; IV Status: Completed infusion; IV Intake: 01lofl9 Medication: 03:12 VIS not applicable for this client. jw7 Intake: 01:03 IV: 100ml; Total: 100ml. jw7 03:19 IV: 50ml; Total: 150ml. jw7 Outcome: 02/05 23:14 Decision to Hospitalize by Provider. shilpi 02/06 03:28 Admitted to Med/surg accompanied by tech, via stretcher, room 229, with oxygen, Report jw7 called to [facility] Shearer Condition: stable Instructed on the need for admit, Demonstrated understanding of instructions, 03:46 Patient left the ED. jw7 Signatures: Dispatcher [employer] EDPedro Luis Haney MD MD cha Peltier, Brian, RN RN Marylu Colon RN RN jw7 Jazz Warren RN RN cm10
--- NOTE | 2023-02-05 23:15 | EDPHYS ---
Physician Documentation [facility] Name: Silva Boogie Age: 62 yrs Sex: Female : 1960 Arrival Date: 02/05/2023 Time: 22:49 Bed 3 Private MD: ED Physician Pedro Luis Garcia HPI: 02/05 23:04 This 62 yrs old Female presents to ER via EMS with complaints of COPD shilpi EXACERBATION. 23:04 The patient has shortness of breath at rest, with light activity. Onset: The shilpi symptoms/episode began/occurred just prior to arrival, today. Duration: The symptoms are continuous, and are steadily getting worse. The patient's shortness of breath is aggravated by coughing. SMOKER, COPD. Associated signs and symptoms: Pertinent positives: non-productive cough. Severity of symptoms: At their worst the symptoms were moderate in the emergency department the symptoms are unchanged. The patient has experienced similar episodes in the past, multiple times. Historical: - Allergies: 22:55 Sulfa (Sulfonamide Antibiotics); cm10 - PMHx: 22:55 Anxiety; COPD; Depression; GERD; Hypertension; cm10 - Immunization history:: Adult Immunizations unknown. - Social history:: Smoking status: Patient reports the use of cigarette tobacco products, smokes one pack cigarettes per day. ROS: 23:07 Constitutional: Negative for fever, chills, and weight loss, Eyes: Negative for injury, shilpi pain, redness, and discharge, ENT: Negative for injury, pain, and discharge, Neck: Negative for injury, pain, and swelling, Cardiovascular: Negative for chest pain, palpitations, and edema, Abdomen/GI: Negative for abdominal pain, nausea, vomiting, diarrhea, and constipation, Back: Negative for injury and pain, : Negative for injury, bleeding, discharge, and swelling, MS/Extremity: Negative for injury and deformity, Skin: Negative for injury, rash, and discoloration, Neuro: Negative for headache, weakness, numbness, tingling, and seizure, Psych: Negative for depression, anxiety, suicide ideation, homicidal ideation, and hallucinations, Allergy/Immunology: Negative for hives, rash, and allergies, Endocrine: Negative for neck swelling, polydipsia, polyuria, polyphagia, and marked weight changes, Hematologic/Lymphatic: Negative for swollen nodes, abnormal bleeding, and unusual bruising, 23:07 Respiratory: Positive for cough, orthopnea, wheezing, expiratory, Exam: 23:07 Constitutional: This is a well developed, well nourished patient who is awake, alert, shilpi and in no acute distress. Head/Face: Normocephalic, atraumatic. Eyes: Pupils equal round and reactive to light, extra-ocular motions intact. Lids and lashes normal. Conjunctiva and sclera are non-icteric and not injected. Cornea within normal limits. Periorbital areas with no swelling, redness, or edema. ENT: Nares patent. No nasal discharge, no septal abnormalities noted. Tympanic membranes are normal and external auditory canals are clear. Oropharynx with no redness, swelling, or masses, exudates, or evidence of obstruction, uvula midline. Mucous membranes moist. Neck: Trachea midline, no thyromegaly or masses palpated, and no cervical lymphadenopathy. Supple, full range of motion without nuchal rigidity, or vertebral point tenderness. No Meningismus. Chest/axilla: Normal chest wall appearance and motion. Nontender with no deformity. No lesions are appreciated. Abdomen/GI: Soft, non-tender, with normal bowel sounds. No distension or tympany. No guarding or rebound. No evidence of tenderness throughout. Back: No spinal tenderness. No costovertebral tenderness. Full range of motion. Female : Normal external genitalia. Skin: Warm, dry with normal turgor. Normal color with no rashes, no lesions, and no evidence of cellulitis. MS/ Extremity: Pulses equal, no cyanosis. Neurovascular intact. Full, normal range of motion. Neuro: Awake and alert, GCS 15, oriented to person, place, time, and situation. Cranial nerves II-XII grossly intact. Motor strength 5/5 in all extremities. Sensory grossly intact. Cerebellar exam normal. Normal gait. Psych: Awake, alert, with orientation to person, place and time. Behavior, mood, and affect are within normal limits. 23:07 Cardiovascular: Rate: tachycardic, actual rate is 106 bpm, Rhythm: regular, Pulses: Pulses are 4+ in bilateral radial, brachial, femoral, popliteal, posterior tibial and and dorsalis pedis arteries.. Heart sounds: normal, Edema: is not appreciated, JVD: is not appreciated, 23:43 ECG was reviewed by the Attending Physician. [facility] Vital Signs: 22:51 BP 168 / 102; Pulse 106; Resp 30; Temp 97.6(O); Pulse Ox 98% on R/A; Weight 68.04 kg; cm10 Height 5 ft. 0 in. ; Pain 0/10; 23:00 BP 133 / 81; Pulse 103; Resp 33; Pulse Ox 100% on BiPAP; cm10 23:45 BP 124 / 86; Pulse 99; Resp 21; Pulse Ox 100% on BiPAP; cm10 02/06 00:00 BP 123 / 83; Pulse 103; Resp 24; Pulse Ox 100% on BiPAP; FiO2 30 %; jw7 01:15 BP 114 / 97; Pulse 100; Resp 22; Pulse Ox 100% on BiPAP; jw7 02:00 BP 103 / 73; Pulse 95; Resp 21 S; Pulse Ox 100% on BiPAP; FiO2 30 %; jw7 03:00 BP 104 / 74; Pulse 98; Resp 22; Pulse Ox 98% on BiPAP; 7 02/05 22:51 Body Mass Index 29.29 (68.04 kg, 152.4 cm) cm10 02/05 22:51 Pain Scale: Adult cm10 MDM: 02/05 22:50 Patient medically screened. [facility] 23:09 Differential diagnosis: Anemia asthma, Bronchitis CHF exacerbation, Chronic Obstructive shilpi Pulmonary Disease exercise-induced asthma, reactive airway, CHF, anaphylaxis, Myocardial Infarction pneumonia, pulmonary edema, Pulmonary Embolism reactive airway disease, Unstable Angina. Antibiotic administration: Levaquin given. Differential Diagnosis sepsis, flu. Immunization status: Influenza vaccine: within last 5 years. Data reviewed: vital signs, nurses notes, EMS record, lab test result(s), EKG, radiologic studies, plain films. Consideration of Admission/Observation Patient was admitted/placed on observation. Escalation of care including admission/observation considered. Management of patient was discussed with the following: Hospitalist: DR HUITRON. I considered the following discharge prescriptions or medication management in the emergency department Medications were administered in the Emergency Department. See MAR. Independent interpretation of the following test(s) in the Emergency Department EKG: See my EKG interpretation above. Test considered but Not performed:. Test considered but Not performed: CT: NO CT CHEST. External Records Reviewed:. Care significantly affected by the following chronic conditions: Hypertension, Chronic Obstructive Pulmonary Disease, ANXIETY , DEPRESSION. Counseling: I had a detailed discussion with the patient and/or guardian regarding the historical points, exam findings, and any diagnostic results supporting the discharge/admit diagnosis, the presence of at least one elevated blood pressure reading (>120/80) during this emergency department visit, lab results, radiology results, the need for further work-up and treatment in the hospital. 02/05 22:52 Order name: Basic Metabolic Panel; Complete Time: 03:43 [facility] 02/05 22:52 Order name: CBC with Diff; Complete Time: 03:43 [facility] 02/05 22:52 Order name: LFT's; Complete Time: 03:43 [facility] 02/05 22:52 Order name: Magnesium; Complete Time: 03:43 [facility] 02/05 22:52 Order name: NT PRO-BNP; Complete Time: 03:43 [facility] 02/05 22:52 Order name: PT-INR; Complete Time: 03:43 [facility] 02/05 22:52 Order name: Troponin HS; Complete Time: 03:43 [facility] 02/05 22:52 Order name: Blood Culture Adult (2) [facility] 02/05 22:52 Order name: Lactate w/ 2H reflex if indic.; Complete Time: 03:43 [facility] 02/05 22:52 Order name: ABG; Complete Time: 03:43 [facility] 02/05 22:52 Order name: Flu; Complete Time: 03:43 [facility] 02/05 23:14 Order name: COVID-19 SARS RT PCR; Complete Time: 03:43 02/06 00:55 Order name: CBC with Automated Diff [facility] 02/06 00:55 Order name: CBC with Automated Diff [facility] 02/06 00:55 Order name: Comprehensive Metabolic Panel [facility] 02/06 00:55 Order name: Comprehensive Metabolic Panel [facility] 02/05 22:52 Order name: XRAY Chest (1 view) [facility] 02/05 22:52 Order name: BIPAP [facility] 02/05 22:52 Order name: EKG; Complete Time: 22:53 [facility] 02/06 00:54 Order name: CONS Physician Consult [facility] 02/05 22:52 Order name: Cardiac monitoring; Complete Time: 23:19 [facility] 02/05 22:52 Order name: EKG - Nurse/Tech; Complete Time: 23:35 [facility] 02/05 22:52 Order name: IV Saline Lock; Complete Time: 23:19 [facility] 02/05 22:52 Order name: Labs collected and sent; Complete Time: 23:19 [facility] 02/05 22:52 Order name: O2 Per Protocol; Complete Time: : [facility] 02/05 22:52 Order name: O2 Sat Monitoring; Complete Time: 23:19 [facility] EC:43 Rate is 100 beats/min. Rhythm is regular. QRS [place] is Normal. CA interval is normal. shilpi QRS interval is normal. QT interval is normal. No Q waves. T waves are Normal. No ST changes noted. Clinical impression: NSR w/ Non-specific ST/T Changes and No evidence of ischemia. Interpreted by me. Reviewed by me. Administered Medications: 23:19 Drug: Levalbuterol Inhalation 3.75 mg Inhalation once {Note: Administered by RT..} cm10 Route: Inhalation; 02/06 01:04 Follow up: Response: No adverse reaction [facility] 02/05 23:44 Drug: levofloxacin IVPB 500 mg 100 ml IVPB once over 60 mins Volume: 100 ml; Route: cm10 IVPB; Infused Over: 60 mins; Site: right wrist; 02/06 01:03 Follow up: Response: No adverse reaction; IV Status: Completed infusion; IV Intake: jw7 100ml 02/05 23:44 Drug: Decadron - Dexamethasone IVP 10 mg IVP once Route: IVP; Site: right wrist; 10 02/06 01:04 Follow up: Response: No adverse reaction jw7 02/05 23:44 Drug: Famotidine IVP 20 mg IVP once; dilute with 10 mL 0.9% NaCl; give over 2 minutes cm10 Route: IVP; Site: right wrist; 02/06 01:04 Follow up: Response: No adverse reaction jw7 00:41 Drug: Levalbuterol Inhalation 1.25 mg Inhalation once Route: Inhalation; jw7 03:19 Follow up: Response: No adverse reaction jw7 01:03 Drug: Magnesium Sulfate IVPB 2 grams IVPB once over 1 hrs Route: IVPB; Infused Over: 1 jw7 hrs; Site: right wrist; 03:19 Follow up: Response: No adverse reaction; IV Status: Completed infusion; IV Intake: [id number] Disposition Summary: 02/05/23 23:14 Hospitalization Ordered Notes: Hospitalization Status: Inpatient Admission shilpi Provider: Tigre Mcginnis cha Location: Telemetry/MedSurg (Inpatient) shilpi Condition: Fair shilpi Problem: new shilpi Symptoms: have improved shilpi Bed/Room Type: Standard [facility] Room Assignment: 229(02/06/23 02:19) eb1 Diagnosis - COPD/ Chronic obstructive pulmonary disease with (acute) exacerbation shilpi - Acute and chronic respiratory failure with hypoxia shilpi - Acute and chronic respiratory failure with hypercapnia shilpi - Tobacco abuse counseling shilpi - Tobacco use shilpi - Acidosis shilpi Forms: - Medication Reconciliation Form shilpi - SBAR form shilpi - Leadership Thank You Letter shilpi Signatures: Dispatcher [employer] [facility] Pedro Luis Garcia MD MD cha Basinger, Emily RN RN eb1 Marylu Harding RN RN jw7 Jazz Warren RN RN cm10 Corrections: (The following items were deleted from the chart) 02/05 23:22 22:53 SARS-COV-2 Antigen Rapid+I.LAB.BRZ ordered. [facility] 02/06 02:19 02/05 23:14 shilpi eb1
[2023-02-05 23:30] LABS: Arterial Blood Carboxyhemoglob 7.8 % (0-1.5); Blood Gas Oxyhemoglobin 88.8 % (94-97); Blood O2 Saturation 98.2 % (92-98.5)
[2023-02-05] MEDS ORDERED: LEVALBUTEROL 1.25 MG/3 ML NEB ONE (23:30)
--- NOTE | 2023-02-05 23:34 | P.HP ---
Certification for Inpatient Patient admitted to: Inpatient With expected LOS: >2 Midnights Patient will require the following post-hospital care: None Practitioner: I am a practitioner with admitting privileges, knowledge of patient current condition, hospital course, and medical plan of care. Services: Services provided to patient in accordance with Admission requirements found in Title 42 Section 412.3 of the Code of Federal Regulations Patient History Date of Service: 02/06/23 Reason for admission: SOB History of Present Illness: 62 yrs old Female with a past medical history of COPD and history of smoking brought to ER with shortness of breath which has been progressively worsening over the last few days. Denies any fever or chills. Associated with cough with mucoid expectoration Denies any nausea vomiting or diarrhea. Denies any fever or chills. Patient has been short of breath worsened with minimal exertion At the time of interview patient is on BiPAP hence could not offer any much history. Most of the history is obtained from the chart review and also talking to the ER physician She was assessed in the ER and is admitted for further management of COPD exacerbation and hypercapnic toxic respiratory failure . Allergies No Known Allergies Allergy (Unverified 06/28/11 18:17) Home medications list reviewed: Yes Home Medications: Aripiprazole [Abilify] 2 mg PO DAILY 02/06/23 Dextroamphetamine/Amphetamine [Adderall 15 mg Tablet] 15 mg PO BID 02/06/23 Esomeprazole Magnesium 40 mg PO DAILY 02/06/23 Fluticasone/Umeclidin/Vilanter [Trelegy Ellipta 200-62.5-25] 1 puff IH DAILY 02/06/23 Losartan Potassium [Cozaar*] 50 mg PO BID 02/06/23 Metoprolol Succinate [Toprol Xl*] 25 mg PO DAILY 02/06/23 Trazodone HCl [Desyrel] 100 mg PO BEDTIME 02/06/23 Venlafaxine HCl [Effexor XR] 300 mg PO DAILY 02/06/23 - Past Medical/Surgical History -: COPD - Family History Father -: Cancer Notes: prostate Mother -: Cancer Notes: lung cancer Sister -: Cancer Notes: lung and brain Review of Systems 10-point ROS is otherwise unremarkable General: Weakness, Malaise Eyes: Unremarkable ENT: Nose Congestion, Unremarkable Respiratory: Cough, Shortness of Breath, SOB with Excertion Cardiovascular: Chest Pain, Unremarkable Gastrointestinal: Nausea, Unremarkable Genitourinary: Unremarkable Musculoskeletal: Back Pain, Unremarkable Integumentary: Unremarkable Neurological: Weakness, Unremarkable Physical Examination - Vital Signs Temperature: 99.2 F Blood Pressure: 146/110 Pulse: 78 Respirations: 19 Pulse Ox (%): 98 - Physical Exam General: Alert, Oriented x3, Moderate distress HEENT: Atraumatic, Normocephalic Neck: Supple Respiratory: Diminished, Crackles/rales, Expiratory wheezes, Rhonchi/gurgles Cardiovascular: No edema, Regular rate/rhythm, Normal S1 S2 Capillary refill: <2 Seconds Gastrointestinal: Soft and benign, W/out hepatosplenomegaly Musculoskeletal: No clubbing, No swelling Integumentary: No rashes Neurological: Normal speech, Normal strength at 5/5 x4 extr, Normal tone, Cranial nerves 3-12 intact Lymphatics: No axilla or inguinal lymphadenopathy Assessment and Plan - Problems (Diagnosis) (1) COPD exacerbation Current Visit: Yes Status: Acute Plan: Start her on bronchodilators Added on steroids Oxygen supplementation History of smoking Advised about smoking cessation Pulmonology consulted On BiPAP (2) Acute respiratory failure with hypoxia and hypercapnia Current Visit: Yes Status: Acute Plan: Pulmonology consult Continue BiPAP We will try to wean down Continuous pulse ox Awaiting further recommendations from pulmonology (3) HTN (hypertension) Current Visit: Yes Status: Chronic Plan: Continue home medications including losartan Titrate antihypertensives Hydralazine as needed (4) HLD (hyperlipidemia) Current Visit: Yes Status: Chronic Plan: Continue statin (5) Anxiety Current Visit: Yes Status: Chronic Plan: Continue home medications Discharge Plan: Home Plan to discharge in: Greater than 2 days - Advance Directives Does patient have a Living Will: No Does patient have a Durable POA for Healthcare: No - Code Status/Comfort Care Code Status Assessed: Yes Code Status: Full Code Physician Review: Patient Assessed, Agree with Above Assessment and Plan Time Spent Managing Pts Care (In Minutes): 48
[2023-02-05 23:47] LABS: Absolute Lymphocytes (CBC) 2.2 K/uL (0.7-4.9); Hematocrit 46.9 % (36.0-45.0); Lymphocytes % 19.8 % (15.3-44.8); MCV 94.7 fL (80-100); MPV 7.8 fL (7.6-11.3); Platelets 229 thou/uL (152-406); RBC Red Blood Cell Count 4.95 M/uL (3.86-4.86)
[2023-02-05 23:51] LABS: Protime INR 0.85
[2023-02-05] MEDS ORDERED: Levofloxacin500mg IV 500 MG/100 ML BAG IV ONE (23:51)
[2023-02-05] MEDS ORDERED: dexAMETHasone 10 MG/ML VIAL ONE (23:51)
[2023-02-05] MEDS ORDERED: FAMOTIDINE 20 MG/2 ML VIAL IV ONE (23:52)
[2023-02-05 23:54] LABS: ALT/SGPT 32 U/L (13-56); AST/SGOT 20 U/L (15-37); Albumin 3.7 g/dL (3.4-5.0); Alkaline Phosphatase 158 U/L (45-117); BUN Blood Urea Nitrogen 16 mg/dL (7-18); Bicarbonate 30 mEq/L (21-32); Bilirubin Total 0.2 mg/dL (0.2-1.0); Glomerular Filtration Rate 103 ml/min (=/>90); Glucose Level 145 mg/dL (74-106); Magnesium 2.4 mg/dL (1.6-2.4); NT PRO-BNP 239 pg/mL (<125); Potassium 4.5 mEq/L (3.5-5.1); Protein, Total 7.9 g/dL (6.4-8.2); Sodium Level 134 mEq/L (136-145); Troponin High Sensitivity 11.3 pg/mL (<58.9)
[2023-02-05 23:55] LABS: Bilirubin Direct < 0.1 mg/dL (0-0.2); Bilirubin Indirect, Calculated ND mg/dL (0.2-0.8)
[2023-02-06] MEDS ORDERED: Magnesium Sulfate 2gm IVPB 2 G/50 ML BAG IV ONE (00:39)
[2023-02-06] MEDS ORDERED: LEVALBUTEROL 1.25 MG/3 ML NEB ONE (00:39)
[2023-02-06] MEDS ORDERED: ONDANSETRON 4 MG/2 ML VIAL IV PRN (00:48)
[2023-02-06] MEDS ORDERED: MORPHINE 2 MG/ML SYR IV PRN (00:48)
[2023-02-06] MEDS ORDERED: ACETAMINOPHEN 500 MG TAB PO PRN (00:48)
[2023-02-06] MEDS ORDERED: ALBUTEROL 2.5 MG/3 ML NEB SOL NEB PRN (00:48)
[2023-02-06] MEDS: IPRATROPIUM BROM 0.5MG/2.5ML NEB SCH ×4 (02:00→19:40)
[2023-02-06] MEDS ORDERED: IPRATROPIUM BROM 0.5MG/2.5ML ONE (02:12)
[2023-02-06 03:33] VITALS: BMI 29.2
[2023-02-06] MEDS: METHYLPREDNISOLONE 125 MG INJ IV SCH ×2 (06:52→12:09)
[2023-02-06] MEDS: PANTOPRAZOLE 40MG TABLET PO SCH (06:53)
[2023-02-06 08:54] VITALS: O2SAT 94
[2023-02-06] MEDS: AMPHETAMINE PO SCH ×2 (09:00→20:46)
[2023-02-06] MEDS: HOME MED 1 EA UNK (Fluticasone/Umeclidin/Vilanter [Trelegy Ellipta 200-62.5-25] Blst.W.Dev IH SCH (09:00)
[2023-02-06] MEDS: ARIPIPRAZOLE 2 MG PO SCH (09:00)
[2023-02-06] MEDS: DEXTROAMPHETAMINE PO SCH ×2 (09:00→20:46)
[2023-02-06] MEDS: VENLAFAXINE HCL XR 75 MG CAP PO SCH (09:26)
[2023-02-06] MEDS: LOSARTAN POTASSIUM 50 MG TABLET PO SCH ×2 (09:26→20:44)
[2023-02-06] MEDS: METOPROLOL XL 25 MG TAB PO SCH (09:26)
--- NOTE | 2023-02-06 09:45 | EKG ---
Test Date: 2023-02-05 Test Time: 23:25:16 Yeast Tender: HARRIET MEASUREMENT RESULTS: Intervals: Rate: 100 MT: 130 QRSD: 90 QT: 352 QTc: 454 Hardy: P: 79 MT: 130 QRS: 57 T: 91 INTERPRETIVE STATEMENTS: Normal sinus rhythm Normal ECG Compared to ECG 08/09/2016 11:10:16 Sinus tachycardia no longer present Electronically Signed On 02-06-23 09:45:00 CDT by Brian Larson
--- NOTE | 2023-02-06 12:42 | RAD REPORT ---
EXAM DESCRIPTION: Chest Single View CLINICAL HISTORY: 2 years Female, COPD;Cough COMPARISON: None IMPRESSION: Chronic lung changes. No focal consolidation. No pleural effusion. No pneumothorax. Cardiomediastinal silhouette is within normal limits. Remote posterior mild deformity of the right rib cage. Electronically signed by: Anton Maier DO 02/06/2023 12:07 AM CDT Due to temporary technical issues with the PACS/Fluency reporting system, reports are being signed by the in house radiologist without review as a courtesy to ensure prompt reporting. The interpreting r adiologist is fully responsible for the content of the report.
--- NOTE | 2023-02-06 16:05 | P.CNS ---
Date of Consult: 02/06/23 Reason for Consult: Respiratory failure COPD exacerbation Chief Complaint: SOB History of Present Illness: Patient is 62 years of age history of lobectomy from lung cancer few years ago admitted with sudden onset of shortness of breath to the extent that she was unable to even get out of the bathroom and does have a history of COPD follows up with a carpenter mate in [place] and is taking nebulizers and trilogy at home feels a little better she was hypoxic hypercapnic on admission smokes 1 pack a day apparently she changed the type of cigarettes she was smoking Allergies Sulfa (Sulfonamide Antibiotics) Adverse Reaction (Mild, Verified 02/06/23 07:32) Nausea/Vomiting Home Medications: Albuterol Neb [Proventil 0.083% Neb Soln] 2.5 mg NEB Q6HP PRN #60 amp 02/06/23 Aripiprazole [Abilify] 2 mg PO DAILY 02/06/23 Cefdinir [Cefdinir*] 300 mg PO BID #10 cap 02/06/23 Dextroamphetamine/Amphetamine [Adderall 15 mg Tablet] 15 mg PO BID 02/06/23 Doxycycline Hyclate [Lymepak] 100 mg PO BID #14 tab 02/06/23 Esomeprazole Magnesium 40 mg PO DAILY 02/06/23 Fluticasone/Umeclidin/Vilanter [Trelegy Ellipta 200-62.5-25] 1 puff IH DAILY 02/06/23 Ipratropium Neb [Atrovent*] 0.5 mg NEB [id number] #60 amp 02/06/23 Losartan Potassium [Cozaar*] 50 mg PO BID 02/06/23 Metoprolol Succinate [Toprol Xl*] 25 mg PO DAILY 02/06/23 Trazodone HCl [Desyrel] 100 mg PO BEDTIME 02/06/23 Venlafaxine HCl [Effexor XR] 300 mg PO DAILY 02/06/23 predniSONE [Deltasone] 20 mg PO BID #20 tab 02/06/23 - Past Medical/Surgical History Diabetic: No -: COPD -: HTN -: Depression -: Anxiety -: GERD -: barthons gland -: hysterectomy -: lung sx -: tonsilectomy - Family History Father Medical History: Cancer Notes: prostate Mother Medical History: Cancer Notes: lung cancer Sister Medical History: Cancer Notes: lung and brain - Social History Smoking Status: Current every day smoker Alcohol use: Yes CD- Drugs: No Caffeine use: Yes Place of Residence: Home Review of Systems 10-point ROS is otherwise unremarkable General: Weakness Respiratory: Cough, Shortness of Breath Physical Examination Temp Pulse Resp BP Pulse Ox 97.6 F 112 H 18 141/86 H 94 02/06/23 12:00 02/06/23 12:00 02/06/23 12:00 02/06/23 12:00 02/06/23 12:00 General: Alert, Oriented x3, Mild distress Respiratory: Diminished, Expiratory wheezes Cardiovascular: No edema, Normal pulses, Regular rate/rhythm Gastrointestinal: Normal bowel sounds, Soft and benign Laboratory Data (last 24 hrs) 02/05/23 02/05/23 02/05/23 23:05 23:05 23:05 WBC 10.90 Hgb 16.0 H Hct 46.9 H Plt Count 229 PT 9.3 L INR 0.85 Sodium 134 L Potassium 4.5 BUN 16 Creatinine 0.57 Glucose 145 H Magnesium 2.4 Total Bilirubin 0.2 AST 20 ALT 32 Alkaline Phosphatase 158 H - Problems (1) Acute respiratory failure with hypoxia and hypercapnia Current Visit: Yes Status: Acute Plan: Patient is 62 years of age admitted with acute onset of respiratory distress hypoxic hypercapnic chest x-ray shows volume loss on the right side. Ability of this shortness of breath we will do a CT pulmonary angiogram patient has mild polycythemia continue with bronchodilators steroids add Daliresp
[2023-02-06] MEDS ORDERED: METHYLPREDNISOLONE 40 MG INJ IV SCH (17:00)
[2023-02-06] MEDS: ROFLUMILAST 500 MCG TABLET PO SCH (17:36)
[2023-02-06] MEDS: METHYLPREDNISOLONE 40 MG INJ IV SCH (18:00)
[2023-02-06] MEDS ORDERED: TRAZODONE 50 MG TABLET PO SCH (21:00)
--- NOTE | 2023-02-06 22:48 | RAD REPORT ---
EXAM DESCRIPTION: CT - Chest For Pe Angio - 02/06/2023 6:29 pm CLINICAL HISTORY: Rule out pulmonary embolus COMPARISON: THORAX W CONTRAST dated 12/31/2011; THORAX W CONTRAST dated 06/21/2011; CTANGIO CHEST FOR PE dated 04/04/2009; Abdomen Pelvis W Contrast dated 08/09/2016 TECHNIQUE: Thin axial CT images of the chest were obtained following administration of 100 mL Isovue 370 IV contrast. Multiplanar reconstructions, and maximum intensity projection reconstructions were generated and reviewed. Exam utilizes a protocol for optimal evaluation of pulmonary arterial tree. All CT scans are performed using dose optimization technique as appropriate and may include automated exposure control or mA/KV adjustment according to patient size. FINDINGS: Postsurgical changes of right lobectomy, likely involving the right lower and middle lobes , with obliteration of the corresponding right pulmonary artery branches. Pulmonary arteries are othe rwise patent. No emboli or other suspicious finding. No acute or significant aorta findings. Irregular peribronchovascular mass in the central upper lobe on the right measuring 1.4 x 1.2 cm in g reatest axial dimensions and 1.5 cm in greatest craniocaudal extent. Other small irregular nodules in cluding a 9 millimeter upper segment left lower lobe nodule on axial image 76/141, and a 6 millimeter right upper lobe nodule more superiorly on axial image 110. Other scattered ground-glass nodules in the apart lobes bilaterally. Background moderate centrilobular emphysematous changes. No pleural effu antonio. Areas of pleural thickening and/or loculated trace fluid with calcifications in the right lung base, not significantly changed. No pneumothorax. No abnormal mediastinal or hilar masses or lymphadenopathy seen. No chest wall mass or abnormal axill iary lymphadenopathy. IMPRESSION: No evidence of acute central pulmonary emboli. Bilateral irregular pulmonary nodules, largest measuring 1.4 cm in the right upper lobe and [address] in the upper segment left lower lobe, concerning for malignancy. Other smaller nodules and ground -glass opacities are indeterminate. The dominant right upper lobe nodule can potentially be targeted by CT guided biopsy, although it is in close proximity to a pulmonary artery branch which increases r isk of bleeding.
[2023-02-07] MEDS: METHYLPREDNISOLONE 40 MG INJ IV SCH ×2 (00:02→06:02)
[2023-02-07] MEDS: IPRATROPIUM BROM 0.5MG/2.5ML NEB SCH ×2 (02:00→08:00)
[2023-02-07 03:31] LABS: Absolute Lymphocytes (CBC) 0.8 K/uL (0.7-4.9); Hematocrit 40.8 % (36.0-45.0); Lymphocytes % 6.5 % (15.3-44.8); MCV 93.9 fL (80-100); MPV 7.8 fL (7.6-11.3); Platelets 194 thou/uL (152-406); RBC Red Blood Cell Count 4.35 M/uL (3.86-4.86)
[2023-02-07 03:56] LABS: Albumin 3.2 g/dL (3.4-5.0); Bilirubin Total 0.2 mg/dL (0.2-1.0); Protein, Total 6.5 g/dL (6.4-8.2)
[2023-02-07 03:57] LABS: Magnesium 2.2 mg/dL (1.6-2.4)
[2023-02-07] MEDS: PANTOPRAZOLE 40MG TABLET PO SCH (06:01)
[2023-02-07] MEDS: HOME MED 1 EA UNK (Fluticasone/Umeclidin/Vilanter [Trelegy Ellipta 200-62.5-25] Blst.W.Dev IH SCH (09:00)
[2023-02-07] MEDS: AMPHETAMINE PO SCH (09:00)
[2023-02-07] MEDS: ARIPIPRAZOLE 2 MG PO SCH (09:00)
[2023-02-07] MEDS: DEXTROAMPHETAMINE PO SCH (09:00)
[2023-02-07] MEDS ORDERED: ALPRAZOLAM 0.5 MG TABLET PO ONE (10:00)
[2023-02-07] MEDS: ROFLUMILAST 500 MCG TABLET PO SCH (10:10)
[2023-02-07] MEDS: LOSARTAN POTASSIUM 50 MG TABLET PO SCH (10:11)
[2023-02-07] MEDS: METOPROLOL XL 25 MG TAB PO SCH (10:11)
[2023-02-07] MEDS: VENLAFAXINE HCL XR 75 MG CAP PO SCH (10:11)
--- NOTE | 2023-02-07 10:55 | P.PN ---
Subjective Date of Service: 02/07/23 Chief Complaint: COPD exacerbation Subjective: Improving (Patient is improving doing much better) Review of Systems General: Weakness Respiratory: Shortness of Breath Physical Examination - Vital Signs Temperature: 97.8 F Blood Pressure: 175/88 Pulse: 100 Respirations: 18 Pulse Ox (%): 92 - Physical Exam General: Alert, Oriented x3 Neck: Supple Respiratory: Clear to auscultation bilaterally, Diminished, Expiratory wheezes Cardiovascular: No edema, Regular rate/rhythm, Normal S1 S2 Assessment And Plan - Current Problems (Diagnosis) (1) Acute respiratory failure with hypoxia and hypercapnia Current Visit: Yes Status: Acute Plan: Patient is 62 years of age admitted with hypoxic hypercapnic respiratory failure secondary to COPD exacerbation patient is an active smoker doing much better today agree with discharge home on antibiotics steroids have also added Daliresp patient has trilogy at home 94% on room air no evidence of pulmonary embolism (2) Lung cancer Current Visit: Yes Status: Acute Plan: Patient does have a history of lung cancer s/p lobectomy on the right side ap parently she has a recurrence with a solitary pulmonary nodule noted on the right side according to the patient she has been evaluated by her oncologist has had radiation also a PET scan in December to follow-up with her she will be given a copy of her disc and the report Qualifiers: Laterality: right Physician Review: Patient Assessed, Agree with Above Assessment and Plan
[2023-02-07 12:29] VITALS: BP 125/68; TEMP 97.2
== END 2023-02-07 11:52 | disposition home or self-care (01) ==
LOC: ER 22:49 → ERHOLD 02-06 01:39 → INTOOBSV 02-06 01:39 → 2ND 02-06 03:21
PROVIDERS: ADMIT Family Medicine; ATTEND Hospitalist
DX: J96.01 Acute respiratory failure with hypoxia (principal); J96.02 Acute respiratory failure with hypercapnia; J44.9 Chronic obstructive pulmonary disease, unspecified; F17.210 Nicotine dependence, cigarettes, uncomplicated; I10 Essential (primary) hypertension; E78.5 Hyperlipidemia, unspecified; F41.9 Anxiety disorder, unspecified; Z85.118 Personal history of other malignant neoplasm of bronchus and lung; Z90.2 Acquired absence of lung [part of]; Z88.2 Allergy status to sulfonamides; Z11.52 Encounter for screening for COVID-19
CPT/HCPCS: 96365; 96367; 93005; 87040 ×2; 85025 ×2; 80048; 36415 ×2; 83735 ×2; 85610; 80076; 83605; 84484; 80053; 83880 ×2; 87635; 87804 ×2; 71275; 71045; 82805; 94760 ×3; 96375; 99285; 96366; 94660 ×2; J3475; J7614 ×2; J7644 ×5; J1100; J2270; J2930 ×2; J2920 ×3; G0378 ×3

== ENCOUNTER 2023-04-17 14:50 | Observation (INO) | payer OTHER ==
[2023-04-17 15:31] LABS: Absolute Lymphocytes (CBC) 1.6 K/uL (0.7-4.9); Hematocrit 43.1 % (36.0-45.0); Lymphocytes % 20.4 % (15.3-44.8); MCV 92.2 fL (80-100); MPV 7.5 fL (7.6-11.3); Platelets 203 thou/uL (152-406); RBC Red Blood Cell Count 4.67 M/uL (3.86-4.86)
[2023-04-17 15:51] LABS: Albumin 3.9 g/dL (3.4-5.0); Bilirubin Total 0.3 mg/dL (0.2-1.0); Potassium 3.7 mEq/L (3.5-5.1); Protein, Total 7.8 g/dL (6.4-8.2)
[2023-04-17 15:54] LABS: Protime INR 1.05
[2023-04-17 16:11] LABS: SARS-CoV-2 Antigen Rapid Res Negative (Negative)
--- NOTE | 2023-04-17 16:28 | ER ---
Nurse's Notes [facility] Name: Silva Boogie Age: 62 yrs Sex: Female : 1960 Arrival Date: 04/17/2023 Time: 14:50 Bed 4 Private MD: Diagnosis: COPD/ Chronic obstructive pulmonary disease with (acute) exacerbation;Hypoxemia Presentation: 04/17 14:51 Chief complaint: EMS states: toned out to patient home for shortness of breath. EMS ld1 reports pt being 81% RA. Coronavirus screen: At this time, the client does not indicate any symptoms associated with coronavirus-19. Ebola Screen: No symptoms or risks identified at this time. Initial Sepsis Screen: Does the patient meet any 2 criteria? No. Patient's initial sepsis screen is negative. Does the patient have a suspected source of infection? No. Patient's initial sepsis screen is negative. Risk Assessment: Do you want to hurt yourself or someone else? Patient reports no desire to harm self or others. Onset of symptoms was April 17, 2023. 14:51 Method Of Arrival: EMS: [facility] ld1 14:51 Acuity: MAVIS 3 ld1 Triage Assessment: 14:52 General: Appears in no apparent distress. comfortable, Behavior is calm, cooperative, ld1 appropriate for age. Pain: Denies pain. EENT: No signs and/or symptoms were reported regarding the EENT system. Neuro: Level of Consciousness is awake, alert, obeys commands, Oriented to person, place, time, situation. Cardiovascular: Capillary refill < 3 seconds Patient's skin is warm and dry. Respiratory: Reports shortness of breath at rest on exertion Airway is patent Respiratory effort is even, unlabored, Onset: The symptoms/episode began/occurred gradually, the patient has moderate shortness of breath. GI: Abdomen is round non-distended. : No signs and/or symptoms were reported regarding the genitourinary system. Derm: No signs and/or symptoms reported regarding the dermatologic system. Musculoskeletal: No signs and/or symptoms reported regarding the musculoskeletal system. Historical: - Allergies: 14:52 Sulfa (Sulfonamide Antibiotics); ld1 - PMHx: 14:52 Anxiety; COPD; Depression; GERD; Hypertension; ld1 - Immunization history:: Adult Immunizations up to date. - Social history:: Smoking status: Patient reports the use of cigarette tobacco products, smokes one pack cigarettes per day. - Family history:: not pertinent. - Hospitalizations: : No recent hospitalization is reported. Screenin:54 [facility] ED Fall Risk Assessment (Adult) History of falling in the last 3 months, ld1 including since admission No falls in past 3 months (0 pts). Abuse screen: Denies threats or abuse. Denies injuries from another. Nutritional screening: No deficits noted. Tuberculosis screening: No symptoms or risk factors identified. Assessment: 14:54 Reassessment: See triage assessment. Cardiovascular: Capillary refill < 3 seconds ld1 Patient's skin is warm and dry. Rhythm is sinus tachycardia. Respiratory: Airway is patent Respiratory effort is even, labored, Breath sounds with wheezes bilaterally. GI: Abdomen is flat, non-distended. : No signs and/or symptoms were reported regarding the genitourinary system. EENT: No signs and/or symptoms were reported regarding the EENT system. Derm: No signs and/or symptoms reported regarding the dermatologic system. Musculoskeletal: No signs and/or symptoms reported regarding the musculoskeletal system. Vital Signs: 14:51 BP 118 / 67; Pulse 69; Resp 20; Pulse Ox 100% on Nebulizer Mask; Weight 63.5 kg; Height ld1 5 ft. 4 in. ; Pain 0/10; 16:01 BP 138 / 97; Pulse 122; Resp 26; Pulse Ox 97% ; ko1 18:42 BP 142 / 82; Pulse 95; Resp 16; Pulse Ox 99% ; ko1 14:51 Body Mass Index 24.03 (63.50 kg, 162.56 cm) ld1 14:51 Pain Scale: Adult ld1 ED Course: 14:51 Patient arrived in ED. ld1 14:51 Emerson Carrillo MD is Attending Physician. rn 14:52 Triage completed. ld1 14:52 Arm band placed on right wrist. ld1 14:54 Patient has correct armband on for positive identification. Placed in gown. Bed in low ld1 position. Call light in reach. Side rails up X2. hospital monitor on. Pulse ox on. NIBP on. Door closed. Noise minimized. Warm blanket given. 14:54 No provider procedures requiring assistance completed. ld1 14:54 Maintain EMS IV. Dressing intact. Good blood return noted. Site clean \T\ dry. Gauge \T\ ld 1 site: 20G LAC. 15:09 Mattie Shu, RN is Primary Nurse. ld1 15:27 Inserted saline lock: 18 gauge in right antecubital area, using aseptic technique. zm Blood collected. 15:28 Chest Single View XRAY In Process Unspecified. EDMS 15:28 Flu Sent. zm 15:28 SARS RAPID Sent. zm 15:28 Blood Culture Adult (2) Sent. zm 15:28 CBC with Diff Sent. zm 15:28 CMP Sent. zm 15:28 Lactate w/ 2H reflex if indic. Sent. zm 15:28 Protime (+inr) Sent. zm 15:28 Ptt, Activated Sent. zm 16:28 Jaleel Whitehead MD is Hospitalizing Provider. rn Administered Medications: 16:44 Drug: MethylPrednisoLONE IVP 125 mg IVP once Route: IVP; Site: right antecubital; ko1 16:45 Drug: Magnesium Sulfate IVPB 1 grams IVPB once over 1 hrs Route: IVPB; Infused Over: 1 ko1 hrs; Site: right antecubital; 17:01 Drug: Levalbuterol Inhalation 1.25 mg Inhalation once Route: Inhalation; ko1 17:01 Drug: Ipratropium Inhalation Aerosol 0.5 mg Inhalation once Route: Inhalation; ko1 17:01 Drug: Levalbuterol Inhalation 1.25 mg Inhalation once Route: Inhalation; ko1 17:01 Drug: Levalbuterol Inhalation 1.25 mg Inhalation once Route: Inhalation; ko1 17:02 Drug: Zithromax IVPB 500 mg IVPB once over 1 hrs; mix in 250 mL NS Route: IVPB; Infused ko1 Over: 1 hrs; Site: right antecubital; Medication: 16:01 VIS not applicable for this client. ko1 Outcome: 16:28 Decision to Hospitalize by Provider. rn 18:43 Patient left the ED. ko1 Signatures: Dispatcher [employer] EDMS Emerson Carrillo MD MD rn Sims, Lauren, RN RN ld1 Nancie Warren Kathy, RN RN ko1
--- NOTE | 2023-04-17 16:28 | EDPHYS ---
Physician Documentation [facility] Name: Silva Boogie Age: 62 yrs Sex: Female : 1960 Arrival Date: 04/17/2023 Time: 14:50 Bed 4 Private MD: ED Physician Emerson Carrillo HPI: 04/17 14:59 This 62 yrs old Female presents to ER via EMS with complaints of Shortness Of Breath. rn 14:59 The patient has shortness of breath at rest, with light activity. Onset: The rn symptoms/episode began/occurred 1 week(s) ago. Duration: The symptoms are continuous. The patient's shortness of breath is aggravated by coughing, exertion, light activity, is alleviated by nebulizer treatment. Associated signs and symptoms: Pertinent positives: non-productive cough, Pertinent negatives: fever, hemoptysis. Severity of symptoms: At their worst the symptoms were moderate in the emergency department the symptoms have improved. The patient has experienced similar episodes in the past. Patient reports 1 week of cough and shortness of breath that is not improving with home nebulizer treatment. Patient has appointment with Dr. Nevarez on Friday but does not feel like she could last that long. No history of DVT or PE. No trauma. No syncope. No chest pain.. Historical: - Allergies: 14:52 Sulfa (Sulfonamide Antibiotics); ld1 - PMHx: 14:52 Anxiety; COPD; Depression; GERD; Hypertension; ld1 - Immunization history:: Adult Immunizations up to date. - Social history:: Smoking status: Patient reports the use of cigarette tobacco products, smokes one pack cigarettes per day. - Family history:: not pertinent. - Hospitalizations: : No recent hospitalization is reported. ROS: 14:59 Constitutional: Negative for fever, chills, and weight loss, Neck: Negative for injury, rn pain, and swelling, Cardiovascular: Negative for chest pain, palpitations, and edema, Respiratory: Positive for cough and shortness of breath Abdomen/GI: Negative for abdominal pain, nausea, vomiting, diarrhea, and constipation, MS/Extremity: Negative for injury and deformity, Skin: Negative for injury, rash, and discoloration, Neuro: Positive for generalized weakness and malaise Exam: 14:59 Constitutional: This is a well developed, well nourished patient who is awake, alert, rn moderate tachypnea Head/Face: Normocephalic, atraumatic. ENT: Dry mucous membranes, no stridor Cardiovascular: Tachycardic, regular. Respiratory: Moderate tachypnea with expiratory wheezing and pronounced expiratory phase MS/ Extremity: Pulses equal, no cyanosis. Equal circumference. Neuro: Awake and alert, GCS 15 Vital Signs: 14:51 BP 118 / 67; Pulse 69; Resp 20; Pulse Ox 100% on Nebulizer Mask; Weight 63.5 kg; Height ld1 5 ft. 4 in. ; Pain 0/10; 16:01 BP 138 / 97; Pulse 122; Resp 26; Pulse Ox 97% ; ko1 18:42 BP 142 / 82; Pulse 95; Resp 16; Pulse Ox 99% ; ko1 14:51 Body Mass Index 24.03 (63.50 kg, 162.56 cm) ld1 14:51 Pain Scale: Adult ld1 MDM: 14:51 Patient medically screened. rn 16:26 Differential diagnosis: Anemia Chronic Obstructive Pulmonary Disease Myocardial rn Infarction pneumonia, Pneumothorax. Data reviewed: vital signs, nurses notes, lab test result(s), radiologic studies, plain films, and as a result, I will admit patient. Consideration of Admission/Observation Patient was admitted/placed on observation. Escalation of care including admission/observation considered. Counseling: I had a detailed discussion with the patient and/or guardian regarding the historical points, exam findings, and any diagnostic results supporting the discharge/admit diagnosis, lab results, radiology results, the need for further work-up and treatment in the hospital. Response to treatment: the patient's symptoms have mildly improved after treatment, and as a result, I will admit patient. ED course: Patient feeling sick for about 1 week, moderate to severe COPD exacerbation with room air O2 sat 81%. Has improved some but not enough to go home. Chest x-ray shows partial lobectomy the patient states she has had in the past. Will cover with antibiotics and admit to hospital service.. 16:29 ED course: I personally spent 35 minutes engaged in work directly related to the rn individual patient's care. This does not include any time spent performing procedures. The patient has been deemed critically ill because of severe COPD exacerbation requiring multiple nebulizer treatments and oxygen supplementation with moderate hypoxemia.. 04/17 14:54 Order name: Blood Culture Adult (2) rn 04/17 14:54 Order name: CBC with Diff; Complete Time: 16:22 rn 04/17 14:54 Order name: CMP; Complete Time: 16:22 rn 04/17 14:54 Order name: Lactate w/ 2H reflex if indic.; Complete Time: 16:22 rn 04/17 14:54 Order name: Protime (+inr); Complete Time: 16:22 rn 04/17 14:54 Order name: Ptt, Activated; Complete Time: 16:22 rn 04/17 14:55 Order name: SARS RAPID; Complete Time: 16:22 rn 04/17 14:55 Order name: Flu; Complete Time: 16:39 rn 04/17 17:21 Order name: ABG Arterial Blood Gas EDMS 04/17 17:21 Order name: NT PRO-BNP EDMS 04/17 17:21 Order name: Basic Metabolic Panel EDMS 04/17 17:21 Order name: Basic Metabolic Panel EDMS 04/17 17:21 Order name: Basic Metabolic Panel EDMS 04/17 17:21 Order name: Basic Metabolic Panel EDMS 04/17 17:21 Order name: Basic Metabolic Panel EDMS 04/17 17:21 Order name: Basic Metabolic Panel EDMS 04/17 17:21 Order name: Basic Metabolic Panel EDMS 04/17 17:21 Order name: Basic Metabolic Panel EDMS 04/17 17:21 Order name: CBC with Automated Diff EDMS 04/17 17:21 Order name: CBC with Automated Diff EDMS 04/17 17:21 Order name: CBC with Automated Diff EDMS 04/17 17:21 Order name: CBC with Automated Diff EDMS 04/17 17:21 Order name: CBC with Automated Diff EDMS 04/17 17:21 Order name: CBC with Automated Diff EDMS 04/17 17:21 Order name: CBC with Automated Diff EDMS 04/17 17:21 Order name: CBC with Automated Diff EDMS 04/17 17:21 Order name: Magnesium EDMS 04/17 17:21 Order name: Magnesium EDMS 04/17 17:21 Order name: Magnesium EDMS 04/17 17:21 Order name: Magnesium EDMS 04/17 17:21 Order name: Magnesium EDMS 04/17 17:21 Order name: Magnesium EDMS 04/17 17:21 Order name: Magnesium EDMS 04/17 17:21 Order name: Magnesium EDMS 04/17 17:21 Order name: Phosphorus EDMS 04/17 17:21 Order name: Phosphorus EDMS 04/17 17:21 Order name: Phosphorus EDMS 04/17 17:21 Order name: Phosphorus EDMS 04/17 17:21 Order name: Phosphorus EDMS 04/17 17:21 Order name: Phosphorus EDMS 04/17 17:21 Order name: Phosphorus EDMS 04/17 17:21 Order name: Phosphorus EDMS 04/17 17:21 Order name: Troponin High Sensitivity EDMS 04/17 17:21 Order name: Troponin High Sensitivity EDMS 04/17 17:21 Order name: Troponin High Sensitivity EDMS 04/17 17:21 Order name: Troponin High Sensitivity EDMS 04/17 14:54 Order name: Chest Single View XRAY; Complete Time: 16:53 rn 04/17 14:54 Order name: EKG; Complete Time: 14:55 rn 04/17 17:21 Order name: CONS Physician Consult [facility] 04/17 14:54 Order name: Accucheck; Complete Time: 15:09 rn 04/17 14:54 Order name: Cardiac monitoring; Complete Time: 15:28 rn 04/17 14:54 Order name: EKG - Nurse/Tech; Complete Time: 15:33 rn 04/17 14:54 Order name: IV Saline Lock - Large Bore; Complete Time: 15:28 rn 04/17 14:54 Order name: Labs collected and sent; Complete Time: 15:28 rn 04/17 14:54 Order name: O2 Per Protocol; Complete Time: 15:10 rn 04/17 14:54 Order name: O2 Sat Monitoring; Complete Time: 15:10 rn 04/17 14:54 Order name: Vital Signs; Complete Time: 15:10 rn Administered Medications: 16:44 Drug: MethylPrednisoLONE IVP 125 mg IVP once Route: IVP; Site: right antecubital; ko1 16:45 Drug: Magnesium Sulfate IVPB 1 grams IVPB once over 1 hrs Route: IVPB; Infused Over: 1 ko1 hrs; Site: right antecubital; 17:01 Drug: Levalbuterol Inhalation 1.25 mg Inhalation once Route: Inhalation; ko1 17:01 Drug: Ipratropium Inhalation Aerosol 0.5 mg Inhalation once Route: Inhalation; ko1 17:01 Drug: Levalbuterol Inhalation 1.25 mg Inhalation once Route: Inhalation; ko1 17:01 Drug: Levalbuterol Inhalation 1.25 mg Inhalation once Route: Inhalation; ko1 17:02 Drug: Zithromax IVPB 500 mg IVPB once over 1 hrs; mix in 250 mL NS Route: IVPB; Infused ko1 Over: 1 hrs; Site: right antecubital; Disposition: 16:26 Critical Care:. rn Disposition Summary: 04/17/23 16:28 Hospitalization Ordered Notes: Hospitalization Status: Observation rn Provider: Jaleel Whitehead rn Location: Telemetry/MedSurg (observation) rn Condition: Stable rn Problem: an acute exacerbation rn Symptoms: have improved rn Bed/Room Type: Standard rn Room Assignment: 409(04/17/23 17:33) em1 Diagnosis - COPD/ Chronic obstructive pulmonary disease with (acute) exacerbation rn - Hypoxemia rn Forms: - Medication Reconciliation Form rn - SBAR form rn - Leadership Thank You Letter sports attorney time excluding procedures: 16:26 Critical care time: Bedside Care: 35 minutes. Total time: 35 minutes rn Signatures: Dispatcher [employer] Emerson Barnes MD MD rn Martinez, Eric em1 Mattie Suh RN RN ld1 Natacha Ruiz RN RN ko1 Corrections: (The following items were deleted from the chart) 17:33 16:28 rn em1
--- NOTE | 2023-04-17 16:41 | RAD REPORT ---
EXAM DESCRIPTION: [place] Single View04/17/2023 3:26 pm CLINICAL HISTORY: Cough;Dyspnea COMPARISON: Chest Single View dated 02/05/2023; Chest Single View dated 05/26/2022; Chest Pa And Lat ( 2 Views) dated 03/12/2019; CHEST SINGLE VIEW dated 09/19/2013 TECHNIQUE: Portable AP view of the chest. FINDINGS: Rib deformities and right hemithorax volume loss, with elevation of the right hemidiaphrag m, stable in appearance. No new focal airspace opacity. No pneumothorax or effusion. The cardiomedia stinal contours are unremarkable. IMPRESSION: No acute cardiopulmonary process.
[2023-04-17] MEDS ORDERED: IPRATROPIUM BROM 0.5MG/2.5ML ONE (16:44)
[2023-04-17] MEDS ORDERED: NA CHLORIDE 0.9% 250 ML ONE (16:45)
[2023-04-17] MEDS ORDERED: AZITHROMYCIN 500 MG INJ IVPB ONE (16:45)
[2023-04-17] MEDS ORDERED: METHYLPREDNISOLONE 125 MG INJ ONE (16:45)
[2023-04-17] MEDS ORDERED: LEVALBUTEROL 1.25 MG/3 ML NEB ONE (16:45)
[2023-04-17] MEDS ORDERED: MAGNESIUM SULFATE 1 gm IVPB 1 GM/100 ML BAG IV ONE (16:46)
[2023-04-17] MEDS ORDERED: IPRATROPIUM BROM 0.5MG/2.5ML NEB PRN (17:20)
[2023-04-17] MEDS ORDERED: LEVALBUTEROL 0.63 MG/3 ML NEB NEB PRN (17:20)
--- NOTE | 2023-04-17 17:31 | P.HP ---
Patient History Date of Service: 04/17/23 Reason for admission: COPD exacerbation History of Present Illness: Silva Boogie is a 62-year-old female with past medical history of Anxiety; COPD; Depression; GERD; Hypertension presented to the ED with complaints of shortness of breath for the past 1 week with room air oxygen saturation at 81% when EMS arrived. On examination, Silva would fall asleep during conversation, oxygen saturation at 100% on nebulizer facemask. Will obtain a stat ABG to evaluate further. No edema to bilateral lower extremity, lung sounds with expiratory wheezing bilaterally. Initial vitals BP 118 / 67; Pulse 69; Resp 20; Pulse Ox 100% on Nebulizer Mask. Laboratory evaluation sodium 127, potassium 3.7, bicarb 34, BUN/creatinine 6/0.62, GFR 101, serum glucose 105. Chest X-ray reports "Rib deformities and right hemithorax volume loss, with elevation of the right hemidiaphragm, stable in appearance. No new focal airspace opacity. No pneumothorax or effusion. The cardiomediastinal contours are unremarkable. No acute cardiopulmonary process." Silva will be admitted to hospitalist service for further evaluation and treatment of acute hypoxic respiratory failure secondary to COPD exacerbation Allergies Sulfa (Sulfonamide Antibiotics) Adverse Reaction (Mild, Verified 02/06/23 07:32) Nausea/Vomiting Home Medications: Albuterol Neb [Proventil 0.083% Neb Soln] 2.5 mg NEB Q6HP PRN #60 amp 02/06/23 Aripiprazole [Abilify] 2 mg PO DAILY 02/06/23 Cefdinir [Cefdinir*] 300 mg PO BID #10 cap 02/06/23 Dextroamphetamine/Amphetamine [Adderall 15 mg Tablet] 15 mg PO BID 02/06/23 Doxycycline Hyclate [Lymepak] 100 mg PO BID #14 tab 02/06/23 Esomeprazole Magnesium 40 mg PO DAILY 02/06/23 Fluticasone/Umeclidin/Vilanter [Trelegy Ellipta 200-62.5-25] 1 puff IH DAILY 02/06/23 Ipratropium Neb [Atrovent*] 0.5 mg NEB [id number] #60 amp 02/06/23 Losartan Potassium [Cozaar*] 50 mg PO BID 02/06/23 Metoprolol Succinate [Toprol Xl*] 25 mg PO DAILY 02/06/23 Trazodone HCl [Desyrel] 100 mg PO BEDTIME 02/06/23 Venlafaxine HCl [Effexor XR] 300 mg PO DAILY 02/06/23 predniSONE [Deltasone] 20 mg PO BID #20 tab 02/06/23 ALPRAZolam [Xanax] 0.5 mg PO BID PRN #40 tab 02/07/23 Roflumilast [Daliresp*] 500 mcg PO DAILY 30 Days #30 tab 02/07/23 - Past Medical/Surgical History Diabetic: No -: COPD -: HTN -: Depression -: Anxiety -: GERD -: barthons gland -: hysterectomy -: lung sx -: tonsilectomy - Family History Father -: Cancer Notes: prostate Mother -: Cancer Notes: lung cancer Sister -: Cancer Notes: lung and brain - Social History Alcohol use: Yes CD- Drugs: No Caffeine use: Yes Review of Systems is unable to be obtained (she is too lethargic to answer questions) Physical Examination - Physical Exam General: Oriented x1, Moderate distress, Other (lethargic) HEENT: Atraumatic, Normocephalic, PERRLA Neck: Supple, 2+ carotid pulse no bruit Respiratory: Normal air movement, Expiratory wheezes Cardiovascular: No edema, Normal pulses, Regular rate/rhythm, Normal S1 S2 Capillary refill: <2 Seconds Gastrointestinal: Normal bowel sounds, Soft and benign, No tenderness Musculoskeletal: No clubbing, No swelling, No contractures Integumentary: No rashes, No breakdown, No significant lesion, No tenderness/swelling Neurological: Normal speech, Abnormal strength (weak and lethargic) - Studies Laboratory Data (last 24 hrs) 04/17/23 04/17/23 04/17/23 15:20 15:20 15:20 WBC 8.00 Hgb 15.1 H Hct 43.1 Plt Count 203 PT 11.5 INR 1.05 APTT 31.6 Sodium 127 L Potassium 3.7 BUN 6 L Creatinine 0.62 Glucose 105 Total Bilirubin 0.3 AST 20 ALT 35 Alkaline Phosphatase 128 H Microbiology Data (last 24 hrs): 04/17/23 15:24 Nasopharnyx Influenza Type A Antigen Screen - Final 04/17/23 15:24 Nasopharnyx Influenza Type B Antigen Screen - Final Assessment and Plan - Plan Assessment and plan Acute hypoxic respiratory failure 2/2 COPD exacerbation Lethargic likely d/t polypharmacy chest xray reports "Rib deformities and right hemithorax volume loss, with elevation of the right hemidiaphragm, stable in appearance. No new focal airspace opacity. No pneumothorax or effusion. The cardiomediastinal contours are unremarkable. No acute cardiopulmonary process." PRN nebs, Q8h steroids, azithromax daily initial RA oxygen saturation 81% per EMS Dr. Loza consulted- recommendations appreciated STAT ABGPH 7.35, CO2 55, PO2 53, Bicarb 30, on 2 LNC at 6 pm N.p.o. until Silva is awake Likely lethargy is d/t polypharmacy Hyponatremia Possibly chronic in nature Sodium 127- will monitor in AM labs gentle IVF History of hypertension History of anxiety/depression History of GERD Restart home medication DVT PPx Lovenox Full code LOS 2 to 3 days Discharge Plan: Home Plan to discharge in: 48 Hours - Advance Directives Does patient have a Living Will: No Does patient have a Durable POA for Healthcare: No Time Spent Managing Pts Care (In Minutes): 55
[2023-04-17 18:46] LABS: Arterial Blood Carboxyhemoglob 4.7 % (0-1.5); Blood Gas Oxyhemoglobin 80.5 % (94-97); Blood O2 Saturation 86.1 % (92-98.5)
[2023-04-17] MEDS: NA CHLORIDE 0.9% 1,000 ML IV SCH (21:10)
[2023-04-17] MEDS: ENOXAPARIN 40 MG/0.4 ML SQ SCH (21:10)
[2023-04-18 00:38] VITALS: BMI 24.0
[2023-04-18 07:11] LABS: Absolute Lymphocytes (CBC) 0.9 K/uL (0.7-4.9); Hematocrit 39.9 % (36.0-45.0); Lymphocytes % 18.2 % (15.3-44.8); MCV 92.2 fL (80-100); Platelets 190 thou/uL (152-406); RBC Red Blood Cell Count 4.33 M/uL (3.86-4.86)
[2023-04-18 07:27] LABS: Magnesium 2.1 mg/dL (1.6-2.4); Potassium 4.6 mEq/L (3.5-5.1)
[2023-04-18] MEDS: ENOXAPARIN 40 MG/0.4 ML SQ SCH (08:59)
[2023-04-18] MEDS: NA CHLORIDE 0.9% 1,000 ML IV SCH (08:59)
[2023-04-18] MEDS ORDERED: AZITHROMYCIN IV 500 MG in NA CHLORIDE 0.9% 250 ML IVPB SCH (09:00)
[2023-04-18] MEDS ORDERED: AMOX/K CLAV 875 MG TAB PO SCH (11:03)
[2023-04-18] MEDS ORDERED: DULERA 200/5 (MOMETASONE/FORMOTEROL) INHALER IH SCH (11:05)
--- NOTE | 2023-04-18 11:05 | P.CNS ---
Date of Consult: 04/18/23 Reason for Consult: COPD exacerbation Chief Complaint: COPD exacerbation History of Present Illness: Patient is 62 years of age with a history of COPD admitted with an exacerbation and has been sick for a week patient uses albuterol at home was also prescribed Wixela/Incruse including Trelegy Allergies Sulfa (Sulfonamide Antibiotics) Adverse Reaction (Mild, Verified 02/06/23 07:32) Nausea/Vomiting Home Medications: Albuterol Neb [Proventil 0.083% Neb Soln] 2.5 mg NEB Q6HP PRN #60 amp 02/06/23 Aripiprazole [Abilify] 2 mg PO DAILY 02/06/23 Dextroamphetamine/Amphetamine [Adderall 15 mg Tablet] 15 mg PO BID 02/06/23 Esomeprazole Magnesium 40 mg PO DAILY 02/06/23 Fluticasone/Umeclidin/Vilanter [Trelegy Ellipta 200-62.5-25] 1 puff IH DAILY 02/06/23 Ipratropium Neb [Atrovent*] 0.5 mg NEB [id number] #60 amp 02/06/23 Metoprolol Succinate [Toprol Xl*] 25 mg PO DAILY 02/06/23 Trazodone HCl [Desyrel] 100 mg PO BEDTIME 02/06/23 Venlafaxine HCl [Effexor XR] 300 mg PO DAILY 02/06/23 ALPRAZolam [Xanax*] 0.5 mg PO BID PRN #40 tab 02/07/23 Roflumilast [Daliresp*] 500 mcg PO DAILY 30 Days #30 tab 02/07/23 predniSONE [Prednisone*] 20 mg PO BID #20 tab 04/18/23 - Past Medical/Surgical History Diabetic: No -: COPD -: HTN -: Depression -: Anxiety -: GERD -: barthons gland -: hysterectomy -: lung sx -: tonsilectomy - Family History Father Medical History: Cancer Notes: prostate Mother Medical History: Cancer Notes: lung cancer Sister Medical History: Cancer Notes: lung and brain - Social History Smoking Status: Current every day smoker Alcohol use: Yes CD- Drugs: No Caffeine use: Yes Place of Residence: Home Review of Systems General: Weakness Respiratory: Cough, Shortness of Breath Physical Examination Temp Pulse Resp BP Pulse Ox 97.7 F 76 20 108/94 H 95 04/18/23 04:00 04/18/23 04:00 04/18/23 04:00 04/18/23 04:00 04/18/23 04:00 General: Alert, Oriented x3 Respiratory: Expiratory wheezes Cardiovascular: No edema, Regular rate/rhythm, Normal S1 S2 Gastrointestinal: Normal bowel sounds, Soft and benign, Non-distended Laboratory Data (last 24 hrs) 04/17/23 04/17/23 04/17/23 15:20 15:20 15:20 WBC 8.00 Hgb 15.1 H Hct 43.1 Plt Count 203 PT 11.5 INR 1.05 APTT 31.6 Sodium 127 L Potassium 3.7 BUN 6 L Creatinine 0.62 Glucose 105 Total Bilirubin 0.3 AST 20 ALT 35 Alkaline Phosphatase 128 H - Problems (1) COPD exacerbation Current Visit: No Status: Acute Plan: Patient is 62 years of age admitted with a COPD exacerbation patient has volume loss on the right side patient has tried Trelegy was very expensive/vital signs stable Patient has mild hypoxemia hypercapnia add scheduled bronchodilators and continue with steroid x-rays reviewed add Augmentin possible discharge home in a.m. on prednisone 10 mg twice a day add Daliresp patient to resume her bronchodilators at home she has a combination of Wixela and Spiriva to Trelegy take also the Dulera from the hospital as patient has had recurrent exacerbations Daliresp would be appropriate
[2023-04-18] MEDS ORDERED: ROFLUMILAST 500 MCG TABLET PO SCH (11:07)
[2023-04-18] MEDS ORDERED: METHYLPREDNISOLONE 125 MG INJ IV SCH (12:00)
--- NOTE | 2023-04-18 12:12 | P.DS ---
Admission Date: 04/17/23 Discharge Date: 04/18/23 Disposition: ROUTINE DISCHARGE Discharge Condition: FAIR Reason for Admission: COPD exacerbation Brief History of Present Illness: Diagnosis: Acute hypoxic respiratory failure 2/2 COPD exacerbation Lethargic likely d/t polypharmacy vs hypercapnia Hyponatremia Silva Boogie is a 62-year-old female with past medical history of Anxiety; COPD; Depression; GERD; Hypertension presented to the ED with complaints of shortness of breath for the past 1 week with room air oxygen saturation at 81% when EMS arrived. On examination, Silva would fall asleep during conversation, oxygen saturation at 100% on nebulizer facemask. Will obtain a stat ABG to evaluate further. No edema to bilateral lower extremity, lung sounds with expiratory wheezing bilaterally. Initial vitals BP 118 / 67; Pulse 69; Resp 20; Pulse Ox 100% on Nebulizer Mask. Laboratory evaluation sodium 127, potassium 3.7, bicarb 34, BUN/creatinine 6/0.62, GFR 101, serum glucose 105. Chest X-ray reports "Rib deformities and right hemithorax volume loss, with elevation of the right hemidiaphragm, stable in appearance. No new focal airspace opacity. No pneumothorax or effusion. The cardiomediastinal contours are unremarkable. No acute cardiopulmonary process." Silva will be admitted to hospitalist service for further evaluation and treatment of acute hypoxic respiratory failure secondary to COPD exacerbation Hospital Course: Silva Boogie is a pleasant 62-year-old female with a past medical history significant for Anxiety; COPD; Depression; GERD; Hypertension who was admitted to the [facility] on 04/17/23 for COPD exacerbation. Silva presented to the ED with complaints of shortness of breath for the past week with room air oxygen saturation at 81% when EMS arrived. Upon arrival to the ED she was given a nebulizer treatment followed by 2 L nasal cannula with ABG revealing hypercapnia. On examination she was unable to stay awake long enough to finish a sentence. Dr. Loza was consulted and recommended bronchodilators, steroids, daliresp, and augmentin. She was found to be hyponatremic at 127 with gentle IV fluids her sodium has increased to 133. This morning, she is awake alert and oriented, requesting discharge with family at the bedside. She has tolerated steroids, antibiotics, nebulizer treatments, and oxygen supplementation maintaining saturation of 95% on 2 LNC. Home oxygen test showed, at rest room air oxygen saturation at 90%, while ambulating with room air 89%, and while ambulating with 2 LNC 92% proving the need for home oxygen. She is hemodynamically stable, ambulating independently with the use of the rolling walker, and tolerating p.o. diet. On 04/18/23, Silva Boogie was seen on morning rounds and deemed medically stable for discharge. Silva was discharged with instructions to schedule follow-up appointments with PCP and Dr. Loza. Silva was provided prescriptions for Augmentin, prednisone, Daliresp, and Dulera. The patient and family members were given the opportunity to ask questions and reported no further questions. Furthermore, all questions were answered to the best of my ability. A copy of this discharge summary will be sent to the above providers to facilitate continuity of care. Today, I personally spent 50 minutes with Silva Boogie, of which greater than 50% of the time was spent in patient education, counseling, and coordination of care as described above. Physical Exam General: AAO x3, conversing well HEENT: Atraumatic, Normocephalic, PERRLA, poor dentation Neck: Supple, 2+ carotid pulse no bruit Respiratory: Normal air movement, Expiratory wheezes, 2 LNC Cardiovascular: No edema, Normal pulses, Regular rate/rhythm, Normal S1 S2 Capillary refill: <2 Seconds Gastrointestinal: Normal bowel sounds, Soft and benign, No tenderness Musculoskeletal: No clubbing, No swelling, No contractures Integumentary: No rashes, No breakdown, No significant lesion, No tenderness/swelling Neurological: Normal speech, normal effect Vital Signs/Physical Exam: Temp Pulse Resp BP Pulse Ox 97.7 F 76 20 108/94 H 95 04/18/23 04:00 04/18/23 04:00 04/18/23 04:00 04/18/23 04:00 04/18/23 04:00 Laboratory Data at Discharge: WBC 4.70 thou/uL (4.3-10.9) 04/18/23 06:15 Hgb 13.7 g/dL (12.0-15.0) D 04/18/23 06:15 Hct 39.9 % (36.0-45.0) 04/18/23 06:15 Plt Count 190 thou/uL (152-406) 04/18/23 06:15 PT 11.5 SECONDS (9.5-12.5) 04/17/23 15:20 INR 1.05 04/17/23 15:20 APTT 31.6 SECONDS (24.3-36.9) 04/17/23 15:20 Sodium 133 mEq/L (136-145) L D 04/18/23 06:15 Potassium 4.6 mEq/L (3.5-5.1) D 04/18/23 06:15 BUN 8 mg/dL (7-18) 04/18/23 06:15 Creatinine 0.48 mg/dL (0.55-1.02) L 04/18/23 06:15 Glucose 110 mg/dL (74-106) H 04/18/23 06:15 Phosphorus 4.0 mg/dL (2.5-4.9) 04/18/23 06:15 Magnesium 2.1 mg/dL (1.6-2.4) 04/18/23 06:15 Total Bilirubin 0.3 mg/dL (0.2-1.0) 04/17/23 15:20 AST 20 U/L (15-37) 04/17/23 15:20 ALT 35 U/L (13-56) 04/17/23 15:20 Alkaline Phosphatase 128 U/L (45-117) H 04/17/23 15:20 Home Medications: Albuterol Neb [Proventil 0.083% Neb Soln] 2.5 mg NEB Q6HP PRN #60 amp 02/06/23 Aripiprazole [Abilify] 2 mg PO DAILY 02/06/23 Dextroamphetamine/Amphetamine [Adderall 15 mg Tablet] 15 mg PO BID 02/06/23 Esomeprazole Magnesium 40 mg PO DAILY 02/06/23 Fluticasone/Umeclidin/Vilanter [Trelegy Ellipta 200-62.5-25] 1 puff IH DAILY 02/06/23 Ipratropium Neb [Atrovent*] 0.5 mg NEB [id number] #60 amp 02/06/23 Metoprolol Succinate [Toprol Xl*] 25 mg PO DAILY 02/06/23 Trazodone HCl [Desyrel] 100 mg PO BEDTIME 02/06/23 Venlafaxine HCl [Effexor XR] 300 mg PO DAILY 02/06/23 ALPRAZolam [Xanax*] 0.5 mg PO BID PRN #40 tab 02/07/23 Roflumilast [Daliresp*] 500 mcg PO DAILY 30 Days #30 tab 02/07/23 Amox/Clavulanate [Augmentin 875-125 Tab*] 875 mg PO BID 7 Days #14 tab 04/18/23 Mometasone/Formoterol [Dulera 200 Mcg/5 Mcg Inhaler] 2 puff IH BID inhaler 04/18/23 Roflumilast [Daliresp*] 500 mcg PO DAILY 04/18/23 Roflumilast [Daliresp] 500 mcg PO DAILY 30 Days #30 tab 04/18/23 predniSONE [Prednisone*] 20 mg PO BID #20 tab 04/18/23 New Medications: Amox/Clavulanate [Augmentin 875-125 Tab*] 875 mg PO BID 7 Days #14 tab Roflumilast [Daliresp] 500 mcg PO DAILY 30 Days #30 tab predniSONE [Prednisone*] 20 mg PO BID #20 tab Physician Discharge Instructions: 1. Please call and schedule a follow-up appointment with your PCP in 3-5 days - Please follow-up with your PCP for medication refills/adjustments 2. Please call and schedule a follow-up appointment with Dr. Loza in 3-5 days 3. Continue home bronchodilators 4. Use caution when taking Xanax, Ambien, Effexor. Space out appropriately and as prescribed. 5. Low-sodium diet heart healthy diet 6. Activity as tolerated, fall precaution, use rollator to stabilize ambulation 7. Return to ED if symptoms worsen 8. Home oxygen at 2 Liters Nasal cannula with follow up with Dr. Loza for oxygen titration New medications Prednisone 20 mg twice a day Daliresp 500 mcg Augmentin twice a day for 7 days Dulera 2 puffs twice daily Diet: AHA Followup: Anish Loza MD [ACTIVE - CAN ADMIT] - (F/U in 3-5 days) Karis Rocha PA [Primary Care Provider] - (F/U in 3-5 days)
[2023-04-18] MEDS ORDERED: IPRATROPIUM BROM 0.5MG/2.5ML NEB SCH (13:00)
--- NOTE | 2023-04-18 13:24 | EKG ---
Test Date: 2023-04-17 Test Time: 15:37:48 Pharmaceutical Physician: ALLIE MEASUREMENT RESULTS: Intervals: Rate: 99 CA: 134 QRSD: 90 QT: 334 QTc: 428 [place]: P: 74 CA: 134 QRS: 61 T: 89 INTERPRETIVE STATEMENTS: Normal sinus rhythm Normal ECG Compared to ECG 02/05/2023 23:25:16 No significant changes Electronically Signed On 04-18-23 13:22:39 [employer] by Brian Larson
[2023-04-18 17:03] VITALS: BP 149/88; TEMP 97.1
[2023-04-18 18:56] VITALS: O2SAT 95
[2023-04-19] MEDS ORDERED: AZITHROMYCIN 250 MG TAB PO SCH (09:00)
== END 2023-04-18 17:00 | disposition home or self-care (01) ==
LOC: ER 14:50 → ERHOLD 17:32 → 4TH 17:41
PROVIDERS: ADMIT Internal Medicine; ATTEND Internal Medicine
DX: J44.1 Chronic obstructive pulmonary disease with (acute) exacerbation (principal); J96.01 Acute respiratory failure with hypoxia; F41.9 Anxiety disorder, unspecified; F32.A Depression, unspecified; K21.9 Gastro-esophageal reflux disease without esophagitis; I10 Essential (primary) hypertension; E87.1 Hypo-osmolality and hyponatremia; F17.210 Nicotine dependence, cigarettes, uncomplicated; Z88.2 Allergy status to sulfonamides; Z80.9 Family history of malignant neoplasm, unspecified; Z11.52 Encounter for screening for COVID-19
CPT/HCPCS: 93005; 87040 ×2; 85025 ×2; 80048; 36415 ×2; 83735; 84100; 85610; 83605; 85730; 84484 ×3; 80053; 83880; 87804 ×2; 71045; 82805; 96375; 96374; 99285; 87811; 36600; J3475; J3535; J7614; J7644 ×2; J1650 ×2; J2930 ×2; J7050 ×2; J7030 ×2; G0378 ×3

== ENCOUNTER → 2023-06-29 | Emergency (ER) | payer OTHER ==
[~2023-06-29] MED LIST: HYDROCODONE/APAP 10/325 TAB ONE
--- NOTE | 2023-06-29 12:51 | RAD REPORT ---
EXAM DESCRIPTION: RAD - Clavicle Left - 06/29/2023 12:34 pm CLINICAL HISTORY: Pain;Swelling COMPARISON: No comparisons FINDINGS: AC joint and glenohumeral joint arthritic changes are present, mild. Left clavicle appears intact. No fracture or dislocation.
--- NOTE | 2023-06-29 13:50 | RAD REPORT ---
EXAM DESCRIPTION: CT - Thorax Wo Con CLINICAL HISTORY: Chest pain Pain;Swelling COMPARISON: Chest For Pe Angio dated 02/06/2023 FINDINGS: Prominent diffuse emphysema. Multiple nodules are present in both lungs. The majority thes e nodules show stability since 03/09/2023 study. Anterior superior segment left lower lobe nodule has increased in size currently measuring 16 mm, previously 9 mm. No pleural thickening or pleural effus ion. No pneumothorax. No axillary, mediastinal or hilar adenopathy. Nondisplaced fracture is seen mid shaft of the left clavicle. There is evidence of an underlying luce nt lesion measuring 18 mm. No gross upper abdominal finding. All CT scans are performed using dose optimization technique as appropriate and may include automated exposure control or mA/KV adjustment according to patient size. IMPRESSION: Nondisplaced fracture of the midshaft left clavicle. There appears to be an underlying 1 7 mm lucent lesion present at the site of this fracture.This would indicate a pathologic fracture lik hyacinth related to underlying bone tumor or metastatic deposit.
--- NOTE | 2023-06-29 14:20 | ER ---
Nurse's Notes [facility] Name: Silva Boogie Age: 63 yrs Sex: Female : 1960 Arrival Date: 06/29/2023 Time: 11:56 Bed 17 Private MD: Diagnosis: Fracture of shaft of clavicle Presentation: 06/28 12:00 Chief complaint: EMS states: reports left collarbone pain. States she thinks she pulled cp4 a muscle or something. Coronavirus screen: Client denies travel out of the [place] in the last 14 days. At this time, the client does not indicate any symptoms associated with coronavirus-19. Ebola Screen: Patient negative for fever greater than or equal to 101.5 degrees Fahrenheit, and additional compatible Ebola Virus Disease symptoms Patient denies exposure to infectious person. Patient denies travel to an Ebola-affected area in the 21 days before illness onset. No symptoms or risks identified at this time. Initial Sepsis Screen: Does the patient meet any 2 criteria? No. Patient's initial sepsis screen is negative. Does the patient have a suspected source of infection? No. Patient's initial sepsis screen is negative. Risk Assessment: Do you want to hurt yourself or someone else? Patient reports no desire to harm self or others. Onset of symptoms was June 27, 2023. Care prior to arrival:. 12:00 Method Of Arrival: EMS: [facility] cp4 12:00 Acuity: MAVIS 3 cp4 Triage Assessment: 12:04 General: Appears in no apparent distress. Behavior is calm, cooperative, appropriate cp4 for age. Pain: Complains of pain in left collarbone. Historical: - Allergies: 12:04 Sulfa (Sulfonamide Antibiotics); cp4 - PMHx: 12:04 Anxiety; COPD; Depression; GERD; Hypertension; cp4 - Immunization history:: Adult Immunizations up to date. - Social history:: Smoking status: unknown. Screenin:[address] [facility] ED Fall Risk Assessment (Adult) History of falling in the last 3 months, cp4 including since admission No falls in past 3 months (0 pts) Confusion or Disorientation No (0 pts) Intoxicated or Sedated No (0 pts) Impaired Gait No (0 pts) Mobility Assist Device Used No (0 pt) Altered Elimination No (0 pt) Score/Fall Risk Level 0 - 2 = Low Risk Oriented to surroundings, Maintained a safe environment, Assessed \T\ reinforced patient's understanding of fall precautions, Hourly rounding (assess needs \T\ fall precautionary measures) done. Abuse screen: Denies threats or abuse. Nutritional screening: No deficits noted. Tuberculosis screening: No symptoms or risk factors identified. Assessment: 12:05 Reassessment: No changes from previously documented assessment. General: Appears in no cp4 apparent distress. Behavior is calm, cooperative, appropriate for age. Musculoskeletal: Reports pain in left collarbone. Vital Signs: 12:00 BP 158 / 106; Pulse 119; Resp 20; Temp 98; Pulse Ox 94% 2 lpm ; Pain 8/10; cp4 13:00 BP 168 / 105; Pulse 111; Resp 18; Pulse Ox 95% ; cp4 14:00 BP 171 / 101; Pulse 111; Resp 18; Pulse Ox 95% 2 lpm ; cp4 12:00 Pain Scale: Adult cp4 ED Course: 12:00 Patient arrived in ED. cp4 12:00 Nara Jackson FNP-C is PHCP. kb 12:00 Pedro Luis Garcia MD is Attending Physician. kb 12:00 Caty Anand is Primary Nurse. cp4 12:04 Triage completed. cp4 12:04 Arm band placed on right wrist. Patient placed in an exam room, on a stretcher. cp4 12:05 Bed in low position. Call light in reach. Side rails up X 1. cp4 12:05 No provider procedures requiring assistance completed. cp4 12:35 Clavicle Left XRAY In Process Unspecified. EDMS 13:[address] via stretcher. hb 13:39 CT Chest Wo Con In Process Unspecified. EDMS 14:36 Provided Education on: clavicle fracture. cp4 14:36 Clavicle/Shoulder strap applied on left clavicle/shoulder. cp4 14:36 Patient did not have IV access during this emergency room visit. cp4 Administered Medications: 12:27 Drug: Hope PO 10 mg-325 mg 1 tabs PO once Route: PO; cp4 13:28 Follow up: Response: No adverse reaction; Pain is decreased cp4 Medication: 12:05 VIS not applicable for this client. cp4 Outcome: 14:20 Discharge ordered by . kb 14:36 Discharged to home via wheelchair, cp4 14:36 Condition: stable 14:36 Discharge instructions given to patient, Instructed on discharge instructions, follow up and referral plans. medication usage, Demonstrated understanding of instructions, follow-up care, medications, 14:37 Patient left the ED. cp4 Signatures: Dispatcher [employer] EDNara Gibbons, Grace Lynn RN RN Caty Ma cp4
--- NOTE | 2023-06-29 14:20 | EDPHYS ---
Physician Documentation [facility] Name: Silva Boogie Age: 63 yrs Sex: Female : 1960 Arrival Date: 06/29/2023 Time: 11:56 Bed 17 Private MD: ED Physician Pedro Luis Garcia HPI: 06/28 14:17 This 63 yrs old Female presents to ER via EMS with complaints of Pain. kb 14:17 Pt is a 63 year old female who presents for pain and swelling to left clavicle that kb started yesterday. States she has been sitting in a different chair for 3 days and is using left arm to extend the footrest which she normally doesn't do. States the last time she did it she felt a pop in clavicle area. . Historical: - Allergies: 12:04 Sulfa (Sulfonamide Antibiotics); cp4 - PMHx: 12:04 Anxiety; COPD; Depression; GERD; Hypertension; cp4 - Immunization history:: Adult Immunizations up to date. - Social history:: Smoking status: unknown. ROS: 14:16 Constitutional: As per HPI kb Exam: 14:16 Constitutional: This is a well developed, well nourished patient who is awake, alert, kb and in no acute distress. Head/Face: Normocephalic, atraumatic. ENT: Moist Mucous membranes Cardiovascular: Regular rate Respiratory: Respirations even and unlabored. No increased work of breathing. Talking in full sentences Abdomen/GI: Soft, non-tender. No distention Skin: Warm, dry with normal turgor. Normal color. Neuro: Awake and alert, GCS 15, oriented to person, place, time, and situation. Moves all extremities. Normal gait. 14:16 Musculoskeletal/extremity: Extremities: grossly normal except: noted in the left clavicle: pain, swelling, tenderness, ROM: limited active range of motion due to pain, Circulation is intact in all extremities. Sensation intact. Vital Signs: 12:00 BP 158 / 106; Pulse 119; Resp 20; Temp 98; Pulse Ox 94% 2 lpm ; Pain 8/10; cp4 13:00 BP 168 / 105; Pulse 111; Resp 18; Pulse Ox 95% ; cp4 14:00 BP 171 / 101; Pulse 111; Resp 18; Pulse Ox 95% 2 lpm ; cp4 12:00 Pain Scale: Adult cp4 MDM: 12:00 Patient medically screened. kb 14:17 Data reviewed: vital signs, nurses notes. kb 14:18 Differential diagnosis: fracture, contusion, strain. Historians other than the Patient: [facility] EMS: [facility]. Counseling: I had a detailed discussion with the patient and/or guardian regarding the historical points, exam findings, and any diagnostic results supporting the discharge/admit diagnosis, radiology results, the need for outpatient follow up, a orthopedic surgeon, to return to the emergency department if symptoms worsen or persist or if there are any questions or concerns that arise at home. ED course: Educated pt on CT findings including increase in size of nodule. Pt states she has an appt with her oncologist on 07/03/23 and will take report with her. 06/28 12:00 Order name: Clavicle Left XRAY; Complete Time: 12:54 kb 06/28 12:54 Order name: CT Chest Wo Con; Complete Time: 13:52 kb Administered Medications: 12:27 Drug: [place] PO 10 mg-325 mg 1 tabs PO once Route: PO; cp4 13:28 Follow up: Response: No adverse reaction; Pain is decreased cp4 Disposition Summary: 06/29/23 14:20 Discharge Ordered Notes: Location: Home kb Condition: Stable kb Diagnosis - Fracture of shaft of clavicle kb Followup: kb - With: Emergency Department - When: As needed - Reason: Worsening of condition Followup: kb - With: Private Physician - When: 2 - 3 days - Reason: Recheck today's complaints, Continuance of care, Re-evaluation by your physician Discharge Instructions: - Discharge Summary Sheet kb - Clavicle Fracture, [id number] kb Forms: - Medication Reconciliation Form kb - Thank You Letter kb - Antibiotic Education kb - Prescription Opioid Use kb - Patient Portal Instructions kb - Leadership Thank You Letter kb Prescriptions: - acetaminophen-codeine 300-15 mg Oral tablet - take 1 tablet ORAL route every 8 hours As needed; 9 tablet; Refills: 0, Product kb Selection Permitted Signatures: Dispatcher [employer] EDNara Gibbons FNP-C FNP-Ckb Potter, Christina cp4
[2023-06-29 14:48] VITALS: BP 171/101; TEMP 98; O2SAT 95
== END ==
LOC: ER 11:56
DX: S42.022A Displaced fracture of shaft of left clavicle, initial encounter for closed fracture (principal); Z88.2 Allergy status to sulfonamides
CPT/HCPCS: 71250; 99284